=== PATIENT | male | born 1950 | race Caucasian/White ===

== ENCOUNTER → 2024-02-15 14:29 | Outpatient (REF) | payer OTHER, SELFPAY | LOC: HWRCS 14:29 | PROVIDERS: ATTENDING PHYSICIAN Internal Medicine Cardiovascular Disease; FAMILY PHYSICIAN Family Medicine | DX: I48.0 Paroxysmal atrial fibrillation (principal) | CPT/HCPCS: 93306 ==

== ENCOUNTER → 2024-02-16 07:43 | Outpatient (REF) | payer OTHER, SELFPAY | LOC: DHCBC/DCA 07:43 | PROVIDERS: ATTENDING PHYSICIAN Family Medicine | DX: I48.0 Paroxysmal atrial fibrillation (principal) | CPT/HCPCS: 78452; 93017; A9500 ==

== ENCOUNTER → 2024-02-16 12:00 | Outpatient (REF) | payer OTHER, SELFPAY | LOC: DHSLP 12:00 | PROVIDERS: ATTENDING PHYSICIAN Family Medicine | DX: G47.19 Other hypersomnia (principal); R06.83 Snoring | CPT/HCPCS: 95800 ==

== ENCOUNTER 2024-02-18 14:20 | Emergency (ER) | payer OTHER, SELFPAY ==
[2024-02-18 14:22] VITALS: BP 95/57
[2024-02-18 15:11] LABS: % Basophils 1.4 % (0-2); % Eosinophils 1.2 % (0-6); % Immature Granulocytes 0.3 % (0-0.5); % Lymphocytes 19.9 % (20.5-51.1); % Monocytes 10.2 % (1.7-9.3); Absolute Basophils 0.1 10^3/uL (0-0.2); Absolute Eosinophils 0.1 10^3/uL (0-0.7); Absolute Lymphocytes 1.5 10^3/uL (1.2-3.4); Absolute Monocytes 0.8 10^3/uL (0.1-0.6); Absolute Neutrophils 4.9 10^3/uL (1.4-6.5); Hematocrit 39.9 % (39.0-52.0); Mean Corp Hgb Conc. 35.1 g/dL (33.0-37.0); Mean Corpuscular Hgb 32.3 pg (27.0-31.0); Mean Corpuscular Volume 92.1 fL (80.0-94.0); Nucleated Red Blood Cells % 0 % (-); Platelet Count 192 10^3/uL (130-400); Red Blood Cell Count 4.33 10^6/uL (4.70-6.10); Red Cell Dist. Width 12.6 % (11.5-14.5); White Blood Cell Count 7.3 10^3/uL (4.8-10.8)
[2024-02-18 15:55] LABS: ALT (SGPT) 19 U/L (0-50); AST (SGOT) 31 U/L (17-59); Albumin 5.1 g/dl (3.5-5.0); Alkaline Phosphatase 43 U/L (38-126); Blood Urea Nitrogen 34 mg/dl (9-20); Carbon Dioxide 24 mmol/L (22-30); Chloride 100 mmol/L (98-107); Glucose 133 mg/dl (70-99); Sodium 138 mmol/L (135-145); Total Bilirubin 0.8 mg/dl (0.2-1.3); Total Protein 7.6 g/dl (6.3-8.2); eGFR > 60.00
[2024-02-18 16:02] VITALS: BP 127/78
--- NOTE | 2024-02-18 16:50 | ED.GENMED ---
History of Present Illness
General
Chief Complaint: Heart Rate Problem
Source: patient, records, spouse and physician
Exam Limitations: none
Time Seen by Provider: 02/18/24 15:57
Nursing documentation reviewed up to this point in time: agreed with
History of Present Illness
History of Present Illness:
Patient is a 73-year-old male who was sent in by cardiology after while he was doing a stress test for baseline measurement he went into atrial fibrillation spontaneously. Patient has a history of atrial fibrillation and is on propafenone. Patient
did not take his medicines yesterday or today. Patient was supposed to be n.p.o. for the stress test today. Patient now feels fine. Patient denies chest pain, shortness of breath or palpitations. Patient denies any GI or symptoms. Patient is
not anticoagulated because of his Parkinson's disease. Patient denies headache. Patient denies any fever or chills. While in the ER he spontaneously converted into atrial fibrillation. Patient was to receive IV fluids because of an elevated BUN
but wants to leave immediately.
Past History
Past History
ED Past Medical History: Arrthythmia (Atrial fibrillation), CAD, Cancer (Skin), GERD, HTN, Hypercholesterolemia and Other (Parkinson's)
ED Past Surgical History: Cardiac and Other
Social History
Tobacco: Former smoker
Alcohol: Daily
Personal:
Living: with family
Review of Systems
Review of Systems
All Other Systems: ROS reviewed and negative except as documented in HPI and ROS
Constitutional: Reports no symptoms
EENT: Reports no symptoms
Respiratory: Reports no symptoms
Cardiac: Reports no symptoms
ABD/GI: Reports no symptoms
: Reports no symptoms
Musculoskeletal: Reports no symptoms
Skin: Reports no symptoms
Neurological: Reports no symptoms
Hematologic/Lymphatic: Reports no symptoms
Phy Exam
Physical Exam
Physical Exam:
Physical Exam
General: No apparent distress, alert and appropriate, well nourished, well hydrated
HENT: Normocephalic, supple with no lymphadenopathy, no thyromegaly
Eyes: Clear sclera, conjuctiva without injection
Heart: Regular rhythm and rate. No S3, S4. No murmur. No NVD
Lungs: No respiratory distress, no stridor, lung sounds clear and equal bilaterally, chest wall symmetrical and nontender
Abdomen: Soft, nontender, no organomegaly, no CVA tenderness, BS good
Neuro: Alert and oriented x 3, CN II - XII intact, no motor focality
Skin: no rash
Psychiatric: well kept. interactive and cooperative
Extremities: No edema, cyanosis, tenderness, Good and equal peripheral pulses.
Scores
[id number] Score for Afib Stroke Risk
Age in Years (65=0, 65-74=1, >/=75=2): 65-74
Sex (Female=+1): Male
Congestive Heart Failure History (Yes=+1): No
Hypertension History (Yes=+1): Yes
Stroke/TIA/Thromboembolism History (Yes=+2): No
Vascular Disease History (Yes=+1): Yes
Diabetes Mellitus (Yes=+1): No
Score: 3
Anticoagulation Recommendations: Recommend anticoagulation (as validated in nonvalvular fib)
Course
Orders/Labs/Results
Orders:
Orders
02/18/24 14:26
Electrocardiogram (*1) Urgent
Reason for Study: Atrial Fibrillation
02/18/24 14:27
EKG- Treatment ONCE
02/18/24 14:48
Complete Blood Count/With Diff Urgent
Comprehensive Metabolic Panel Urgent
02/18/24 16:17
Electrocardiogram (*1) Urgent
Reason for Study: Atrial Fibrillation
EKG- Treatment ONCE
0.9% Sodium Chloride 500 ml [Nss] 500 ml IV BOLUS
Abnormal Lab Results
02/18/24
14:48
RBC 4.33 L 10^6/uL
(4.70-6.10)
MCH 32.3 H pg
(27.0-31.0)
MPV 11.0 H fL
(7.4-10.4)
Absolute Monos (auto) 0.8 H 10^3/uL
(0.1-0.6)
Lymphocytes % 19.9 L %
(20.5-51.1)
Monocytes % 10.2 H %
(1.7-9.3)
BUN 34 H mg/dl
(9-20)
Glucose 133 H mg/dl
(70-99)
Albumin 5.1 H g/dl
(3.5-5.0)
02/18/24 14:48
02/18/24 14:48
Vital Signs
Initial and Last Documented VS:
Initial Vital Signs
Temp Pulse Resp BP Pulse Ox
97.4 F 65 18 95/57 99
02/18/24 14:22 02/18/24 14:22 02/18/24 14:22 02/18/24 14:22 02/18/24 14:22
Last Documented Vital Signs
Temp Pulse Resp BP Pulse Ox
97.4 F 94 14 127/78 100
02/18/24 14:22 02/18/24 16:15 02/18/24 16:15 02/18/24 16:02 02/18/24 16:15
*Radiology
Radiology exam reviewed: other (Not applicable)
*Pulse Oximetry
Patient hypoxic: no
*EKG
Interpreted by ED Provider?: Yes
EKG Intrepretation Date: 02/18/24
EKG Intrepretation Time: 16:57
Interpretation: abnormal
Comparison EKG: changes noted
Heart Rate: 122
Rate: tachycardiac
Rhythm: a-fib
[place]: normal axis
Interval: normal QT interval
QRS Pattern: normal QRS
Ischemia: non-specific ST changes
*Kicking Machine Operator Interpretation
Rate: normal
Interpretation: normal
Heart Rate: 96
Rhythm: sinus
*Critical Care Note
Total Time (30-74mins, 75-104mins- exclusive of procedures): Not Applicable
Update Note
Update Note:
Obtain converted while waiting to see me. Repeat EKG normal sinus rhythm at a rate of 88 and the rest of the EKG is unremarkable. Spoke with cardiology and will follow-up in office.
ED Attending Note
-
Portions of this chart may have been created with voice recognition software.� Occasional wrong word or��sound alike� substitutions may have occurred due to the inherent limitations of voice recognition software.
Discharge Plan
Departure
Patient Disposition: Home (Routine Discharge)
Date of Disposition: 02/18/24
Time of Disposition: 16:58
Patient with high blood pressure during this ER visit?: No
Condition: Fair
Covid-19: Not Applicable
Discharge Problem:
Paroxysmal A-fib
Instructions: Atrial Fibrillation (DC)
Prescriptions:
No Action
aspirin 81 mg Tablet,Delayed Release (Dr/Ec)
81 mg PO DAILY
propafenone 150 mg Tablet
150 mg PO TID
pravastatin 80 mg Tablet
80 mg PO HS
carbidopa-levodopa 25-100 mg Tablet
1 tab PO TID
polyethylene glycol 3350 [Miralax] 17 gram/dose powder
17 g PO DAILYPRN PRN (Reason: constipation)
Referrals:
Bony Andrews MD [Family Provider] - Follow up in 2-3 days
Activity Restrictions/Additional Instructions:
Your hvac journeyman will contact you. In the meantime make sure to take your medications as prescribed.
Interventions
Interventions:
*Risk Screen - Suicide Last Done: 02/18/24 14:22
*General Assessment Last Done: 02/18/24 14:22
*Neglect/Abuse Screening Last Done: 02/18/24 16:07
*ED COVID-19 Vaccine History Last Done: 02/18/24 14:22
ED- Cardiac Assessment Last Done: 02/18/24 16:07
ED- Pulmonary Assessment Last Done: 02/18/24 16:07
Discharge Date and Time
Print Language: FINNISH
== END 2024-02-18 17:21 | disposition home or self-care (01) ==
LOC: EMR 14:20
PROVIDERS: EMERGENCY PHYSICIAN Emergency Medicine; FAMILY PHYSICIAN Family Medicine
DX: I48.0 Paroxysmal atrial fibrillation (principal); G20.A1 Parkinson's disease without dyskinesia, without mention of fluctuations; I25.10 Atherosclerotic heart disease of native coronary artery without angina pectoris; E78.00 Pure hypercholesterolemia, unspecified; I10 Essential (primary) hypertension; K21.9 Gastro-esophageal reflux disease without esophagitis; Z85.828 Personal history of other malignant neoplasm of skin; Z87.891 Personal history of nicotine dependence; Z79.899 Other long term (current) drug therapy
CPT/HCPCS: 99284; 80053; 85025; 93005

== ENCOUNTER → 2024-04-04 07:04 | Outpatient (REF) | payer OTHER, SELFPAY | LOC: HWRCS 07:04 | PROVIDERS: ATTENDING PHYSICIAN Internal Medicine Cardiovascular Disease; FAMILY PHYSICIAN Family Medicine | DX: I25.10 Atherosclerotic heart disease of native coronary artery without angina pectoris (principal) | CPT/HCPCS: 78452; 93017; A9500; J2785 ==

== ENCOUNTER → 2024-08-24 17:42 | Outpatient (REF) | payer OTHER, SELFPAY | LOC: RAD 17:42 | PROVIDERS: ATTENDING PHYSICIAN Family Medicine | DX: R63.4 Abnormal weight loss (principal) | CPT/HCPCS: 74177; Q9967 ==

== ENCOUNTER → 2024-09-01 15:23 | Outpatient (REF) | payer OTHER, SELFPAY | LOC: RAD 15:23 | PROVIDERS: ATTENDING PHYSICIAN Family Medicine | DX: R93.89 Abnormal findings on diagnostic imaging of other specified body structures (principal); R63.4 Abnormal weight loss | CPT/HCPCS: 71260; Q9967 ==

== ENCOUNTER 2024-09-09 09:33 | Emergency (ER) | payer OTHER, SELFPAY ==
[2024-09-09 09:34] VITALS: BMI 19.2
[2024-09-09 09:38] VITALS: BP 106/68
[2024-09-09 10:00] VITALS: BP 142/82
[2024-09-09 10:08] VITALS: BP 142/82
[2024-09-09 10:24] LABS: % Basophils 1.3 % (0-2); % Eosinophils 2.7 % (0-6); % Immature Granulocytes 0.2 % (0-0.5); % Lymphocytes 18.8 % (20.5-51.1); % Monocytes 13.7 % (1.7-9.3); % Neutrophils 63.3 % (42.2-75.2); Absolute Basophils 0.1 10^3/uL (0-0.2); Absolute Eosinophils 0.2 10^3/uL (0-0.7); Absolute Lymphocytes 1.1 10^3/uL (1.2-3.4); Absolute Monocytes 0.8 10^3/uL (0.1-0.6); Absolute Neutrophils 3.8 10^3/uL (1.4-6.5); Hemoglobin 12.7 g/dL (13.0-18.0); Mean Corp Hgb Conc. 34.3 g/dL (33.0-37.0); Mean Corpuscular Hgb 31.4 pg (27.0-31.0); Mean Corpuscular Volume 91.6 fL (80.0-94.0); Mean Platelet Volume 10.8 fL (7.4-10.4); Nucleated Red Blood Cells % 0 % (-); Platelet Count 173 10^3/uL (130-400); Red Blood Cell Count 4.04 10^6/uL (4.70-6.10); Red Cell Dist. Width 12.9 % (11.5-14.5)
--- NOTE | 2024-09-09 10:24 | ED.GENMED ---
History of Present Illness
General
Chief Complaint: Change in Mental Status
Time Seen by Provider: 09/09/24 10:14
History of Present Illness
History of Present Illness:
Patient is a 74-year-old male with past medical history of Parkinson's, atrial fibrillation, CAD, hyperlipidemia, and GERD, here today with for evaluation of near syncopal/syncopal episodes that have been occurring over the past couple of
weeks. Patient currently resides at home with his . There is no assistance in the home including caregivers or nurses. states over the past several weeks the patient has had approximately 3 episodes of the near syncopal/syncopal
episodes. They typically begin with a blank stare followed by the patient beginning to fall over. All 3 of the episodes were witnessed and the patient was caught without falling. No head trauma. No associated chest pain or difficulty breathing.
states the patient has never completely lost consciousness. Episodes typically last several seconds and then self resolve and patient comes to his normal baseline shortly after. He has also had a recently decreased appetite but no other acute
complaints. No fevers. No chest pain or difficulty breathing. No other acute complaints. No seizure-like activity noted. No tongue biting. He does have baseline urinary incontinence that occurs intermittently but no changes related to this.
Past History
Past History
ED Past Medical History: Arrthythmia (Atrial fibrillation), CAD, Cancer (Skin), GERD, HTN, Hypercholesterolemia and Other (Parkinson's)
ED Past Surgical History: Cardiac and Other
Social History
Tobacco: Former smoker
Alcohol: Daily
Personal:
Living: with family
Review of Systems
Review of Systems
All Other Systems: ROS reviewed and negative except as documented in HPI and ROS
Phy Exam
Physical Exam
Physical Exam:
GENERAL: Alert , in no apparent distress
EYE: pupils equal and reactive
NECK: Supple, no significant adenopathy.
ENT: o/p clr, mmm.
CARDIAC: Regular rate and rhythm .
LUNGS: Clear breath sounds bilaterally, no acute respiratory distress, no wheezes/rales/rhonchi
ABDOMEN: Soft, without focal tenderness, no r/g, no cvat
NEUROLOGICAL: Alert and oriented, no focal neuro deficits, cranial nerves II through XII intact, moving all extremities, normal sensation and motor, tremulous at baseline secondary to Parkinson's
SKIN: Warm and dry, skin intact.
MUSCULOSKELETAL: No edema, well perfused.
PSYCH: Normal and appropriate interaction.
Course
Orders/Labs/Results
Orders:
Orders
09/09/24 10:16
Basic Metabolic Panel Urgent
Complete Blood Count/With Diff Urgent
09/09/24 10:28
CT Head W/o Iv Contrast Urgent
Comment:
Reason For Exam: near syncope/syncope
09/09/24 10:29
Electrocardiogram (*1) Urgent
Reason for Study: Syncope
EKG- Treatment ONCE
Orthostatic VS- Treatment ONCE
Urinalysis Reflex To Culture Urgent
Date Specimen was Collected: 09/09/24
Time Specimen was Collected: 10:27
Urine Microscopic Reflex Cult Urgent
09/09/24 11:17
Troponin I Urgent
09/09/24 11:26
Basic Metabolic Panel Stat
09/09/24 13:52
Case Management Consult ONCE
Case Management Consult: Other
VN/Home Care
Abnormal Lab Results
09/09/24 09/09/24 09/09/24
10:16 10:29 11:26
RBC 4.04 L 10^6/uL
(4.70-6.10)
Hgb 12.7 L g/dL
(13.0-18.0)
Hct 37.0 L %
(39.0-52.0)
MCH 31.4 H pg
(27.0-31.0)
MPV 10.8 H fL
(7.4-10.4)
Absolute Lymphs (auto) 1.1 L 10^3/uL
(1.2-3.4)
Absolute Monos (auto) 0.8 H 10^3/uL
(0.1-0.6)
Lymphocytes % 18.8 L %
(20.5-51.1)
Monocytes % 13.7 H %
(1.7-9.3)
BUN 45 H mg/dl 41 H mg/dl
(9-20) (9-20)
Glucose 105 H mg/dl
(70-99)
Urine Ketones 1+ A
(Negative)
Ur Occult Blood Reflex 3+ A
(Negative)
Urine RBC 11-15 A /HPF
(0-2)
Urine Bacteria (Reflex) Few A
(Negative)
Urine Albumin (Reflex) 1+ A
(Neg - Trace)
09/09/24 10:16
09/09/24 11:26
Vital Signs
Initial and Last Documented VS:
Initial Vital Signs
Temp Pulse Resp BP Pulse Ox
97.6 F 86 18 106/68 100
09/09/24 09:38 09/09/24 09:38 09/09/24 09:38 09/09/24 09:38 09/09/24 09:38
Last Documented Vital Signs
Temp Pulse Resp BP Pulse Ox
97.6 F 69 16 171/91 99
09/09/24 09:38 09/09/24 11:31 09/09/24 12:00 09/09/24 11:31 09/09/24 12:00
MDM/Problems Addressed
Differential Diagnosis Includes:
Patient is a 74-year-old male with past medical history of Parkinson's, atrial fibrillation, CAD, hyperlipidemia, and GERD, here today with for evaluation of near syncopal/syncopal episodes that have been occurring over the past couple of
weeks. Overall, patient appears well. Vitals grossly within normal limits aside from a mildly decreased blood pressure. Physical examination described above. We will begin with a workup. Will place on monitor.
09/09/2024 15:34: Screening labs reveal mild anemia with a hemoglobin of 12.7. BUN 41/creatinine 0.9. Urine with microscopic hematuria. Head CT negative. EKG nonischemic. Orthostatic vital signs positive. I recommended admission to the
hospital with cardiology and neurology consultation but patient declined. Risks discussed. Patient appears to have full capacity to make his own decisions at this time. Decision was made with patient's . Patient recommended to closely
follow-up with his primary care provider. He was given very strict return precautions for worsening symptoms. He voices understanding. All questions answered.
*Pulse Oximetry
SaO2: 100
Oxygen Mode of Delivery: Room air
Patient hypoxic: no
*Critical Care Note
Total Time (30-74mins, 75-104mins- exclusive of procedures): Not Applicable
ED Attending Note
-
Portions of this chart may have been created with voice recognition software.� Occasional wrong word or��sound alike� substitutions may have occurred due to the inherent limitations of voice recognition software.
Discharge Plan
Departure
Patient Disposition: Home (Routine Discharge)
Date of Disposition: 09/09/24
Time of Disposition: 14:49
Patient with high blood pressure during this ER visit?: Yes
Condition: Serious
Discharge Problem:
Near syncope, Orthostatic hypotension, Anemia, Hematuria
Instructions: Fainting in adults - ED discharge instructions
Prescriptions:
No Action
aspirin 81 mg Tablet,Delayed Release (Dr/Ec)
81 mg PO DAILY
propafenone 150 mg Tablet
150 mg PO TID
pravastatin 80 mg Tablet
80 mg PO HS
carbidopa-levodopa 25-100 mg Tablet
1 tab PO TID
polyethylene glycol 3350 [Miralax] 17 gram/dose powder
17 g PO DAILYPRN PRN (Reason: constipation)
glycopyrrolate 1 mg Tablet
1 mg PO DAILYPRN PRN (Reason: drooling)
escitalopram oxalate 10 mg Tablet
10 mg PO HS
Visbiome 112.5 billion cell Capsule
2 cap PO HS
Vitamin B3
1 tab PO DAILY@1400
cholecalciferol (vitamin D3)
1 tab PO DAILY@1400
vitamin K2
1 tab PO DAILY@1400
Referrals:
Bony Andrews MD [Family Provider, Family Practice] - Follow up in 2-3 days
Activity Restrictions/Additional Instructions:
Follow-up with your family doctor within the next 2 to 3 days for close reevaluation.
We also discussed following up with both cardiology and neurology for further testing and evaluation.
Return for any new, worsening, or concerning symptoms.
Interventions
Interventions:
*Risk Screen - Suicide Last Done: 09/09/24 09:38
*General Assessment Last Done: 09/09/24 09:38
*Neglect/Abuse Screening Last Done: 09/09/24 09:38
*ED- Fall Risk Assessment Last Done: 09/09/24 10:11
*Nursing Disposition Last Done: 09/09/24 14:53
ED- Neurological Assessment Last Done: 09/09/24 10:11
ED Swallowing Screen Last Done: 09/09/24 10:11
Discharge Date and Time
Discharge Date/Time: 09/09/24 14:54
Print Language: ARMENIAN
[2024-09-09 10:29] VITALS: BP 110/71; BP 148/109; BP 162/92; PULSE 69; PULSE 70; PULSE 80
[2024-09-09 10:30] VITALS: BP 157/87
[2024-09-09 10:40] LABS: Urine Albumin 1+ (Neg - Trace); Urine Bilirubin Negative (Negative); Urine Character Slightly Cloudy (Clear); Urine Color Yellow; Urine Glucose Negative (Negative); Urine Ketone 1+ (Negative); Urine Leukocyte Negative (Negative); Urine Nitrite Negative (Negative); Urine Occult Blood 3+ (Negative); Urine Urobilinogen 1+ (Neg - 1+)
[2024-09-09 10:56] LABS: Urine Hyaline Cast 0-2 /LPF (0-2); Urine Mucus Few
[2024-09-09 10:57] LABS: Urine White Cell 0-2 /HPF (0-5)
[2024-09-09 10:58] LABS: Urine Bacteria Few (Negative)
[2024-09-09 11:31] VITALS: BP 171/91
[2024-09-09 11:47] LABS: Troponin I < 0.012 ng/ml
[2024-09-09 12:10] LABS: Blood Urea Nitrogen 41 mg/dl (9-20); Calcium 9.3 mg/dl (8.4-10.2); Carbon Dioxide 26 mmol/L (22-30); Chloride 107 mmol/L (98-107); Estimated Creatinine Clearance 59 ml/min; Glucose 83 mg/dl (70-99); Sodium 137 mmol/L (135-145); eGFR > 60.00
[2024-09-09 12:14] LABS: Blood Urea Nitrogen 45 mg/dl (9-20); Carbon Dioxide 29 mmol/L (22-30); Chloride 104 mmol/L (98-107); Estimated Creatinine Clearance 59 ml/min; Glucose 105 mg/dl (70-99); Sodium 139 mmol/L (135-145); eGFR > 60.00
--- NOTE | 2024-09-09 15:09 | CM ---
CM consult, I met with pt and his bedside in ED. Pt's states pt is incontinent overnight, using several Depends, states she feels overwhelmed and needs assistance at home. Discussed private pay caregivers, she does not think they can
afford them.
Discussed referral to homecare, informed her insurance would cover that. Pt and his agreeable to [facility] referral. I notified Kalani at [facility].
Per Kalani, she spoke to pt's , she is not ready for VN referral at this time, might be taking [place] [facility].
She will reach out if she decides to use [facility].
--- NOTE | 2024-09-09 15:10 | VNURNOTE ---
Chart reviewed. Spoke with patient's spouse Kristyn. Explained [facility] services: short-term, intermittent, skilled. Explained homebound criteria. [place] Patient is homebound and does not go out of
the house. At time of call, spouse [place]decided [place] or stay in home in [place]. Explained to spouse that [facility] would only be able to see pt if he's is in [place]. Provided liaison contact number as well as [facility] office #.
Explained to spouse [place] [facility] [place] order from PCP. Spouse will call back w/a decision. [facility] Intake aware and will note in report. Update given to ER Kin[facility].
Referral placed in [facility], however, acceptance pending until spouse calls back
== END 2024-09-09 14:54 | disposition home or self-care (01) ==
LOC: EMR 09:33
PROVIDERS: Physician Assistant; EMERGENCY PHYSICIAN Emergency Medicine; FAMILY PHYSICIAN Family Medicine
DX: I95.1 Orthostatic hypotension (principal); D64.9 Anemia, unspecified; R31.9 Hematuria, unspecified; G20.A1 Parkinson's disease without dyskinesia, without mention of fluctuations; E78.00 Pure hypercholesterolemia, unspecified; I10 Essential (primary) hypertension; I25.10 Atherosclerotic heart disease of native coronary artery without angina pectoris; I48.91 Unspecified atrial fibrillation; Z87.891 Personal history of nicotine dependence
CPT/HCPCS: 99284; 70450; 80048; 81003; 81015; 84484; 85025; 93005

== ENCOUNTER 2024-10-16 18:52 | Inpatient (IN) | payer OTHER, SELFPAY ==
[2024-10-16] VITALS (9 sets, daily range): BP systolic 109–159; BP diastolic 67–108; BMI 18.3; BMI 17.6
--- NOTE | 2024-10-16 13:26 | ED.GENMED ---
History of Present Illness
General
Chief Complaint: Change in Mental Status
Source: patient
Exam Limitations: none
Time Seen by Provider: 10/16/24 13:05
History of Present Illness
History of Present Illness:
74-year-old male with history of Parkinson's presents with increasing generalized weakness and confusion. He was found to have a urinary tract infection at [facility] last week and was started on antibiotics, Bactrim, 5 days ago. They
stopped the Bactrim last night as they felt that this was making him more confused. Last night he was reaching for objects that were not there and seeing people that were not there. His sons are now carrying them around as he cannot walk due to
his weakness. They also note that he has not had a bowel movement in about a week. He denies any new pain. Of note, one of his falls he sustained prior to being diagnosed with a urinary tract infection resulted in left 8th, 9th and 10th rib
fractures. They performed a CT of his head at that point after the fall which was negative for acute finding.
Past History
Past History
ED Past Medical History: Arrthythmia (Atrial fibrillation), CAD, Cancer (Skin), GERD, HTN, Hypercholesterolemia and Other (Parkinson's)
ED Past Surgical History: Cardiac and Other
Social History
Tobacco: Former smoker
Alcohol: Daily
Personal:
Living: with family
Phy Exam
Physical Exam
Physical Exam:
General: Well-appearing male no acute respiratory distress
HEENT normocephalic healing abrasions noted to the nose and upper
Heart: Regular rate and rhythm
Lungs: Clear no wheeze
Abdomen is soft mildly tender to the left side of the abdomen no guarding nondistended
Extremities: No cyanosis
Neurologic exam: Alert oriented to person and place. Tremor noted consistent with history of Parkinson's flat affect
Course
Orders/Labs/Results
Orders:
Orders
10/16/24 13:25
CT Abd/pelvis W Iv Cont Urgent
Comment:
Reason For Exam: constiapation, pain
CT Head W/o Iv Contrast Urgent
Comment:
Reason For Exam: confusion
CR Chest - 2 Views Urgent
Comment:
Reason For Exam: weakness
10/16/24 13:48
Basic Metabolic Panel Urgent
Complete Blood Count/With Diff Urgent
Urinalysis Reflex To Culture Urgent
Date Specimen was Collected: 10/16/24
Time Specimen was Collected: 13:42
Urine Microscopic Reflex Cult Urgent
10/16/24 17:43
0.9% Sodium Chloride 1000 ml [Nss] 1,000 ml IV BOLUS
Piperacillin/Tazo 3.375 Gram [Zosyn] 3.375 gram in 50 ml IV NOW
Abnormal Lab Results
10/16/24
13:48
RBC 3.85 L 10^6/uL
(4.70-6.10)
Hgb 11.9 L g/dL
(13.0-18.0)
Hct 33.7 L %
(39.0-52.0)
MPV 10.5 H fL
(7.4-10.4)
Absolute Lymphs (auto) 1.0 L 10^3/uL
(1.2-3.4)
Absolute Monos (auto) 1.0 H 10^3/uL
(0.1-0.6)
Lymphocytes % 13.8 L %
(20.5-51.1)
Monocytes % 13.2 H %
(1.7-9.3)
Sodium 131 L mmol/L
(135-145)
BUN 27 H mg/dl
(9-20)
Urine Ketones 2+ A
(Negative)
Ur Occult Blood Reflex 3+ A
(Negative)
Urine RBC 3-6 A /HPF
(0-2)
Urine Bacteria (Reflex) Few A
(Negative)
10/16/24 13:48
10/16/24 13:48
Vital Signs
Initial and Last Documented VS:
Initial Vital Signs
Temp Pulse Resp BP Pulse Ox
97.8 F 84 18 109/67 96
10/16/24 12:26 10/16/24 12:26 10/16/24 12:26 10/16/24 12:26 10/16/24 12:26
Last Documented Vital Signs
Temp Pulse Resp BP Pulse Ox
97.8 F 80 16 141/108 97
10/16/24 12:26 10/16/24 17:00 10/16/24 17:00 10/16/24 17:00 10/16/24 16:15
MDM/Problems Addressed
Differential Diagnosis Includes:
Patient with family who states the patient is confused, hallucinating and generally weak worse after starting Bactrim for a UTI last week. Differential could include adverse reaction to Bactrim versus electrolyte abnormality versus worsening
infection or worsening Parkinson's
Check labs urinalysis CT of abdomen and x-ray of chest as well as CT of the head
*Pulse Oximetry
SaO2: 96
Oxygen Mode of Delivery: Room air
Patient hypoxic: no
*Critical Care Note
Total Time (30-74mins, 75-104mins- exclusive of procedures): Not Applicable
Update Note
Update Note:
Patient reevaluated. Still somewhat off. Workup suggest negative CT of head but he has constipation causing sterile coral colitis of the rectum. Urinalysis without worrisome's findings of infection. Spoke with family again. Given change in
mental status, weakness, colitis will keep in hospital. Fluids and Zosyn ordered
ED Attending Note
-
Portions of this chart may have been created with voice recognition software.� Occasional wrong word or��sound alike� substitutions may have occurred due to the inherent limitations of voice recognition software.
Discharge Plan
Departure
Patient Disposition: Admit
Date of Disposition: 10/16/24
Time of Disposition: 17:51
Presentation/result/management discussed w/ accepting MD/DO: Hospitalist
Discharge Problem:
Encephalopathy acute, Stercoral colitis
Prescriptions:
No Action
aspirin 81 mg Tablet,Delayed Release (Dr/Ec)
81 mg PO DAILY
propafenone 150 mg Tablet
150 mg PO TID
pravastatin 80 mg Tablet
80 mg PO HS
carbidopa-levodopa 25-100 mg Tablet
1 tab PO TID
polyethylene glycol 3350 [Miralax] 17 gram/dose powder
17 g PO DAILYPRN PRN (Reason: constipation)
glycopyrrolate 1 mg Tablet
1 mg PO DAILYPRN PRN (Reason: drooling)
escitalopram oxalate 10 mg Tablet
10 mg PO HS
Visbiome 112.5 billion cell Capsule
2 cap PO HS
Vitamin B3
1 tab PO DAILY@1400
cholecalciferol (vitamin D3)
1 tab PO DAILY@1400
vitamin K2
1 tab PO DAILY@1400
Referrals:
Bony Andrews MD [Family Provider, Family Practice]
Interventions
Interventions:
*Risk Screen - Suicide Last Done: 10/16/24 12:28
*General Assessment Last Done: 10/16/24 12:28
*Neglect/Abuse Screening Last Done: 10/16/24 12:28
ED- Pulmonary Assessment Last Done: 10/16/24 14:04
ED- Neurological Assessment Last Done: 10/16/24 14:04
ED Swallowing Screen Last Done: 10/16/24 14:04
Discharge Date and Time
Print Language: INDONESIAN
[2024-10-16 14:04] LABS: Hematocrit 33.7 % (39.0-52.0); Hemoglobin 11.9 g/dL (13.0-18.0); Mean Corp Hgb Conc. 35.3 g/dL (33.0-37.0); Mean Corpuscular Volume 87.5 fL (80.0-94.0); Nucleated Red Blood Cells % 0 % (-); Platelet Count 233 10^3/uL (130-400); Red Cell Dist. Width 13.0 % (11.5-14.5)
[2024-10-16 14:21] LABS: Urine Character Clear (Clear)
[2024-10-16 14:25] LABS: Blood Urea Nitrogen 27 mg/dl (9-20); Calcium 9.2 mg/dl (8.4-10.2); Carbon Dioxide 26 mmol/L (22-30); Chloride 100 mmol/L (98-107); Estimated Creatinine Clearance 44 ml/min; Glucose 92 mg/dl (70-99); Sodium 131 mmol/L (135-145); eGFR > 60.00
[2024-10-16 14:28] LABS: Urine Squamous Cell 0-2 /LPF (Few); Urine White Cell 0-2 /HPF (0-5)
[2024-10-16] MEDS: NSS 1000 IV ×2 (17:46→21:35)
[2024-10-16] MEDS: ZOSYN 50 IV (18:13)
--- NOTE | 2024-10-16 18:52 | HPS.HSE ---
Family Physician
-
Family Physician: Bony Andrews
Chief Complaint
-
Encephalopathy
History of Present Illness
Mr. Tavares is a 74-year-old male with medical history of CAD (status post stents x 2 in 12/2012), A-fib, hypertension, inguinal hernia repair, and Parkinson's disease who presented with progressive confusion and hallucinations. He was brought in
by his and 2 sons who are at bedside and able to contribute to the HPI. [place] at his baseline a week ago. However he then began to become increasingly confused and suffered multiple falls. He
abraded his nose during the first fall at the top of the stairs after ascending the staircase. During his second fall a day or 2 later he fell backwards when attempting to begin ascending a staircase and hit the left side of his back on the hard
edge of the couch. He was seen at [facility] (formerly [facility]), diagnosed with multiple posterior left rib fractures and a urinary tract infection, and discharged on Bactrim. Since that time family reports he has clinically worsened which is why he now
seeks medical treatment in our emergency department.
In the ED today, he was normotensive, afebrile, and saturating appropriately on room air. His labs were remarkable for a mild hyponatremia with a sodium of 131, and a urinalysis showing occult blood and RBCs and few bacteria. CT imaging of his
brain showed no acute abnormalities. Chest imaging redemonstrated acute appearing left posterior rib fractures with no evidence of pneumothorax. CT imaging of his abdomen pelvis showed large stool burden with probable developing stercoral colitis.
He was started on antibiotics with Zosyn and admitted for further evaluation and management of metabolic encephalopathy likely secondary to urinary tract infection and possible stercoral colitis.
Medical History
Past Medical History
Past Medical History: Reports Other
Additional Past Medical History:
Parkinson's disease, A-fib, CAD, skin cancer
Past Surgical History: Reports Other
Additional Past Surgical History:
Right inguinal hernia repair, cardiac stents x2 12/2012
Social History
Unable to obtain full social history at this time due to: Acuity
Tobacco: Former Smoker
Alcohol: Daily
Personal:
Living: With Family
Family History
Family History: Not pertinent
Allergies / Home Medications
Allergies reflects when Allergies were last updated in [facility].
Home Medications with original date entered in [facility]
Allergy/Medication List:
Allergies
Allergy/AdvReac Type Severity Reaction Status Date / Time
Penicillins Allergy Unknown Verified 10/16/24 12:26
Home Medications
aspirin 81 mg tablet,delayed release 81 mg PO DAILY 03/17/23
carbidopa 25 mg-levodopa 100 mg tablet 1 tab PO TID 03/17/23
pravastatin 80 mg tablet 80 mg PO HS 03/17/23
propafenone 150 mg tablet 150 mg PO TID 03/17/23
polyethylene glycol 3350 17 gram/dose oral powder (Miralax) 17 g PO DAILYPRN PRN constipation 02/18/24
Lactobac no.2-Bifidobac no.1-S. thermo 112.5 billion cell capsule (Visbiome) 2 cap PO HS 09/09/24
Vitamin B3 1 tab PO DAILY@1400 09/09/24
cholecalciferol (vitamin D3) 1 tab PO DAILY@1400 09/09/24
escitalopram oxalate 10 mg tablet 10 mg PO HS 09/09/24
glycopyrrolate 1 mg tablet 1 mg PO DAILYPRN PRN drooling 09/09/24
vitamin K2 1 tab PO DAILY@1400 09/09/24
Review of Systems
-
Unable to obtain full review of systems at this time due to: Acuity
History Source: Patient
A 12 point ROS was completed and negative except as noted: Yes
Musculoskeletal: Reports Joint Pain (Left posterior rib pain)
Physical Exam
Vital Signs
Vital Signs
Temp Pulse Resp BP Pulse Ox
97.8 F 80 16 141/108 97
10/16/24 12:26 10/16/24 17:00 10/16/24 17:00 10/16/24 17:00 10/16/24 16:15
Physical Exam
General: No Apparent Distress
Laboratory Results
-
10/16/24 13:48
10/16/24 13:48
Laboratory Results
Total Bilirubin Cancelled 10/16/24 13:48
AST Cancelled 10/16/24 13:48
ALT Cancelled 10/16/24 13:48
Alkaline Phosphatase Cancelled 10/16/24 13:48
Impression/Plan
-
General: No Apparent Distress, Comfortable and Conversant
HEENT: NormoCephalic, Moist mucous membranes, mild abrasion on distal nose and philtrum
Respiratory: Clear and Non Labored Respirations
Cardiac: S1/S2 and Regular Rhythm; No Rub or Gallop
GI: Soft, Non Tender, Non Distended and Normal Bowel Sounds
Musculoskeletal: No Edema, no deformity, decreased muscle bulk throughout, minor abrasions left posterior ribs
Skin: Warm and dry
: NO Lai
Neuro: Awake, Alert, mild tremor
Psych: Calm and cooperative
Mr. Tavares is a 74-year-old male with medical history of CAD (status post stents x 2 in 12/2012), A-fib, hypertension, inguinal hernia repair, and Parkinson's disease who presented with progressive confusion and hallucinations. He was brought in
by his and 2 sons who are at bedside and able to contribute to the HPI. [place] the patient was at his baseline a week ago. However he then began to become increasingly confused and suffered multiple falls. He
abraded his nose during the first fall at the top of the stairs after ascending the staircase. During his second fall a day or 2 later he fell backwards when attempting to begin ascending a staircase and hit the left side of his back on the hard
edge of the couch. He was seen at [facility] (formerly [facility]), diagnosed with multiple posterior left rib fractures and a urinary tract infection, and discharged on Bactrim. Since that time family reports he has clinically worsened which is why he now
seeks medical treatment in our emergency department.
In the ED today, he was normotensive, afebrile, and saturating appropriately on room air. His labs were remarkable for a mild hyponatremia with a sodium of 131, and a urinalysis showing occult blood and RBCs and few bacteria. CT imaging of his
brain showed no acute abnormalities. Chest imaging redemonstrated acute appearing left posterior rib fractures with no evidence of pneumothorax. CT imaging of his abdomen pelvis showed large stool burden with probable developing stercoral colitis.
He was started on antibiotics with Zosyn and admitted for further evaluation and management of metabolic encephalopathy likely secondary to urinary tract infection and possible stercoral colitis.
Acute metabolic encephalopathy:
- Suspect multifactorial with urinary tract infection and probable stercoral colitis in addition to reported Parkinson's related decline per family
- CT brain with no acute abnormalities
- Check TSH
- Continue antibiotics with Zosyn for now, follow-up cultures
- IV fluids
- Milk and molasses enema for stool burden with probable stercoral colitis, continue scheduled bowel regimen
- PT/OT considering Parkinson's disease with multiple falls and reported recent decline
- Minced and moist diet for now, [employer] evaluation
Parkinson's disease:
- Family reports no recent change in the patient's Sinemet regimen, although reports she is currently looking for a second opinion from another neurologist, I suspect this patient would benefit from advancement of his Sinemet regimen
- According to the patient's he [place] the past 2 weeks prior to this acute decline
- Recommend ambulating only with assistance for now with PT/OT evaluation, family is amenable to SNF if recommended
- If no improvement in clinical status with above-mentioned treatment would consider involving neurology as inpatient
A-fib:
- Chronic, stable
- Continue home propafenone
- Does not appear to be on anticoagulation currently which is likely appropriate considering multiple falls
CAD:
- Chronic, stable, history of stents x 2
- Continue aspirin and statin
DVT prophylaxis: Lovenox
CODE STATUS: Full code
Total time spent on today's encounter was 60 minutes
[2024-10-16] MEDS: RYTHMOL 150 MG PO (21:38)
[2024-10-16] MEDS: SINEMET 25-100 1 TABLET PO (21:46)
[2024-10-16] MEDS: LEXAPRO 10 MG PO (21:46)
[2024-10-16] MEDS: SENOKOT-S 1 TABLET PO (21:46)
[2024-10-17] MEDS: PRAVACHOL 80 MG PO ×2 (00:07→21:21)
[2024-10-17] MEDS: MELATONIN 5 MG PO (00:07)
[2024-10-17] MEDS: ZOSYN 50 IV ×4 (01:48→23:39)
--- NOTE | 2024-10-17 04:46 | TRANSFER ---
Pt transferred to 3W from ED. Pulled from stretcher to bed. Pt AAOx1 disoriented to time and place. and 2 sons at bedside, states she is spending the night. Pt and oriented to room, call gallardo within reach, plan of care ongoing.
--- NOTE | 2024-10-17 04:48 | PTCARENOTE ---
Pt given 375ml of milk of magnesia enema while laying on left side. Pt able to retain, after 15 min Pt had a moderate BM and states he feels relief.
[2024-10-17 06:30] LABS: Hematocrit 33.8 % (39.0-52.0); Hemoglobin 11.9 g/dL (13.0-18.0); Mean Corp Hgb Conc. 35.2 g/dL (33.0-37.0); Mean Corpuscular Volume 87.6 fL (80.0-94.0); Nucleated Red Blood Cells % 0 % (-); Platelet Count 238 10^3/uL (130-400); Red Cell Dist. Width 12.9 % (11.5-14.5)
[2024-10-17 06:49] LABS: Blood Urea Nitrogen 21 mg/dl (9-20); Calcium 9.5 mg/dl (8.4-10.2); Carbon Dioxide 25 mmol/L (22-30); Chloride 103 mmol/L (98-107); Estimated Creatinine Clearance 39 ml/min; Glucose 105 mg/dl (70-99); Potassium 4.6 mmol/L (3.5-5.1); Sodium 134 mmol/L (135-145); eGFR 58.01
[2024-10-17 07:31] VITALS: BP 120/77
--- NOTE | 2024-10-17 07:33 | W.PN.HOSP.TC ---
Today's Communication/Plan
-
see a/p
Assessment / Plan
Assessment / Plan
Physical Exam
General: No Apparent Distress, Comfortable and Conversant
HEENT: NormoCephalic, Moist mucous membranes, mild abrasion on distal nose and philtrum
Respiratory: Clear and Non Labored Respirations
Cardiac: S1/S2 and Regular Rhythm; No Rub or Gallop
GI: Soft, Non Tender, Non Distended and Normal Bowel Sounds
Musculoskeletal: No Edema, no deformity, decreased muscle bulk throughout, minor abrasions left posterior ribs
Skin: Warm and dry
Neuro: AOx2 disoriented to time, mild resting tremor noted with cogwheel rigidity upper ext's
Psych: Calm and cooperative though confused with some visual hallucinations noted
74M CAD (status post stents x 2 in 12/2012), Afib, HTN, Inguinal Hernia Repair, Parkinson's disease p/w progressive confusion/hallucinations falls for the last week, brought in by family. He was seen at [facility], diagnosed with
multiple posterior left rib fractures and a urinary tract infection, and discharged on Bactrim. Confusion however worsen prompting visit here. On ED eval, he was normotensive, afebrile, and stable resp status room air. Urinalysis noted occult
blood, RBCs, and few bacteria. CT Head noted no acute abnormalities. Chest imaging re-demonstrated acute appearing left posterior rib fractures with no evidence of pneumothorax. CT imaging of his abdomen pelvis showed large stool burden with
probable developing stercoral colitis. He was started on antibiotics with Zosyn and admitted for further evaluation and management of metabolic encephalopathy, suspect secondary to urinary tract infection and possible stercoral colitis.
Acute metabolic encephalopathy
Visual Hallucinations
- Suspect multifactorial with urinary tract infection and probable stercoral colitis in addition to reported Parkinson's related decline per family
- CT brain with no acute abnormalities
- TSH mild elevated with free T4 wnl
- Continue antibiotics with Zosyn for now, follow-up cultures
- IV fluids
- received Milk and molasses enema for stool burden with probable stercoral colitis, continue scheduled bowel regimen
- PT/OT considering Parkinson's disease with multiple falls and reported recent decline
- Speech eval appreciated soft bite sized diet
-ID eval
-Psych eval
Parkinson's disease
- Family reports no recent change in the patient's Sinemet regimen
- follows with neurologist Dr Santana at [place]
- According to the patient's he was able to ambulate on his own within the past 2 weeks prior to this acute decline
- PT/OT eval
A-fib:
- Chronic, stable
- Continue home propafenone
- Does not appear to be on anticoagulation currently which is likely appropriate considering multiple falls
CAD:
- Chronic, stable, history of stents x 2
- Continue aspirin and statin
DVT prophylaxis: Lovenox
CODE STATUS: Full code
Discussed with patient, patient's Kristyn, and Daughter Marilyn
I spent a total of 50 minutes with the patient or on the floor. More than 50% of this time involved counseling and coordination of care.
Anticipated Discharge: 24 - 48 hours
Subjective/Interval History
-
Date of Service: October 17, 2024
AOx2 disoriented to time. Confused with some visual hallucinations noted, had trouble accurately reporting number of people in room. Kristyn and Daughter Olesya present during evaluation.
Objective Data
-
Labs:
Laboratory Results
10/17/24
05:51
WBC 10.8
Hgb 11.9 L
Hct 33.8 L
Plt Count 238
Sodium 134 L
Potassium 4.6
Chloride 103
Carbon Dioxide 25
BUN 21 H
Creatinine 1.3
Glucose 105 H
Calcium 9.5
Vital Signs:
Vital Signs
Temp Pulse Resp BP Pulse Ox
98.1 F 102 16 120/77 95
10/17/24 07:31 10/17/24 07:31 10/17/24 07:31 10/17/24 07:31 10/17/24 07:31
[2024-10-17] MEDS: RYTHMOL 150 MG PO ×3 (09:07→21:21)
[2024-10-17] MEDS: SENOKOT-S 1 TABLET PO (09:07)
[2024-10-17] MEDS: SINEMET 25-100 1 TABLET PO ×3 (09:07→21:21)
[2024-10-17] MEDS: LOW STRENGTH ASPIRIN 81 MG PO (09:17)
[2024-10-17 11:04] LABS: ALT (SGPT) < 10 U/L (0-50); AST (SGOT) 31 U/L (17-59); Albumin 3.9 g/dl (3.5-5.0); Alkaline Phosphatase 62 U/L (38-126); Total Protein 6.4 g/dl (6.3-8.2)
[2024-10-17 11:07] LABS: Ammonia < 9 umol/L (9-30)
[2024-10-17 12:18] VITALS: BP 110/72; BP 79/60; BP 90/56
[2024-10-17 12:19] VITALS: BP 110/72; BP 79/60; O2SAT 98
[2024-10-17] MEDS: NSS 1000 IV ×2 (12:24→21:30)
[2024-10-17 14:47] VITALS: BMI 17.6
--- NOTE | 2024-10-17 15:12 | CS.PSYCHR ---
Consult Summary - Psychiatry
-
Pt is a 74 yo male with hx of CAD S/P stents x 2 in 12/2012, A-fib, hypertension, and Parkinson's disease who presented with recent onset of confusion and visual hallucinations. Pt was brought in by his and 2 sons who reported pt was at his
baseline a week ago, usually oriented, socializing, doing activities. One week ago became confused and had 2 significant falls. He abraded his nose with the first fall; the second time pt fell backwards when trying to go upstairs, landed with the
left side of his back on the hard edge of the couch. He was seen at [facility] ([facility]), diagnosed with multiple posterior left rib fractures and a urinary tract infection, and discharged on Bactrim. Family reported pt seems more
confused/worse. CT head showed no acute abnormalities. CT abdomen showed large stool burden, likely stercoral colitis.
Pt seen with present, who states he is not at all at baseline, very confused, did not recognize her on admission. Pt making eye contact, alert, giving rambling responses about his past working at [employer]. Pt reaching out at times for things
not there. notes pt has been low-motivation, sleeping too much recently. Pt was in a Parkinson's fitness program, but cut back on the activities. PCP prescribed Lexapro, started at 5 mg HS, was increased to 10 mg HS about one month ago;
reports no clear benefit.
Psych Hx: denied
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
MSE: alert, mildly restless, trying to get out of chair, making eye contact. Rambling responses, not oriented. Able to identify his . Reaching for things on table that are not there at times. Insight limited/impaired
Imp: Delirium, most likely related to recent UTI. Parkinson's dz, reportedly cognitive intact at baseline per
Rec: Will try tapering Lexapro back to 5 mg daily- change to daytime. Will hold off additional psychotropic medications for now.
If agitation becomes an issue, would consider low dose of Seroquel. Will follow
[2024-10-17 15:51] VITALS: BP 112/70
--- NOTE | 2024-10-17 16:40 | PTOTSP ---
Speech Therapy Evaluation:
Pt presents with signs concerning for at least mild oropharyngeal dysphagia, likely acute on chronic related to hx of Parkinson's, compounded by acute metabolic encephalopathy in the setting of UTI/Colitis. Pt with difficulty pulling liquid from
straw. Retrieval improved with cup sips, however pt required ROSTER CLERK assistance due to tremors. No overt s/sx of aspiration across session, however pt presented with intermittent wet vocal quality with and without PO intake. Pt able to clear vocal
quality with cued throat clear. Given CXR without pneumonia, WBC WNL, and pt on room air, recommend to continue oral diet.
Recommend:
1. Cautiously continue oral diet of soft and bite sized solids and thin liquids via cup
2. Medications crushed in puree
3. Strict aspiration precautions: Intermittent throat clear if vocal quality wet
4. 1:1 assistance and supervision with all PO intake
5. Low threshold to d/c oral diet and for instrumental study if worsening in respiratory status/chest imaging.
6. ROSTER CLERK to follow
[2024-10-17] MEDS: LOVENOX 40 MG SC (17:27)
--- NOTE | 2024-10-17 17:54 | CON.ID ---
Consultation
-
Date/Time Consultation Requested: 10/17/24
Date/Time Consultation Performed: 10/17/24
Requesting Provider: Dr Khan
Performing Provider: Dr Supriya Parks
Reason for Consultation: Stercoral colitis
Chief Complaint / Past History
Chief Complaint
altered mental status with new frequent falls at home
History of Present Illness
The patient has a history of Parkinson's disease according to the for approximately 2+ years. The patient has been under careful evaluation and has been followed up with recent new findings of forgetfulness, falls, and more recently worrisome
altered mental status. The family has been unaware that the patient has not moved his bowels in several days and in fact per the it could have been more than a week. The patient usually tells her when he has to move his bowels, but has not
done so recently nor has she asked him. The patient had a recent fall with fractures of the 9th and 10th ribs posteriorly and more recent fall with wound to his nose as he fell forward. The states that she gives her Colace/and
Metamucil in order to keep his bowels regular. He has not been complaining of abdominal pain or discomfort nor of constipation.
The patient was taken to the emergency room for worsening mental status and frequent falls with concerns for possible UTI.There was no complaint of abdominal pain, discomfort, nausea or vomiting until the remembered about his likely
constipation and imaging of the abdomen was performed in ED
The CT was done with findings of tortuous and elongated colon with suggestion of constipation. The rectum is distended to 6.3 cm with wall thickened , slight stranding, of perirectal fat suggestion mild stercoral colitis.Sigmoid colon is distended
to midline of 5.8 cm. There is no evidence of perforation, obstruction or free air.
Past History
Past Medical History: Arrhythmias, CAD and Venous Hypertension (Parkinson's Disease)
Additional Past Medical History:
Additional Past Surgical History:
hernia repair
Allergy History:
Penicillins Allergy (Verified 10/16/24 12:26)
Unknown
Medications Reviewed: Yes
Social History
Tobacco: Former Smoker
Alcohol: Daily
Personal:
Living: With Family
Employment: Retired
Family History
Family History: Not Pertinent
Review of Systems
Review of Systems
General: Other (altered mental status , falls )
Gasteroenterology: Weight Loss
Endocrine: Weakness
Skin / Hair / Nails: Lesions (healing wound beneath nose after fall foreward)
Neurological: Other (falling, confusion, hallucinations, )
Vital Signs
Temp Pulse Resp BP Pulse Ox
98.1 F 86 16 112/70 98
10/17/24 15:51 10/17/24 15:51 10/17/24 15:51 10/17/24 15:51 10/17/24 15:51
Physical Exam
Physical Exam
Constitutional: Chronically Ill and Cachetic (frail elderly,apears older than calendar age)
Head: Normocephalic
Eyes: Pupils Equal, Pupils Round, No Conjunctival Hemorrhage and Sclera Anicteric
Pharynx: Benign
Oral: No Thrush and No Ulcers
Cardiovascular: Regular Rate
Pulmonary: Clear
Gastrointestinal: Soft, Non Tender and Non Distended
Genito-Urinary: Other (no flank tendernes)
Extremities: Other (muscle atrophy, pretibial abrasions)
Skin: Warm and Dry
Wound: Other (healing wounds shins, nose)
Neurological: Awake and Alert (confused, speaks, pleasant, )
Psychological: Confused ( present to sooth him )
Lab / Diagnostic Study Results
10/17/24 05:51
10/17/24 05:51
Abs Immat Gran (auto) 0.0 10^3/uL (0-0.05) 10/17/24 05:51
Absolute Neuts (auto) 9.7 10^3/uL (1.4-6.5) H 10/17/24 05:51
Absolute Lymphs (auto) 0.4 10^3/uL (1.2-3.4) L 10/17/24 05:51
Absolute Monos (auto) 0.5 10^3/uL (0.1-0.6) 10/17/24 05:51
Absolute Basos (auto) 0.1 10^3/uL (0-0.2) 10/17/24 05:51
Immature Gran % 0.4 % (0-0.5) 10/17/24 05:51
Neutrophils % 89.7 % (42.2-75.2) H 10/17/24 05:51
Lymphocytes % 3.8 % (20.5-51.1) L 10/17/24 05:51
Monocytes % 4.7 % (1.7-9.3) 10/17/24 05:51
Eosinophils % 0.6 % (0-6) 10/17/24 05:51
Basophils % 0.8 % (0-2) 10/17/24 05:51
Ur Squamous Epith Cells 0-2 /LPF (Few) 10/16/24 13:48
Microbiology Results
Micro:
MRSA screen negative
Assessment / Plan
1. CT abdomen with profound constipation with stercoral colitis without perforation
2. Afebrile without leukocytosis with left shift 89.7 % PMN
3. Patient currently on Zosyn for colitis in setting of very worrisome CT abdomen findings
4. Discussed with importance of managing bowel regimen in current setting with patient no longer to keep track of his elimination
5. Patient with enemas and would consider continued antibiotic for now with switch to Ceftriaxone 2 Gm IV Q 24 H with oral Metronidazole while awaiting resolution of current bowel issue
Thank you for calling ID consultation
The ID Team will continue to flow with you
Please rey us with any questions or concerns
Care Review
Total Time Spent with Patient (in minutes): 55
[2024-10-17] MEDS: SENOKOT-S PO (21:18)
[2024-10-17 23:00] VITALS: BP 122/77
[2024-10-17] MEDS: TYLENOL 650 MG PO (23:38)
[2024-10-18] VITALS (7 sets, daily range): BP systolic 117–163; BP diastolic 69–87
[2024-10-18] MEDS: ZOSYN 50 IV (05:56)
[2024-10-18 07:20] LABS: Hematocrit 31.2 % (39.0-52.0); Hemoglobin 10.8 g/dL (13.0-18.0); Mean Corp Hgb Conc. 34.6 g/dL (33.0-37.0); Mean Corpuscular Volume 89.1 fL (80.0-94.0); Nucleated Red Blood Cells % 0 % (-); Platelet Count 220 10^3/uL (130-400); Red Cell Dist. Width 13.2 % (11.5-14.5)
[2024-10-18 07:49] LABS: Blood Urea Nitrogen 24 mg/dl (9-20); Calcium 8.8 mg/dl (8.4-10.2); Carbon Dioxide 23 mmol/L (22-30); Chloride 106 mmol/L (98-107); Estimated Creatinine Clearance 39 ml/min; Glucose 88 mg/dl (70-99); Magnesium 2.0 mg/dl (1.6-2.3); Potassium 4.2 mmol/L (3.5-5.1); Sodium 135 mmol/L (135-145); eGFR 58.01
--- NOTE | 2024-10-18 07:59 | W.PN.HOSP.TC ---
Today's Communication/Plan
-
see a/p
Assessment / Plan
Assessment / Plan
Physical Exam
General: lethargic confused
HEENT: NormoCephalic, Moist mucous membranes, mild abrasion on distal nose and philtrum
Respiratory: Clear and Non Labored Respirations
Cardiac: S1/S2 and Regular Rhythm; No Rub or Gallop
GI: Soft, Non Tender, Non Distended and Normal Bowel Sounds
Musculoskeletal: No Edema, no deformity, decreased muscle bulk throughout, minor abrasions left posterior ribs
Skin: Warm and dry
Psych/Neuro: Very Lethargic at times able to speak, oriented only to self, becomes very difficult to arouse despite sternal rub snoring occasional twitching noted while sleeping
74M CAD (status post stents x 2 in 12/2012), Afib, HTN, Inguinal Hernia Repair, Parkinson's disease p/w progressive confusion/hallucinations falls for the last week, brought in by family. He was seen at [facility], diagnosed with
multiple posterior left rib fractures and a urinary tract infection, and discharged on Bactrim. Confusion however worsen prompting visit here. On ED eval, he was normotensive, afebrile, and stable resp status room air. Urinalysis noted occult
blood, RBCs, and few bacteria. CT Head noted no acute abnormalities. Chest imaging re-demonstrated acute appearing left posterior rib fractures with no evidence of pneumothorax. CT imaging of his abdomen pelvis showed large stool burden with
probable developing stercoral colitis. He was started on antibiotics with Zosyn and admitted for further evaluation and management of metabolic encephalopathy, suspect secondary to urinary tract infection and possible stercoral colitis.
Acute metabolic encephalopathy
Visual Hallucinations
Transferred to IMU 10/18 d/t progressive worsening mental status
- Suspect multifactorial with urinary tract infection and probable stercoral colitis in addition to reported Parkinson's related decline per family
- CT brain with no acute abnormalities, repeat on transfer to IMU also noted no acute changes
- ABG unremarkable
- TSH mild elevated with free T4 wnl
- Continue antibiotics with Zosyn for now, follow-up cultures
- IV fluids
- received Milk and molasses enema for stool burden with probable stercoral colitis, continue scheduled bowel regimen
- PT/OT considering Parkinson's disease with multiple falls and reported recent decline
- Speech eval appreciated soft bite sized diet
- ID eval zosyn switched to ceftriaxone and Flagyll
- Psych eval appreciated home Lexapro reduced to 5 mg daily
- Neuro eval appreciated suspected end stage Parkinson disease.
Parkinson's disease
- Family reports no recent change in the patient's Sinemet regimen
- follows with neurologist Dr Santana at [facility]
- According to the patient's he was able to ambulate on his own within the past 2 weeks prior to this acute decline
- PT/OT eval appreciated SNF rehab
A-fib:
- Chronic, stable
- Continue home propafenone
- Does not appear to be on anticoagulation currently which is likely appropriate considering multiple falls
CAD:
- Chronic, stable, history of stents x 2
- Continue aspirin and statin
DVT prophylaxis: Lovenox
CODE STATUS: Full code
Discussed with patient, patient's Kristyn, patient's sons Dale and Giovany (twins)
I spent a total of 60 minutes with the patient or on the floor. More than 50% of this time involved counseling and coordination of care.
Anticipated Discharge: > 48 hours
Subjective/Interval History
-
Date of Service: October 18, 2024
Altered mental status this morning, refused morning meds. At times very difficult to arouse despite sternal rub. Vital signs otherwise stable on room air. Transferred to IMU closer monitoring. Hillary Hunter and Giovany (twins present during
evaluation).
Objective Data
-
Labs:
Laboratory Results
10/18/24
06:45
WBC 6.1
Hgb 10.8 L
Hct 31.2 L
Plt Count 220
Sodium 135
Potassium 4.2
Chloride 106
Carbon Dioxide 23
BUN 24 H
Creatinine 1.3
Glucose 88
Calcium 8.8
Vital Signs:
Vital Signs
Temp Pulse Resp BP Pulse Ox
98 F 86 12 163/83 96
10/18/24 07:44 10/18/24 07:44 10/18/24 07:44 10/18/24 07:44 10/18/24 07:44
I&O
10/17/24 10/18/24 10/19/24
06:59 06:59 06:59
Intake Total 360 / 360
Output Total 275 / 275
Balance 360 / 360 -275 / -275
[2024-10-18] MEDS: LEXAPRO PO (09:46)
[2024-10-18] MEDS: SINEMET 25-100 PO ×3 (09:47→21:11)
[2024-10-18] MEDS: LOW STRENGTH ASPIRIN PO (09:47)
[2024-10-18] MEDS: RYTHMOL PO ×3 (09:47→21:11)
[2024-10-18] MEDS: SENOKOT-S PO ×2 (09:47→21:11)
--- NOTE | 2024-10-18 10:36 | PTCARENOTE ---
Pt refusing to open eyes and morning medication with son at bedside, MD made aware. MD came to see, ordered ABG, CAT Scan, and to be transferred to IMU for closer evaluation. Plan of care ongoing.
--- NOTE | 2024-10-18 10:36 | W.PN.UPDATE ---
Update Note
Progress Note Update
Extremely lethargic this morning, fluctuating Mental status, earlier had refused his morning meds despite presence of his sons (Dale and Giovany twins)
Alternating between lethargic and very difficult to arouse despite noxious stimuli, snoring with intermittent twitching
Vital signs otherwise stable room air.
-transferring to IMU for closer Monitoring
-checking ABG, repeat CT head, and EEG
-Neuro eval requested
-discussed patient's family at bedside (sons Dale and Giovany), patient's Kristyn over phone, RN, psych, Neuro
[2024-10-18 11:03] LABS: B.E. 0.5 mmol/L; HCO3 24.5 mmol/L (21-28); O2 Saturation % 99.9 % (94-98); PCO2 36 mmHg (35-48); PO2 102 mmHg (83-108)
--- NOTE | 2024-10-18 11:05 | W.PN.UPDATE ---
Update Note
Progress Note Update
Patient seen this AM at bedside with both sons present, chart reviewed, discussed with staff. Mr. Tavares is quite lethargic today, very difficult to arouse for RN. He took a few of his morning meds but would not open his eyes. Intermittent snoring
noted. Hospitalist aware and patient will be upgraded for closer monitoring. Neuro has also been consulted. No agitation reported.
Impression/Recommendations: Delirium, possibly related to recent UTI. History of Parkinson's disease. Patient has been experiencing confusion and visual hallucinations over the past week or so, previously reported to be cognitively intact.
Antibiotics for UTI initiated. Lexapro cut back to 5 mg daily as no reported benefit had been noted and could be contributing to confusion. Await Neuro evaluation. No need for additional psychotropic medications at this time. Will follow.
--- NOTE | 2024-10-18 11:33 | CON.NEURO ---
Addendum entered and electronically signed by Maycol White MD 10/18/24 14:27:
Studies reviewed.
I have personally examined the patient. I reviewed and agree with the SHELL TRIM OPERATOR's Note.
My addenda:
Awake, not always alert, interactive. No acute distress.
Speech reduced output. Unable to recognize family members
Follows 1-step requests w/ difficulty. No tremor.
Extra-ocular movements grossly intact.
Facial movements full and symmetric. Hearing intact to normal conversational volume.
Normal UE movements bilaterally.
Neck: full ROM.
Chest: no dyspnea
Heart: no JVD
Ext: (-) Clubbing, (-) Cyanosis, (-) Edema
IMPRESSIONS/RECOMMENDATIONS:
Abrupt onset of worsening of advanced Parkinson's disease first symptoms in 2019.
Most likely experiencing additional delirium due to underlying dementia with the patient's history including routine daytime somnolence
Continue current medication regimen
Would not at this time add medication for memory stabilization due to the possibility of side effect which would potentially slow the patient's discharge
Supportive care
Eventual reevaluation of the patient's swallowing by means of speech therapy
Evaluate for possible hospice
D/W family
Will continue to follow patient as needed. Patient should have follow-up with his usual outpatient neurologist.
Original Note:
Neuro Assessment/Plan
Assessment
Pt is a 74 yo male with history of CAD S/P stents x 2 in 12/2012, A-fib, hypertension, and Parkinson's disease who presented to [facility] on 10/16/2024 with recent onset of confusion and visual hallucinations.
Brain MRI 12/09/2022: Mild cerebral atrophy. Brain otherwise normal in appearance.
Head CT 09/09/2024: No acute intracranial abnormality.
Head CT 10/18/2024:
1. Mild diffuse cerebral and cerebellar volume loss.
2. Minimal periventricular white matter leukoaraiosis.
Head CT 10/16/2024: No evidence of acute intracranial abnormality.
Plan
Impression: confusion and hallucinations due to delirium most likely related to recent UTI with underlying Parkinson's disease
-delirium precautions
-avoid sedating medications
-continue carbidopa levodopa for his Parkinson's disease
-can follow with his outpatient neurologist
-case management
All questions encouraged and answered, plan of care discussed with Dr. White and family
Consultation
Order
Date of Consultation: 10/18/24
Requesting Provider: hospitalist
Reason for Consult: change mental status
Subjective/Objective
Subjective Data
Date of Service: October 18, 2024
History obtained from family and chart as patient is a poor historian and unable to provide any meaningful history.
Pt is a 74 yo male with history of CAD S/P stents x 2 in 12/2012, A-fib, hypertension, and Parkinson's disease who presented to [facility] on 10/16/2024 with recent onset of confusion and visual hallucinations. Pt was brought in by his and 2 sons
who reported pt was at his baseline a week ago, usually oriented, socializing, doing activities. One week ago became confused and had 2 significant falls. He abraded his nose with the first fall; the second time pt fell backwards when trying to go
upstairs, landed with the left side of his back on the hard edge of the couch. He was seen at [facility], diagnosed with multiple posterior left rib fractures and a urinary tract infection, and discharged on Bactrim. Family reported pt
seems more confused/worse. CT head showed no acute abnormalities. CT abdomen showed large stool burden, likely stercoral colitis. Patient does not recognize family at times, reaching out at times for things not there. Sons at bedside and note he
sleeps the majority of the day. PCP prescribed Lexapro, started at 5 mg HS, was increased to 10 mg HS about one month ago with no clear benefit. Sons note that he stopped driving 6 months ago. Currently patient is oriented to self, he thinks he is
in [place]. He is not able to tell us correct month or year. He is able to tell us he has Parkinson's disease and is not in any pain. He is moving all extremities. He is able to follow commands but very lethargic.
Adapted from [facility] neurosurgery note by Connie FREEMAN on 11/18/2023:
'Griffin is a 73 year old right handed male with PD. He is presenting for a new patient visit with Dr Jeffery Blanc. First symptom of PD was decreased arm swing in 2019. He was diagnosed in 2022. Most bothersome symptoms currently tremor. Referred by
family, sees Dr Wilson Current medication regimen: sinemet 25/100 1 tablet 3 times daily, 8 am, 12pm, 5pm Fluctuations: yes Tremor: bilateral UE Dyskinesia: denies Dystonia: denies Bradykinesia: yes Freezing: gets stuck with turning Rigidity:
denies Voice change: softer Handiness: right Dysphagia: solid foods Drooling: yes Orthostasis: denies Constipation:yes, takes miralax Urinary problems: mild urgency, some frequency Mood problems: denies Sleep problems: vivid dreams initially but
better since on sinemet Fatigue: sleeps on and off all day Cognitive problems: slow in verbal responses Visual hallucinations: denies Gait/Balance: good, fell in the garden 3 days ago Exercise or PT/OT: BIG program completed, was recommended to do
exercises twice daily and he does it 2-3 times per week On/off testing: denies Neuro-psychological testing: denies Implanted metal/devices: denies'
Objective Data
Vital Signs
Temp Pulse Resp BP Pulse Ox
97.8 F 82 16 142/83 97
10/18/24 10:24 10/18/24 10:24 10/18/24 10:24 10/18/24 10:24 10/18/24 10:24
Lab Results
10/18/24 06:45
10/18/24 06:45
Sodium 135 mmol/L (135-145) 10/18/24 06:45
Potassium 4.2 mmol/L (3.5-5.1) 08/05/25 06:45
BUN 24 mg/dl (9-20) H 10/18/24 06:45
Glucose 88 mg/dl (70-99) 10/18/24 06:45
Calcium 8.8 mg/dl (8.4-10.2) 10/18/24 06:45
Phosphorus 3.0 mg/dl (2.5-4.5) 10/18/24 06:45
Patient Allergies
Penicillins Allergy (Verified 10/16/24 12:26)
Unknown
Review of Systems
-
Unable to obtain full review of systems at this time due to: Acuity
Physical Exam
-
Physical exam limited, patient extremity lethargic and confused
General: Appears in Distress, Appears Chronically Ill and Cachectic
HEENT: Normocephalic, Atraumatic and Anicteric
Neck: Full Range of Motion
Respiratory: No Dyspnea
Cardiac: No JVD
GI: Non-distended
Extremities: No Clubbing, No Cyanosis and No Edema
Psych: Confused
Extended Neurological Exam
Attention Span & Concentration: Lethargic and Unable to Perform 2 Step Request
Memory: Reduced, Vague and Incomplete Historian
Speech: Other (hypophonia)
Cranial Nerve VII: Facial Symmetry: Normal Facial Symmetry
Cranial Nerve VIII: Hearing: Unremarkable Hearing to Normal Conversational Volume
Muscle Strength, Overall: Spontaneously Moves
Data Reviewed
-
CT Head: Report Reviewed and Image Reviewed
Labs: Report Reviewed
Reviewed with: Physician and Family
Old Records: Summarized
Medications
-
Active Medications
Generic Name Dose Route Start Last Admin
Trade Name Freq PRN Reason Stop Dose Admin
Acetaminophen 650 mg 10/16/24 20:41 10/17/24 23:38
Acetaminophen 325 Mg Tablet PO 11/13/24 20:40 650 mg
Q4HPRN PRN Administration
mild pain/CHANDLER/temp> 100.4F
Aspirin 81 mg 10/17/24 09:30 10/18/24 09:47
Aspirin 81 Mg Chewable Tablet PO 11/14/24 09:29 Not Given
DAILY GLENYS
Bisacodyl 10 mg 10/16/24 20:41
Bisacodyl 10 Mg Rectal Suppository RECTAL 11/13/24 20:40
[id number] PRN
constipation
Carbidopa/Levodopa 1 tablet 10/16/24 22:00 10/18/24 09:47
Carbidopa (25 Mg)/Levodopa (100 Mg) Regular Release Tablet PO 11/13/24 21:59 Not Given
TID GLENYS
Ceftriaxone Sodium 2,000 mg 10/18/24 12:00
Ceftriaxone 2,000 Mg/20 Ml Vial IV
Q24H GLENYS
Enoxaparin Sodium 40 mg 10/17/24 18:00 10/17/24 17:27
Enoxaparin Sodium 40 Mg/0.4 Ml Syringe SC 11/14/24 17:59 40 mg
QPM GLENYS Administration
Escitalopram Oxalate 5 mg 10/18/24 08:00 10/18/24 09:46
Escitalopram 5 Mg Tablet PO 11/15/24 07:59 Not Given
DAILY GLENYS
Sodium Chloride 1,000 mls @ 80 mls/hr 10/16/24 20:41 10/17/24 21:30
Nss IV 1,000 mls
.[id number] GLENYS Administration
Metronidazole 100 mls @ 100 mls/hr 10/18/24 10:00
Flagyl 500 Mg IV
Q8H GLENYS
Polyethylene Glycol 17 grams 10/16/24 20:41
Polyethylene Glycol Powder 17 Grams Packet PO 11/13/24 20:40
DAILYPRN PRN
constipation
Pravastatin Sodium 80 mg 10/17/24 21:00 10/17/24 21:21
Pravastatin 40 Mg Tablet PO 11/14/24 20:59 80 mg
QPM GLENYS Administration
Propafenone HCl 150 mg 10/16/24 22:00 10/18/24 09:47
Propafenone 150 Mg Tablet PO 11/13/24 21:59 Not Given
TID GLENYS
Senna/Docusate Sodium 1 tablet 10/16/24 20:00 10/18/24 09:47
Docusate W/Senna (Sri-Colace) Tablet PO 11/13/24 19:59 Not Given
BID GLENYS
Senna/Docusate Sodium 1 tablet 10/16/24 20:41
Docusate W/Senna (Sri-Colace) Tablet PO 11/13/24 20:40
BIDPRN PRN
constipation
Sodium Chloride 0 flush 10/16/24 19:00
Sodium Chloride 0.9% (Flush) Syringe IV 11/13/24 18:59
PER PROTOCOL GLENYS
Sterile Water 20 ml 10/18/24 12:00
Sterile Water For Injection 20 Ml Vial IV 11/15/24 11:59
Q24H GLENYS
Home Medications
�Medication �Instructions �Recorded
aspirin 81 mg tablet,delayed 81 mg PO DAILY 03/17/23
release
carbidopa 25 mg-levodopa 100 mg 1 tab PO TID 03/17/23
tablet
pravastatin 80 mg tablet 80 mg PO HS 03/17/23
propafenone 150 mg tablet 150 mg PO TID 03/17/23
polyethylene glycol 3350 17 17 g PO DAILYPRN PRN constipation 02/18/24
gram/dose oral powder (Miralax)
Lactobac no.2-Bifidobac no.1-S. 2 cap PO HS 09/09/24
thermo 112.5 billion cell capsule
(Visbiome)
Vitamin B3 1 tab PO DAILY@1400 09/09/24
cholecalciferol (vitamin D3) 1 tab PO DAILY@1400 09/09/24
escitalopram oxalate 10 mg tablet 10 mg PO HS 09/09/24
glycopyrrolate 1 mg tablet 1 mg PO DAILYPRN PRN drooling 09/09/24
vitamin K2 1 tab PO DAILY@1400 09/09/24
Past History
Past History
ED Past Medical History: Arrthythmia (Atrial fibrillation), CAD, Cancer (Skin), GERD, HTN, Hypercholesterolemia and Other (Parkinson's)
ED Past Surgical History: Cardiac and Other
Family/Social History
Tobacco: Former smoker
Alcohol: Daily
Personal:
Living: with family
[2024-10-18] MEDS: ROCEPHIN 2000 MG IV (11:37)
[2024-10-18] MEDS: STERILE WATER FOR INJECTION 20 ML IV (11:37)
[2024-10-18] MEDS: FLAGYL 500 MG 100 IV ×2 (11:49→18:03)
--- NOTE | 2024-10-18 13:16 | PTCARENOTE ---
transferred pt to IMU at 1300, report given to RN, plan of care ongoing.
--- NOTE | 2024-10-18 13:30 | PTCARENOTE ---
Received patient fro 3-west in bed. Patient lethargic, nonverbal at this time. Transferred to IMU for closer monitoring. VS stable,afebrile. 97% RA. IV fluids and antibiotics infusing as ordered. Family in room at bedside.
[2024-10-18] MEDS: DULCOLAX 10 MG RECTAL (14:54)
[2024-10-18] MEDS: NSS 1000 IV (16:42)
--- NOTE | 2024-10-18 17:08 | PTCARENOTE ---
Unable to give patient oral medications due to lethargy.
[2024-10-18] MEDS: LOVENOX 40 MG SC (18:04)
[2024-10-18] MEDS: PRAVACHOL PO (18:05)
--- NOTE | 2024-10-18 19:32 | W.PN.ID1 ---
Date of Service
Date of Service: October 18, 2024
Today's Communication
discussed patient status and bowel concerns with ICU critical care nurse
Assessment / Plan
1. CT abdomen with profound constipation with stercoral colitis without perforation
2. Afebrile without leukocytosis
3. Patient currently on Zosyn for colitis in setting of very worrisome CT abdomen findings
4. Patient currently in ICU for worsening mental status with neurologic evaluation completed
5. Patient afebrile with improved leukocytosis would switch Ceftriaxone 1 Gm IV Q 24 H while awaiting resolution of current bowel issue
Thank you for calling ID consultation
The ID Team will continue to flow with you
Please rey us with any questions or concerns
Chief Complaint
-: Other (fecal loading with distended rectum large bowel with mild stercoral colitis)
Subjective / Review of Systems
Review of Systems: No Fever, No Chills, No Headache, No Pharyngitis, No Stiff Neck, No Cough, No Sputum Production, No Chest Pain, No Abdominal Pain, No Nausea, No Vomiting, No Diarrhea, No Dysuria and No Skin Rash
Vital Signs / Physical Exam
Vital Signs
Vital Signs
Temp Pulse Resp BP Pulse Ox
97.9 F 78 16 140/86 97
10/18/24 15:15 10/18/24 18:00 10/18/24 18:00 10/18/24 18:00 10/18/24 18:00
Physical Exam
Constitutional: No Acute Distress, Well Developed, Chronically Ill, Non-toxic and Cachetic
Head: Normocephalic
Eyes: No Conjunctival Hemorrhage and Sclera Anicteric
Oropharyngeal: Benign
Cardiovascular: Regular Rate
Pulmonary: Clear
Gastrointestinal: Non Tender, Normal Bowel Sounds, No Rebound and No Guarding
Skin: Warm and Dry
Wound: None
Psychological: Confused
Objective Data
Lab Data
Lab Results
10/18/24 06:45
10/18/24 06:45
Estimated Creat Clear 39 ml/min 10/18/24 06:45
Total Bilirubin 0.6 mg/dl (0.2-1.3) 10/17/24 05:51
AST 31 U/L (17-59) 10/17/24 05:51
ALT < 10 U/L (0-50) 10/17/24 05:51
Alkaline Phosphatase 62 U/L (38-126) 10/17/24 05:51
Most recent labs reviewed.
Microbiology: Report Reviewed
Chest X-Ray: Image Reviewed and Report Reviewed
CT Scan: Report Reviewed
Care Review
Plan reviewed with: Nurse (discussed bowel concerns with critical care nurse/ discussed patient at length with family)
Total Time Spent with Patient (in minutes): 50
--- NOTE | 2024-10-18 22:21 | PTCARENOTE ---
Assumed care for patient overnight, received report from dayshift RN. Pt communicating. Pt awake and arousable to verbal, but very lethargic. Pt AAOx2, disoriented to place. Pt states [place] is [place] Spoke to family about baseline
mentation, family states he is forgetful at baseline but fully oriented. Pt sat up and fed ice cream. Pt tolerated but then was coughing. Due to coughing and lethargy, unable to administer oral medications. NSR on the monitor. Remains on RA SpO2
96%. Pt had a smear BM. IVF cont. IV abx cont. Linens changed and partial bath given. Oral care done with suction oral care kit. is staying the night. Pt tolerating frequent turning and repositioning. Call gallardo within reach.
[2024-10-19] VITALS (15 sets, daily range): BP systolic 83–160; BP diastolic 53–90; PULSE 75; O2SAT 99
[2024-10-19] MEDS: FLAGYL 500 MG 100 IV (01:21)
[2024-10-19 04:30] LABS: Hematocrit 35.1 % (39.0-52.0); Hemoglobin 12.1 g/dL (13.0-18.0); Mean Corp Hgb Conc. 34.5 g/dL (33.0-37.0); Mean Corpuscular Volume 88.6 fL (80.0-94.0); Nucleated Red Blood Cells % 0 % (-); Platelet Count 249 10^3/uL (130-400); Red Cell Dist. Width 12.7 % (11.5-14.5)
[2024-10-19 04:44] LABS: Blood Urea Nitrogen 16 mg/dl (9-20); Calcium 9.2 mg/dl (8.4-10.2); Carbon Dioxide 24 mmol/L (22-30); Chloride 104 mmol/L (98-107); Estimated Creatinine Clearance 63 ml/min; Glucose 71 mg/dl (70-99); Magnesium 2.3 mg/dl (1.6-2.3); Potassium 4.2 mmol/L (3.5-5.1); Sodium 134 mmol/L (135-145); eGFR > 60.00
[2024-10-19] MEDS: NSS 1000 IV ×2 (05:22→18:16)
--- NOTE | 2024-10-19 07:35 | W.PN.HOSP.TC ---
Today's Communication/Plan
-
cont abx for now
IVF support
ST/PT/OT/PMR
diet updated to Regular
Assessment / Plan
Assessment / Plan
Physical Exam
General: appears comfortable at this time, no acute distress
HEENT: NormoCephalic, Moist mucous membranes, mild abrasion on distal nose and philtrum
Respiratory: Clear and Non Labored Respirations
Cardiac: S1/S2 and Regular Rhythm; No Rub or Gallop
GI: Soft, Non Tender, Non Distended and Normal Bowel Sounds
Musculoskeletal: No Edema, no deformity, decreased muscle bulk throughout, minor abrasions left posterior ribs
Skin: Warm and dry
Neuro: Lethargic but arousable
Psych: Calm
74M CAD (status post stents x 2 in 12/2012), Afib, HTN, Inguinal Hernia Repair, Parkinson's disease p/w progressive confusion/hallucinations falls for the last week, brought in by family. He was seen at [facility], diagnosed with
multiple posterior left rib fractures and a urinary tract infection, and discharged on Bactrim. Confusion however worsen prompting visit here. On ED eval, he was normotensive, afebrile, and stable resp status room air. Urinalysis noted occult
blood, RBCs, and few bacteria. CT Head noted no acute abnormalities. Chest imaging re-demonstrated acute appearing left posterior rib fractures with no evidence of pneumothorax. CT imaging of his abdomen pelvis showed large stool burden with
probable developing stercoral colitis. He was started on antibiotics with Zosyn and admitted for further evaluation and management of metabolic encephalopathy, suspect secondary to urinary tract infection and possible stercoral colitis.
Acute metabolic encephalopathy
Visual Hallucinations
Polypharmacy
Transferred to IMU 10/18 d/t progressive worsening mental status, since improving
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
-Per family, Trospium started within the last month for overactive bladder. Anticholinergic effects can worsen constipation, urinary retention (increasing risk UTI), and cause hallucinations
- CT brain with no acute abnormalities, repeated on transfer to IMU also noted no acute changes
- ABG unremarkable
- TSH mild elevated with free T4 wnl
- Stercoral Colitis, UTI, treated empirically with Zosyn, de-escalated to 2g ceftriaxone IV daily Flagyl 500 mg q8, then ceftriaxone 1 g IV daily as per ID
- IV fluid support, eventual dc when oral intake improves
- received Milk and molasses enema for stool burden with probable stercoral colitis, good response noted, continue scheduled bowel regimen
- PT/OT eval appreciated Acute Rehab
-PMR eval
- Speech eval appreciated soft bite sized diet further updated to Regular diet with clinical improvement
- Psych eval appreciated home Lexapro reduced to 5 mg daily, consider eventual dc
- Neuro eval appreciated
Parkinson's disease
- Family reports no recent change in the patient's Sinemet regimen
- follows with neurologist Dr Max Wilson at [facility]
- According to the patient's he was able to ambulate on his own within the past 2 weeks prior to this acute decline
- PT/OT eval appreciated Acute Rehab
paroxysmal A-fib
- Continue home propafenone
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
Mild Vit D deficiency
supplementation
CAD:
- Chronic, stable, history of stents x 2
- Continue aspirin and statin
Fall Aspiration Precautions
DVT prophylaxis: Lovenox
CODE STATUS: Full code
Discussed with patient's Kristyn and patient's son Dale
I spent a total of 45 minutes with the patient or on the floor. More than 50% of this time involved counseling and coordination of care.
Anticipated Discharge: 24 - 48 hours
Subjective/Interval History
-
Date of Service: October 19, 2024
mental status improving, lethargic but arousable. Able to take oral meds this morning without issues. Pt's Kristyn and son Dale present during evaluation.
Objective Data
-
Labs:
Laboratory Results
10/19/24
04:07
WBC 6.5
Hgb 12.1 L
Hct 35.1 L
Plt Count 249
Sodium 134 L
Potassium 4.2
Chloride 104
Carbon Dioxide 24
BUN 16
Creatinine 0.8
Glucose 71
Calcium 9.2
Vital Signs:
Vital Signs
Temp Pulse Resp BP Pulse Ox
98.0 F 79 13 129/79 98
10/19/24 07:24 10/19/24 06:23 10/19/24 06:23 10/19/24 06:23 10/19/24 06:23
I&O
10/18/24 10/19/24 10/20/24
06:59 06:59 06:59
Intake Total 360 / 360 1060 / 1060
Output Total 1375 / 1375
Balance 360 / 360 -315 / -315
[2024-10-19] MEDS: LEXAPRO 5 MG PO (08:01)
[2024-10-19] MEDS: SENOKOT-S 1 TABLET PO ×2 (08:02→20:04)
[2024-10-19] MEDS: LOW STRENGTH ASPIRIN 81 MG PO (08:02)
[2024-10-19] MEDS: SINEMET 25-100 1 TABLET PO ×3 (08:02→20:04)
[2024-10-19] MEDS: RYTHMOL 150 MG PO ×3 (08:02→20:04)
--- NOTE | 2024-10-19 09:32 | PTCARENOTE ---
Patient awake and alert this AM. Patient talking and answering questions appropriately. He did well with breakfast and was able to take all of his oral medications this morning. Patient does not remember anything about the last couple of days.
PT/OT ordered to see patient today. VS stable,afebrile. SR in the 70-80's. Will continue to monitor.
[2024-10-19 09:33] LABS: Iron 76 ug/dl (49-181)
[2024-10-19 09:43] LABS: Total Iron Binding Capacity 213 ug/dl (261-462)
[2024-10-19 09:51] LABS: Vitamin D, 25-OH*** 24.8 ng/mL (30-80)
[2024-10-19 10:23] LABS: Ferritin 374.0 ng/ml (17.9-464.0)
[2024-10-19] MEDS: STERILE WATER FOR INJECTION 10 ML IV (10:25)
[2024-10-19] MEDS: ROCEPHIN 1000 MG IV (10:25)
[2024-10-19] MEDS: FLUSH (NSS) 1 FLUSH IV (10:27)
[2024-10-19 10:40] LABS: Folate 12.4 ng/ml (2.76-20); Vitamin B12 891 pg/ml (239-931)
--- NOTE | 2024-10-19 14:48 | CM ---
CM met with pt, spouse, and twin sons Gerald & Dale)
Pt slept throughout assessment
Pt and spouse have 7 children, all involved
Pt and spouse reside in a [address] with 7STE, full flight to 2nd floor
Pt's son/Gerald and dtr/Nelida reside there as well along with two grand children ( 13 & 17 y/o)
Pt is typically AxO and indep with all his ADLs with no AD, drives+
Of late, pt has been utilizing a WW and sleeping on the 1st floor due to weakness
No hx with VN/SNF
PCP- Bony Andrews
Rx- CARMELA Major
SNF recs by therapy- PAC provided
Spouse requesting acute rehab, particularly 1). [facility] and 2). [facility]
She was educated on role of PMR and prior auth for approval
In agreement with backup SNF referrals to [facility], [facility], [facility]
PASRR completed and referrals sent via [facility] and all pending
CM requested PMR eval
Call from tanvir /Renae who works at [facility] and noted ellie Noguera can be contacted for admissions if needed [phone]
Discharge Disposition- acute vs SNF pending PMR/auth
[2024-10-19] MEDS: MIRALAX 17 GRAMS PO (15:27)
--- NOTE | 2024-10-19 15:48 | W.PN.UPDATE ---
Update Note
Progress Note Update
patient seen chart reviewed. spoke with nursing . daughters at bedside. all seem to agree that the patient is much improved compared to yesterday. i do not feel this is due to the reduction in lexapro dose but more likely due to rx of uti and
constipation and dc of trospium and glycopyrrolate which are both anticholinergic. daughters said that lexapro started when he began w memory issues in the hope that it was depression not dementia but it has not really helped him. would continue
for a short time and consider whether to dc rather than continuing it forever if it is not doing much for the patient. psych will sign off.
--- NOTE | 2024-10-19 18:00 | PTCARENOTE ---
Patient is at his baseline mentation according to the family. Patient alert and orient, a little forgetful. Tolerated regular diet, appetite good. Patient able to take smaller pills whole with water. Aspiration precautions. Patient worked with
PT, OOB to chair and ambulated in room with therapist. Assistance x2 and rolling walker. Fall risk for recent falls at home. Patient seems aware of his limitations. VS stable.
[2024-10-19] MEDS: LOVENOX 40 MG SC (18:01)
[2024-10-19] MEDS: PRAVACHOL 80 MG PO (18:07)
--- NOTE | 2024-10-19 18:16 | W.PN.ID1 ---
Date of Service
Date of Service: October 19, 2024
Today's Communication
discussed with critical care nurse
Assessment / Plan
1. CT abdomen with profound constipation with stercoral colitis without perforation with no BM again for more than 2 days even with suppository yesterday
2. Afebrile without leukocytosis
3. Patient currently on Zosyn for colitis in setting of very worrisome CT abdomen findings
4. Patient currently in ICU for worsening mental status with neurologic evaluation completed and repeat CT head without acute finding
5. Patient afebrile with improved leukocytosis would switch Ceftriaxone 1 Gm IV Q 24 H while awaiting resolution of current bowel issue
Thank you for calling ID consultation
The ID Team will continue to flow with you
Please rey us with any questions or concerns
Chief Complaint
-: Other (fecal loading with distended rectum large bowel with mild stercoral colitis)
Subjective / Review of Systems
Review of Systems: No Fever, No Chills, No Headache, No Pharyngitis, No Stiff Neck, No Swollen Lymph Nodes, No Cough, No Sputum Production, No Chest Pain, No Palpitations, No Abdominal Pain, No Nausea, No Vomiting, No Diarrhea, No Dysuria (No Bowl
movement), No Joint Pain and No Skin Rash (no bowel movement)
Vital Signs / Physical Exam
Vital Signs
Vital Signs
Temp Pulse Resp BP Pulse Ox
98.2 F 84 14 120/59 99
10/19/24 15:58 10/19/24 16:00 10/19/24 16:00 10/19/24 16:00 10/19/24 16:00
Physical Exam
Constitutional: No Acute Distress, Well Developed, Comfortable, Chronically Ill, Non-toxic and Cachetic (more awake today with intermittent ability to speak and make eye contact)
Head: Normocephalic
Eyes: Pupils Equal, Pupils Round, No Conjunctival Hemorrhage and Sclera Anicteric
Oropharyngeal: Benign
Cardiovascular: Regular Rate
Pulmonary: Clear and Non Labored
Gastrointestinal: Soft, Non Tender, Non Distended and Decreased Bowel Sounds (no bowel movement even afteer suppository)
Skin: Warm and Dry
Wound: None
Neurological: Awake (with return to sleep quickly but per had stayed alert for some time today)
Psychological: Calm and Confused
Objective Data
Lab Data
Lab Results
10/19/24 04:07
10/19/24 04:07
Estimated Creat Clear 63 ml/min 10/19/24 04:07
Total Bilirubin 0.6 mg/dl (0.2-1.3) 10/17/24 05:51
AST 31 U/L (17-59) 10/17/24 05:51
ALT < 10 U/L (0-50) 10/17/24 05:51
Alkaline Phosphatase 62 U/L (38-126) 10/17/24 05:51
Most recent labs reviewed.
Microbiology: Report Reviewed
CT Scan: Report Reviewed (CT head unchanged with no acute findings)
Care Review
Plan reviewed with: Nurse (wesley mental status changes)
Total Time Spent with Patient (in minutes): 35
[2024-10-20] VITALS (15 sets, daily range): BP systolic 84–171; BP diastolic 58–152
--- NOTE | 2024-10-20 06:26 | PTCARENOTE ---
Caring for pt overnight. at bedside. VSS, BP trending up this morning. NSR. remains RA. Awake and talking, family reports he is almost back to baseline. aaox3, but still forgetful. OOB to chair. denies pain. IVF running. Will ottoniel.
[2024-10-20] MEDS: NSS 1000 IV (06:32)
--- NOTE | 2024-10-20 07:30 | W.PN.HOSP.TC ---
Today's Communication/Plan
-
abx as per ID
discharge planning Acute Rehab
stable for downgrade med/surg
Assessment / Plan
Assessment / Plan
Physical Exam
General: appears comfortable at this time, no acute distress
HEENT: NormoCephalic, Moist mucous membranes, mild abrasion on distal nose and philtrum
Respiratory: Clear and Non Labored Respirations
Cardiac: S1/S2 and Regular Rhythm; No Rub or Gallop
GI: Soft, Non Tender, Non Distended and Normal Bowel Sounds
Musculoskeletal: No Edema, no deformity, decreased muscle bulk throughout, minor abrasions left posterior ribs
Skin: Warm and dry
Neuro: AOx2 disoriented to time conversant coherent
Psych: Calm
74M CAD (status post stents x 2 in 12/2012), Afib, HTN, Inguinal Hernia Repair, Parkinson's disease p/w progressive confusion/hallucinations falls for the last week, brought in by family. He was seen at [facility], diagnosed with
multiple posterior left rib fractures and a urinary tract infection, and discharged on Bactrim. Confusion however worsen prompting visit here. On ED eval, he was normotensive, afebrile, and stable resp status room air. Urinalysis noted occult
blood, RBCs, and few bacteria. CT Head noted no acute abnormalities. Chest imaging re-demonstrated acute appearing left posterior rib fractures with no evidence of pneumothorax. CT imaging of his abdomen pelvis showed large stool burden with
probable developing stercoral colitis. He was started on antibiotics with Zosyn and admitted for further evaluation and management of metabolic encephalopathy, suspect secondary to urinary tract infection and possible stercoral colitis.
Acute metabolic encephalopathy
Visual Hallucinations
Polypharmacy
Transferred to IMU 10/18 d/t progressive worsening mental status, since improving
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
-Per family, Trospium started within the last month for overactive bladder. Anticholinergic effects can worsen constipation, urinary retention (increasing risk UTI), and cause hallucinations
- CT brain with no acute abnormalities, repeated on transfer to IMU also noted no acute changes
- ABG unremarkable
- TSH mild elevated with free T4 wnl
- Stercoral Colitis, UTI, treated empirically with Zosyn, de-escalated to 2g ceftriaxone IV daily Flagyl 500 mg q8, then ceftriaxone 1 g IV daily as per ID
- IV fluid support, eventual dc when oral intake improves
- received Milk and molasses enema for stool burden with probable stercoral colitis, good response noted, continue scheduled bowel regimen
- PT/OT eval appreciated Acute Rehab
-PMR eval
- Speech eval appreciated soft bite sized diet further updated to Regular diet with clinical improvement
- Psych eval appreciated home Lexapro reduced to 5 mg daily, consider eventual dc
- Neuro eval appreciated
Parkinson's disease
- Family reports no recent change in the patient's Sinemet regimen
- follows with neurologist Dr Max Wilson at [facility]
- According to the patient's he was able to ambulate on his own within the past 2 weeks prior to this acute decline
- PT/OT/PMR eval appreciated Acute Rehab
paroxysmal A-fib
- Continue home propafenone
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
Mild Vit D deficiency
supplementation
CAD:
- Chronic, stable, history of stents x 2
- Continue aspirin and statin
Fall Aspiration Precautions
DVT prophylaxis: Lovenox
CODE STATUS: Full code
Discussed with patient and patient's Kristyn
I spent a total of 45 minutes with the patient or on the floor. More than 50% of this time involved counseling and coordination of care.
Anticipated Discharge: Within 24 hours
Subjective/Interval History
-
Date of Service: October 20, 2024
Objective Data
-
Vital Signs:
Vital Signs
Temp Pulse Resp BP Pulse Ox
97.7 F 64 13 165/89 99
10/20/24 02:38 10/20/24 06:01 10/20/24 06:01 10/20/24 06:01 10/19/24 23:05
I&O
10/19/24 10/20/24 10/21/24
06:59 06:59 06:59
Intake Total 1060 / 1060 2325 / 2325
Output Total 1375 / 1375 1090 / 1090
Balance -315 / -315 1235 / 1235
[2024-10-20] MEDS: SENOKOT-S 1 TABLET PO ×2 (08:03→19:44)
[2024-10-20] MEDS: LOW STRENGTH ASPIRIN 81 MG PO (08:03)
[2024-10-20] MEDS: VITAMIN D3 (cholecalciferol) 25 MCG PO (08:03)
[2024-10-20] MEDS: LEXAPRO 5 MG PO (08:03)
[2024-10-20] MEDS: RYTHMOL 150 MG PO ×3 (08:04→21:23)
[2024-10-20] MEDS: SINEMET 25-100 1 TABLET PO ×3 (08:04→21:24)
[2024-10-20] MEDS: ROCEPHIN 1000 MG IV (08:04)
[2024-10-20] MEDS: STERILE WATER FOR INJECTION 10 ML IV (08:04)
--- NOTE | 2024-10-20 09:36 | CON.MD ---
Documented by User: Iqra Larios MD, Resident 10/20/24 11:28
Consultation - Medical
-
Referring Provider: Kevin Trejo
Chief Complaint: Delirium/Encephalopathy
History of Present Illness: 74M with PMH notable for CAD (status post stents x 2 in 12/2012), Afib, HTN, Inguinal Hernia Repair, Parkinson's disease p/w progressive confusion/hallucinations falls for the last week, who was brought in by family for
increasing confusion.
He was seen at [facility], diagnosed with multiple posterior left rib fractures and a urinary tract infection, and discharged on Bactrim. Confusion however worsened prompting visit here. On ED eval, he was normotensive, afebrile, and
stable resp status room air. Urinalysis noted occult blood, RBCs, and few bacteria. CT Head noted no acute abnormalities. Chest imaging re-demonstrated acute appearing left posterior rib fractures with no evidence of pneumothorax. CT imaging of
his abdomen pelvis showed large stool burden with probable developing stercoral colitis. He was started on antibiotics with Zosyn and admitted for further evaluation and management of metabolic encephalopathy, suspect secondary to urinary tract
infection and possible stercoral colitis.
Past Medical History: Parkinson's disease, A-fib, CAD, skin cancer
Procedure History: Right inguinal hernia repair, cardiac stents x2 12/2012
Family History: Not pertinent
Social History:
Functional Level Premorbidly: Independent with all activities
Functional Level Currently:
OT: mod A bed mobility and LB dressing; mod A x 2 sit to stand and initial transfer. As stand tolerance progressed, patient became more steady on feet, requiring midAx2 for transfer and short distance mobility in room
- Recommend acute rehab
PT: Mobility highly limited by cognitive deficits. Assistance x 2 to transfer to bedside chair, very unsteady with posterior lean and not utilizing RW. Likely better mobility without a device due to cognitive impairment.
- Recommend acute rehab
Tobacco: Quit
Alcohol: Occasional / social
Drug use: Denies
Lives with: family
24-hour assistance available: yes
Number of floors: multi-level
# steps to enter: 6
# steps to 2nd floor: 13
Potential First floor set up: yes
Driving: yes, decreasing. Last drove 2 weeks ago
Occupation: retired
Allergies:
Allergy/AdvReac Type Severity Reaction Status Date / Time
Penicillins Allergy Unknown Verified 10/16/24 12:26
Review of Systems:
Constitutional: (x) Normal _
Eye: (x) Normal _
Ear/Nose/Throat: (x) Normal _
Respiratory: (x) Normal _
Cardiovascular: (x) Normal _
Gastrointestinal: Constipation
Genitourinary: (x) Normal _
Musculoskeletal: Left lower lateral rib pain
Integumentary: (x) Normal _
Neurologic: (x) Normal _
Psychiatric: Returned to baseline (no hallucinations/delirium) yesterday morning 10/19/24, per
Endocrine: (x) Normal _
Hematologic/Lymphatic: (x) Normal _
Allergic/Immunologic: (x) Normal _
Medications:
Generic Name Dose Route Start Last Admin
Trade Name Freq PRN Reason Stop Dose Admin
Acetaminophen 650 mg 10/16/24 20:41 10/17/24 23:38
Acetaminophen 325 Mg Tablet PO 11/13/24 20:40 650 mg
Q4HPRN PRN Administration
mild pain/CHANDLER/temp> 100.4F
Aspirin 81 mg 10/17/24 09:30 10/20/24 08:03
Aspirin 81 Mg Chewable Tablet PO 11/14/24 09:29 81 mg
DAILY GLENYS Administration
Bisacodyl 10 mg 10/16/24 20:41 10/18/24 14:54
Bisacodyl 10 Mg Rectal Suppository RECTAL 11/13/24 20:40 10 mg
[id number] PRN Administration
constipation
Carbidopa/Levodopa 1 tablet 10/16/24 22:00 10/20/24 08:04
Carbidopa (25 Mg)/Levodopa (100 Mg) Regular Release Tablet PO 11/13/24 21:59 1 tablet
TID GLENYS Administration
Ceftriaxone Sodium 1,000 mg 10/19/24 08:10 10/20/24 08:04
Ceftriaxone 1000 Mg / 10 Ml Vial IV 1,000 mg
DAILY GLENYS Administration
Cholecalciferol 25 mcg 10/20/24 08:00 10/20/24 08:03
Cholecalciferol (Vitamin D3) 25 Mcg Tablet (1,000 Units) PO 11/17/24 07:59 25 mcg
DAILY GLENYS Administration
Enoxaparin Sodium 40 mg 10/17/24 18:00 10/19/24 18:01
Enoxaparin Sodium 40 Mg/0.4 Ml Syringe SC 11/14/24 17:59 40 mg
QPM GLENYS Administration
Escitalopram Oxalate 5 mg 10/18/24 08:00 10/20/24 08:03
Escitalopram 5 Mg Tablet PO 11/15/24 07:59 5 mg
DAILY GLENYS Administration
Polyethylene Glycol 17 grams 10/21/24 08:00
Polyethylene Glycol Powder 17 Grams Packet PO 11/18/24 07:59
DAILY GLENYS
Pravastatin Sodium 80 mg 10/17/24 21:00 10/19/24 18:07
Pravastatin 40 Mg Tablet PO 11/14/24 20:59 80 mg
QPM GLENYS Administration
Propafenone HCl 150 mg 10/16/24 22:00 10/20/24 08:04
Propafenone 150 Mg Tablet PO 11/13/24 21:59 150 mg
TID GLENYS Administration
Senna/Docusate Sodium 1 tablet 10/16/24 20:00 10/20/24 08:03
Docusate W/Senna (Sri-Colace) Tablet PO 11/13/24 19:59 1 tablet
BID GLENYS Administration
Sodium Chloride 0 flush 10/16/24 19:00 10/19/24 10:27
Sodium Chloride 0.9% (Flush) Syringe IV 11/13/24 18:59 1 flush
PER PROTOCOL GLENYS Administration
Sterile Water 10 ml 10/19/24 08:10 10/20/24 08:04
Sterile Water For Injection 10 Ml Vial IV 11/16/24 08:09 10 ml
DAILY GLENYS Administration
Vitals:
Temp Pulse Resp BP Pulse Ox
97.7 F 64 13 165/89 99
10/20/24 07:20 10/20/24 06:01 10/20/24 06:01 10/20/24 06:01 10/19/24 23:05
Height 5 ft 9 in
Actual Weight 54.091 kg
Body Mass Index (BMI) 17.6
Physical Exam:
General Appearance/Observation: Well-developed, well-nourished individual in no apparent distress.
Pain/Comfort Assessment: L rib pain, currently 0/10
Mood/Affect: Appropriate
Integumentary/Operative Site:
�� Pressure Ulcer Evaluation: absent over heels.
�� Other Type of Wound: right hand scabs from falls
Eyes: Conjunctiva/Lids: normal ��� Pupils: pupils equal round and reactive to light and Accommodation
Ears/Nose/Throat: oral mucosa moist,� throat clear.������������ Lips/Teeth/Gums: normal
Neck: No muscle spasm or tenderness
Cardiovascular: Heart: regular, no murmur
Pulses: radial 2+ bilaterally
Respiratory: Respiratory Effort/Chest Expansion: normal ������ Auscultation: Clear to auscultation bilaterally
Gastrointestinal: abdomen not tender, no distension, normal abdominal bowel sounds
Genitourinary: Lai
Rectal Exam: Deferred
Extremities: Edema: None Cyanosis: None Trophic changes: None
Neurology Exam:
Orientation: Alert, Oriented to self, Time, Place
Memory: Intact immediately
Higher cortical function
Repetition: Intact
Comprehension: Intact
Two step command: Intact
Naming: Intact
Cranial Nerves:
�� CNII: Pupillary light reflex: Intact��� Visual Field: Intact
�� CN III, IV, : Extraocular muscles: Intact
�� CN V: Facial Sensation at Forehead: Intact, Maxilla: Intact, Mandible: Intact
�� CN VII: Facial movement: Symmetric
�� CN VIII: Hearing: Normal
�� CN IX/X: Speech & swallow: Normal, Position of Uvula: Midline
�� CN XI: Shoulder shrug: Symmetric
�� CN XII: Tongue protrusion: Midline
Sensory:
�� Light touch: Intact in bilateral upper and lower extremities
Reflexes:
�� Biceps: 2+ bilaterally
�� Brachioradialis: 2+ bilaterally
�� Triceps: 2+ bilaterally
�� Patellar: 2+ bilaterally
�� Achilles: 2+ bilaterally
�� Babinski: Down going bilaterally
�� Clonus: None
�� David: Negative bilaterally
Cerebellar: Dysmetria/Ataxia: None
Musculoskeletal:
Motor: (Manual muscle scale 0-5)
Muscle SA EF WE EE FF FA HF KE DF EHL PF
Right� 5 5 5 5 5 5 5 5 5 5 5
Left 5 5 5 5 5 5 5 5 5 5 5
Tone: Cogwheel rigidity. Upper and lower extremity more rigid; especially elbow flexion, hip flexion, knee flesion
Range of Motion: Passively within normal limits in all extremities
Lab Results
10/19/24 04:07
10/19/24 04:07
WBC 6.5 10^3/uL (4.8-10.8) 10/19/24 04:07
Hgb 12.1 g/dL (13.0-18.0) L 10/19/24 04:07
Hct 35.1 % (39.0-52.0) L 10/19/24 04:07
MCV 88.6 fL (80.0-94.0) 10/19/24 04:07
Plt Count 249 10^3/uL (130-400) 10/19/24 04:07
Sodium 134 mmol/L (135-145) L 10/19/24 04:07
Potassium 4.2 mmol/L (3.5-5.1) 10/19/24 04:07
Chloride 104 mmol/L (98-107) 10/19/24 04:07
Carbon Dioxide 24 mmol/L (22-30) 10/19/24 04:07
BUN 16 mg/dl (9-20) 10/19/24 04:07
Creatinine 0.8 mg/dL (0.7-1.3) 10/19/24 04:07
eGFR > 60.00 10/19/24 04:07
Glucose 71 mg/dl (70-99) 10/19/24 04:07
Calcium 9.2 mg/dl (8.4-10.2) 10/19/24 04:07
Phosphorus 3.1 mg/dl (2.5-4.5) 10/19/24 04:07
Magnesium 2.3 mg/dl (1.6-2.3) 10/19/24 04:07
Total Bilirubin 0.6 mg/dl (0.2-1.3) 10/17/24 05:51
Direct Bilirubin 0.3 mg/dl (0.0-0.4) 10/17/24 05:51
AST 31 U/L (17-59) 10/17/24 05:51
ALT < 10 U/L (0-50) 10/17/24 05:51
Alkaline Phosphatase 62 U/L (38-126) 10/17/24 05:51
Total Protein 6.4 g/dl (6.3-8.2) 10/17/24 05:51
Albumin 3.9 g/dl (3.5-5.0) 10/17/24 05:51
Diagnostic Results: as per HPI
Head CT 10/18/24
1. Mild diffuse cerebral and cerebellar volume loss.
2. Minimal periventricular white matter leukoaraiosis.
Head CT 10/16/24
No evidence of acute intracranial abnormality.
CXR 10/16/24
Slightly displaced fracture of the left posterolateral eighth rib, which appears acute.
The lungs appear clear with no evidence for pneumothorax or hemothorax.
Abd x-ray 10/16/24
Moderate to large amount of stool throughout the colon, suggesting constipation. The rectum is moderately distended with stool with transverse dimension of 6.3 cm. Findings of mild stercoral colitis involving the rectum. No evidence for perforation.
Trace amount of left pleural fluid. Fractures of the left posterolateral ninth and 10th ribs. No evidence for pneumothorax.
Bony degenerative changes as described.
Assessment
74yoM with PMH notable for Parkinson's disease (dx 2020), CAD, who is presenting with delirium/confusion, likely due to UTI. Receiving ceftriaxone for UTI. Neuro did not recommend changing Parkinson medication regimen or additional medication for
delirium, pending symptom evolution with UTI treatment.
Plan
PM&R PT/OT to increase independence with ADLs, improve balance, coordination, endurance, strength, mobility, community reintegration, decreased burden of care on others and family education.
Anticholinergic side effects (delirium / constipation):
- Patient took trospium 20 mg PO qHS for overactive bladder. Anticholinergics like these can have side effects of constipation and delirium. To prevent constipation, recommend mirabegron
- Delirium: pending symptom evolution with UTI treatment, maintain Parkinson's treatment regimen
Psych: escitalopram 5 mg po qHS. Delirium - likely due to UTI and/or anticholinergics
Bowel: Colace and Senna, PRN bisacodyl.
Bladder: Time void, PVRs, PRN straight cath.
Falls: Likely multifactorial
- Parkinson's disease: maintaining current regimen
- Vitamin D deficiency: weekly replacement Vitamin D2.
- Check orthostatics.
- Delirium
HTN: hold off on antihypertensives while patient has orthostatic hypotension
Coronary artery disease: Aspirin 81 mg po daily, pravastatin 80 mg po qHS, beta-ellen
Atrial fibrillation:� Continue propafenone 150 mg po tid & enoxaparin 40 mg SC qpm �����������������������������������������
Pain: acetaminophen or oxycodone as needed.
GI Prophylaxis: Pantoprazole
DVT Prophylaxis: enoxaparin 40 mg SC qPM
Pulmonary: Incentive spirometry
Safety: Continue to reinforce assistance with all transfers.
Code Status:� Full code
Dispo (date/plan/equipment needs): Acute rehab.� Social history reviewed.
Functional and Medical Goals: Modified Independent with ADL�s, ambulation, transfers
SUMMARY
Summary of recommendations:
- Discharge Destination: Acute rehab
- Constipation & delirium in setting over urinary urgency: Switch from trospium to mirabegron
- Blood pressure must be less than 180 systolic and 100 diastolic for 24 hours before being stable for transfer to SNF/acute rehab.
- Evalaute for orthostatic hypotension. Please give blood pressure parameters.
- Please comment on dvt chemoprophylaxis restrictions.
- Please comment on ROM, bracing and weight bearing precautions
Will continue to follow patient.
Thank you for allowing me to care for your patient. Please contact me with any questions or concerns.
This note was dictated using a voice recognition system. Please excuse any typographical errors from sewage screen operator. If you believe there are any discrepancies, please notify our office.
Consultation
-
Date/Time Consultation Requested: 10/19/24
Date/Time Consultation Performed: 10/20/24
Requesting Provider: Kevin Trejo
Performing Provider: Maycol Minor
Reason for Consultation: Debility & Delirium

Documented by User: Maycol Fulton MD 10/20/24 19:21
Consultation - Medical
-
Referring Provider: Kevin Trejo
Chief Complaint: Delirium/Encephalopathy
History of Present Illness: 74M with PMH notable for CAD (status post stents x 2 in 12/2012), Afib, HTN, Inguinal Hernia Repair, Parkinson's disease p/w progressive confusion/hallucinations falls for the last week, who was brought in by family for
increasing confusion.
He was seen at [facility], diagnosed with multiple posterior left rib fractures and a urinary tract infection, and discharged on Bactrim. Confusion however worsened prompting visit here. On ED eval, he was normotensive, afebrile, and
stable resp status room air. Urinalysis noted occult blood, RBCs, and few bacteria. CT Head noted no acute abnormalities. Chest imaging re-demonstrated acute appearing left posterior rib fractures with no evidence of pneumothorax. CT imaging of
his abdomen pelvis showed large stool burden with probable developing stercoral colitis. He was started on antibiotics with Zosyn and admitted for further evaluation and management of metabolic encephalopathy, suspect secondary to urinary tract
infection and possible stercoral colitis.
Past Medical History: Parkinson's disease, A-fib, CAD, skin cancer
Procedure History: Right inguinal hernia repair, cardiac stents x2 12/2012
Family History: Not pertinent
Social History:
Functional Level Premorbidly: Independent with all activities
Functional Level Currently:
OT: mod A bed mobility and LB dressing; mod A x 2 sit to stand and initial transfer. As stand tolerance progressed, patient became more steady on feet, requiring midAx2 for transfer and short distance mobility in room
- Recommend acute rehab
PT: Mobility highly limited by cognitive deficits. Assistance x 2 to transfer to bedside chair, very unsteady with posterior lean and not utilizing RW. Likely better mobility without a device due to cognitive impairment.
- Recommend acute rehab
Tobacco: Quit
Alcohol: Occasional / social
Drug use: Denies
Lives with: family
24-hour assistance available: yes
Number of floors: multi-level
# steps to enter: 6
# steps to 2nd floor: 13
Potential First floor set up: yes
Driving: yes, decreasing. Last drove 2 weeks ago
Occupation: retired
Allergies:
Allergy/AdvReac Type Severity Reaction Status Date / Time
Penicillins Allergy Unknown Verified 10/16/24 12:26
Review of Systems:
Constitutional: (x) Normal _
Eye: (x) Normal _
Ear/Nose/Throat: (x) Normal _
Respiratory: (x) Normal _
Cardiovascular: (x) Normal _
Gastrointestinal: Constipation
Genitourinary: (x) Normal _
Musculoskeletal: Left lower lateral rib pain
Integumentary: (x) Normal _
Neurologic: (x) Normal _
Psychiatric: Returned to baseline (no hallucinations/delirium) yesterday morning 10/19/24, per
Endocrine: (x) Normal _
Hematologic/Lymphatic: (x) Normal _
Allergic/Immunologic: (x) Normal _
Medications:
Generic Name Dose Route Start Last Admin
Trade Name Freq PRN Reason Stop Dose Admin
Acetaminophen 650 mg 10/16/24 20:41 10/17/24 23:38
Acetaminophen 325 Mg Tablet PO 11/13/24 20:40 650 mg
Q4HPRN PRN Administration
mild pain/CHANDLER/temp> 100.4F
Aspirin 81 mg 10/17/24 09:30 10/20/24 08:03
Aspirin 81 Mg Chewable Tablet PO 11/14/24 09:29 81 mg
DAILY GLENYS Administration
Bisacodyl 10 mg 10/16/24 20:41 10/18/24 14:54
Bisacodyl 10 Mg Rectal Suppository RECTAL 11/13/24 20:40 10 mg
[id number] PRN Administration
constipation
Carbidopa/Levodopa 1 tablet 10/16/24 22:00 10/20/24 08:04
Carbidopa (25 Mg)/Levodopa (100 Mg) Regular Release Tablet PO 11/13/24 21:59 1 tablet
TID GLENYS Administration
Ceftriaxone Sodium 1,000 mg 10/19/24 08:10 10/20/24 08:04
Ceftriaxone 1000 Mg / 10 Ml Vial IV 1,000 mg
DAILY GLENYS Administration
Cholecalciferol 25 mcg 10/20/24 08:00 10/20/24 08:03
Cholecalciferol (Vitamin D3) 25 Mcg Tablet (1,000 Units) PO 11/17/24 07:59 25 mcg
DAILY GLENYS Administration
Enoxaparin Sodium 40 mg 10/17/24 18:00 10/19/24 18:01
Enoxaparin Sodium 40 Mg/0.4 Ml Syringe SC 11/14/24 17:59 40 mg
QPM GLENYS Administration
Escitalopram Oxalate 5 mg 10/18/24 08:00 10/20/24 08:03
Escitalopram 5 Mg Tablet PO 11/15/24 07:59 5 mg
DAILY GLENYS Administration
Polyethylene Glycol 17 grams 10/21/24 08:00
Polyethylene Glycol Powder 17 Grams Packet PO 11/18/24 07:59
DAILY GLENYS
Pravastatin Sodium 80 mg 10/17/24 21:00 10/19/24 18:07
Pravastatin 40 Mg Tablet PO 11/14/24 20:59 80 mg
QPM GLENYS Administration
Propafenone HCl 150 mg 10/16/24 22:00 10/20/24 08:04
Propafenone 150 Mg Tablet PO 11/13/24 21:59 150 mg
TID GLENYS Administration
Senna/Docusate Sodium 1 tablet 10/16/24 20:00 10/20/24 08:03
Docusate W/Senna (Sri-Colace) Tablet PO 11/13/24 19:59 1 tablet
BID GLENYS Administration
Sodium Chloride 0 flush 10/16/24 19:00 10/19/24 10:27
Sodium Chloride 0.9% (Flush) Syringe IV 11/13/24 18:59 1 flush
PER PROTOCOL GLENYS Administration
Sterile Water 10 ml 10/19/24 08:10 10/20/24 08:04
Sterile Water For Injection 10 Ml Vial IV 11/16/24 08:09 10 ml
DAILY GLENYS Administration
Vitals:
Temp Pulse Resp BP Pulse Ox
97.7 F 64 13 165/89 99
10/20/24 07:20 10/20/24 06:01 10/20/24 06:01 10/20/24 06:01 10/19/24 23:05
Height 5 ft 9 in
Actual Weight 54.091 kg
Body Mass Index (BMI) 17.6
Physical Exam:
General Appearance/Observation: Well-developed, well-nourished individual in no apparent distress.
Pain/Comfort Assessment: L rib pain, currently 0/10
Mood/Affect: Appropriate
Integumentary/Operative Site:
�� Pressure Ulcer Evaluation: absent over heels.
�� Other Type of Wound: right hand scabs from falls
Eyes: Conjunctiva/Lids: normal ��� Pupils: pupils equal round and reactive to light and Accommodation
Ears/Nose/Throat: oral mucosa moist,� throat clear.������������ Lips/Teeth/Gums: normal
Neck: No muscle spasm or tenderness
Cardiovascular: Heart: regular, no murmur
Pulses: radial 2+ bilaterally
Respiratory: Respiratory Effort/Chest Expansion: normal ������ Auscultation: Clear to auscultation bilaterally
Gastrointestinal: abdomen not tender, no distension, normal abdominal bowel sounds
Genitourinary: Lai
Rectal Exam: Deferred
Extremities: Edema: None Cyanosis: None Trophic changes: None
Neurology Exam:
Orientation: Alert, Oriented to self, Time, Place
Memory: Intact immediately
Higher cortical function
Repetition: Intact
Comprehension: Intact
Two step command: Intact
Naming: Intact
Cranial Nerves:
�� CNII: Pupillary light reflex: Intact��� Visual Field: Intact
�� CN III, IV, : Extraocular muscles: Intact
�� CN V: Facial Sensation at Forehead: Intact, Maxilla: Intact, Mandible: Intact
�� CN VII: Facial movement: Symmetric
�� CN VIII: Hearing: Normal
�� CN IX/X: Speech & swallow: Normal, Position of Uvula: Midline
�� CN XI: Shoulder shrug: Symmetric
�� CN XII: Tongue protrusion: Midline
Sensory:
�� Light touch: Intact in bilateral upper and lower extremities
Reflexes:
�� Biceps: 2+ bilaterally
�� Brachioradialis: 2+ bilaterally
�� Triceps: 2+ bilaterally
�� Patellar: 2+ bilaterally
�� Achilles: 2+ bilaterally
�� Babinski: Down going bilaterally
�� Clonus: None
�� David: Negative bilaterally
Cerebellar: Dysmetria/Ataxia: None
Musculoskeletal:
Motor: (Manual muscle scale 0-5)
Muscle SA EF WE EE FF FA HF KE DF EHL PF
Right� 5 5 5 5 5 5 5 5 5 5 5
Left 5 5 5 5 5 5 5 5 5 5 5
Tone: Cogwheel rigidity. Upper and lower extremity more rigid; especially elbow flexion, hip flexion, knee flesion
Range of Motion: Passively within normal limits in all extremities
Lab Results
10/19/24 04:07
10/19/24 04:07
WBC 6.5 10^3/uL (4.8-10.8) 10/19/24 04:07
Hgb 12.1 g/dL (13.0-18.0) L 10/19/24 04:07
Hct 35.1 % (39.0-52.0) L 10/19/24 04:07
MCV 88.6 fL (80.0-94.0) 10/19/24 04:07
Plt Count 249 10^3/uL (130-400) 10/19/24 04:07
Sodium 134 mmol/L (135-145) L 10/19/24 04:07
Potassium 4.2 mmol/L (3.5-5.1) 10/19/24 04:07
Chloride 104 mmol/L (98-107) 10/19/24 04:07
Carbon Dioxide 24 mmol/L (22-30) 10/19/24 04:07
BUN 16 mg/dl (9-20) 10/19/24 04:07
Creatinine 0.8 mg/dL (0.7-1.3) 10/19/24 04:07
eGFR > 60.00 10/19/24 04:07
Glucose 71 mg/dl (70-99) 10/19/24 04:07
Calcium 9.2 mg/dl (8.4-10.2) 10/19/24 04:07
Phosphorus 3.1 mg/dl (2.5-4.5) 10/19/24 04:07
Magnesium 2.3 mg/dl (1.6-2.3) 10/19/24 04:07
Total Bilirubin 0.6 mg/dl (0.2-1.3) 10/17/24 05:51
Direct Bilirubin 0.3 mg/dl (0.0-0.4) 10/17/24 05:51
AST 31 U/L (17-59) 10/17/24 05:51
ALT < 10 U/L (0-50) 10/17/24 05:51
Alkaline Phosphatase 62 U/L (38-126) 10/17/24 05:51
Total Protein 6.4 g/dl (6.3-8.2) 10/17/24 05:51
Albumin 3.9 g/dl (3.5-5.0) 10/17/24 05:51
Diagnostic Results: as per HPI
Head CT 10/18/24
1. Mild diffuse cerebral and cerebellar volume loss.
2. Minimal periventricular white matter leukoaraiosis.
Head CT 10/16/24
No evidence of acute intracranial abnormality.
CXR 10/16/24
Slightly displaced fracture of the left posterolateral eighth rib, which appears acute.
The lungs appear clear with no evidence for pneumothorax or hemothorax.
Abd x-ray 10/16/24
Moderate to large amount of stool throughout the colon, suggesting constipation. The rectum is moderately distended with stool with transverse dimension of 6.3 cm. Findings of mild stercoral colitis involving the rectum. No evidence for perforation.
Trace amount of left pleural fluid. Fractures of the left posterolateral ninth and 10th ribs. No evidence for pneumothorax.
Bony degenerative changes as described.
Assessment
74yoM with PMH notable for Parkinson's disease (dx 2020), CAD, who is presenting with delirium/confusion, likely due to UTI. Receiving ceftriaxone for UTI. Neuro did not recommend changing Parkinson medication regimen or additional medication for
delirium, pending symptom evolution with UTI treatment.
Plan
PM&R PT/OT to increase independence with ADLs, improve balance, coordination, endurance, strength, mobility, community reintegration, decreased burden of care on others and family education.
Anticholinergic side effects (delirium / constipation):
- Patient took trospium 20 mg PO qHS for overactive bladder. Anticholinergics like these can have side effects of constipation and delirium. To prevent constipation, recommend mirabegron
- Delirium: pending symptom evolution with UTI treatment, maintain Parkinson's treatment regimen
Psych: escitalopram 5 mg po qHS. Delirium - likely due to UTI and/or anticholinergics
Bowel: Colace and Senna, PRN bisacodyl.
Bladder: Time void, PVRs, PRN straight cath.
Falls: Likely multifactorial
- Parkinson's disease: maintaining current regimen
- Vitamin D deficiency: weekly replacement Vitamin D2.
- Check orthostatics.
- Delirium
HTN: hold off on antihypertensives while patient has orthostatic hypotension
Coronary artery disease: Aspirin 81 mg po daily, pravastatin 80 mg po qHS, beta-ellen
Atrial fibrillation:� Continue propafenone 150 mg po tid & enoxaparin 40 mg SC qpm �����������������������������������������
Pain: acetaminophen or oxycodone as needed.
GI Prophylaxis: Pantoprazole
DVT Prophylaxis: enoxaparin 40 mg SC qPM
Pulmonary: Incentive spirometry
Safety: Continue to reinforce assistance with all transfers.
Code Status:� Full code
Dispo (date/plan/equipment needs): Acute rehab.� Social history reviewed.
Functional and Medical Goals: Modified Independent with ADL�s, ambulation, transfers
SUMMARY
Summary of recommendations:
- Discharge Destination: Acute rehab when medically stable for discharge
- Constipation & delirium in setting over urinary urgency: Switch from trospium to mirabegron
- Blood pressure must be less than 180 systolic and 100 diastolic for 24 hours before being stable for transfer to SNF/acute rehab.
- Evaluate for orthostatic hypotension. Please give blood pressure parameters.
- Please comment on dvt chemoprophylaxis restrictions.
- Please comment on ROM, bracing and weight bearing precautions
Will continue to follow patient.
Thank you for allowing me to care for your patient. Please contact me with any questions or concerns.
Attending Note:
Patient seen and examined by me today, and reviewed with resident physician Dr. Larios. I agree with above history, examination and plan as outlined above. Would be a good candidate for acute rehabilitation to improve mobility, balance, strength,
endurance, gait to be able to return to previous level of mobility and function. Multispecialty therapy services would be required to get him back to previous functional independence including physical therapy, occupational therapy and patient can
tolerate 3 hours of therapy daily to qualify for acute level rehabilitation
Avoid anticholinergic medications as much as possible. Monitor BP with position changes for orthostasis.
--- NOTE | 2024-10-20 16:30 | CM ---
referrals sent to [facility] at [facility] and [facility]'s updated clinicals faxed today waiting on a determination.
Plan; To follow up for acute rehab for patient.
[2024-10-20] MEDS: LIDOCAINE 4% PATCH TOPICAL ×2 (16:58→17:02)
[2024-10-20] MEDS: LOVENOX 40 MG SC (16:59)
[2024-10-20] MEDS: PRAVACHOL 80 MG PO (16:59)
[2024-10-20] MEDS: REMOVE LIDOCAINE PATCH 1 PATCH REMOVE (19:43)
--- NOTE | 2024-10-20 20:51 | W.PN.ID1 ---
Date of Service
Date of Service: October 20, 2024
Today's Communication
discussed patient with critical care nurse
Assessment / Plan
1. CT abdomen with profound constipation with stercoral colitis without perforation with no BM again for more than 2 days even with suppository yesterday/enema today with return per discussion with nurse
2. Afebrile without leukocytosis
3. Patient currently on Ceftriaxone for colitis in setting of very worrisome recent CT abdomen findings
4. Patient currently in ICU for worsening mental status with neurologic evaluation completed and repeat CT head without acute finding with patient mental status improved today
5. Patient afebrile with improved leukocytosis would D/C Ceftriaxone 1 Gm IV Q 24 H as long as patient afebrile without leukocytosis
Thank you for calling ID consultation
Please call us with any questions or concerns
Chief Complaint
-: Other (fecal loading with distended rectum large bowel with mild stercoral colitis)
Subjective / Review of Systems
Review of Systems: No Fever, No Chills, No Headache, No Pharyngitis, No Stiff Neck, No Swollen Lymph Nodes, No Cough, No Sputum Production, No Chest Pain, No Palpitations, No Abdominal Pain, No Nausea, No Vomiting, No Diarrhea, No Dysuria, No Joint
Pain and No Skin Rash
Vital Signs / Physical Exam
Vital Signs
Vital Signs
Temp Pulse Resp BP Pulse Ox
97.9 F 65 11 156/78 99
10/20/24 19:04 10/20/24 16:00 10/20/24 16:00 10/20/24 16:00 10/20/24 10:58
Physical Exam
Constitutional: No Acute Distress, Well Developed, Comfortable, Chronically Ill, Non-toxic and Cachetic
Head: Normocephalic
Eyes: Pupils Equal, Pupils Round, No Conjunctival Hemorrhage and Sclera Anicteric
Oropharyngeal: Benign
Cardiovascular: Regular Rate
Pulmonary: Clear and Non Labored
Gastrointestinal: Soft, Non Tender, Non Distended and Decreased Bowel Sounds
Skin: Warm and Dry
Wound: None
Neurological: Awake and Alert (confused, gait not observed)
Psychological: Calm
Objective Data
Lab Data
Lab Results
10/19/24 04:07
10/19/24 04:07
Estimated Creat Clear 63 ml/min 10/19/24 04:07
Total Bilirubin 0.6 mg/dl (0.2-1.3) 10/17/24 05:51
AST 31 U/L (17-59) 10/17/24 05:51
ALT < 10 U/L (0-50) 10/17/24 05:51
Alkaline Phosphatase 62 U/L (38-126) 10/17/24 05:51
Most recent labs reviewed.
CT Scan: Report Reviewed
Care Review
Plan reviewed with: Nurse (bowel status and enema results)
Total Time Spent with Patient (in minutes): 35
[2024-10-21] VITALS (14 sets, daily range): BP systolic 64–160; BP diastolic 50–98; PULSE 77–95; BMI 17.6
--- NOTE | 2024-10-21 07:15 | W.PN.HOSP.TC ---
Today's Communication/Plan
-
Stable for downgrade to Tele
IVF bolus abd binder TENISHA stocking severe orthostatic hypotension
Discharge Planning Acute Rehab when stable for discharge.
Assessment / Plan
Assessment / Plan
Physical Exam
General: appears comfortable at this time, no acute distress
HEENT: NormoCephalic, Moist mucous membranes, mild abrasion on distal nose and philtrum
Respiratory: Clear and Non Labored Respirations
Cardiac: S1/S2 and Regular Rhythm; No Rub or Gallop
GI: Soft, Non Tender, Non Distended and Normal Bowel Sounds
Musculoskeletal: No Edema, no deformity, decreased muscle bulk throughout, minor abrasions left posterior ribs
Skin: Warm and dry
Neuro: AOx2 disoriented to time conversant coherent
Psych: Calm
74M CAD (status post stents x 2 in 12/2012), Afib, HTN, Inguinal Hernia Repair, Parkinson's disease p/w progressive confusion/hallucinations falls for the last week, brought in by family. He was seen at [facility], diagnosed with
multiple posterior left rib fractures and a urinary tract infection, and discharged on Bactrim. Confusion however worsen prompting visit here. On ED eval, he was normotensive, afebrile, and stable resp status room air. Urinalysis noted occult
blood, RBCs, and few bacteria. CT Head noted no acute abnormalities. Chest imaging re-demonstrated acute appearing left posterior rib fractures with no evidence of pneumothorax. CT imaging of his abdomen pelvis showed large stool burden with
probable developing stercoral colitis. He was started on antibiotics with Zosyn and admitted for further evaluation and management of metabolic encephalopathy, suspect secondary to urinary tract infection and possible stercoral colitis.
Acute metabolic encephalopathy
Visual Hallucinations
Polypharmacy
Transferred to IMU 10/18 d/t progressive worsening mental status, since improved stable for downgrade to Tele
- Suspect multifactorial with urinary tract infection (diagnosed [facility] COOK at [facility]) and probable stercoral colitis, likely preceded by start of anticholinergic agents such as home medications glycopyrrolate and trospium
-Per family, Trospium started within the last month for overactive bladder. Anticholinergic effects can worsen constipation, urinary retention (increasing risk UTI), and cause hallucinations
- CT brain with no acute abnormalities, repeated on transfer to IMU also noted no acute changes
- TSH mild elevated with free T4 wnl
- Stercoral Colitis, UTI, treated empirically with Zosyn, de-escalated to 2g ceftriaxone IV daily Flagyl 500 mg q8, then ceftriaxone 1 g IV daily, abx completed as per ID
- IVF support completed, tolerating regular diet
- received Milk and molasses enema x2 for stool burden with probable stercoral colitis, good response noted each time, continue scheduled bowel regimen
- Speech eval appreciated soft bite sized diet further updated to Regular diet with clinical improvement
- Psych eval appreciated home Lexapro reduced to 5 mg daily, consider eventual dc
- Neuro eval appreciated
Parkinson's disease
- Family reports no recent change in the patient's Sinemet regimen
- follows with neurologist Dr Max Wilson at [place]
- According to the patient's he was able to ambulate on his own within the past 2 weeks prior to this acute decline
- PT/OT/PMR eval appreciated Acute Rehab
Severe Orthostatic Hypotension 10/21/24
-Systolic dropped from 123 to 64 on standing, patient symptomatic
-IVF bolus 500 cc once
-abd binder and TENISHA stockings
-monitor orthostatic vitals
Slightly displaced fracture of the left posterolateral eighth rib, which appears acute, as noted on CXR
-cont pain control
-lidocaine patch
paroxysmal A-fib
- Continue home propafenone
- not on anticoagulation LEAD COOK, appropriate at this time considering multiple falls
Mild Vit D deficiency
supplementation
CAD:
- Chronic, stable, history of stents x 2
- Continue aspirin and statin
Fall Aspiration Precautions
DVT prophylaxis: Lovenox
CODE STATUS: Full code
Discussed with patient and patient's Kristyn
I spent a total of 45 minutes with the patient or on the floor. More than 50% of this time involved counseling and coordination of care.
Anticipated Discharge: 24 - 48 hours
Subjective/Interval History
-
Date of Service: October 21, 2024
no acute distress sitting up comfortably in chair. Overall reports feeling well. Constipation resolved. present during evaluation.
Objective Data
-
Vital Signs:
Vital Signs
Temp Pulse Resp BP Pulse Ox
97.6 F 68 9 131/76 98
10/21/24 03:22 10/21/24 00:00 10/21/24 00:00 10/21/24 00:00 10/21/24 00:47
I&O
10/20/24 10/21/24 10/22/24
06:59 06:59 06:59
Intake Total 2325 / 2325
Output Total 1090 / 1090 1924
Balance 1235 / 1235 -1924 / -1924
[2024-10-21] MEDS: SENOKOT-S PO ×3 (08:36→20:36)
[2024-10-21] MEDS: VITAMIN D3 (cholecalciferol) 25 MCG PO (08:36)
[2024-10-21] MEDS: LEXAPRO 5 MG PO (08:36)
[2024-10-21] MEDS: SINEMET 25-100 1 TABLET PO ×3 (08:36→22:55)
[2024-10-21] MEDS: MIRALAX PO ×2 (08:36→08:43)
[2024-10-21] MEDS: RYTHMOL 150 MG PO ×3 (08:36→22:55)
[2024-10-21] MEDS: LOW STRENGTH ASPIRIN 81 MG PO (08:36)
[2024-10-21] MEDS: LIDOCAINE 4% PATCH 1 PATCH TOPICAL (08:37)
--- NOTE | 2024-10-21 11:24 | CM ---
Patient seen at bedside with also present in IMU. Patient seen by therapy and CM called to [facility], pending medical treatment plan, [facility] continues to follow patient pending bed availability. CM will continue to follow for discharge planning needs
Plan; [facility] pending bed availability or [place] [facility] for medical treatment plan
[2024-10-21] MEDS: NSS 500 IV (12:05)
--- NOTE | 2024-10-21 17:42 | W.PN.ID1 ---
Date of Service
Date of Service: October 21, 2024
Today's Communication
patient discussed with nurse with patient likely to transfer out of ICU
Assessment / Plan
1. CT abdomen with profound constipation with stercoral colitis without perforation with no BM again for more than 2 days even with suppository/enema yesterday no BM today
2. Afebrile without leukocytosis
3. Patient currently off antibiotic after colitis treatment
4. Patient currently in ICU for worsening mental status with patient mental status improved
5. Patient afebrile with improved leukocytosis would D/C Ceftriaxone and ID will sign off at this time
Thank you for calling ID consultation
Please call us with any questions or concerns
Chief Complaint
-: Other (fecal loading with distended rectum large bowel with mild stercoral colitis)
Subjective / Review of Systems
Review of Systems: No Fever, No Chills, No Headache, No Pharyngitis, No Stiff Neck, No Swollen Lymph Nodes, No Cough, No Sputum Production, No Chest Pain, No Palpitations, No Abdominal Pain, No Nausea, No Vomiting (continued constipation with enema
yesterday with results but patient improved and is now in chair out of bed afebrile without leukocytosis), No Joint Pain and No Skin Rash
Vital Signs / Physical Exam
Vital Signs
Vital Signs
Temp Pulse Resp BP Pulse Ox
97.2 F 63 8 160/91 98
10/21/24 07:55 10/21/24 06:00 10/21/24 06:00 10/21/24 04:00 10/21/24 00:47
Physical Exam
Constitutional: No Acute Distress, Well Developed, Comfortable, Chronically Ill, Non-toxic and Cachetic
Head: Normocephalic
Eyes: Pupils Equal, Pupils Round, No Conjunctival Hemorrhage and Sclera Anicteric
Oropharyngeal: Benign
Cardiovascular: Regular Rate
Pulmonary: Clear and Non Labored
Gastrointestinal: Soft, Non Tender and Non Distended
Extremities: Other (no edema, good ROm, able to walk a few steps with assistance)
Skin: Warm and Dry
Wound: None
Neurological: Awake and Alert; Negative Oriented
Psychological: Confused
Objective Data
Lab Data
Lab Results
10/19/24 04:07
10/19/24 04:07
Estimated Creat Clear 63 ml/min 10/19/24 04:07
Total Bilirubin 0.6 mg/dl (0.2-1.3) 10/17/24 05:51
AST 31 U/L (17-59) 10/17/24 05:51
ALT < 10 U/L (0-50) 10/17/24 05:51
Alkaline Phosphatase 62 U/L (38-126) 10/17/24 05:51
Most recent labs reviewed.
Care Review
Plan reviewed with: Nurse
Total Time Spent with Patient (in minutes): 35
[2024-10-21] MEDS: PRAVACHOL 80 MG PO (18:30)
[2024-10-21] MEDS: LOVENOX 40 MG SC (18:30)
--- NOTE | 2024-10-21 19:54 | PTCARENOTE ---
day shift note. see nursing assessmnent. pt hypotensive when oob working with PT today. Dr Trejo notified. 500 ml iv bolus given as ordered. teds and abd binder ordered. bp improved to 120s systolic.
[2024-10-21] MEDS: REMOVE LIDOCAINE PATCH 1 PATCH REMOVE (21:09)
--- NOTE | 2024-10-21 23:06 | PTCARENOTE ---
assumed care of pt from daysthao RN. Pt aaox3, CRAIG, slow speech, and forgetful at times. Pt has generalized weakness and hx of Parkinsons. Pt 96% on RA. NSR on monitor. Pt inc of bowel and bladder. cc #21 replaced and draining yellow urine. Hygiene
completed including CHG wipes, oral care, and complete bed change.
Verbal report provided to ISRA [place]. Pt transferred to via bed with all belongings
[2024-10-22 03:15] VITALS: BP 133/74
--- NOTE | 2024-10-22 07:23 | W.PN.HOSP.TC ---
Today's Communication/Plan
-
monitor orthostatic vitals
abd binder TEDs when out of bed/activity anticipated/standing/walking
Discharge planning Acute Rehab
Assessment / Plan
Assessment / Plan
Physical Exam
General: appears comfortable at this time, no acute distress
HEENT: NormoCephalic, Moist mucous membranes, mild abrasion on distal nose and philtrum
Respiratory: Clear and Non Labored Respirations
Cardiac: S1/S2 and Regular Rhythm; No Rub or Gallop
GI: Soft, Non Tender, Non Distended and Normal Bowel Sounds
Musculoskeletal: No Edema, no deformity, decreased muscle bulk throughout, minor abrasions left posterior ribs
Skin: Warm and dry
Neuro: AOx2 disoriented to time conversant coherent
Psych: Calm
74M CAD (status post stents x 2 in 12/2012), Afib, HTN, Inguinal Hernia Repair, Parkinson's disease p/w progressive confusion/hallucinations falls for the last week, brought in by family. He was seen at [facility], diagnosed with
multiple posterior left rib fractures and a urinary tract infection, and discharged on Bactrim. Confusion however worsen prompting visit here. On ED eval, he was normotensive, afebrile, and stable resp status room air. Urinalysis noted occult
blood, RBCs, and few bacteria. CT Head noted no acute abnormalities. Chest imaging re-demonstrated acute appearing left posterior rib fractures with no evidence of pneumothorax. CT imaging of his abdomen pelvis showed large stool burden with
probable developing stercoral colitis. He was started on antibiotics with Zosyn and admitted for further evaluation and management of metabolic encephalopathy, suspect secondary to urinary tract infection and possible stercoral colitis.
Acute metabolic encephalopathy
Visual Hallucinations
Polypharmacy
Transferred to IMU 10/18 d/t progressive worsening mental status, since improved stable for downgrade to [facility]
- Suspect multifactorial with urinary tract infection (diagnosed [employer] at [facility]) and probable stercoral colitis, likely preceded by start of anticholinergic agents such as home medications glycopyrrolate and trospium
-Per family, Trospium started within the last month for overactive bladder. Anticholinergic effects can worsen constipation, urinary retention (increasing risk UTI), and cause hallucinations
- CT brain with no acute abnormalities, repeated on transfer to IMU also noted no acute changes
- TSH mild elevated with free T4 wnl
- Stercoral Colitis, UTI, treated empirically with Zosyn, de-escalated to 2g ceftriaxone IV daily Flagyl 500 mg q8, then ceftriaxone 1 g IV daily, abx completed as per ID
- IVF support completed, tolerating regular diet
- received Milk and molasses enema x2 for stool burden with probable stercoral colitis, good response noted each time, continue scheduled bowel regimen
- Speech eval appreciated soft bite sized diet further updated to Regular diet with clinical improvement
- Psych eval appreciated home Lexapro reduced to 5 mg daily, consider eventual dc
- Neuro eval appreciated
Parkinson's disease
- Family reports no recent change in the patient's Sinemet regimen
- follows with neurologist Dr Max Wilson at [place]
- According to the patient's he was able to ambulate on his own within the past 2 weeks prior to this acute decline
- PT/OT/PMR eval appreciated Acute Rehab
Severe Orthostatic Hypotension 10/21/24
-Systolic dropped from 123 to 64 on standing, patient symptomatic
-IVF bolus 500 cc once
-abd binder and TENISHA stockings
-monitor orthostatic vitals, orthostatic hypotension since significantly improved
Slightly displaced fracture of the left posterolateral eighth rib, which appears acute, as noted on CXR
-cont pain control
-lidocaine patch
paroxysmal A-fib
- Continue home propafenone
- not on anticoagulation [employer], appropriate at this time considering multiple falls
Mild Vit D deficiency
supplementation
CAD:
- Chronic, stable, history of stents x 2
- Continue aspirin and statin
Fall Aspiration Precautions
DVT prophylaxis: Lovenox
CODE STATUS: Full code
Discussed with patient and patient's Kristyn
I spent a total of 45 minutes with the patient or on the floor. More than 50% of this time involved counseling and coordination of care.
Anticipated Discharge: 24 - 48 hours
Subjective/Interval History
-
Date of Service: October 22, 2024
No acute distress. Sitting up comfortably in chair. Overall reports feeling well. Denies new acute issues. Orthostatic hypotension notably improved. Kristyn present during evaluation.
Objective Data
-
Vital Signs:
Vital Signs
Temp Pulse Resp BP Pulse Ox
96.7 F L 65 17 133/74 98
10/22/24 03:15 10/22/24 03:15 10/22/24 03:15 10/22/24 03:15 10/22/24 03:15
I&O
10/21/24 10/22/24 10/23/24
06:59 06:59 06:59
Intake Total 480 / 480
Output Total 1925 / 1925 725 / 725
Balance -1925 / -1925 -245 / -245
[2024-10-22 07:30] VITALS: BP 136/80
[2024-10-22] MEDS: RYTHMOL 150 MG PO ×3 (10:07→21:51)
[2024-10-22] MEDS: LIDOCAINE 4% PATCH 1 PATCH TOPICAL (10:07)
[2024-10-22] MEDS: LEXAPRO 5 MG PO (10:07)
[2024-10-22] MEDS: SINEMET 25-100 1 TABLET PO ×3 (10:08→21:51)
[2024-10-22] MEDS: VITAMIN D3 (cholecalciferol) 25 MCG PO (10:08)
[2024-10-22] MEDS: LOW STRENGTH ASPIRIN 81 MG PO (10:08)
[2024-10-22] MEDS: MIRALAX 17 GRAMS PO (10:08)
[2024-10-22] MEDS: SENOKOT-S 1 TABLET PO (10:08)
[2024-10-22 11:00] VITALS: BP 127/79
[2024-10-22 15:25] VITALS: BP 113/68; BP 125/69; BP 95/61; PULSE 115; PULSE 76; PULSE 88
[2024-10-22] MEDS: PRAVACHOL 80 MG PO (17:13)
[2024-10-22] MEDS: LOVENOX 40 MG SC (17:14)
[2024-10-22] MEDS: SENOKOT-S PO (20:13)
[2024-10-22] MEDS: REMOVE LIDOCAINE PATCH 1 PATCH REMOVE (20:14)
[2024-10-22 20:36] VITALS: BP 96/64
[2024-10-22 23:41] VITALS: BP 130/73
[2024-10-23] VITALS (8 sets, daily range): BP systolic 63–168; BP diastolic 37–94; PULSE 71–92
[2024-10-23 01:31] LABS: Hematocrit 31.3 % (39.0-52.0); Hemoglobin 10.8 g/dL (13.0-18.0); Mean Corp Hgb Conc. 34.5 g/dL (33.0-37.0); Mean Corpuscular Volume 88.9 fL (80.0-94.0); Platelet Count 255 10^3/uL (130-400); Red Cell Dist. Width 13.2 % (11.5-14.5)
[2024-10-23] MEDS: LIDOCAINE 4% PATCH 1 PATCH TOPICAL (08:36)
[2024-10-23] MEDS: LOW STRENGTH ASPIRIN 81 MG PO (08:36)
[2024-10-23] MEDS: RYTHMOL 150 MG PO ×3 (08:36→21:40)
[2024-10-23] MEDS: LEXAPRO 5 MG PO (08:36)
[2024-10-23] MEDS: SINEMET 25-100 1 TABLET PO ×2 (08:36→21:28)
[2024-10-23] MEDS: VITAMIN D3 (cholecalciferol) 25 MCG PO (08:36)
[2024-10-23] MEDS: SENOKOT-S PO ×2 (08:37→21:24)
[2024-10-23] MEDS: MIRALAX PO (08:37)
[2024-10-23 09:07] LABS: Hematocrit 35.6 % (39.0-52.0); Hemoglobin 12.0 g/dL (13.0-18.0)
--- NOTE | 2024-10-23 09:51 | W.PN.HOSP.TC ---
Today's Communication/Plan
-
Discharge planning Acute Rehab
IVF boluses
Monitor Orthostatic Vitals
Cardio eval, severe orthostatic hypotension though asymptomatic, question if Propafenone contributing.
Assessment / Plan
Assessment / Plan
Physical Exam
General: appears comfortable at this time, no acute distress
HEENT: NormoCephalic, Moist mucous membranes, mild abrasion on distal nose and philtrum
Respiratory: Clear and Non Labored Respirations
Cardiac: S1/S2 and Regular Rhythm; No Rub or Gallop
GI: Soft, Non Tender, Non Distended and Normal Bowel Sounds
Musculoskeletal: No Edema, no deformity, decreased muscle bulk throughout, minor abrasions left posterior ribs
Skin: Warm and dry
Neuro: AOx2 disoriented to time conversant coherent
Psych: Calm
74M CAD (status post stents x 2 in 12/2012), Afib, HTN, Inguinal Hernia Repair, Parkinson's disease p/w progressive confusion/hallucinations falls for the last week, brought in by family. He was seen at [facility], diagnosed with
multiple posterior left rib fractures and a urinary tract infection, and discharged on Bactrim. Confusion however worsen prompting visit here. On ED eval, he was normotensive, afebrile, and stable resp status room air. Urinalysis noted occult
blood, RBCs, and few bacteria. CT Head noted no acute abnormalities. Chest imaging re-demonstrated acute appearing left posterior rib fractures with no evidence of pneumothorax. CT imaging of his abdomen pelvis showed large stool burden with
probable developing stercoral colitis. He was started on antibiotics with Zosyn and admitted for further evaluation and management of metabolic encephalopathy, suspect secondary to urinary tract infection and possible stercoral colitis.
Acute metabolic encephalopathy
Visual Hallucinations
Polypharmacy
Transferred to IMU 10/18 d/t progressive worsening mental status, since improved stable for downgrade to [facility]
- Suspect multifactorial with urinary tract infection (diagnosed [employer] at [facility]) and probable stercoral colitis, likely preceded by start of anticholinergic agents such as home medications glycopyrrolate and trospium
-Per family, Trospium started within the last month for overactive bladder. Anticholinergic effects can worsen constipation, urinary retention (increasing risk UTI), and cause hallucinations
- CT brain with no acute abnormalities, repeated on transfer to IMU also noted no acute changes
- TSH mild elevated with free T4 wnl
- Stercoral Colitis, UTI, treated empirically with Zosyn, de-escalated to 2g ceftriaxone IV daily Flagyl 500 mg q8, then ceftriaxone 1 g IV daily, abx completed as per ID
- IVF support completed, tolerating regular diet
- received Milk and molasses enema x2 for stool burden with probable stercoral colitis, good response noted each time, continue scheduled bowel regimen
- Speech eval appreciated soft bite sized diet further updated to Regular diet with clinical improvement
- Psych eval appreciated home Lexapro reduced to 5 mg daily, consider eventual dc
- Neuro eval appreciated
Parkinson's disease
- Family reports no recent change in the patient's Sinemet regimen
- follows with neurologist Dr Max Wilson at [place]
- According to the patient's he was able to ambulate on his own within the past 2 weeks prior to this acute decline
- PT/OT/PMR eval appreciated Acute Rehab
Severe Orthostatic Hypotension 10/21/24
Systolic dropped from 123 to 64 on standing, patient symptomatic
IVF bolus 500 cc once
abd binder and TENISHA stockings
monitor orthostatic vitals
orthostatic hypotension briefly improved (dropping to systolic 90s instead of 60s, asymptomatic)
10/23 noted recurrence severe orthostatic hypotension dropping to 60s but asymptomatic this time compared to first occurrence
-repeat IVF bolus ordered, random cortisol albumin noted unremarkable, Cardio eval requested question if home med propafenone significantly contributing
Slightly displaced fracture of the left posterolateral eighth rib, which appears acute, as noted on CXR
-cont pain control
-lidocaine patch
paroxysmal A-fib
- Continue home propafenone, cardio eval as above
- not on anticoagulation [employer], appropriate at this time considering multiple falls
Mild Vit D deficiency
supplementation
CAD:
- Chronic, stable, history of stents x 2
- Continue aspirin and statin
Fall Aspiration Precautions
DVT prophylaxis: Lovenox
CODE STATUS: Full code
Discussed with patient and patient's Kristyn
I spent a total of 45 minutes with the patient or on the floor. More than 50% of this time involved counseling and coordination of care.
Anticipated Discharge: Within 24 hours
Subjective/Interval History
-
Date of Service: October 23, 2024
no acute distress, sitting up comfortably in chair. Overall reports feeling well. Significant orthostatic hypotension noted today, again dropping to systolic 60s but noted asymptomatic. Kristyn present during evaluation
Objective Data
-
Labs:
Laboratory Results
10/23/24 10/23/24 10/23/24
00:01 01:15 09:01
WBC Cancelled 6.2
Hgb Cancelled 10.8 L 12.0 L
Hct Cancelled 31.3 L 35.6 L
Plt Count Cancelled 255
Vital Signs:
Vital Signs
Temp Pulse Resp BP Pulse Ox
97.6 F 70 18 168/94 99
10/23/24 07:30 10/23/24 07:30 10/23/24 07:30 10/23/24 07:30 10/23/24 07:30
I&O
10/22/24 10/23/24 10/24/24
06:59 06:59 06:59
Intake Total 480 / 480 1140 / 1140
Output Total 725 / 725 675 / 675
Balance -245 / -245 465 / 465
[2024-10-23] MEDS: NSS 500 IV ×2 (10:41→12:05)
[2024-10-23 10:56] LABS: ALT (SGPT) 23 U/L (0-50); AST (SGOT) 56 U/L (17-59); Albumin 3.9 g/dl (3.5-5.0); Alkaline Phosphatase 58 U/L (38-126); Blood Urea Nitrogen 18 mg/dl (9-20); Calcium 8.9 mg/dl (8.4-10.2); Carbon Dioxide 27 mmol/L (22-30); Chloride 103 mmol/L (98-107); Estimated Creatinine Clearance 63 ml/min; Glucose 126 mg/dl (70-99); Magnesium 2.1 mg/dl (1.6-2.3); Potassium 4.0 mmol/L (3.5-5.1); Sodium 135 mmol/L (135-145); Total Protein 6.5 g/dl (6.3-8.2); eGFR > 60.00
[2024-10-23 11:17] LABS: Cortisol, Random 14.4 ug/dl
[2024-10-23] MEDS: FLUSH (NSS) 1 FLUSH IV ×2 (12:05→21:41)
[2024-10-23] MEDS: LOVENOX 40 MG SC (17:30)
[2024-10-23] MEDS: PRAVACHOL 80 MG PO (17:30)
[2024-10-23] MEDS: SINEMET 25-100 PO (17:36)
[2024-10-23] MEDS: REMOVE LIDOCAINE PATCH 1 PATCH REMOVE (21:23)
[2024-10-24] VITALS (9 sets, daily range): BP systolic 88–158; BP diastolic 61–87; PULSE 78–91; O2SAT 100
--- NOTE | 2024-10-24 07:03 | W.PN.HOSP.TC ---
Today's Communication/Plan
-
Empiric Keflex started for possible UTI
check urine cx
Stable for discharge Acute Rehab pending insurance/bed availability
cont midodrine with holding parameters, ABd binder, TEDs
Assessment / Plan
Assessment / Plan
Physical Exam
General: appears comfortable at this time, no acute distress
HEENT: NormoCephalic, Moist mucous membranes, mild abrasion on distal nose and philtrum
Respiratory: Clear and Non Labored Respirations
Cardiac: S1/S2 and Regular Rhythm; No Rub or Gallop
GI: Soft, Non Tender, Non Distended and Normal Bowel Sounds
Musculoskeletal: No Edema, no deformity, decreased muscle bulk throughout, minor abrasions left posterior ribs
Skin: Warm and dry
Neuro: AOx2 disoriented to time conversant coherent
Psych: Calm
74M CAD (status post stents x 2 in 12/2012), Afib, HTN, Inguinal Hernia Repair, Parkinson's disease p/w progressive confusion/hallucinations falls for the last week, brought in by family. He was seen at [facility], diagnosed with
multiple posterior left rib fractures and a urinary tract infection, and discharged on Bactrim. Confusion however worsen prompting visit here. On ED eval, he was normotensive, afebrile, and stable resp status room air. Urinalysis noted occult
blood, RBCs, and few bacteria. CT Head noted no acute abnormalities. Chest imaging re-demonstrated acute appearing left posterior rib fractures with no evidence of pneumothorax. CT imaging of his abdomen pelvis showed large stool burden with
probable developing stercoral colitis. He was started on antibiotics with Zosyn and admitted for further evaluation and management of metabolic encephalopathy, suspect secondary to urinary tract infection and possible stercoral colitis.
Acute metabolic encephalopathy
Visual Hallucinations
Polypharmacy
Transferred to IMU 10/18 d/t progressive worsening mental status, since improved stable for downgrade to Tele
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
-Per family, Trospium started within the last month for overactive bladder. Anticholinergic effects can worsen constipation, urinary retention (increasing risk UTI), and cause hallucinations
- CT brain with no acute abnormalities, repeated on transfer to IMU also noted no acute changes
- TSH mild elevated with free T4 wnl
- Stercoral Colitis, UTI, treated empirically with Zosyn, de-escalated to 2g ceftriaxone IV daily Flagyl 500 mg q8, then ceftriaxone 1 g IV daily, abx completed as per ID
- IVF support completed, tolerating regular diet
- received Milk and molasses enema x2 for stool burden with probable stercoral colitis, good response noted each time, continue scheduled bowel regimen
- Speech eval appreciated soft bite sized diet further updated to Regular diet with clinical improvement
- Psych eval appreciated home Lexapro reduced to 5 mg daily, consider eventual dc
- Neuro eval appreciated
Parkinson's disease
- Family reports no recent change in the patient's Sinemet regimen
- follows with neurologist Dr Max Wilson at [place]
- According to the patient's he was able to ambulate on his own within the past 2 weeks prior to this acute decline
- PT/OT/PMR eval appreciated Acute Rehab
Severe Orthostatic Hypotension 10/21/24
Systolic dropped from 123 to 64 on standing, patient symptomatic
IVF bolus 500 cc x2
abd binder and TENISHA stockings
orthostatic hypotension briefly improved (dropping to systolic 90s instead of 60s, asymptomatic)
10/23 noted recurrence severe orthostatic hypotension dropping to 60s but asymptomatic this time compared to first occurrence
-, random cortisol albumin noted unremarkable, discussed with Cardio home med propafenone unlikely contributing
-low dose midodrine with holding parameters started
Orthostatic Hypotension since improved
10/24 Reports of urinary urgency dysuria
-urinalysis not suggestive of UTI, urine cx ordered results pending
-empiric Keflex started planned for 5 days
Slightly displaced fracture of the left posterolateral eighth rib, which appears acute, as noted on CXR
-cont pain control
-lidocaine patch
paroxysmal A-fib
- Continue home propafenone, cardio eval as above
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
Mild Vit D deficiency
supplementation
CAD:
- Chronic, stable, history of stents x 2
- Continue aspirin and statin
Fall Aspiration Precautions
DVT prophylaxis: Lovenox
CODE STATUS: Full code
Stable for discharge Acute Rehab pending insurance/bed availability
Discussed with patient and patient's Kristyn
I spent a total of 45 minutes with the patient or on the floor. More than 50% of this time involved counseling and coordination of care.
Anticipated Discharge: Within 24 hours
Subjective/Interval History
-
Date of Service: October 24, 2024
No acute distress, sitting up comfortably in chair. Kristyn present during evaluation. Overall reported feeling well. Later reported burning with urination and frequency as per nurse.
Objective Data
-
Vital Signs:
Vital Signs
Temp Pulse Resp BP Pulse Ox
97.7 F 74 18 149/78 98
10/24/24 03:00 10/24/24 03:00 10/24/24 03:00 10/24/24 03:00 10/24/24 03:00
I&O
10/23/24 10/24/24 10/25/24
06:59 06:59 06:59
Intake Total 1140 / 1140 2310 / 2310
Output Total 675 / 675 500 / 500
Balance 465 / 465 1810 / 1810
[2024-10-24] MEDS: SINEMET 25-100 1 TABLET PO ×3 (10:11→21:56)
[2024-10-24] MEDS: RYTHMOL 150 MG PO ×3 (10:11→21:56)
[2024-10-24] MEDS: SENOKOT-S PO (10:12)
[2024-10-24] MEDS: LEXAPRO 5 MG PO (10:12)
[2024-10-24] MEDS: VITAMIN D3 (cholecalciferol) 25 MCG PO (10:12)
[2024-10-24] MEDS: LOW STRENGTH ASPIRIN 81 MG PO (10:12)
[2024-10-24] MEDS: LIDOCAINE 4% PATCH 1 PATCH TOPICAL (10:14)
[2024-10-24] MEDS: MIRALAX PO (10:14)
--- NOTE | 2024-10-24 12:37 | CM ---
Addendum entered by Rosa Lainez RN 10/24/24 12:55:
DINO spoke with Valerie from [facility]. [facility] anticipates a bed tomorrow at .
Original Note:
Reviewed the chart notes and spoke with Valerie admissions liaison with [facility]. [facility] will review progress notes and make decision on whether able to accept or not. [facility] has accepted patient in [facility]. Auth is required. DINO
continues to be available to patient/family and is monitoring medical plan for needs at discharge.
Plan: Discharge to acute rehab once medically stable, bed secured and auth obtained.
--- NOTE | 2024-10-24 13:38 | CM ---
Acute Rehab auth for [facility] initiated with Alexia from [facility]
Case sent for MDR review
Pended Reference # [id number].
[2024-10-24] MEDS: KEFLEX 500 MG PO ×3 (14:14→21:56)
[2024-10-24 15:10] LABS: Urine Character Clear (Clear)
[2024-10-24 15:40] LABS: Urine Squamous Cell 0-2 /LPF (Few)
[2024-10-24 15:41] LABS: Urine Red Blood Cell 21-25 /HPF (0-2); Urine White Cell 0-2 /HPF (0-5)
[2024-10-24] MEDS: PRAVACHOL 80 MG PO (17:08)
[2024-10-24] MEDS: LOVENOX 40 MG SC (17:09)
[2024-10-24] MEDS: TYLENOL 650 MG PO (19:41)
[2024-10-24] MEDS: SENOKOT-S 1 TABLET PO (19:41)
[2024-10-24] MEDS: REMOVE LIDOCAINE PATCH 1 PATCH REMOVE (19:43)
[2024-10-25 03:32] VITALS: BP 156/95
--- NOTE | 2024-10-25 06:58 | W.PN.HOSP.TC ---
Today's Communication/Plan
-
discharge
Assessment / Plan
Assessment / Plan
Physical Exam
General: appears comfortable at this time, no acute distress
HEENT: NormoCephalic, Moist mucous membranes, mild abrasion on distal nose and philtrum
Respiratory: Clear and Non Labored Respirations
Cardiac: S1/S2 and Regular Rhythm; No Rub or Gallop
GI: Soft, Non Tender, Non Distended and Normal Bowel Sounds
Musculoskeletal: No Edema, no deformity, decreased muscle bulk throughout, minor abrasions left posterior ribs
: Condom cath in place
Skin: Warm and dry
Neuro: AOx2 disoriented to time conversant coherent
Psych: Calm
74M CAD (status post stents x 2 in 12/2012), Afib, HTN, Inguinal Hernia Repair, Parkinson's disease p/w progressive confusion/hallucinations falls for the last week, brought in by family. He was seen at [facility], diagnosed with
multiple posterior left rib fractures and a urinary tract infection, and discharged on Bactrim. Confusion however worsen prompting visit here. On ED eval, he was normotensive, afebrile, and stable resp status room air. Urinalysis noted occult
blood, RBCs, and few bacteria. CT Head noted no acute abnormalities. Chest imaging re-demonstrated acute appearing left posterior rib fractures with no evidence of pneumothorax. CT imaging of his abdomen pelvis showed large stool burden with
probable developing stercoral colitis. He was started on antibiotics with Zosyn and admitted for further evaluation and management of metabolic encephalopathy, suspect secondary to urinary tract infection and possible stercoral colitis.
Acute metabolic encephalopathy
Visual Hallucinations
Polypharmacy
Transferred to IMU 10/18 d/t progressive worsening mental status, since improved stable for downgrade to Tele
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
-Per family, Trospium started within the last month for overactive bladder. Anticholinergic effects can worsen constipation, urinary retention (increasing risk UTI), and cause hallucinations
- CT brain with no acute abnormalities, repeated on transfer to IMU also noted no acute changes
- TSH mild elevated with free T4 wnl
- Stercoral Colitis, UTI, treated empirically with Zosyn, de-escalated to 2g ceftriaxone IV daily Flagyl 500 mg q8, then ceftriaxone 1 g IV daily, abx completed as per ID
- IVF support completed, tolerating regular diet
- received Milk and molasses enema x2 for stool burden with probable stercoral colitis, good response noted each time, continue scheduled bowel regimen
- Speech eval appreciated soft bite sized diet further updated to Regular diet with clinical improvement
- Psych eval appreciated home Lexapro reduced to 5 mg daily, consider eventual dc
- Neuro eval appreciated
Parkinson's disease
- Family reports no recent change in the patient's Sinemet regimen
- follows with neurologist Dr Max Wilson at [place]
- According to the patient's he was able to ambulate on his own within the past 2 weeks prior to this acute decline
- PT/OT/PMR eval appreciated Acute Rehab
Severe Orthostatic Hypotension 10/21/24
Systolic dropped from 123 to 64 on standing, patient symptomatic
IVF bolus 500 cc x2
abd binder and TENISHA stockings
orthostatic hypotension briefly improved (dropping to systolic 90s instead of 60s, asymptomatic)
10/23 noted recurrence severe orthostatic hypotension dropping to 60s but asymptomatic this time compared to first occurrence
-, random cortisol albumin noted unremarkable, discussed with Cardio home med propafenone unlikely contributing
-low dose midodrine with holding parameters started
Orthostatic Hypotension since improved
10/24 Reports of urinary urgency dysuria
-urinalysis not suggestive of UTI, urine cx results pending
-empiric Keflex started planned for total 5 days
Slightly displaced fracture of the left posterolateral eighth rib, which appears acute, as noted on CXR
-cont pain control
-lidocaine patch
paroxysmal A-fib
- Continue home propafenone
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
Mild Vit D deficiency
supplementation
CAD:
- Chronic, stable, history of stents x 2
- Continue aspirin and statin
Fall Aspiration Precautions
DVT prophylaxis: Lovenox
CODE STATUS: Full code
medically stable for discharge Acute Rehab with outpatient follow up recommendations.
Discussed with patient and patient's Kristyn
I spent a total of 45 minutes with the patient or on the floor. More than 50% of this time involved counseling and coordination of care.
Anticipated Discharge: Today
Subjective/Interval History
-
Date of Service: October 25, 2024
Seen and examined at bedside in no acute distress resting comfortably in bed. Overall reports feeling well. Dysuria resolved. Looking forward to acute rehab. Kristyn present during evaluation.
Objective Data
-
Vital Signs:
Vital Signs
Temp Pulse Resp BP Pulse Ox
98.1 F 72 18 156/95 98
10/25/24 03:32 10/25/24 03:32 10/25/24 03:32 10/25/24 03:32 10/25/24 03:32
I&O
10/23/24 10/24/24 10/25/24
06:59 06:59 06:59
Intake Total 1140 / 1140 2310 / 2310 1180 / 1180
Output Total 675 / 675 500 / 500 575 / 575
Balance 465 / 465 1810 / 1810 605 / 605
[2024-10-25 07:45] VITALS: BP 155/89
[2024-10-25] MEDS: SINEMET 25-100 1 TABLET PO ×3 (08:17→22:08)
[2024-10-25] MEDS: RYTHMOL 150 MG PO ×3 (08:17→22:08)
[2024-10-25] MEDS: LOW STRENGTH ASPIRIN 81 MG PO (08:17)
[2024-10-25] MEDS: KEFLEX 500 MG PO ×4 (08:17→22:08)
[2024-10-25] MEDS: LEXAPRO 5 MG PO (08:18)
[2024-10-25] MEDS: SENOKOT-S PO (08:18)
[2024-10-25] MEDS: MIRALAX PO (08:18)
[2024-10-25] MEDS: LIDOCAINE 4% PATCH 1 PATCH TOPICAL (08:19)
[2024-10-25] MEDS: VITAMIN D3 (cholecalciferol) 25 MCG PO (08:19)
--- NOTE | 2024-10-25 08:59 | CM ---
Addendum entered by Rosa Lainez RN 10/25/24 15:27:
Patient's spouse contacted insurance and brought phone out for CM to speak to representative Chang. Per Charlene, there should be a keao-pe-nryy review with medical directors of hospital to insurance. DINO explained this was attempted earlier by
emergency medicine medical director and she was informed that the insurance does not do medical reviews for Medicare patients and that CM would need to do an expedited appeal, which this CM did earlier this afternoon. Charlene is going to reach out to her cashier supervisor for
clarification on the above. DINO provided Charlene with the name of billing customer service representative (Blue) who initiated the expedited appeal.
Addendum entered by Rosa Lainez RN 10/25/24 12:43:
[employer] called back and informed CM that she needed to recall [phone] and connect with provider appeals. CM spoke with billing customer service representative Blue. Information provided for an expedited appeal. Per Blue, expedited appeals are dealt with
within 48 hrs. Attending, RN, and patient's spouse informed.
Addendum entered by Rosa Lainez RN 10/25/24 12:25:
Call placed to insurance to start and expedited appeal. [employer] will need to call CM back once she speaks with her cashier supervisor. [employer] was not sure who CM should reach out to. Wait for call back to initiate expedited appeal.
Original Note:
Reviewed the chart notes. IMM reviewed. Await decision from medical review regarding [facility] placement. Pended Reference # [id number]. CM continues to be available to patient/family and is monitoring medical plan for needs at discharge.
Plan: Discharge to rehab once auth obtained.
--- NOTE | 2024-10-25 09:31 | CM ---
TC from [facility]- re Acute rehab request.
Pending Auth # [id number]
Per [facility] denied acute rehab,stating needs can be met at a skilled level of care.
Peer to Peer [id number]
appeals# [phone]
(No other info left on VM)
[2024-10-25 11:05] VITALS: BP 113/70
--- NOTE | 2024-10-25 11:27 | W.DCSUMMARY ---
Discharge Summary
Discharge Data
Date of Admission: 10/16/24
Date of Discharge: 10/25/24
-
Pending Results: Yes
Additional Pending Results:
urine culture
Discharge Plan
-
Patient Disposition: Acute Rehab Facility
Discharge Diagnosis/Procedures: Acute metabolic encephalopathy
Visual Hallucinations resolved suspected secondary to anticholinergic effects home medication trospium
Parkinson's disease
Orthostatic Hypotension
Urinary Jordyn Infection
left posterolateral eighth ninth and tenth rib fractures
paroxysmal atrial fibrillation
Mild Vitamin D Deficiency
Coronary Artery Disease
Condition: Fair
Diet: Regular
Activity: With assistance, As tolerated and With Walker
Driving Restrictions: Not until seen by your Dr
Bathing Restrictions: None
Blood Work: Repeat Thyroid Function test with primary care provider in 1 month of discharge.
Other Services: PT and OT
Activity Restrictions/Additional Instructions:
Follow up with primary care provider in 1 week of discharge and neurologist in 2 weeks of discharge.
Keflex prescribed for 4 more days to treat urinary tract infection
Vitamin D supplementation prescribed for deficiency.
Lexapro reduced to 5 mg daily. Follow up with primary care provider and/or other healthcare provider involved in your care to determine when safe to discontinue or if necessary to continue.
Lidocaine patch prescribed for left sided ribs pain.
Midodrine prescribed for orthostatic hypotension, twice a day at 1PM and 6PM, to be held if SBP>140.
TEDs and Abdomen binder also prescribed for orthostatic hypotension.
Home trospium and glycopyrrolate have been discontinued due to concern anticholinergic effects contributing to confusion, constipation, urinary retention, and hallucinations.
Please take medications as prescribed/recommended and follow up with primary care provider and/or other healthcare provider involved in your care for refills and/or further adjustment to your medication regimen as necessary.
Referrals:
Bony Andrews MD [Family Provider, Family Practice] - in one week
Prescriptions:
New
lidocaine 4 % Adhesive Patch,Medicated
1 patch topical DAILY Qty: 10 0RF
cephalexin 500 mg Capsule
500 mg PO QID 4 Days Qty: 16 0RF
escitalopram oxalate 5 mg Tablet
5 mg PO DAILY Qty: 30 0RF
sennosides-docusate sodium 8.6-50 mg Tablet
1 tab PO BIDPRN PRN (Reason: constipation) Qty: 60 0RF
cholecalciferol (vitamin D3) 25 mcg (1,000 unit) Tablet
25 mcg PO DAILY Qty: 30 0RF
midodrine 2.5 mg Tablet
2.5 mg PO BID@1300,1800 Qty: 60 0RF
Rx Instructions:
hold if SBP>140
Continued
aspirin 81 mg Tablet,Delayed Release (Dr/Ec)
81 mg PO DAILY
propafenone 150 mg Tablet
150 mg PO TID
pravastatin 80 mg Tablet
80 mg PO HS
carbidopa-levodopa 25-100 mg Tablet
1 tab PO TID
polyethylene glycol 3350 [Miralax] 17 gram/dose powder
17 g PO DAILYPRN PRN (Reason: constipation)
Discontinued
glycopyrrolate 1 mg Tablet
1 mg PO DAILYPRN PRN (Reason: drooling)
escitalopram oxalate 10 mg Tablet
10 mg PO HS
trospium 20 mg tablet
20 mg PO HS
Discharge Orders:
Discharge Patient (As Directed); Ordered 10/25/24
Ordered By: Kevin Trejo
Discharge Date and Time
Print Language: ICELANDIC
[2024-10-25 15:29] VITALS: BP 102/61
[2024-10-25] MEDS: PRAVACHOL 80 MG PO (18:21)
[2024-10-25] MEDS: LOVENOX 40 MG SC (18:22)
[2024-10-25 19:05] VITALS: BP 88/49
[2024-10-25] MEDS: REMOVE LIDOCAINE PATCH REMOVE (22:13)
[2024-10-25 23:11] VITALS: BP 120/60
[2024-10-26 03:03] VITALS: BP 137/83
[2024-10-26 07:00] VITALS: BP 155/87
--- NOTE | 2024-10-26 07:14 | W.PN.HOSP.TC ---
Today's Communication/Plan
-
switched to low residue diet frequent loose stools
cont Keflex for now given symptomatic improvement dysuria urgency, planned for total 5 days
remains stable for discharge to Acute rehab pending insurance appeal
Assessment / Plan
Assessment / Plan
Physical Exam
General: appears comfortable at this time, no acute distress
HEENT: NormoCephalic, Moist mucous membranes, mild abrasion on distal nose and philtrum
Respiratory: Clear and Non Labored Respirations
Cardiac: S1/S2 and Regular Rhythm; No Rub or Gallop
GI: Soft, Non Tender, Non Distended and Normal Bowel Sounds
Musculoskeletal: No Edema, no deformity, decreased muscle bulk throughout, minor abrasions left posterior ribs
: Condom cath in place
Skin: Warm and dry
Neuro: AOx2 disoriented to time conversant coherent
Psych: Calm
74M CAD (status post stents x 2 in 12/2012), Afib, HTN, Inguinal Hernia Repair, Parkinson's disease p/w progressive confusion/hallucinations falls for the last week, brought in by family. He was seen at [facility], diagnosed with
multiple posterior left rib fractures and a urinary tract infection, and discharged on Bactrim. Confusion however worsen prompting visit here. On ED eval, he was normotensive, afebrile, and stable resp status room air. Urinalysis noted occult
blood, RBCs, and few bacteria. CT Head noted no acute abnormalities. Chest imaging re-demonstrated acute appearing left posterior rib fractures with no evidence of pneumothorax. CT imaging of his abdomen pelvis showed large stool burden with
probable developing stercoral colitis. He was started on antibiotics with Zosyn and admitted for further evaluation and management of metabolic encephalopathy, suspect secondary to urinary tract infection and possible stercoral colitis.
Acute metabolic encephalopathy
Visual Hallucinations
Polypharmacy
Transferred to IMU 10/18 d/t progressive worsening mental status, since improved stable for downgrade to Tele
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
-Per family, Trospium started within the last month for overactive bladder. Anticholinergic effects can worsen constipation, urinary retention (increasing risk UTI), and cause hallucinations
- CT brain with no acute abnormalities, repeated on transfer to IMU also noted no acute changes
- TSH mild elevated with free T4 wnl
- Stercoral Colitis, UTI, treated empirically with Zosyn, de-escalated to 2g ceftriaxone IV daily Flagyl 500 mg q8, then ceftriaxone 1 g IV daily, abx completed as per ID
- IVF support completed, tolerating regular diet
- received Milk and molasses enema x2 for stool burden with probable stercoral colitis, good response noted each time, continue scheduled bowel regimen
- Speech eval appreciated soft bite sized diet further updated to Regular diet with clinical improvement
- Psych eval appreciated home Lexapro reduced to 5 mg daily, consider eventual dc
- Neuro eval appreciated
Parkinson's disease
- Family reports no recent change in the patient's Sinemet regimen
- follows with neurologist Dr Max Wilson at [place]
- According to the patient's he was able to ambulate on his own within the past 2 weeks prior to this acute decline
- PT/OT/PMR eval appreciated Acute Rehab
Severe Orthostatic Hypotension 10/21/24
Systolic dropped from 123 to 64 on standing, patient symptomatic
IVF bolus 500 cc x2
abd binder and TENISHA stockings
orthostatic hypotension briefly improved (dropping to systolic 90s instead of 60s, asymptomatic)
10/23 noted recurrence severe orthostatic hypotension dropping to 60s but asymptomatic this time compared to first occurrence
-, random cortisol albumin noted unremarkable, discussed with Cardio home med propafenone unlikely contributing
-low dose midodrine with holding parameters started
Orthostatic Hypotension since improved
10/24 Reports of urinary urgency dysuria
-urinalysis not suggestive of UTI, urine cx results neg
-pt otherwise reports symptomatic improvement since start of abx
-cont Keflex planned for total 5 days
Slightly displaced fracture of the left posterolateral eighth rib, which appears acute, as noted on CXR
Lt posterolateral 9th and 10th ribs fractures as noted on CT abd/pelvis
-cont pain control
-lidocaine patch
paroxysmal A-fib
- Continue home propafenone
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
Mild Vit D deficiency
supplementation
CAD:
- Chronic, stable, history of stents x 2
- Continue aspirin and statin
Frequent Loose stools
-Low residue diet
Fall Aspiration Precautions
DVT prophylaxis: Lovenox
CODE STATUS: Full code
medically stable for discharge Acute Rehab with outpatient follow up recommendations. pending insurance appeal
Discussed with patient and patient's Kristyn
I spent a total of 38 minutes with the patient or on the floor. More than 50% of this time involved counseling and coordination of care.
Anticipated Discharge: 24 - 48 hours
Subjective/Interval History
-
Date of Service: October 26, 2024
No acute distress, sitting up comfortably in chair. Reports resolution dysuria urinary urgency since start of antibiotics. Frequent loose stools.
Objective Data
-
Vital Signs:
Vital Signs
Temp Pulse Resp BP Pulse Ox
97.4 F 86 16 137/83 95
10/26/24 03:03 10/26/24 03:03 10/26/24 03:03 10/26/24 03:03 10/26/24 03:03
I&O
10/25/24 10/26/24 10/27/24
06:59 06:59 06:59
Intake Total 1180 / 1180 1320 / 1320
Output Total 575 / 575 375 / 375
Balance 605 / 605 945 / 945
--- NOTE | 2024-10-26 08:57 | CM ---
TC from Miss Burno at [facility] at 6 pm last night p# [phone], expedited appeal request received. Miss Bruno is requesting clinicals be faxed to [phone]. CM updated.
[2024-10-26] MEDS: LIDOCAINE 4% PATCH TOPICAL ×2 (09:18→09:30)
[2024-10-26] MEDS: RYTHMOL 150 MG PO ×3 (09:19→22:08)
[2024-10-26] MEDS: SINEMET 25-100 1 TABLET PO ×3 (09:19→22:08)
[2024-10-26] MEDS: LEXAPRO 5 MG PO (09:20)
[2024-10-26] MEDS: KEFLEX 500 MG PO ×4 (09:20→22:08)
[2024-10-26] MEDS: LOW STRENGTH ASPIRIN 81 MG PO (09:20)
[2024-10-26] MEDS: VITAMIN D3 (cholecalciferol) 25 MCG PO (09:20)
--- NOTE | 2024-10-26 09:24 | CM ---
Addendum entered by Rosa Lainez RN 10/26/24 15:40:
CM called insurance and spoke with Valerie. Per Valerie, insurance very busy and faxed material is backed up.
Addendum entered by Rosa Lainez RN 10/26/24 10:53:
Updated clinicals faxed to [employer] .
Original Note:
Received message from Miss Bruno from insurance ([phone]) to call back regarding needing further information for the expedited appeal. Left voice message for call back to ascertain what information she is requesting.
[2024-10-26 11:00] VITALS: BP 129/74; BP 134/76; BP 77/49; PULSE 76; PULSE 77; PULSE 85
[2024-10-26 15:04] VITALS: BP 125/73
[2024-10-26] MEDS: PRAVACHOL 80 MG PO (17:13)
[2024-10-26] MEDS: LOVENOX 40 MG SC (17:13)
[2024-10-26] MEDS: REMOVE LIDOCAINE PATCH REMOVE (19:55)
[2024-10-26 19:58] VITALS: BP 106/57; BP 118/66; BP 90/48; PULSE 80; PULSE 90; PULSE 91
[2024-10-26 23:47] VITALS: BP 133/70
[2024-10-27 03:15] VITALS: BP 151/87
[2024-10-27 07:00] VITALS: BP 121/71
--- NOTE | 2024-10-27 07:07 | W.PN.HOSP.TC ---
Today's Communication/Plan
-
discharge
Assessment / Plan
Assessment / Plan
Physical Exam
General: appears comfortable at this time, no acute distress
HEENT: NormoCephalic, Moist mucous membranes, mild abrasion on distal nose and philtrum
Respiratory: Clear and Non Labored Respirations
Cardiac: S1/S2 and Regular Rhythm; No Rub or Gallop
GI: Soft, Non Tender, Non Distended and Normal Bowel Sounds
Musculoskeletal: No Edema, no deformity, decreased muscle bulk throughout, minor abrasions left posterior ribs
: Condom cath in place
Skin: Warm and dry
Neuro: AOx2 disoriented to time conversant coherent
Psych: Calm
74M CAD (status post stents x 2 in 12/2012), Afib, HTN, Inguinal Hernia Repair, Parkinson's disease p/w progressive confusion/hallucinations falls for the last week, brought in by family. He was seen at [facility], diagnosed with
multiple posterior left rib fractures and a urinary tract infection, and discharged on Bactrim. Confusion however worsen prompting visit here. On ED eval, he was normotensive, afebrile, and stable resp status room air. Urinalysis noted occult
blood, RBCs, and few bacteria. CT Head noted no acute abnormalities. Chest imaging re-demonstrated acute appearing left posterior rib fractures with no evidence of pneumothorax. CT imaging of his abdomen pelvis showed large stool burden with
probable developing stercoral colitis. He was started on antibiotics with Zosyn and admitted for further evaluation and management of metabolic encephalopathy, suspect secondary to urinary tract infection and possible stercoral colitis.
Acute metabolic encephalopathy
Visual Hallucinations
Polypharmacy
Transferred to IMU 10/18 d/t progressive worsening mental status, since improved stable for downgrade to Tele
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
-Per family, Trospium started within the last month for overactive bladder. Anticholinergic effects can worsen constipation, urinary retention (increasing risk UTI), and cause hallucinations
- CT brain with no acute abnormalities, repeated on transfer to IMU also noted no acute changes
- TSH mild elevated with free T4 wnl
- Stercoral Colitis, UTI, treated empirically with Zosyn, de-escalated to 2g ceftriaxone IV daily Flagyl 500 mg q8, then ceftriaxone 1 g IV daily, abx completed as per ID
- IVF support completed, tolerating regular diet
- received Milk and molasses enema x2 for stool burden with probable stercoral colitis, good response noted each time, continue scheduled bowel regimen
- Speech eval appreciated soft bite sized diet further updated to Regular diet with clinical improvement
- Psych eval appreciated home Lexapro reduced to 5 mg daily, consider eventual dc
- Neuro eval appreciated
Frequent Loose Stools
-possible side effect abx
-low residue diet
-imodium 2mg BIDPRN
Parkinson's disease
- Family reports no recent change in the patient's Sinemet regimen
- follows with neurologist Dr Max Wilson at [facility]
- According to the patient's he was able to ambulate on his own within the past 2 weeks prior to this acute decline
- PT/OT/PMR eval appreciated Acute Rehab
Severe Orthostatic Hypotension 10/21/24
Systolic dropped from 123 to 64 on standing, patient symptomatic
IVF bolus 500 cc x2
abd binder and TENISHA stockings
orthostatic hypotension briefly improved (dropping to systolic 90s instead of 60s, asymptomatic)
10/23 noted recurrence severe orthostatic hypotension dropping to 60s but asymptomatic this time compared to first occurrence
-, random cortisol albumin noted unremarkable, discussed with Cardio home med propafenone unlikely contributing
-low dose midodrine with holding parameters started
Orthostatic Hypotension since improved
10/24 Reports of urinary urgency dysuria
-urinalysis not suggestive of UTI, urine cx results neg
-pt otherwise reports symptomatic improvement since start of abx
-cont Keflex planned for total 5 days 10/28/24 last day
Slightly displaced fracture of the left posterolateral eighth rib, which appears acute, as noted on CXR
Lt posterolateral 9th and 10th ribs fractures as noted on CT abd/pelvis
-cont pain control
-lidocaine patch
paroxysmal A-fib
- Continue home propafenone
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
Mild Vit D deficiency
supplementation
CAD:
- Chronic, stable, history of stents x 2
- Continue aspirin and statin
Fall Aspiration Precautions
DVT prophylaxis: Lovenox
CODE STATUS: Full code
Unfortunately insurance declined Acute Rehab.
medically stable for discharge SNF rehab with outpatient follow up recommendations
Discussed with patient and patient's Kristyn
Total Time Preparing Discharge __40 minutes including examination of the patient, summary of the hospital stay, instructions for continuing care to all relevant caregivers; and preparation of discharge records, prescriptions, and referral
forms if necessary.
Anticipated Discharge: Today
Subjective/Interval History
-
Date of Service: October 27, 2024
Reports frequent loose stools non-diarrhea (nurse report confirms). Patient otherwise reports feeling well. No acute distress, sitting up Comfortably in chair. Looking forward to rehab
Objective Data
-
Vital Signs:
Vital Signs
Temp Pulse Resp BP Pulse Ox
98.1 F 76 20 151/87 97
10/27/24 03:15 10/27/24 03:15 10/27/24 03:15 10/27/24 03:15 10/27/24 03:15
I&O
10/26/24 10/27/24 10/28/24
06:59 06:59 06:59
Intake Total 1320 / 1320 780 / 780
Output Total 375 / 375 415 / 415
Balance 945 / 945 365 / 365
[2024-10-27] MEDS: RYTHMOL 150 MG PO ×2 (08:21→15:42)
[2024-10-27] MEDS: LEXAPRO 5 MG PO (08:21)
[2024-10-27] MEDS: SINEMET 25-100 1 TABLET PO ×2 (08:21→15:42)
[2024-10-27] MEDS: KEFLEX 500 MG PO ×3 (08:21→17:04)
[2024-10-27] MEDS: VITAMIN D3 (cholecalciferol) 25 MCG PO (08:21)
[2024-10-27] MEDS: LOW STRENGTH ASPIRIN 81 MG PO (08:21)
[2024-10-27] MEDS: LIDOCAINE 4% PATCH TOPICAL (08:22)
--- NOTE | 2024-10-27 09:20 | CM ---
Addendum entered by Rosa Lainez RN 10/27/24 15:53:
Patient has been approved to go to [facility] today. Spouse and patient updated.
Call report to: [phone]
Fax report to: [phone]
Addendum entered by Rosa Laienz RN 10/27/24 13:30:
Plan: Discharge to [facility]. Daughter informed via telephone.
Call report to: [phone]
Fax report to: [phone]
Addendum entered by Rosa Lainez RN 10/27/24 13:23:
[facility] accepting patient. Patient informed. IMM signed.
Auth # [id number]; 5 days; 10/27-10/31; NRD 10/31 to [phone]
Addendum entered by Rosa Lainez RN 10/27/24 09:42:
spoke with the patient's daughter Marilyn via telephone. Updated on progress with expedited appeal. Marilyn requested referral be sent to [facility] and [facility]. Explained referral was resent yesterday to [facility]. Referral resent with updates to [facility].
[facility] had accepted based on bed availability. Marilyn will discuss with patient's spouse regarding the above.
Original Note:
Reviewed the chart notes and spoke with premium representative Valerie with insurance. Fax not attached yet, appeal not completed. Offered to resend, declined due to back log of faxes at the insurance. Will need to recheck this afternoon ([phone]).
[2024-10-27 11:12] VITALS: BP 111/66; BP 113/64; BP 125/71; BP 97/58; PULSE 79; PULSE 90; O2SAT 99
--- NOTE | 2024-10-27 14:59 | W.DCSUMMARY ---
Discharge Summary
Discharge Data
Date of Admission: 10/16/24
Date of Discharge: 10/27/24
-
Pending Results: No
Discharge Plan
-
Patient Disposition: Acute Rehab Facility
Discharge Diagnosis/Procedures: Acute metabolic encephalopathy
Visual Hallucinations resolved suspected secondary to anticholinergic effects home medication trospium
Parkinson's disease
Orthostatic Hypotension
Urinary Jordyn Infection
left posterolateral eighth ninth and tenth rib fractures
paroxysmal atrial fibrillation
Mild Vitamin D Deficiency
Coronary Artery Disease
Condition: Fair
Diet: Low Residue
Additional Diets: Low Residue diet for frequent loose stools. Ok to advance to regular diet when symptoms improve.
Activity: With assistance, As tolerated and With Walker
Driving Restrictions: Not until seen by your Dr
Bathing Restrictions: None
Blood Work: Repeat Thyroid Function test with primary care provider in 1 month of discharge.
Other Services: PT and OT
Activity Restrictions/Additional Instructions:
Follow up with primary care provider in 1 week of discharge and neurologist in 2 weeks of discharge.
Keflex prescribed to treat urinary tract infection. 10/28/24 last day for antibiotics.
Vitamin D supplementation prescribed for deficiency.
Lexapro reduced to 5 mg daily. Follow up with primary care provider and/or other healthcare provider involved in your care to determine when safe to discontinue or if necessary to continue.
Lidocaine patch prescribed for left sided ribs pain.
Midodrine prescribed for orthostatic hypotension, twice a day at 1PM and 6PM, to be held if SBP>140.
TEDs and Abdomen binder also prescribed for orthostatic hypotension.
Home trospium and glycopyrrolate have been discontinued due to concern anticholinergic effects contributing to confusion, constipation, urinary retention, and hallucinations.
Imodium prescribed as needed for frequent loose stools.
Please take medications as prescribed/recommended and follow up with primary care provider and/or other healthcare provider involved in your care for refills and/or further adjustment to your medication regimen as necessary.
Referrals:
Bony Andrews MD [Family Provider, [facility]] - in one week
Prescriptions:
New
lidocaine 4 % Adhesive Patch,Medicated
1 patch topical DAILY Qty: 10 0RF
escitalopram oxalate 5 mg Tablet
5 mg PO DAILY Qty: 30 0RF
sennosides-docusate sodium 8.6-50 mg Tablet
1 tab PO BIDPRN PRN (Reason: constipation) Qty: 60 0RF
cholecalciferol (vitamin D3) 25 mcg (1,000 unit) Tablet
25 mcg PO DAILY Qty: 30 0RF
midodrine 2.5 mg Tablet
2.5 mg PO BID@1300,1800 Qty: 60 0RF
Rx Instructions:
hold if SBP>140
loperamide 2 mg Capsule
2 mg PO BIDPRN PRN (Reason: diarrhea/frequent loose stools) Qty: 14 0RF
cephalexin 500 mg Capsule
500 mg PO QID Qty: 6 0RF
Rx Instructions:
10/28/24 last day for antibiotics treatment UTI
Continued
aspirin 81 mg Tablet,Delayed Release (Dr/Ec)
81 mg PO DAILY
propafenone 150 mg Tablet
150 mg PO TID
pravastatin 80 mg Tablet
80 mg PO HS
carbidopa-levodopa 25-100 mg Tablet
1 tab PO TID
polyethylene glycol 3350 [Miralax] 17 gram/dose powder
17 g PO DAILYPRN PRN (Reason: constipation)
Discontinued
glycopyrrolate 1 mg Tablet
1 mg PO DAILYPRN PRN (Reason: drooling)
escitalopram oxalate 10 mg Tablet
10 mg PO HS
trospium 20 mg tablet
20 mg PO HS
Discharge Orders:
Discharge Patient (As Directed); Ordered 10/27/24
Ordered By: Kevin Trejo
Discharge Date and Time
Print Language: VATICAN CITIZEN
[2024-10-27 15:00] VITALS: BP 105/58
--- NOTE | 2024-10-27 15:51 | CM ---
JAHAIRA from Valerie and severiano [facility] at [facility]
Expedited appeal completed.
Acute rehab denial overturned and approved.
Approved Acute Rehab at [facility]
Start date 10/27/24, NRD 11/01/24
Auth# [id number]
updates to [phone].
[2024-10-27] MEDS: LOVENOX SC (17:03)
[2024-10-27] MEDS: PRAVACHOL 80 MG PO (17:06)
== END 2024-10-27 17:43 | DRG 391 ==
LOC: 2 NORTH 18:52
PROVIDERS: Physician Assistant; ADMITTING PHYSICIAN Internal Medicine; ATTENDING PHYSICIAN Internal Medicine; CONSULT PHYSICIAN Psychiatry & Neurology Neurology; EMERGENCY PHYSICIAN Emergency Medicine; FAMILY PHYSICIAN Family Medicine; OTHER PHYSICIAN Hospitalist; OTHER PHYSICIAN Physical Medicine & Rehabilitation; OTHER PHYSICIAN Psychiatry & Neurology Psychiatry
DX: K52.89 Other specified noninfective gastroenteritis and colitis (principal); G93.41 Metabolic encephalopathy; N39.0 Urinary tract infection, site not specified; E87.1 Hypo-osmolality and hyponatremia; S22.42XA Multiple fractures of ribs, left side, initial encounter for closed fracture; F02.82 Dementia in other diseases classified elsewhere, unspecified severity, with psychotic disturbance; F05 Delirium due to known physiological condition; R64 Cachexia; Z68.1 Body mass index [BMI] 19.9 or less, adult; G20.A1 Parkinson's disease without dyskinesia, without mention of fluctuations; K59.00 Constipation, unspecified; E78.00 Pure hypercholesterolemia, unspecified; I10 Essential (primary) hypertension; I25.10 Atherosclerotic heart disease of native coronary artery without angina pectoris; K21.9 Gastro-esophageal reflux disease without esophagitis; I48.0 Paroxysmal atrial fibrillation; I95.1 Orthostatic hypotension; R44.1 Visual hallucinations; T44.3X5A Adverse effect of other parasympatholytics [anticholinergics and antimuscarinics] and spasmolytics, initial encounter; Y92.009 Unspecified place in unspecified non-institutional (private) residence as the place of occurrence of the external cause; N32.81 Overactive bladder; E55.9 Vitamin D deficiency, unspecified; R29.6 Repeated falls; W19.XXXA Unspecified fall, initial encounter; Y93.9 Activity, unspecified; Z87.891 Personal history of nicotine dependence; Z85.828 Personal history of other malignant neoplasm of skin; Z87.440 Personal history of urinary (tract) infections; Z79.82 Long term (current) use of aspirin; Z95.5 Presence of coronary angioplasty implant and graft; Z88.0 Allergy status to penicillin
CPT/HCPCS: 36600; 70450; 71046; 74177; 80048; 80053; 81003; 81015; 82140; 82248; 82306; 82533; 82607; 82728; 82746; 82805; 83540; 83550; 83735; 84100; 84439; 84443; 85014; 85018; 85025; 85027; 87086; 92526; 92610; 93005; 96365; 97116; 97163; 97167; 97530; 97535; 99285; Q9967

== ENCOUNTER 2024-11-04 06:39 | Inpatient (IN) | payer OTHER, SELFPAY ==
[2024-11-04] VITALS (14 sets, daily range): BP systolic 90–132; BP diastolic 54–69; PULSE 93; O2SAT 97; BMI 20.4; BMI 19.8
[2024-11-04] MEDS: NSS 1000 IV ×4 (03:04→14:17)
[2024-11-04] MEDS: OFIRMEV 1000 MG IV (03:05)
[2024-11-04 03:08] LABS: Hematocrit 32.3 % (39.0-52.0); Hemoglobin 11.2 g/dL (13.0-18.0); Mean Corp Hgb Conc. 34.7 g/dL (33.0-37.0); Mean Corpuscular Volume 89.0 fL (80.0-94.0); Nucleated Red Blood Cells % 0 % (-); Platelet Count 201 10^3/uL (130-400); Red Cell Dist. Width 14.3 % (11.5-14.5)
[2024-11-04 03:10] LABS: Urine Character Clear (Clear)
[2024-11-04 03:21] LABS: ALT (SGPT) 12 U/L (0-50); AST (SGOT) 25 U/L (17-59); Albumin 3.7 g/dl (3.5-5.0); Alkaline Phosphatase 67 U/L (38-126); Blood Urea Nitrogen 31 mg/dl (9-20); Calcium 9.5 mg/dl (8.4-10.2); Carbon Dioxide 25 mmol/L (22-30); Chloride 102 mmol/L (98-107); Estimated Creatinine Clearance 55 ml/min; Glucose 109 mg/dl (70-99); Potassium 4.2 mmol/L (3.5-5.1); Sodium 133 mmol/L (135-145); Total Protein 6.0 g/dl (6.3-8.2); eGFR > 60.00
--- NOTE | 2024-11-04 03:25 | ED.GENMED ---
History of Present Illness
General
Chief Complaint: Fever
Source: patient, records and spouse
Exam Limitations: clinical condition
Time Seen by Provider: 11/04/24 03:01
Nursing documentation reviewed up to this point in time: agreed with
History of Present Illness
History of Present Illness:
74-year-old male with past medical history of hyperlipidemia, CAD, atrial fibrillation, Parkinson's disease who presents to the emergency room from [facility] for evaluation of mental status change, cough and fever. Patient was recently admitted to
the hospital for change in mental status felt to be multifactorial secondary to polypharmacy, UTI, stercoral colitis. He was discharged to [facility]. Per he had been doing quite well at rehab but last night started to have some mild
confusion. Overnight started having increasing cough, noted to be hypoxic by staff at [facility] and sent to the ER for assessment.
Past History
Past History
ED Past Medical History: Arrthythmia (Atrial fibrillation), CAD, Cancer (Skin), GERD, HTN, Hypercholesterolemia and Other (Parkinson's)
ED Past Surgical History: Cardiac and Other
Social History
Tobacco: Former smoker
Alcohol: Daily
Personal:
Living: with family
Review of Systems
Review of Systems
Unable to obtain full review of systems at this time due to: other (Confused)
All Other Systems: Not applicable
Phy Exam
Physical Exam
Physical Exam:
General: Laying in bed lethargic but arousable, confused
Head: Normocephalic, atraumatic
Eyes: Conjunctiva normal
Throat: Airway intact, handling secretions
Neck: Trachea midline, supple without meningismus
Lungs: Breath sounds diminished at the right lung base; mild tachypnea, hypoxia requiring 2 L nasal cannula
Heart: Tachycardia with regular rhythm, no murmurs, gallops, or rubs
Abd: Soft, non distended, no apparent tenderness
Extremities: No edema in extremities, equal pulses in all extremities
Scores
Heart Failure Risk
Heart Failure Risk Score: Not Applicable
Heart Score for Chest Pain Patients
STEMI patient?: Not applicable
Withdrawal Assessment of Alcohol
Withdrawal Assessment Completed?: Not applicable
Sepsis
Sepsis Screening
Sepsis Assessment: Sepsis
Sepsis Screen
Sepsis Screen: Sepsis
Date: 11/04/24
Time: 03:14
Course
Orders/Labs/Results
Orders:
Orders
11/04/24 02:24
Electrocardiogram (*1) Urgent
Reason for Study: Other
Other Reason for Exam: Possible Sepsis
Straight cath- Treatment ONCE
CR Chest Portable - 1 View Urgent
Comment:
Reason For Exam: fever
Reason Study Needs to be Portable: Unable to Transport
11/04/24 02:25
EKG- Treatment ONCE
11/04/24 02:49
Complete Blood Count/With Diff Urgent
Comprehensive Metabolic Panel Urgent
Lactic Acid Q4H
Comment: ON ICE, CANCEL 2ND ORDER IF FIRST LACTIC ACID LEVEL <2
Urinalysis Reflex To Culture Urgent
Date Specimen was Collected: 11/04/24
Time Specimen was Collected: 02:25
Urine Microscopic Reflex Cult Urgent
11/04/24 02:50
Blood Culture Q20M
LOUISE Source: Blood/Venous
Specimen Description:
Comment: Urgent from separate sites. If patient screens positive for possible sepsis
Blood Culture Q20M
LOUISE Source: Blood/Venous
Specimen Description:
Comment: Urgent from separate sites. If patient screens positive for possible sepsis
11/04/24 02:55
Acetaminophen 1000MG/100Ml [Ofirmev] 1,000 mg in 100 ml .ROUTE .STK-MED
11/04/24 03:04
0.9% Sodium Chloride 1000 ml [Nss] 1,000 ml IV BOLUS
11/04/24 03:05
Acetaminophen 1000MG/100Ml [Ofirmev] 1,000 mg IV NOW STA
11/04/24 03:14
Cefepime HCl [Maxipime] 1,000 mg IV NOW STA
Vancomycin [Vancocin] 1,500 mg 0.9% Sodium Chloride 500 ml [Nss] 500 ml IV NOW
11/04/24 06:30
Lactic Acid Q4H
Comment: ON ICE, CANCEL 2ND ORDER IF FIRST LACTIC ACID LEVEL <2
Abnormal Lab Results
11/04/24
02:49
WBC 3.6 L 10^3/uL
(4.8-10.8)
RBC 3.63 L 10^6/uL
(4.70-6.10)
Hgb 11.2 L g/dL
(13.0-18.0)
Hct 32.3 L %
(39.0-52.0)
MPV 10.6 H fL
(7.4-10.4)
Absolute Lymphs (auto) 0.2 L 10^3/uL
(1.2-3.4)
Neutrophils % 87.5 H %
(42.2-75.2)
Lymphocytes % 6.1 L %
(20.5-51.1)
Sodium 133 L mmol/L
(135-145)
BUN 31 H mg/dl
(9-20)
Glucose 109 H mg/dl
(70-99)
Total Protein 6.0 L g/dl
(6.3-8.2)
Ur Occult Blood Reflex 2+ A
(Negative)
Urine Albumin (Reflex) 2+ A
(Neg - Trace)
11/04/24 02:49
11/04/24 02:49
Vital Signs
Initial and Last Documented VS:
Initial Vital Signs
BP
132/64
11/04/24 02:13
Last Documented Vital Signs
Temp Pulse Resp BP Pulse Ox
40.2 C H 100 18 114/63 95
11/04/24 02:19 11/04/24 03:03 11/04/24 03:00 11/04/24 03:00 11/04/24 03:00
MDM/Problems Addressed
Differential Diagnosis Includes:
Pneumonia, CHF, PE
MDM/Problems Addressed:
74-year-old male presents for evaluation of confusion, cough, hypoxia; recently admitted for altered mental status secondary polypharmacy and UTI, stercoral colitis. Over the past 24 hours increasingly confused and coughing, hypoxic this evening.
He arrives to us normotensive but tachycardic, tachypneic, febrile and hypoxic requiring 2 L nasal cannula. Physical exam as above. Labs were sent off including a CBC which showed leukopenia, CMP which showed no clinically significant
abnormalities. Lactate and blood culture sent off. Urinalysis and culture pending. Chest x-ray shows right lower lobe pneumonia. Will plan to cover for healthcare associated pneumonia. Continue IV fluids. Admit for continued management of
sepsis secondary to pneumonia. Discussed with hospitalist for admission.
Chronic conditions affecting care:
Parkinson's
*Radiology
Radiology exam reviewed: preliminary read by ED provider
*Pulse Oximetry
SaO2: 95
Oxygen Mode of Delivery: Room air
Patient hypoxic: yes (88%)
*Critical Care Note
Total Time (30-74mins, 75-104mins- exclusive of procedures): Not Applicable
Data Reviewed
Source: patient, records and spouse
Patient Management
Discussion with other providers: Hospitalist (Discussed with hospitalist)
Escalation/DeEscalation of care consider admission/obs:
Admission indicated
ED Attending Note
-
Portions of this chart may have been created with voice recognition software.� Occasional wrong word or��sound alike� substitutions may have occurred due to the inherent limitations of voice recognition software.
Discharge Plan
Departure
Prescriptions:
No Action
aspirin 81 mg Tablet,Delayed Release (Dr/Ec)
81 mg PO DAILY
propafenone 150 mg Tablet
150 mg PO TID
pravastatin 80 mg Tablet
80 mg PO HS
carbidopa-levodopa 25-100 mg Tablet
1 tab PO TID
polyethylene glycol 3350 [Miralax] 17 gram/dose powder
17 g PO DAILYPRN PRN (Reason: constipation)
lidocaine 4 % Adhesive Patch,Medicated
1 patch topical DAILY Qty: 10 0RF
escitalopram oxalate 5 mg Tablet
5 mg PO DAILY Qty: 30 0RF
sennosides-docusate sodium 8.6-50 mg Tablet
1 tab PO BIDPRN PRN (Reason: constipation) Qty: 60 0RF
cholecalciferol (vitamin D3) 25 mcg (1,000 unit) Tablet
25 mcg PO DAILY Qty: 30 0RF
midodrine 2.5 mg Tablet
2.5 mg PO BID@1300,1800 Qty: 60 0RF
Rx Instructions:
hold if SBP>140
loperamide 2 mg Capsule
2 mg PO BIDPRN PRN (Reason: diarrhea/frequent loose stools) Qty: 14 0RF
cephalexin 500 mg Capsule
500 mg PO QID Qty: 6 0RF
Rx Instructions:
10/28/24 last day for antibiotics treatment UTI
Referrals:
Bony Andrews MD [Family Provider, [facility]]
Interventions
Interventions:
*Risk Screen - Suicide Last Done: 11/04/24 02:19
*General Assessment Last Done: 11/04/24 02:19
*Neglect/Abuse Screening Last Done: 11/04/24 02:19
*ED- Fall Risk Assessment Last Done: 11/04/24 02:19
*ED COVID-19 Vaccine History Last Done: 11/04/24 02:19
ED-Skin Assessment Last Done: 11/04/24 03:01
ED- Pulmonary Assessment Last Done: 11/04/24 03:01
ED- Neurological Assessment Last Done: 11/04/24 03:01
Discharge Date and Time
Print Language: IRISH
[2024-11-04 03:27] LABS: Urine White Cell None Seen /HPF (0-5)
[2024-11-04] MEDS: MAXIPIME 1000 MG IV (03:56)
[2024-11-04] MEDS: VANCOCIN 530 MG IV (04:54)
[2024-11-04 05:33] LABS: COVID-19 Antigen Negative (Negative)
--- NOTE | 2024-11-04 05:47 | HPS.HSE ---
Family Physician
-
Family Physician: Bony Andrews
Chief Complaint
-
Cough, Fever
History of Present Illness
Patient is a 74y M with PMH significant for Parkinson's disease and recent hospitalization for encephalopathy - presumed to be secondary to anticholinergic medications - who presents to ED from [facility] for evaluation of cough, fever and
confusion. History obtained from patient, ED and Rehab notes. Patient recently admitted at 10/16 - 10/27 secondary to confusion / encephalopathy. This as felt to be related to his Parkinson's medications. He was also treated for UTI during that
admission. He was discharged to acute rehab at [facility] after that stay.
Patient was reportedly doing fairly well until last PM when his noted that he again seemed more confused. Today he developed a hacking cough that was present throughout the day. he had a fever at [facility] and was sent to the ED for further
evaluation and treatment.
Medical History
Past Medical History
Past Medical History: Reports Other
Additional Past Medical History:
Parkinson's Disease
Orthostatic Hypotension
Paroxysmal Atrial Fibrillation
ASCVD
Anxiety / Depression
Skin Cancer
Past Surgical History: Reports Other
Additional Past Surgical History:
PTCA with Stents
Hernia Repair
Skin Cancer Excision
Social History
Tobacco: Non-smoker
Alcohol: None
Drug: None
Family History
Family History: Not pertinent
Allergies / Home Medications
Allergies reflects when Allergies were last updated in [facility].
Home Medications with original date entered in [facility]
Allergy/Medication List:
Allergies
Allergy/AdvReac Type Severity Reaction Status Date / Time
Penicillins Allergy Unknown Verified 11/04/24 02:19
Home Medications
aspirin 81 mg tablet,delayed release 81 mg PO DAILY Blood Clot Prevention/Tx 03/17/23
carbidopa 25 mg-levodopa 100 mg tablet 1 tab PO TID parkinson's disease 03/17/23
pravastatin 80 mg tablet 80 mg PO HS cholesterol 03/17/23
propafenone 150 mg tablet 150 mg PO TID Arrhythmia 03/17/23
cholecalciferol (vitamin D3) 25 mcg (1,000 unit) tablet 25 mcg PO DAILY #30 tabs 10/25/24
escitalopram oxalate 5 mg tablet 5 mg PO DAILY #30 tabs 10/25/24
lidocaine 4 % topical patch 1 patch topical DAILY #10 ea 10/25/24
loperamide 2 mg capsule 2 mg PO BIDPRN PRN diarrhea/frequent loose stools #14 caps 10/27/24
midodrine 2.5 mg tablet 5 mg PO TID 11/04/24
Review of Systems
-
History Source: Patient
A 12 point ROS was completed and negative except as noted: Yes
Constitutional: Reports Fever, Fatigue and Chills
EENT: Reports Sore Throat (dry mouth)
Respiratory: Reports Cough; Denies Trouble Breathing
Cardiac: Denies Chest Pain or Palpitations
Abdomen/GI: Denies Abdominal Pain, Nausea, Vomiting or Diarrhea
: Denies Dysuria or Frequency
Musculoskeletal: Denies Joint Pain or Edema
Neurological: Denies Dizzy or Headache
Psych: Denies Depression or Anxiety
Physical Exam
Vital Signs
Vital Signs
Temp Pulse Resp BP Pulse Ox
101.0 F H 100 18 114/63 95
11/04/24 04:34 11/04/24 03:03 11/04/24 03:00 11/04/24 03:00 11/04/24 03:32
Physical Exam
General: Other (Frail 74y M sleeping comfortably - wakes easily and answers questions / follows commands. Flushed facies. Dry MM.)
Respiratory: Other (Decreased at bases woith few scattered bibasilar rales. No wheezing.)
Cardiac: S1/S2 and Regular Rhythm
GI: Soft, Non Tender, Non Distended and Normal Bowel Sounds
Musculoskeletal: No Clubbing, No Cyanosis and No Edema
Neuro: AO x 3
Laboratory Results
-
11/04/24 02:49
11/04/24 02:49
Laboratory Results
Lactic Acid Cancelled 11/04/24 06:30
Total Bilirubin 0.7 mg/dl (0.2-1.3) 11/04/24 02:49
AST 25 U/L (17-59) 11/04/24 02:49
ALT 12 U/L (0-50) 11/04/24 02:49
Alkaline Phosphatase 67 U/L (38-126) 11/04/24 02:49
Impression/Plan
-
A/P: Patient is a 74y M with PMH significant for Parkinson's disease, A-Fib and ASCVD who presents to ED from [facility] for evaluation of cough, confusion and fever.
RLL Pneumonia
Sepsis secondary to the above
Acute TME secondary to the above
- Admit for further evaluation and treatment.
- Patient presents with fever, tachycardia, tachypnea and leukopenia with cough and CXR showing R base opacity.
- Continue IV abx - de-escalate regimen as able.
- IVF support, nebs, etc.
- Follow for clinical improvement.
- Speech eval to assess for possible aspiration given clinical history, Parkinsonism, R base location, etc.
Parkinson's Disease
Orthostatic Hypotension / Multisystem Atrophy
- Stable. Continue current Sinemet dosing without changes.
- Recent med eliminations due to adverse effects, confusion, etc. (trospium)
- Continue usual midodrine. PT / OT evaluations.
Paroxysmal Atrial Fibrillation
- Stable. Continue Rhythmol.
- Not chronically on OAC given fall risks.
ASCVD
- Stable. No complaints of chest pain at present.
- Continue ASA, statin, etc.
DVT Prophylaxis: Subcut Heparin
Code Status: Full
--- NOTE | 2024-11-04 07:49 | W.PN.HOSP.TC ---
Today's Communication/Plan
-
IV fluid bolus
N.p.o.
IMU
Ceftriaxone/doxycycline
Speech therapy consult
Compression stockings
Assessment / Plan
Assessment / Plan
Gen-awake, alert, NAD
HEENT-NC, AT, anicteric, clear oral mm
Neck-supple
CV-reg, no M, +S1/S2
Lungs-clear B/L
Abd-soft, NT, ND
Ext-no edema
Musculoskeletal-no cyanosis, clubbing
Skin-warm and dry
Neuro-grossly non-focal
Psych-calm, cooperative
Acute metabolic encephalopathy -due to sepsis, pneumonia, hypoxia.
Acute hypoxic respiratory failure due to -due to right lower lobe pneumonia. Continue nasal cannula oxygen.
Sepsis due to right lower lobe pneumonia -septic shock with hypotension. Give additional 1 L normal saline IV fluid bolus now, upgrade to IMU. Blood culture sent.
Influenza and COVID-negative.
Right lower lobe pneumonia -community-acquired pneumonia versus aspiration pneumonia. Will change antibiotics to ceftriaxone and doxycycline. N.p.o. awaiting speech therapy input.
High risk for aspiration given Parkinson's disease.
Parkinson's disease -on Sinemet.
Paroxysmal atrial fibrillation -not on long-term anticoagulation presumably due to history of falls. On propafenone.
CAD -with history of stents x 2.
Essential hypertension -currently hypotensive. Resume midodrine.
Hyperlipidemia -pravastatin.
Orthostatic hypotension -on midodrine. Prescribe teds as well.
Recent left posterio-lateral rib fractures -8, 9, and 10.
Anxiety/depression
History of skin cancer
Full code
Anticipated Discharge: > 48 hours
Subjective/Interval History
-
Date of Service: November 04, 2024
Patient seen and examined. No complaints.
Objective Data
-
Labs:
Laboratory Results
11/04/24
02:49
WBC 3.6 L
Hgb 11.2 L
Hct 32.3 L
Plt Count 201 D
Sodium 133 L
Potassium 4.2
Chloride 102
Carbon Dioxide 25
BUN 31 H
Creatinine 1.0
Glucose 109 H
Calcium 9.5
Total Bilirubin 0.7
AST 25
ALT 12
Alkaline Phosphatase 67
Vital Signs:
Vital Signs
Temp Pulse Resp BP Pulse Ox
101.0 F H 88 14 90/54 96
11/04/24 04:34 11/04/24 07:15 11/04/24 07:15 11/04/24 07:00 11/04/24 07:15
Review of Systems
-
History Source: Patient
All other systems: Reviewed and negative
[2024-11-04] MEDS: ROCEPHIN 1000 MG IV (10:48)
[2024-11-04] MEDS: HEPARIN 5000 UNITS SC ×2 (10:48→20:48)
[2024-11-04] MEDS: STERILE WATER FOR INJECTION 10 ML IV (10:48)
[2024-11-04] MEDS: RYTHMOL 150 MG PO ×3 (10:49→21:08)
[2024-11-04] MEDS: ASPIR LOW (ENTERIC COATED) 81 MG PO (10:49)
[2024-11-04] MEDS: SINEMET 25-100 1 TABLET PO ×3 (10:49→21:08)
[2024-11-04] MEDS: VIBRAMYCIN 260 MG IV ×2 (10:52→20:49)
--- NOTE | 2024-11-04 11:00 | PTOTSP ---
Dysphagia Evaluation
Patient presents with signs concerning for mild oral/pharyngeal dysphagia. Acute risk factors include PNA with TME. Chronic risk factors include Parkinson's disease and GERD. Given admission w/ RLL PNA and patient reports/signs of dysphagia prior
to admission/during admission, objective assessment via instrumental swallow testing warranted.
Recommend:
1. Regular, thin liquids
2. Medications - in puree
3. Strategies: upright to 90 degrees, full supervision, assist as needed, single sips/bites, slow rate, remain upright for 30 minutes after eating/drinking
4. Instrumental swallow testing via video swallow study
--- NOTE | 2024-11-04 14:56 | PTOTSP ---
Speech Therapy Evaluation:
Patient presents with functional oral (for consistencies assessed) and severe pharyngeal stage of swallowing. Patient consistently demonstrated varying degrees of laryngeal penetration with thin and mildly thick liquids, which he was unable to
clear from vestibule, resulting in material to further descend towards the level of the true vocal folds. Silent aspiration observed with puree. Solids were deferred given silent aspiration with puree and increased residuals. Pharyngeal residue most
prominent in vallecula, which was mild with liquids and moderate with puree. Etiology of swallowing is felt to be due Parkinson�s Disease. Please see patient care note for full details of penetration/aspiration and swallowing physiology.
Recommend:
1. Safest diet recommendation would be NPO given absent sensory response to airway invasion, poor airway clearance, increasing pharyngeal residuals, and unsuccessful compensatory strategies.
2. If patient/family opting for oral diet despite risks of aspiration, recommend puree and thin liquids given known negative pulmonary complications with aspiration of thickened liquids (patient likely to aspirate honey given silent aspiration of
puree). Solids pose a high aspiration risk, however would consider puree given increased pharyngeal residue with thicker viscosities and risk of obstruction with solids.
3. Initiate ARHP via sparing ice chips following oral care and with supervision
4. Modifiable risk factors for aspiration pneumonia including encouraging frequent and thorough oral care, pulmonary hygiene measures, and increasing physical mobility as medically feasible
5. FUR DYER to follow for education regarding VSE findings and recommendations and training in pharyngeal strengthening exercises. Patient would benefit from repeat instrumental prior to diet initiation due to silent aspiration.
[2024-11-04] MEDS: TYLENOL 650 MG PO (15:47)
[2024-11-04] MEDS: PRAVACHOL 80 MG PO (17:11)
[2024-11-05] MEDS: NSS 1000 IV (01:21)
[2024-11-05 03:16] VITALS: BP 137/77
[2024-11-05 05:25] VITALS: BMI 19.1
[2024-11-05 07:55] VITALS: BP 143/77
[2024-11-05] MEDS: RYTHMOL 150 MG PO ×3 (08:30→21:54)
[2024-11-05] MEDS: ASPIR LOW (ENTERIC COATED) 81 MG PO (08:30)
[2024-11-05] MEDS: SINEMET 25-100 1 TABLET PO ×3 (08:30→21:54)
[2024-11-05] MEDS: HEPARIN 5000 UNITS SC ×2 (08:30→20:40)
[2024-11-05] MEDS: VIBRAMYCIN 260 MG IV ×2 (08:31→20:41)
[2024-11-05 08:49] LABS: Hematocrit 30.2 % (39.0-52.0); Hemoglobin 10.4 g/dL (13.0-18.0); Mean Corp Hgb Conc. 34.4 g/dL (33.0-37.0); Mean Corpuscular Volume 89.3 fL (80.0-94.0); Platelet Count 158 10^3/uL (130-400); Red Cell Dist. Width 14.5 % (11.5-14.5)
[2024-11-05 08:51] LABS: Blood Urea Nitrogen 17 mg/dl (9-20); Calcium 8.9 mg/dl (8.4-10.2); Carbon Dioxide 24 mmol/L (22-30); Chloride 106 mmol/L (98-107); Estimated Creatinine Clearance 66 ml/min; Glucose 89 mg/dl (70-99); Potassium 3.8 mmol/L (3.5-5.1); Sodium 133 mmol/L (135-145); eGFR > 60.00
--- NOTE | 2024-11-05 10:30 | W.PN.HOSP.TC ---
Today's Communication/Plan
-
Brain MRI
Assessment / Plan
Assessment / Plan
Gen-awake, alert, NAD
HEENT-NC, AT, anicteric, clear oral mm
Neck-supple
CV-reg, no M, +S1/S2
Lungs-clear B/L
Abd-soft, NT, ND
Ext-no edema
Musculoskeletal-no cyanosis, clubbing
Skin-warm and dry
Neuro-grossly non-focal
Psych-calm, cooperative
Acute metabolic encephalopathy -due to sepsis, pneumonia, hypoxia. Remains somewhat confused.
Acute hypoxic respiratory failure due to -due to right lower lobe pneumonia. Oxygenation improved, now on room air.
Sepsis due to right lower lobe pneumonia -septic shock with hypotension. Shock resolved. Blood cultures negative so far.
Right lower lobe aspiration pneumonia -continue ceftriaxone and doxycycline.
Severe dysphagia -acute onset according to . Apparently was on solid food prior to admission while in [facility].
Etiology of dysphagia unclear. Will order brain MRI to rule out brainstem stroke.
If MRI negative then I suspect dysphagia is related to neurodegenerative disease, Parkinson's.
Speech therapy recommends patient and family to decide whether they want to accept the risk of oral feeds with pur�ed and thin liquids versus alternative means of nutrition.
At this point in time patient cannot make a decision on his own given encephalopathy. Discussed with . Option is to accept the risk of pur�ed and thin liquids versus consideration of Dobbhoff tube temporarily versus continue NPO. I explained
to patient and that Dobbhoff tube does not eliminate risk of aspiration but would provide continuous nutrition.
Parkinson's disease -on Sinemet.
Paroxysmal atrial fibrillation -not on long-term anticoagulation presumably due to history of falls. On propafenone.
CAD -with history of stents x 2.
Essential hypertension -continue midodrine.
Hyperlipidemia -pravastatin.
Orthostatic hypotension -on midodrine. Prescribe teds as well.
Recent left posterio-lateral rib fractures -8, 9, and 10.
Anxiety/depression
History of skin cancer
Full code
Anticipated Discharge: > 48 hours
Subjective/Interval History
-
Date of Service: November 05, 2024
Patient seen and examined. at the bedside. He has no complaints. He is confused.
Objective Data
-
Labs:
Laboratory Results
11/05/24
07:22
WBC 9.1
Hgb 10.4 L
Hct 30.2 L
Plt Count 158 D
Sodium 133 L
Potassium 3.8
Chloride 106
Carbon Dioxide 24
BUN 17
Creatinine 0.8
Glucose 89
Calcium 8.9
Vital Signs:
Vital Signs
Temp Pulse Resp BP Pulse Ox
98.3 F 85 18 143/77 94
11/05/24 07:55 11/05/24 08:30 11/05/24 07:55 11/05/24 08:30 11/05/24 07:55
I&O
11/04/24 11/05/24 11/06/24
06:59 06:59 06:59
Intake Total 1500 / 1500
Output Total 750 / 750
Balance 750 / 750
Review of Systems
-
Unable to obtain full review of systems at this time due to: Acuity
[2024-11-05] MEDS: ROCEPHIN 1000 MG IV (11:14)
[2024-11-05] MEDS: STERILE WATER FOR INJECTION 10 ML IV (11:15)
[2024-11-05 11:25] VITALS: BP 142/71
[2024-11-05 15:45] VITALS: BP 113/59
--- NOTE | 2024-11-05 17:01 | CM ---
Patient seen at bedside with
IA completed
CM consult for Advanced Directives-information given to
PMH significant for Parkinson's disease and recent hospitalization for encephalopathy - presumed to be secondary to anticholinergic medications - who [facility] for [facility] of cough, fever and confusion
Referral added in careport for [facility] as states she would like him to return for his continued rehab
PLOF: independent
DME: [facility], she states [facility] was in process of ordering shower chair
Denies VN/current at [facility]
PT rec Acute rehab
PCP: Bony Andrews
Pharmacy: [address], [place]
PLAN: [facility] for continued rehab when stable, will need ins auth
[2024-11-05] MEDS: PRAVACHOL 80 MG PO (17:52)
[2024-11-05 19:16] VITALS: BP 134/70
[2024-11-05 21:02] LABS: Hepatitis C Antibody Negative (Negative)
[2024-11-05] MEDS: TYLENOL 650 MG PO (21:53)
[2024-11-05 23:53] VITALS: BP 125/76
--- NOTE | 2024-11-06 03:46 | W.PN.UPDATE ---
Update Note
Progress Note Update
Pt with increased confusion and agitation this am. Being combative with nursing. Pt does not think he is at the hospital. He wants to go home.
Pt with bad Parkinson and antipsychotics can worsen symptoms. For now we will watch him closely. Room moved closer to nurses station.
Nursing reports no sleep since admit. Was taking melatonin at [facility].
[2024-11-06 04:07] VITALS: BP 167/92
--- NOTE | 2024-11-06 05:15 | PTCARENOTE ---
Pt more confused this morning, thinks he is home. Agitated and combative. Reorienting the pt to place, time and situation. Pt moved to 402[address]1 close to nursing station for better monitoring. COMBINATION MAN made aware, came up to see the pt. No order given due
to pt's parkinson diagnosis. Pt less agitated, talking to self, more collaborative at this time. Will continue to monitor the pt.
[2024-11-06 06:00] VITALS: BMI 18.9
[2024-11-06 07:00] VITALS: BP 160/83
[2024-11-06] MEDS: ASPIR LOW (ENTERIC COATED) 81 MG PO (08:36)
[2024-11-06] MEDS: HEPARIN 5000 UNITS SC ×2 (08:37→20:46)
[2024-11-06] MEDS: RYTHMOL 150 MG PO ×3 (08:38→21:28)
[2024-11-06] MEDS: SINEMET 25-100 1 TABLET PO ×3 (08:38→21:27)
[2024-11-06] MEDS: FLUSH (NSS) 1 FLUSH IV ×4 (08:38→13:23)
[2024-11-06] MEDS: VIBRAMYCIN 260 MG IV ×2 (08:55→20:59)
[2024-11-06] MEDS: STERILE WATER FOR INJECTION 10 ML IV (10:33)
[2024-11-06] MEDS: ROCEPHIN 1000 MG IV (10:33)
[2024-11-06 10:55] VITALS: BMI 18.9
[2024-11-06 11:00] VITALS: BP 146/68
--- NOTE | 2024-11-06 11:21 | W.PN.HOSP.TC ---
Addendum entered and electronically signed by Da Castaneda DO 11/06/24 13:08:
Radiologist informed me that brain MRI is negative for acute infarct or bleed.
Mild diffuse cerebral and cerebellar volume loss. Small disc�osteophyte complexes at C3/C4 and C4/C5 causing mild spinal cord compression and central canal stenosis. Severe left-sided facet joint arthrosis at C3/C4.
No explanation for dysphagia based on brain MRI.
Continue speech therapy.
Addendum entered and electronically signed by Da Castaneda DO 11/06/24 13:02:
Hypokalemia, hypophosphatemia - we will replete intravenously. Magnesium 1.8.
Brain MRI completed, report pending.
Updated patient's at the bedside. Suspect patient is heading towards getting a PEG tube as I doubt he can maintain adequate hydration and nutrition via oral means given his dysphagia. Most concerning thing right now is that he is delirious,
more confused compared to yesterday. Suspect he was awake most of the night and agitated. Can add melatonin at bedtime. I explained to patient's that the delirium is most likely related to acute illness and hospitalization, change in
scenery, insomnia.
Patient's 's goal is to try to get him back to [facility] as soon as possible.
She needs time to process and is undecided regarding PEG tube placement. Unfortunately patient does not have an advanced directive or living will stating what his wishes would be in terms of artificial nutrition and hydration.
Original Note:
Today's Communication/Plan
-
Follow-up brain MRI
Check labs
Assessment / Plan
Assessment / Plan
Gen-awake, alert, NAD
HEENT-NC, AT, anicteric, clear oral mm
Neck-supple
CV-reg, no M, +S1/S2
Lungs-clear B/L
Abd-soft, NT, ND
Ext-no edema
Musculoskeletal-no cyanosis, clubbing
Skin-warm and dry
Neuro-grossly non-focal
Psych-calm, cooperative
Acute metabolic encephalopathy -due to sepsis, pneumonia, hypoxia. Remains somewhat confused.
Acute hypoxic respiratory failure due to -due to right lower lobe pneumonia. Oxygenation improved, now on room air.
Sepsis due to right lower lobe pneumonia -septic shock with hypotension. Shock resolved. Blood cultures negative so far.
Right lower lobe aspiration pneumonia -continue ceftriaxone and doxycycline.
Severe dysphagia -acute onset according to . Apparently was on solid food prior to admission while in [facility].
Patient was evaluated by speech therapy on 10/17 with mention of concern for at least mild oropharyngeal dysphagia, likely acute on chronic related to history of Parkinson's with compounding by acute metabolic encephalopathy due to acute infection.
At that time oral diet consisting of soft and bite-size solids with thin liquids was recommended, medications crushed in pur�e.
Speech therapy on 11/04 recommends patient and family to decide whether they want to accept the risk of oral feeds with pur�ed and thin liquids versus alternative means of nutrition.
Currently on pur�ed with thin liquids in the hospital.
Brain MRI (to rule out brain stem stroke) completed, report pending.
Hyponatremia -present on admission. Monitor for now.
Parkinson's disease -on Sinemet.
Paroxysmal atrial fibrillation -not on long-term anticoagulation presumably due to history of falls. On propafenone.
CAD -with history of stents x 2.
Essential hypertension -continue midodrine.
Chronic normocytic anemia -monitor for now.
Hyperlipidemia -pravastatin.
Orthostatic hypotension -on midodrine. Prescribe teds as well.
Recent left posterio-lateral rib fractures -8, 9, and 10.
Anxiety/depression
History of skin cancer
Full code
Dispo -hopefully back to [facility] when medically stable.
Anticipated Discharge: 24 - 48 hours
Subjective/Interval History
-
Date of Service: November 06, 2024
Patient seen and examined. Confused this morning, [place] [facility] [place] [facility] No complaints.
Objective Data
-
Vital Signs:
Vital Signs
Temp Pulse Resp BP Pulse Ox
98.2 F 75 16 160/83 95
11/06/24 07:00 11/06/24 08:36 11/06/24 07:00 11/06/24 08:36 11/06/24 08:36
I&O
11/05/24 11/06/24 11/07/24
06:59 06:59 06:59
Intake Total 1500 / 1500 440 / 440
Output Total 750 / 750 1900 / 1900
Balance 750 / 750 -1460 / -1460
Review of Systems
-
History Source: Patient
All other systems: Reviewed and negative
[2024-11-06 12:34] LABS: ALT (SGPT) 15 U/L (0-50); AST (SGOT) 54 U/L (17-59); Albumin 3.3 g/dl (3.5-5.0); Alkaline Phosphatase 59 U/L (38-126); Blood Urea Nitrogen 13 mg/dl (9-20); Calcium 8.9 mg/dl (8.4-10.2); Carbon Dioxide 28 mmol/L (22-30); Chloride 104 mmol/L (98-107); Estimated Creatinine Clearance 75 ml/min; Glucose 114 mg/dl (70-99); Magnesium 1.8 mg/dl (1.6-2.3); Potassium 3.1 mmol/L (3.5-5.1); Sodium 135 mmol/L (135-145); Total Protein 5.8 g/dl (6.3-8.2); eGFR > 60.00
[2024-11-06] MEDS: POTASSIUM PHOSPHATE 259.0909 MEQ IV (13:22)
[2024-11-06 15:00] VITALS: BP 158/87
--- NOTE | 2024-11-06 15:50 | PTCARENOTE ---
Pt awake and alert; oriented to self/birthdate only; confused conversation; speech soft/difficult to understand. FERRER slowly/stiffly; (+) arm tremors noted. Pt frequently pulls at condom cath/IV tubings. VSS. Telemetry:NSR. On room air- pulse ox
96%, no SOB noted. Abd soft, sl rounded, kelsey PO; aspir prec maintained; pt with frequent cough after PO intake. Incont urine; # 21 condom cath intact- pt frequently pulls off. Resting in bed at present. Will continue to monitor.
[2024-11-06] MEDS: PRAVACHOL 80 MG PO (18:09)
[2024-11-06 19:43] VITALS: BP 147/96
[2024-11-06] MEDS: TYLENOL 650 MG PO (21:04)
[2024-11-06] MEDS: MELATONIN 5 MG PO (21:28)
[2024-11-06 23:18] VITALS: BP 144/76
[2024-11-07] VITALS (8 sets, daily range): BP systolic 123–165; BP diastolic 67–99; PULSE 82; O2SAT 95; BMI 17.9
--- NOTE | 2024-11-07 00:35 | PTCARENOTE ---
Earlier at the beginnig of the shift, pt's axillary temp=99.4. Pt's expressed concerns that the pt feels warm. Rectal Eeih=546.3. Tylenol crushed and given with apple sauce to the pt with head of the bed elevated to >30degree. BP scotwc=658/96,
HR=93 ans SpO2=95-96% on RA. No respiratory distress noted. Pt confused, thinks he is home, but non combative as last night. Pt incontinent, condom cath in place. New IV site placed by VAT team. IV Doxycycline infused and melatonin for sleep given
as per order. Pt's also expressed concerns about pt not having BM since admission. House TIE IN HAND gave an order of Senna HS and Dulcolax PRN. Will continue to monitor the pt.
[2024-11-07] MEDS: HEPARIN 5000 UNITS SC ×2 (07:59→21:26)
[2024-11-07] MEDS: RYTHMOL 150 MG PO ×2 (08:00→15:36)
[2024-11-07] MEDS: SINEMET 25-100 1 TABLET PO ×2 (08:00→15:36)
[2024-11-07] MEDS: ASPIR LOW (ENTERIC COATED) 81 MG PO (08:00)
[2024-11-07] MEDS: VIBRAMYCIN 260 MG IV (08:17)
[2024-11-07 08:18] LABS: Blood Urea Nitrogen 11 mg/dl (9-20); Calcium 9.1 mg/dl (8.4-10.2); Carbon Dioxide 26 mmol/L (22-30); Chloride 103 mmol/L (98-107); Estimated Creatinine Clearance 71 ml/min; Glucose 99 mg/dl (70-99); Magnesium 1.8 mg/dl (1.6-2.3); Potassium 3.2 mmol/L (3.5-5.1); Sodium 135 mmol/L (135-145); eGFR > 60.00
[2024-11-07] MEDS: ROCEPHIN 1000 MG IV (11:33)
[2024-11-07] MEDS: STERILE WATER FOR INJECTION 10 ML IV (11:34)
--- NOTE | 2024-11-07 14:17 | CM ---
Spoke with patient Kristyn she said that patient will be receiving a Peg tube for tube feedings.
Kristyn would like to see patient return to [facility] at [place]. He made alot of progress last [facility] stay.
Spoke with Valerie Rodas she will watch for his progression.
[facility] referral is in care port.
PT OT indicated acute rehab.
Will need auth .
PLAN Will depend on hospital stay
--- NOTE | 2024-11-07 14:21 | W.PN.HOSP.TC ---
Today's Communication/Plan
-
switch to flagyl
add Electrolyte repletion
GOC convo for PEG
Assessment / Plan
Assessment / Plan
Gen-awake, alert, NAD
HEENT-NC, AT, anicteric, clear oral mm
Neck-supple
CV-reg, no M, +S1/S2
Lungs-clear B/L
Abd-soft, NT, ND
Ext-no edema
Musculoskeletal-no cyanosis, clubbing
Skin-warm and dry
Neuro-grossly non-focal
Psych-calm, cooperative
Acute metabolic encephalopathy -due to sepsis, pneumonia, hypoxia. Remains somewhat confused.
Acute hypoxic respiratory failure due to -due to right lower lobe pneumonia.switch to flagyl due to high risk of aspiration. Oxygenation improved, now on room air.
Sepsis due to right lower lobe pneumonia -septic shock with hypotension. Shock resolved. Blood cultures negative so far.
Right lower lobe aspiration pneumonia -continue ceftriaxone and doxycycline. Stop doxy - switch to Flagyl.
Severe dysphagia -acute onset according to . Apparently was on solid food prior to admission while in [facility].
Patient was evaluated by speech therapy on 10/17 with mention of concern for at least mild oropharyngeal dysphagia, likely acute on chronic related to history of Parkinson's with compounding by acute metabolic encephalopathy due to acute infection.
At that time oral diet consisting of soft and bite-size solids with thin liquids was recommended, medications crushed in pur�e.
Speech therapy on 11/04 recommends patient and family to decide whether they want to accept the risk of oral feeds with pur�ed and thin liquids versus alternative means of nutrition.
Currently on pur�ed with thin liquids in the hospital.
Brain MRI (to rule out brain stem stroke) completed - negative for acute stroke
Hyponatremia -present on admission. Monitor for now.
Parkinson's disease -on Sinemet.
Hypokalemia - monitor and replete
Paroxysmal atrial fibrillation -not on long-term anticoagulation presumably due to history of falls. On propafenone.
CAD -with history of stents x 2.
Essential hypertension -continue midodrine.
Chronic normocytic anemia -monitor for now.
Hyperlipidemia -pravastatin.
Orthostatic hypotension -on midodrine. Prescribe teds as well.
Recent left posterio-lateral rib fractures -8, 9, and 10.
Anxiety/depression
History of skin cancer
Full code
Dispo -hopefully back to [facility] when medically stable.
Anticipated Discharge: 24 - 48 hours
Subjective/Interval History
-
Date of Service: November 07, 2024
no acute events
Objective Data
-
Labs:
Laboratory Results
11/07/24
06:04
Sodium 135
Potassium 3.2 L
Chloride 103
Carbon Dioxide 26
BUN 11
Creatinine 0.7
Glucose 99
Calcium 9.1
Vital Signs:
Vital Signs
Temp Pulse Resp BP Pulse Ox
98 F 79 16 163/80 98
11/07/24 11:38 11/07/24 11:38 11/07/24 11:38 11/07/24 11:38 11/07/24 11:38
I&O
11/06/24 11/07/24 11/08/24
06:59 06:59 06:59
Intake Total 440 / 440 1020 / 1020
Output Total 1900 / 1900 1525 / 1525
Balance -1460 / -1460 -505 / -505
Review of Systems
-
History Source: Patient
All other systems: Reviewed and negative
Data Reviewed
-
Diagnostic Radiology: Report Reviewed by me
MRI: Report Reviewed by me
Medical Tests (Nuc Med, Echo etc): Report Reviewed by me
Labs: Labs Reviewed by me
[2024-11-07] MEDS: KCL 270 MEQ IV (15:17)
[2024-11-07] MEDS: MAGNESIUM SULFATE 100 IV (15:17)
[2024-11-07] MEDS: PRAVACHOL 80 MG PO (17:13)
[2024-11-07] MEDS: TYLENOL/FEVERALL 650 MG RECTAL (21:31)
[2024-11-07] MEDS: NSS with KCL 20 MEQ 1000 IV (22:00)
[2024-11-07] MEDS: FLAGYL PO (22:52)
[2024-11-07] MEDS: SINEMET 25-100 PO (23:22)
[2024-11-07] MEDS: SENNA SYRUP PO (23:22)
[2024-11-07] MEDS: RYTHMOL PO (23:22)
[2024-11-07] MEDS: MELATONIN PO (23:22)
[2024-11-08] VITALS (7 sets, daily range): BP systolic 107–165; BP diastolic 56–93; BMI 18.0
[2024-11-08] MEDS: FLAGYL 500 MG 100 IV (00:18)
[2024-11-08] MEDS: DULCOLAX 10 MG RECTAL (00:56)
[2024-11-08] MEDS: RYTHMOL 150 MG PO ×3 (07:56→22:16)
[2024-11-08] MEDS: HEPARIN 5000 UNITS SC ×2 (07:56→20:41)
[2024-11-08] MEDS: ASPIR LOW (ENTERIC COATED) 81 MG PO (07:57)
[2024-11-08] MEDS: FLAGYL 500 MG PO ×2 (07:57→20:42)
[2024-11-08] MEDS: SINEMET 25-100 1 TABLET PO ×3 (07:57→22:16)
--- NOTE | 2024-11-08 09:16 | CON.GI ---
Addendum entered and electronically signed by Brandy Mancilla DO 11/08/24 15:51:
Patient seen and examined independently of medical insurance biller. I was available for discussion and we saw the patient together during the history physical and exam.
Consult for PEG tube
Griffin is a 74-year-old male with history of Parkinson's disease multisystem atrophy, CAD who was admitted this time with altered mental status, fever cough found to have a right lower lobe pneumonia concerning for aspiration. He is currently being
treated for his pneumonia. He is not on any oxygen and his lungs are currently clear.
When asked if he wants a feeding tube he wants to leave this up to his .
He does state he has lost significant weight since being diagnosed. Started at 160 pounds now almost 120 pounds since being diagnosed with Parkinson's. In August he also had a CT scan with a right middle lobe pneumonia. The patient and the
both deny him having any trouble swallowing prior. He had breakfast this morning that was pur�e and thin liquids.
We spoke to Micki from speech therapy who agrees with us that since his VSD was done on the day of admission during an acute illness it would be worthwhile to do another video swallow examination now that he is more stable.
Pending the results of this may proceed to a PEG tube.
He currently has no contraindications for PEG tube. No significant abdominal surgeries. No ascites.
Will await the video swallow examination tomorrow and determine management
Original Note:
Consultation
-
Date/Time Consultation Requested: 11/08/2024
Date/Time Consultation Performed: 11/08/2024
Requesting Provider: Juan Francisco Cook
Performing Provider: Brandy Mancilla
Reason for Consultation: Consult for PEG Tube
Medical History
Chief Complaint / HPI
Chief Complaint: aspiration
History of Present Illness:
Griffin is a 74 year old male with a past medical history significant for Parkinson's Disease, multisystem atrophy, paroxysmal afib (not on OAC) orthostatic hypotension, ASCVD with stent placement 2012, with recent hospitalization at [facility] for TME,
stercoral colitis and UTI thought to be due to anticholinergic side effects of new medication trospium (which was stopped) prior to discharge on 10/27/2024. He presented this admission with AMS, fever, hacking cough and was found to have RLL PNA
concerning for aspiration pneumonia. He was evaluated by Speech and swallow study was performed showing concern for aspiration with evidence of absent sensation to airway invasion, poor airway clearance and pharyngeal residue. He is currently being
treated with Ceftriaxone and Flagyl for presumed aspiration PNA. Brain MRI was obtained this admission to rule out brainstem stroke causing symptoms -- MRI was unremarkable for stroke.
Spoke with patient bedside who is still confused and would prefer me to speak with his . He has no acute complaints of pain, dysphagia, or GI upset at this time. He was able to sip water in front of me without cough. Per nursing, he was able to
finish his breakfast without issue (diet of puree and thin liquids).
Spoke to , Kristyn ([phone]) who says pt was walking on his own and completely lucid while in [facility] until the night of admission when he developed fever, hacking cough and confusion. She says there has been no history of issues with
swallowing and he was eating a regular diet without known issue at [facility]. Per , patient was receiving Speech Therapy to help gain back the strength of his voice, but nothing for swallowing concerns.
The discussion was had between the pt, his , and hospitalist regarding temporary PEG tube placement to prevent further aspiration and sequelae while he continues to undergo rehab at [facility], while also including speech therapy for swallow training,
after which time the PEG would be removed. is amenable to this plan per our discussion.
Past Medical History
Past Medical History: Arrhythmias, Hypercholesterolemia and Other (see HPI)
Past Surgical History: Other (BL inguinal hernia repair as a child, cystoscopy, stent placement x2 LAD 2012)
Social History
Tobacco: Non-Smoker
Alcohol: None
Drug: None
Personal:
Family History
Family History: Reviewed & Not Pertinent
Allergies / Home Medications
Allergy/AdvReac Type Severity Reaction Status Date / Time
Penicillins Allergy 'a long Verified 11/07/24 21:38
time ago'
�Medication �Instructions �Recorded
aspirin 81 mg tablet,delayed 81 mg PO DAILY Blood Clot 03/17/23
release Prevention/Tx
carbidopa 25 mg-levodopa 100 mg 1 tab PO TID parkinson's disease 03/17/23
tablet
pravastatin 80 mg tablet 80 mg PO HS cholesterol 03/17/23
propafenone 150 mg tablet 150 mg PO TID Arrhythmia 03/17/23
cholecalciferol (vitamin D3) 25 25 mcg PO DAILY #30 tabs 10/25/24
mcg (1,000 unit) tablet
escitalopram oxalate 5 mg tablet 5 mg PO DAILY #30 tabs 10/25/24
lidocaine 4 % topical patch 1 patch topical DAILY #10 ea 10/25/24
loperamide 2 mg capsule 2 mg PO BIDPRN PRN 10/27/24
diarrhea/frequent loose stools #14
caps
midodrine 2.5 mg tablet 5 mg PO TID Blood Pressure 11/04/24
Review of Systems
-
Unable to obtain full review of systems at this time due to: Acuity
History Source: Patient
Constitutional: Reports No Symptoms
EENT: Reports No Symptoms
Respiratory: Reports No Symptoms
Cardiac: Reports No Symptoms
Abdomen/GI: Reports No Symptoms
: Reports No Symptoms
Musculoskeletal: Reports No Symptoms
Skin: Reports No Symptoms
Neurological: Reports No Symptoms
Endocrine: Reports No Symptoms
Hematologic/Lymphatic: Reports No Symptoms
Vital Signs
Temp Pulse Resp BP Pulse Ox
97.8 F 89 16 154/90 96
11/08/24 07:00 11/08/24 07:57 11/08/24 07:00 11/08/24 07:57 11/08/24 07:54
Physical Exam
Exam
General: Well Developed, No Apparent Distress and Comfortable
HEENT: Normocephalic, Anicteric, Moist Mucous Membranes and Atraumatic
Respiratory: Clear and Non Labored Respirations; Negative Wheezes, Rales or Rhonchi
Cardiac: S1/S2 and Regular Rhythm; Negative Murmur, Rub or Peripheral Edema
Breast: N/A
GI: Soft, Non Tender, Non Distended and Normal Bowel Sounds
Rectal: Deferred by Provider
Musculoskeletal: No Clubbing, No Cyanosis and No Edema
Skin: Warm and Dry
Neuro: Awake and Alert
Hematologic/Lymphatic: No Lymphadenopathy
Results
WBC 9.1 10^3/uL (4.8-10.8) 11/05/24 07:22
Hgb 10.4 g/dL (13.0-18.0) L 11/05/24 07:22
Hct 30.2 % (39.0-52.0) L 11/05/24 07:22
MCV 89.3 fL (80.0-94.0) 11/05/24 07:22
Plt Count 158 10^3/uL (130-400) D 11/05/24 07:22
Absolute Neuts (auto) 3.2 10^3/uL (1.4-6.5) 11/04/24 02:49
Sodium 135 mmol/L (135-145) 11/07/24 06:04
Potassium 3.2 mmol/L (3.5-5.1) L 11/07/24 06:04
Chloride 103 mmol/L (98-107) 11/07/24 06:04
Carbon Dioxide 26 mmol/L (22-30) 11/07/24 06:04
BUN 11 mg/dl (9-20) 11/07/24 06:04
Creatinine 0.7 mg/dL (0.7-1.3) 11/07/24 06:04
Calcium 9.1 mg/dl (8.4-10.2) 11/07/24 06:04
Total Bilirubin 0.5 mg/dl (0.2-1.3) 11/06/24 11:56
AST 54 U/L (17-59) 11/06/24 11:56
ALT 15 U/L (0-50) 11/06/24 11:56
Alkaline Phosphatase 59 U/L (38-126) 11/06/24 11:56
Hepatitis C Antibody Negative (Negative) 11/05/24 07:22
Diagnostic Image Results:
Prior GI Procedures:
EGD:
Colonoscopy:
Assessment / Plan
-
74 year old male with a past medical history significant for Parkinson's Disease, multisystem atrophy, paroxysmal afib (not on OAC) orthostatic hypotension, ASCVD with stent placement 2012, with recent hospitalization at [facility] for TME, stercoral
colitis and UTI who prented with hacking cough, fever, confusion, found to have RLL pneumonia concerning for aspiration PNA.
#Dysphagia
#Adult Failure to Thrive
Patient with RLL opacification and confusion concerning for aspiration pneumonia with sepsis, TME
Speech evaluation on 11/04 concerning for aspiration, however patient was significantly altered during that time
Bedside swallow attempts today with thin liquids showing no obvious mechanical issues
per , no prior history of aspiration, and pt was eating well without issue while in [facility]. Prior CT imaging from August 2024 shows incidental resolving R mid lobe opacification. Unsure if silent aspirations are chronic or acute.
- Will attempt repeat speech evaluation tomorrow 11/09 as patient is more awake, alert and oriented than on admission.
- If repeat speech evaluation demonstrates persistent aspiration, can discuss PEG tube placement.
- Spoke with Kristyn who agrees with procedure if deemed medically necessary. Pt does not have any immediate contraindications for PEG Tube placement at this time (uncorrectable coagulopathy, hemodynamic instability, active sepsis,
peritonitis/cirrhosis/ascites, mechanical obstruction, etc.)
-
-
Thank you for consultation and allowing me to participate in the patient's care. Please call the water pollution control technician GI physician during the after hours with any questions or concerns.
--- NOTE | 2024-11-08 09:29 | PN.CDI ---
CDI
- -
CDI:
Physician Documentation Request
Admit Date: 11/04/24 06:39
Dear Doctor Joey,
H&P: 'Parkinson's Disease, Orthostatic Hypotension / Multisystem Atrophy...Continue usual midodrine. PT / OT evaluations'
Please clarify which of the following is the most likely etiology of the above symptoms and treatment rendered:
Neurogenic orthostatic hypotension
Orthostatic hypotension
Other
Use of terms such as suspected, likely, concern for, or probable (associated with a specific diagnosis that is being evaluated, monitored, or treated as if it exists) are acceptable and can be coded in the inpatient setting, when documented at the
time of discharge.
Thank you,
Ekta Paz RN, BSN
CDI Specialist
Available via [place] text
Please use your independent medical judgment in providing your response.
[2024-11-08 10:37] LABS: Hematocrit 30.1 % (39.0-52.0); Hemoglobin 10.4 g/dL (13.0-18.0); Mean Corp Hgb Conc. 34.6 g/dL (33.0-37.0); Mean Corpuscular Volume 88.5 fL (80.0-94.0); Platelet Count 189 10^3/uL (130-400); Red Cell Dist. Width 14.2 % (11.5-14.5)
--- NOTE | 2024-11-08 10:42 | CM ---
Kristyn she said that patient will be receiving a Peg tube for tube feedings.
Kristyn would like to see patient return to [facility]. PT OT indicated acute rehab.
Spoke with Valerie Rodas she will watch for his progression.
[facility] referral is in care port.
Will need auth .
PLAN Goal acute rehab after auth
[2024-11-08 10:51] LABS: Blood Urea Nitrogen 17 mg/dl (9-20); Calcium 8.6 mg/dl (8.4-10.2); Carbon Dioxide 25 mmol/L (22-30); Chloride 106 mmol/L (98-107); Estimated Creatinine Clearance 71 ml/min; Glucose 118 mg/dl (70-99); Potassium 3.6 mmol/L (3.5-5.1); Sodium 136 mmol/L (135-145); eGFR > 60.00
[2024-11-08] MEDS: NSS with KCL 20 MEQ 1000 IV ×2 (11:59→23:57)
[2024-11-08] MEDS: ROCEPHIN 1000 MG IV (11:59)
[2024-11-08] MEDS: STERILE WATER FOR INJECTION 10 ML IV (12:00)
[2024-11-08] MEDS: FLUSH (NSS) 1 FLUSH IV (12:00)
--- NOTE | 2024-11-08 13:47 | W.PN.HOSP.TC ---
Today's Communication/Plan
-
abx
GI consulted for possible PEG as requested by family
VSE tomorrow
Assessment / Plan
Assessment / Plan
Gen-awake, alert, NAD
HEENT-NC, AT, anicteric, clear oral mm
Neck-supple
CV-reg, no M, +S1/S2
Lungs-clear B/L
Abd-soft, NT, ND
Ext-no edema
Musculoskeletal-no cyanosis, clubbing
Skin-warm and dry
Neuro-grossly non-focal
Psych-calm, cooperative
Acute metabolic encephalopathy -due to sepsis, pneumonia, hypoxia. Remains somewhat confused although AAOx2
Acute hypoxic respiratory failure due to -due to right lower lobe pneumonia.switch to flagyl due to high risk of aspiration. Oxygenation improved, now on room air.
Sepsis due to right lower lobe pneumonia -septic shock with hypotension. Shock resolved. Blood cultures negative so far.
Right lower lobe aspiration pneumonia -continue ceftriaxone and doxycycline. Stop doxy - switch to Flagyl.
Severe dysphagia -acute onset according to . Apparently was on solid food prior to admission while in [facility].
Patient was evaluated by speech therapy on 10/17 with mention of concern for at least mild oropharyngeal dysphagia, likely acute on chronic related to history of Parkinson's with compounding by acute metabolic encephalopathy due to acute infection.
At that time oral diet consisting of soft and bite-size solids with thin liquids was recommended, medications crushed in pur�e.
Currently on pur�ed with thin liquids in the hospital.
Brain MRI (to rule out brain stem stroke) completed - negative for acute stroke
Speech eval - Mild improvement today 11/08
GI consulted for PEG as desired by family
repeat VSE tomrrow
Hyponatremia -present on admission. Monitor for now.
Parkinson's disease -on Sinemet.
Hypokalemia - monitor and replete
Paroxysmal atrial fibrillation -not on long-term anticoagulation presumably due to history of falls. On propafenone.
CAD -with history of stents x 2.
Essential hypertension -continue midodrine.
Chronic normocytic anemia -monitor for now.
Hyperlipidemia -pravastatin.
Orthostatic hypotension -on midodrine. Prescribe teds as well.
Recent left posterio-lateral rib fractures -8, 9, and 10.
Anxiety/depression
History of skin cancer
Full code
Dispo -hopefully back to [facility] when medically stable.
Total time spent on today's encounter was 50 minutes which included time spent in counseling the patient/family regarding diagnosis and treatment plan as listed above, goals of care, and symptom management. Case was discussed with nursing staff,
specialists, and care coordinators/case management. All labs and imaging personally reviewed by me. Remainder the time spent in detailed review of previous records, lab data, imaging, and other medical provider documentation.
Anticipated Discharge: > 48 hours
Subjective/Interval History
-
Date of Service: November 08, 2024
speech eval with improvement today
Objective Data
-
Labs:
Laboratory Results
11/08/24
09:59
WBC 7.6
Hgb 10.4 L
Hct 30.1 L
Plt Count 189
Sodium 136
Potassium 3.6
Chloride 106
Carbon Dioxide 25
BUN 17
Creatinine 0.7
Glucose 118 H
Calcium 8.6
Vital Signs:
Vital Signs
Temp Pulse Resp BP Pulse Ox
97.7 F 79 16 107/56 97
11/08/24 11:00 11/08/24 11:00 11/08/24 11:00 11/08/24 11:00 11/08/24 11:00
I&O
11/07/24 11/08/24 11/09/24
06:59 06:59 06:59
Intake Total 1020 / 1020 120 / 120
Output Total 1525 / 1525 800 / 800
Balance -505 / -505 -680 / -680
Review of Systems
-
History Source: Patient
All other systems: Reviewed and negative
Data Reviewed
-
Diagnostic Radiology: Report Reviewed by me
MRI: Report Reviewed by me
Medical Tests (Nuc Med, Echo etc): Report Reviewed by me
Labs: Labs Reviewed by me
--- NOTE | 2024-11-08 15:57 | PTCARENOTE ---
Pt sleeping at intervals but easily arousable; oriented to self/birthdate only when awake. Pt forgetful; speech soft, difficult to understand. FERRER slowly/weakly; occ tremors of arms/legs. Does not assist w/turning. VSS. Telemetry:NSR. On room
air- pulse ox 96%, no SOB noted. Abd soft, sl rounded, remains NPO; for VSE on 11/09. Incont urine; condom catheter P/I mod amts clear yellow urine. IVF's NSS with 20 meq KCl @ 80 ml/hr infusing via lt forearm without sx of infiltration. Resting in
bed at present, no c/o. Will continue to monitor.
[2024-11-08] MEDS: PRAVACHOL 80 MG PO (17:41)
[2024-11-08] MEDS: MELATONIN 5 MG PO (22:16)
[2024-11-08] MEDS: SENNA SYRUP 8.8 MG PO (22:18)
[2024-11-09] VITALS (8 sets, daily range): BP systolic 102–158; BP diastolic 66–84; PULSE 64; O2SAT 97; BMI 18.0
[2024-11-09] MEDS: FLAGYL 500 MG PO ×2 (08:24→20:58)
[2024-11-09] MEDS: RYTHMOL 150 MG PO ×3 (08:24→21:57)
[2024-11-09] MEDS: ASPIR LOW (ENTERIC COATED) 81 MG PO (08:24)
[2024-11-09] MEDS: HEPARIN 5000 UNITS SC ×2 (08:24→20:53)
[2024-11-09] MEDS: SINEMET 25-100 1 TABLET PO ×3 (08:24→21:57)
--- NOTE | 2024-11-09 08:31 | W.PN.GI.CBS2 ---
Addendum entered and electronically signed by Brandy Mancilla DO 11/09/24 16:08:
Patient seen and examined independently of the medical field representative. I was available throughout his physical exam, assessment and plan were all discussed. I agree with his note with my additions below.
Reviewed the repeat video swallow exam which recommends level 4, pur�ed diet and thin liquids with cup or straw. Patient needs to be upright fully with aspiration precautions. I did tell him never to take medications while laying down. His
medications should be crushed in applesauce or whole in applesauce. Go slow and ensure the mouth is empty before the next sip for mouthful. Follow-up with speech therapy.
Overall they stated improved airway protection with no aspiration.
Agree with trial of this diet. If he has persistent admissions for aspiration would consider proceeding to PEG tube. But will hold for now
GI will sign off. Please call us back with any questions or concerns.
Original Note:
Today's Communication / Plan
-
see plan
Gi will sign off
Assessment / Plan
-
74 year old male with a past medical history significant for Parkinson's Disease, multisystem atrophy, paroxysmal afib (not on OAC) orthostatic hypotension, ASCVD with stent placement 2012, with recent hospitalization at [facility] for TME, stercoral
colitis and UTI who presented with hacking cough, fever, confusion, found to have RLL pneumonia concerning for aspiration PNA.
We were consulted for possible PEG tube placement.
Patient with findings of RLL opacification and confusion concerning for aspiration pneumonia with sepsis, TME.
Speech evaluation on 11/04 concerning for aspiration, however patient was significantly altered during that time. Bedside swallow attempts and nursing reports demonstrate minimal to no obvious issues with eating/drinking. Per , no prior history
of aspiration, and pt was eating well without issue while in [facility]. Prior CT imaging from August 2024 shows incidental resolving R mid lobe opacification. Unsure if silent aspirations are chronic or acute.
Repeat VSE obtained.
- he is unable to chew solids
- he was trialed many times on puree, honey thick, and thin liquids with minimal events.
- he still has decreased sensation and diminished/absent cough reflex
Given that patient was on a regular diet without precautions during [facility], it is entirely possible that this is an acute presentation of dysphagia as a result of progressive Parkinson's and that due to his absent sensation and absent cough
reflex he had been silently aspirating during his rehab that ultimately developed into PNA and sepsis that was seen on presentation.
Would recommend that patient proceed with puree diet, thin liquids, meds in applesauce, and aspiration precautions as suggested by speech therapy. If possible, would recommend additional swallow therapy at rehab if discharged back to [facility].
If his symptoms worsen or he develops an aspiration PNA again, we would strongly consider PEG tube placement at that time.
GI will sign off at this time. Please contact with additional questions or if our services are needed again.
Subjective
Subjective
Date of Service: November 09, 2024
No acute overnight events. No acute complaints her patient. He had just returned from [facility] when I saw him.
Objective
Data Reviewed
Laboratory Data:
Laboratory Results
Phosphorus 2.7 mg/dl (2.5-4.5) 11/08/24 09:59
Magnesium 1.8 mg/dl (1.6-2.3) 11/07/24 06:04
Total Bilirubin 0.5 mg/dl (0.2-1.3) 11/06/24 11:56
AST 54 U/L (17-59) 11/06/24 11:56
ALT 15 U/L (0-50) 11/06/24 11:56
Alkaline Phosphatase 59 U/L (38-126) 11/06/24 11:56
Vital Signs and I&O:
Vital Signs
Temp Pulse Resp BP Pulse Ox
97.5 F 75 16 104/74 97
11/09/24 07:25 11/09/24 07:25 11/09/24 07:25 11/09/24 07:25 08/27/25 07:25
I&O
11/08/24 11/09/24 11/10/24
06:59 06:59 06:59
Intake Total 120 / 120 2400 / 2400
Output Total 800 / 800 1150 / 1150
Balance -680 / -680 1250 / 1250
Physical Exam
Physical Exam
HEENT: Anicteric, Moist mucous membranes and No Lymphadenopathy
Cardiology: Normal Sinus Rhythm, S1 and S2
Pulmonary: Other (Left side CTA, R side crackles in the lower lung cox. No wheezing. )
GI: Soft, Non Distended, Flat and Non Tender
Extremities: No Edema, Warm and Pulses Present
[2024-11-09 08:35] LABS: Hematocrit 29.8 % (39.0-52.0); Hemoglobin 10.4 g/dL (13.0-18.0); Mean Corp Hgb Conc. 34.9 g/dL (33.0-37.0); Mean Corpuscular Volume 88.4 fL (80.0-94.0); Platelet Count 210 10^3/uL (130-400); Red Cell Dist. Width 14.0 % (11.5-14.5)
[2024-11-09 09:19] LABS: Blood Urea Nitrogen 14 mg/dl (9-20); Calcium 8.4 mg/dl (8.4-10.2); Carbon Dioxide 22 mmol/L (22-30); Chloride 106 mmol/L (98-107); Estimated Creatinine Clearance 83 ml/min; Glucose 91 mg/dl (70-99); Potassium 3.9 mmol/L (3.5-5.1); Sodium 134 mmol/L (135-145); eGFR > 60.00
[2024-11-09] MEDS: ROCEPHIN 1000 MG IV (10:10)
[2024-11-09] MEDS: STERILE WATER FOR INJECTION 10 ML IV (10:10)
--- NOTE | 2024-11-09 11:33 | PN.CDI ---
CDI
- -
CDI:
Physician Documentation Request
Admit Date: 11/04/24 06:39
Dear Doctor Joey,
Patient admitted for sepsis.
Please review the following and provide your response in the progress notes.
Clinical Indicators:
Height: 5' 8'
Weight: 118 lbs
BMI: 18.0
Other Clinical Notes:
11/08 GI Consult: 'Started at 160 pounds now almost 120 pounds since being diagnosed with Parkinson's.'
If possible, please provide an associated diagnosis related to the abnormal BMI, such as:
Cachectic
Underweight
BMI is not significant
Other
BMI < or = to 19.9
Underweight
Weight Loss
Cachectic
Anorexia
Use of terms such as suspected, likely, concern for, or probable (associated with a specific diagnosis that is being evaluated, monitored, or treated as if it exists) are acceptable and can be coded in the inpatient setting, when documented at the
time of discharge.
Thank you,
Ekta Paz RN, BSN
CDI Specialist
Available via [place] text
Please use your independent medical judgment in providing your response.
--- NOTE | 2024-11-09 12:10 | PTOTSP ---
Video Swallow Examination
Repeat video swallow examination completed with patient alert, talkative and following directions.
Adequate oral retrieval and containment with few instances of lingual pumping/disorganized AP initiation. Patient unable to breakdown solid and cued to expel bolus. During oral processing attempt, a piece of barium pudding (that covered solid) fell
back into pharyngeal space (question if in anterior pyriform space or atop vocal folds in laryngeal vestibule). No attempt to self expel but cued cough strong enough to clear barium into upper pharyngeal area. No aspiration events noted. Trace upper
laryngeal penetration occurring with moderately thick liquid that was contained to underside of epiglottis. Pharyngeal weakness and intermittent decrease in PES distention led to mild to moderate pharyngeal retention that increased wtih density of
bolus. Improved clearance following a dry swallow.
Complete but delayed laryngeal vestibular closure places patient at increased risk of aspiration especially if not seated upright. Reduced sensory awareness also increases his risk. There was complete epiglottic inversion.
Overall, improved airway protection with no aspiration events during study. However, aspiration risk continues due to dysphagia related symptoms of PD including reduced strength, and coordination that leads to delayed laryngeal vestibular closure
and pharyngeal stasis.
Recommend
1. Level 4/Puree Diet and Thin Liquids (cup or straw)
2. Meds crushed in applesauce - if unable to crush place one at at time, whole in applesauce.
3. Intermittent cued cough/throat clear
4. Fully upright with meals.
5. Slow rate and ensure mouth is empty before next sip/mouthful.
6. Aspiration precautions.
7. Follow up ST at next level of care to focus on improving swallow function (airway protection, pharyngeal strength, cough strength and patient/family education).
[2024-11-09] MEDS: NSS with KCL 20 MEQ 1000 IV (12:24)
--- NOTE | 2024-11-09 13:40 | W.PN.HOSP.TC ---
Today's Communication/Plan
-
resume pur�ed diet, thin liquids, meds in applesauce, aspiration precautions.
DC ready, CM aware
Abx
Assessment / Plan
Assessment / Plan
Gen-awake, alert, NAD
HEENT-NC, AT, anicteric, clear oral mm
Neck-supple
CV-reg, no M, +S1/S2
Lungs-clear B/L
Abd-soft, NT, ND
Ext-no edema
Musculoskeletal-no cyanosis, clubbing
Skin-warm and dry
Neuro-grossly non-focal
Psych-calm, cooperative
Acute metabolic encephalopathy -due to sepsis, pneumonia, hypoxia. Remains somewhat confused although AAOx2
Acute hypoxic respiratory failure due to -due to right lower lobe pneumonia.switch to flagyl due to high risk of aspiration. Oxygenation improved, now on room air.
Sepsis due to right lower lobe pneumonia -septic shock with hypotension. Shock resolved. Blood cultures negative so far.
Right lower lobe aspiration pneumonia -continue ceftriaxone and doxycycline. Stop doxy - switch to Flagyl.
Severe dysphagia -acute onset according to . Apparently was on solid food prior to admission while in [facility].
Patient was evaluated by speech therapy on 10/17 with mention of concern for at least mild oropharyngeal dysphagia, likely acute on chronic related to history of Parkinson's with compounding by acute metabolic encephalopathy due to acute infection.
At that time oral diet consisting of soft and bite-size solids with thin liquids was recommended, medications crushed in pur�e.
Currently on pur�ed with thin liquids in the hospital.
Brain MRI (to rule out brain stem stroke) completed - negative for acute stroke
Speech eval - Mild improvement today 11/08
GI consulted for PEG as desired by family
repeat VSE: Improved today - decreased sensation and diminished/absent cough reflex. Possibly resulting from progressive Parkinson's. GI and speech recommending proceed with pur�ed diet, thin liquids, meds in applesauce, aspiration precautions.
Continue swallow therapy or rehab. If develops aspiration pneumonia again would consider PEG tube placement at that time.
Hyponatremia -present on admission. Monitor for now.
Parkinson's disease -on Sinemet.
Hypokalemia - monitor and replete
Paroxysmal atrial fibrillation -not on long-term anticoagulation presumably due to history of falls. On propafenone.
CAD -with history of stents x 2.
Essential hypertension -continue midodrine.
Chronic normocytic anemia -monitor for now.
Hyperlipidemia -pravastatin.
Orthostatic hypotension -on midodrine. Prescribe teds as well.
Recent left posterio-lateral rib fractures -8, 9, and 10.
Anxiety/depression
History of skin cancer
Full code
Dispo -hopefully back to [facility] when medically stable.
Anticipated Discharge: Within 24 hours
Subjective/Interval History
-
Date of Service: November 09, 2024
Repeat VASc, unable to chew solids. After discussion with GI, would recommend proceed with pur�e diet, thin liquids, meds in applesauce and aspiration precautions. Continue swallow therapy at rehab
Objective Data
-
Labs:
Laboratory Results
11/09/24
08:09
WBC 7.4
Hgb 10.4 L
Hct 29.8 L
Plt Count 210
Sodium 134 L
Potassium 3.9
Chloride 106
Carbon Dioxide 22
BUN 14
Creatinine 0.6 L
Glucose 91
Calcium 8.4
Vital Signs:
Vital Signs
Temp Pulse Resp BP Pulse Ox
97.6 F 68 16 158/84 96
11/09/24 11:15 11/09/24 11:15 11/09/24 11:15 11/09/24 11:15 11/09/24 11:15
I&O
11/08/24 11/09/24 11/10/24
06:59 06:59 06:59
Intake Total 120 / 120 2400 / 2400
Output Total 800 / 800 1150 / 1150
Balance -680 / -680 1250 / 1250
Review of Systems
-
History Source: Patient
All other systems: Not reviewed unless documented
Data Reviewed
-
Diagnostic Radiology: Report Reviewed by me
MRI: Report Reviewed by me
Medical Tests (Nuc Med, Echo etc): Report Reviewed by me
Labs: Labs Reviewed by me
[2024-11-09] MEDS: PRAVACHOL 80 MG PO (17:06)
[2024-11-09] MEDS: SENNA SYRUP 8.8 MG PO (21:57)
[2024-11-09] MEDS: MELATONIN 5 MG PO (21:57)
[2024-11-10 03:43] VITALS: BP 169/89
[2024-11-10 06:00] VITALS: BMI 18.1
[2024-11-10] MEDS: RYTHMOL 150 MG PO ×2 (07:56→15:57)
[2024-11-10] MEDS: HEPARIN 5000 UNITS SC (07:56)
[2024-11-10] MEDS: FLAGYL 500 MG PO (07:56)
[2024-11-10] MEDS: ASPIR LOW (ENTERIC COATED) 81 MG PO (07:56)
[2024-11-10] MEDS: SINEMET 25-100 1 TABLET PO ×2 (07:56→15:57)
[2024-11-10 08:01] VITALS: BP 168/86
[2024-11-10 08:44] LABS: Hematocrit 34.9 % (39.0-52.0); Hemoglobin 12.2 g/dL (13.0-18.0); Mean Corp Hgb Conc. 35.0 g/dL (33.0-37.0); Mean Corpuscular Volume 87.3 fL (80.0-94.0); Platelet Count 251 10^3/uL (130-400); Red Cell Dist. Width 13.9 % (11.5-14.5)
[2024-11-10 09:10] LABS: Blood Urea Nitrogen 16 mg/dl (9-20); Calcium 8.9 mg/dl (8.4-10.2); Carbon Dioxide 25 mmol/L (22-30); Chloride 103 mmol/L (98-107); Estimated Creatinine Clearance 84 ml/min; Glucose 90 mg/dl (70-99); Potassium 4.1 mmol/L (3.5-5.1); Sodium 134 mmol/L (135-145); eGFR > 60.00
--- NOTE | 2024-11-10 09:38 | CM ---
Addendum entered by Milagro Gonzalez 11/10/24 14:45:
Patient has been approved for 6 days acute rehab at [facility], Auth [id number], follow up with [phone].
Report [facility] [phone]
Addendum entered by Milagro Gonzalez 11/10/24 11:51:
Patient accepted at [facility] today case management assistant will obtain Auth.
Original Note:
Chart reviewed with [facility] admissions and they had questions on possible calorie count for patient and any updated testing, patient needs auth, case management assistant will use PT/OT notes from yesterday to obtain Auth.
Plan; [facility] acute rehab pending Auth.
[2024-11-10] MEDS: STERILE WATER FOR INJECTION 10 ML IV (10:59)
[2024-11-10] MEDS: ROCEPHIN 1000 MG IV (10:59)
[2024-11-10 11:33] VITALS: BP 112/67
--- NOTE | 2024-11-10 11:52 | W.PN.HOSP.TC ---
Addendum entered and electronically signed by Juan Francisco Cook MD 11/12/24 15:06:
Neurogenic orthostatic hypotension
Underweight
Addendum entered and electronically signed by Juan Francisco Cook MD 11/10/24 17:32:
[id number]
Original Note:
Today's Communication/Plan
-
Complete abx course
Modified diet
Disposition planning
F/u bmp, cbc outpatient
F/u PCP outpt
CXR to assess resolution outpt
Assessment / Plan
Assessment / Plan
Gen-awake, alert, NAD
HEENT-NC, AT, anicteric, clear oral mm
Neck-supple
CV-reg, no M, +S1/S2
Lungs-clear B/L
Abd-soft, NT, ND
Ext-no edema
Musculoskeletal-no cyanosis, clubbing
Skin-warm and dry
Neuro-grossly non-focal
Psych-calm, cooperative
Acute metabolic encephalopathy -due to sepsis, pneumonia, hypoxia. Improving
Acute hypoxic respiratory failure due to -due to right lower lobe pneumonia.switch to flagyl due to high risk of aspiration. Oxygenation improved, now on room air. Complete 10 days of Ceftriaxone to Cefdinir; Flagyl to complete 7 day total
Sepsis due to right lower lobe pneumonia -septic shock with hypotension. Shock resolved. Blood cultures negative so far.
Right lower lobe aspiration pneumonia -continue ceftriaxone and doxycycline. Stop doxy - switch to Flagyl. F/u CXR outpatient
Severe dysphagia -acute onset according to . Apparently was on solid food prior to admission while in [facility].
Patient was evaluated by speech therapy on 10/17 with mention of concern for at least mild oropharyngeal dysphagia, likely acute on chronic related to history of Parkinson's with compounding by acute metabolic encephalopathy due to acute infection.
At that time oral diet consisting of soft and bite-size solids with thin liquids was recommended, medications crushed in pur�e.
Currently on pur�ed with thin liquids in the hospital.
Brain MRI (to rule out brain stem stroke) completed - negative for acute stroke
Speech eval - Mild improvement today 11/08
GI consulted for PEG as desired by family
repeat VSE: Improved - decreased sensation and diminished/absent cough reflex. Possibly resulting from progressive Parkinson's. GI and speech recommending proceed with pur�ed diet, thin liquids, meds in applesauce, aspiration precautions.
Continue swallow therapy or rehab. If develops aspiration pneumonia again would consider PEG tube placement at that time.
Hyponatremia -present on admission. Monitor for now. Mild; F/u bmp outpt
Parkinson's disease -on Sinemet.
Hypokalemia - monitor and replete
Paroxysmal atrial fibrillation -not on long-term anticoagulation presumably due to history of falls. On propafenone.
CAD -with history of stents x 2.
Essential hypertension -continue midodrine.
Chronic normocytic anemia -monitor for now.
Hyperlipidemia -pravastatin.
Orthostatic hypotension -on midodrine. Prescribe teds as well.
Recent left posterio-lateral rib fractures -8, 9, and 10.
Anxiety/depression
History of skin cancer
Full code
Dispo -hopefully back to [facility] when medically stable.
More than 30 minutes spent in discharge including
Final examination of the patient
Summarizing hospital stay
Instructions for continuing care to all relevant caregivers
Preparation of discharge records, prescriptions, and referral forms
Total time spent (in minutes): 36
Anticipated Discharge: Today
Subjective/Interval History
-
Date of Service: November 10, 2024
speech appears to be improving
Objective Data
-
Labs:
Laboratory Results
11/10/24 11/10/24
06:56 07:47
WBC 7.5
Hgb 12.2 L
Hct 34.9 L
Plt Count 251
Sodium 134 L
Potassium 4.1
Chloride 103
Carbon Dioxide 25
BUN 16
Creatinine 0.6 L
Glucose 90
Calcium 8.9
Vital Signs:
Vital Signs
Temp Pulse Resp BP Pulse Ox
97.7 F 85 18 112/67 95
11/10/24 11:33 11/10/24 11:33 11/10/24 11:33 11/10/24 11:33 11/10/24 11:33
I&O
11/09/24 11/10/24 11/11/24
06:59 06:59 06:59
Intake Total 2400 / 2400 1600 / 1600
Output Total 1150 / 1150 1000 / 1000
Balance 1250 / 1250 600 / 600
Review of Systems
-
History Source: Patient
All other systems: Not reviewed unless documented
Data Reviewed
-
Diagnostic Radiology: Report Reviewed by me
MRI: Report Reviewed by me
Medical Tests (Nuc Med, Echo etc): Report Reviewed by me
Labs: Labs Reviewed by me
--- NOTE | 2024-11-10 11:57 | W.DS.TRANS ---
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
-
Discharge Instructions:
Sleep Apnea Risk High
Discharge Diagnosis/Procedures aspiration pneumonia
dysphagia
Diet Other diet
Additional Diets pur�ed diet, thin liquids, meds in applesauce,
aspiration precautions.
Activity As tolerated
Blood Work cbc and cmp in 1 week
Others Tests Follow up CXR for resolution of pneumonia in 4-6
weeks
Instructions:
Stand-Alone Forms:
Changes to Home Medications: Yes
Discharge Medications:
DC Medications w/original date entered in [facility]
aspirin 81 mg tablet,delayed release 81 mg PO DAILY Blood Clot Prevention/Tx 03/17/23
carbidopa 25 mg-levodopa 100 mg tablet 1 tab PO TID parkinson's disease 03/17/23
pravastatin 80 mg tablet 80 mg PO HS cholesterol 03/17/23
propafenone 150 mg tablet 150 mg PO TID Arrhythmia 03/17/23
cholecalciferol (vitamin D3) 25 mcg (1,000 unit) tablet 25 mcg PO DAILY #30 tabs 10/25/24
escitalopram oxalate 5 mg tablet 5 mg PO DAILY #30 tabs 10/25/24
lidocaine 4 % topical patch 1 patch topical DAILY #10 ea 10/25/24
loperamide 2 mg capsule 2 mg PO BIDPRN PRN diarrhea/frequent loose stools #14 caps 10/27/24
midodrine 2.5 mg tablet 5 mg PO TID Blood Pressure 11/04/24
cefdinir 300 mg capsule 300 mg PO Q12H 3 days #6 caps 11/10/24
metronidazole 500 mg tablet 500 mg PO BID 5 days #10 tabs 11/10/24
Home Medication Changes
cefdinir 300 mg capsule 300 mg PO Q12H 3 days #6 caps 11/10/24
metronidazole 500 mg tablet 500 mg PO BID 5 days #10 tabs 11/10/24
Pending Results: No
[2024-11-10 15:46] VITALS: BP 120/71
== END 2024-11-10 16:59 | DRG 871 ==
LOC: 4 EAST ACU 06:39
PROVIDERS: Hospitalist; ADMITTING PHYSICIAN Hospitalist; ATTENDING PHYSICIAN Internal Medicine; CONSULT PHYSICIAN Internal Medicine; EMERGENCY PHYSICIAN Emergency Medicine; FAMILY PHYSICIAN Family Medicine
DX: A41.9 Sepsis, unspecified organism (principal); G92.8 Other toxic encephalopathy; J96.01 Acute respiratory failure with hypoxia; J18.9 Pneumonia, unspecified organism; J69.0 Pneumonitis due to inhalation of food and vomit; R65.21 Severe sepsis with septic shock; M50.021 Cervical disc disorder at C4-C5 level with myelopathy; M50.01 Cervical disc disorder with myelopathy, high cervical region; E87.1 Hypo-osmolality and hyponatremia; Z68.1 Body mass index [BMI] 19.9 or less, adult; G90.3 Multi-system degeneration of the autonomic nervous system; E78.00 Pure hypercholesterolemia, unspecified; I25.10 Atherosclerotic heart disease of native coronary artery without angina pectoris; I48.0 Paroxysmal atrial fibrillation; G20.A1 Parkinson's disease without dyskinesia, without mention of fluctuations; R62.7 Adult failure to thrive; I10 Essential (primary) hypertension; K21.9 Gastro-esophageal reflux disease without esophagitis; M48.02 Spinal stenosis, cervical region; D64.9 Anemia, unspecified; D72.819 Decreased white blood cell count, unspecified; R63.6 Underweight; R13.12 Dysphagia, oropharyngeal phase; E83.39 Other disorders of phosphorus metabolism; E87.6 Hypokalemia; F32.A Depression, unspecified; F41.9 Anxiety disorder, unspecified; Z85.828 Personal history of other malignant neoplasm of skin; Z87.891 Personal history of nicotine dependence; Z88.0 Allergy status to penicillin; Z79.82 Long term (current) use of aspirin; Z95.5 Presence of coronary angioplasty implant and graft
CPT/HCPCS: 70551; 71045; 74230; 80048; 80053; 81003; 81015; 83605; 83735; 84100; 85025; 85027; 86803; 87040; 87449; 87502; 87811; 87899; 92526; 92610; 92611; 93005; 96361; 96365; 96366; 96375; 97163; 97167; 97530; 99285

== ENCOUNTER 2024-11-22 14:25 | Emergency (ER) | payer OTHER, SELFPAY ==
[2024-11-22 14:38] LABS: Glucose - Point of Care 154 mg/dl (70-99)
[2024-11-22 14:56] VITALS: BP 142/87
[2024-11-22 15:00] VITALS: BP 177/84
--- NOTE | 2024-11-22 15:11 | ED.GENMED ---
History of Present Illness
General
Chief Complaint: Change in Mental Status
Source: patient, records and spouse
Time Seen by Provider: 11/22/24 14:53
History of Present Illness
History of Present Illness:
74yoM with a history of Parkinson's disease, paroxysmal atrial fibrillation, coronary artery disease, hypertension, hyperlipidemia, orthostatic hypotension presenting from [facility] for evaluation of altered mental status. Patient's spoke
with him on the phone today and he reported that he felt 'foggy brain.' Around noon today, he was noted to have trouble speaking. states that seems like he was having trouble getting out his words. The note from the rehab documented 'mental
status change, freeze, increasing tone, and worsening Parkinson symptoms.' states he seems somewhat improved currently. He denies any specific complaints at this time other than feeling fatigued.
Past History
Past History
ED Past Medical History: Arrthythmia (Atrial fibrillation), CAD, Cancer (Skin), GERD, HTN, Hypercholesterolemia and Other (Parkinson's)
ED Past Surgical History: Cardiac and Other
Social History
Tobacco: Former smoker
Alcohol: Daily
Personal:
Living: with family
Phy Exam
General Physical Exam
General Presentation: well appearing and no apparent distress
General Skin: warm and dry
General Habitus: normal
General Mental: alert
ENT Exam
ENT Exam: normocephalic
Pulmonary Exam
Pulmonary Exam: no respiratory distress
Neurological Exam
Neurological Exam: alert and other (Thought it was December. Otherwise A&O. Able to name objects on NIHSS carbs and read words without dysarthria. Somewhat slow to respond to questioning.)
Mariaa Coma Scale
Eye Opening: Spontaneous
Verbal Response: Oriented
Motor Response: Obeys Commands
GCS Total Score: 15
Skin Exam
Skin Exam: normal color and warm/dry
Psychiatric Exam
Psychiatric Exam: normal mood/affect
Course
Orders/Labs/Results
Orders:
Orders
11/22/24 14:[address] [CT Head W/o Iv Contrast] Urgent
Comment:
Reason For Exam: change in mental status
11/22/24 15:09
Electrocardiogram (*1) Urgent
Reason for Study: Fatigue / Weakness
EKG- Treatment ONCE
11/22/24 15:15
NEUROLOGY CONSULT Urgent
Consulting Provider: Maycol White
Was physician already notified: Yes
11/22/24 15:32
CBC/With Diff [Complete Blood Count/With Diff] Urgent
CMP [Comprehensive Metabolic Panel] Urgent
TSH Reflex To Free T4 Urgent
11/22/24 17:13
Straight cath- Treatment ONCE
11/22/24 17:24
Urinalysis Reflex To Culture Urgent
Date Specimen was Collected: 11/22/24
Time Specimen was Collected: 14:41
Urine Microscopic Reflex Cult Urgent
Urine Culture Urgent
LOUISE Source: U
Specimen Description:
Date Specimen was Collected: 11/22/24
Time Specimen was Collected: 14:41
Abnormal Lab Results
11/22/24 11/22/24 11/22/24
14:36 15:32 17:24
RBC 3.92 L 10^6/uL
(4.70-6.10)
Hgb 11.8 L g/dL
(13.0-18.0)
Hct 34.8 L %
(39.0-52.0)
RDW 15.1 H %
(11.5-14.5)
MPV 11.2 H fL
(7.4-10.4)
Absolute Monos (auto) 0.8 H 10^3/uL
(0.1-0.6)
Lymphocytes % 19.0 L %
(20.5-51.1)
Monocytes % 11.3 H %
(1.7-9.3)
Sodium 133 L mmol/L
(135-145)
BUN 33 H mg/dl
(9-20)
Glucose 108 H mg/dl
(70-99)
Urine Ketones 1+ A
(Negative)
Ur Occult Blood Reflex 2+ A
(Negative)
Urine Nitrite (Reflex) Positive A
(Negative)
Leukocyte Esterase Rfl 2+ A
(Negative)
Urine Albumin (Reflex) 1+ A
(Neg - Trace)
POC Glucose 154 H mg/dl
(70-99)
11/22/24 15:32
11/22/24 15:32
Vital Signs
Initial and Last Documented VS:
Initial Vital Signs
Temp Pulse Resp Pulse Ox
97.6 F 79 15 99
11/22/24 14:28 11/22/24 14:28 11/22/24 14:28 11/22/24 14:28
Last Documented Vital Signs
Temp Pulse Resp BP Pulse Ox
97.6 F 80 14 171/83 99
11/22/24 14:28 11/22/24 18:45 11/22/24 18:45 11/22/24 18:00 11/22/24 16:30
MDM/Problems Addressed
Differential Diagnosis Includes:
74yoM here with difficulty getting out words this afternoon. Sent in by [facility]. Hx of Parkinson's disease. VSS. He is slow to respond to questioning but no signs of dysarthria or aphasia noted. Differential diagnosis includes but is not limited
to: Parkinson's disease, less likely CVA, UTI, electrolyte abnormality
Initial ED plan: Check CBC, CMP, TSH, EKG, UA, and CT head. Will discuss with neurology.
*Pulse Oximetry
SaO2: 99
Oxygen Mode of Delivery: Room air
Patient hypoxic: no (99%)
*EKG
Interpreted by ED Provider?: Yes
EKG Intrepretation Date: 11/22/24
Heart Rate: 76
Rate: normal
Rhythm: sinus
Laura: normal axis
QRS Pattern: normal QRS
Ischemia: no ischemia
*Critical Care Note
Total Time (30-74mins, 75-104mins- exclusive of procedures): Not Applicable
Update Note
Update Note:
Labs unremarkable. Sodium 133 which is consistent with prior labs. Renal function unchanged. TSH normal. UA is nitrite positive with 2+ leukocytes suggesting infection. CT negative for acute findings. Patient was assessed by neurology who felt
that symptoms were related to Parkinson's disease/underlying orthostasis. Neurology recommending continuing his current medication regimen. Patient stable to discharge back to [facility]. He was given a prescription for cefdinir to cover for UTI.
ED Attending Note
-
Portions of this chart may have been created with voice recognition software.� Occasional wrong word or��sound alike� substitutions may have occurred due to the inherent limitations of voice recognition software.
Discharge Plan
Departure
Patient Disposition: Home (Routine Discharge)
Date of Disposition: 11/22/24
Time of Disposition: 18:40
Patient with high blood pressure during this ER visit?: Yes
Discharge Problem:
Disturbance in speech, Urinary tract infection
Instructions: Urinary Tract Infection - Men
Prescriptions:
New
cefdinir 300 mg capsule
300 mg PO BID Qty: 14 0RF
No Action
aspirin 81 mg Tablet,Delayed Release (Dr/Ec)
81 mg PO DAILY
propafenone 150 mg Tablet
150 mg PO TID
pravastatin 80 mg Tablet
80 mg PO HS
carbidopa-levodopa 25-100 mg Tablet
1 tab PO QID
escitalopram oxalate 5 mg Tablet
5 mg PO DAILY Qty: 30 0RF
cholecalciferol (vitamin D3) 25 mcg (1,000 unit) Tablet
25 mcg PO DAILY Qty: 30 0RF
sennosides [Senokot] 8.6 mg Tablet
17.2 mg PO BID
acetaminophen [Tylenol] 325 mg Tablet
650 mg PO Q6HPRN PRN (Reason: MILD PAIN)
cyanocobalamin (vitamin B-12) 1,000 mcg Tablet
1,000 mcg PO DAILY
bisacodyl [Dulcolax (bisacodyl)] 10 mg Suppository
10 mg MA DAILYPRN PRN (Reason: CONSTIPATION)
docusate sodium [Colace] 100 mg Capsule
100 mg PO BID
bisacodyl [Dulcolax (bisacodyl)] 5 mg Tablet,Delayed Release (Dr/Ec)
10 mg PO BID
heparin (porcine) 5,000 unit/mL Solution
5,000 unit SC BID
midodrine 10 mg Tablet
10 mg PO TID
baclofen 5 mg Tablet
2.5 mg PO TID
Referrals:
Bony Andrews MD [Family Provider, Family Practice]
Activity Restrictions/Additional Instructions:
Take cefdinir as prescribed for your urinary tract infection. You were evaluated by neurology during your ED stay who recommends that you continue your current medications for your Parkinson's disease.
Return to the ER with any new or worsening symptoms including fevers.
Interventions
Interventions:
*Risk Screen - Suicide Last Done: 11/22/24 14:28
*General Assessment Last Done: 11/22/24 14:28
*Neglect/Abuse Screening Last Done: 11/22/24 14:28
*ED COVID-19 Vaccine History Last Done: 11/22/24 14:28
*Nursing Disposition Last Done: 11/22/24 19:34
ED Swallowing Screen Last Done: 11/22/24 15:18
Discharge Date and Time
Discharge Date/Time: 11/22/24 19:35
Print Language: FRENCH
--- NOTE | 2024-11-22 15:29 | CON.NEURO ---
Addendum entered and electronically signed by Maycol White MD 11/22/24 17:33:
Studies reviewed.
I have personally examined the patient. I reviewed and agree with the FUNERAL [employer] ARRANGEMENT COUNSELOR's Note.
My addenda:
Lethargic, with eye closure after 5 seconds, interactive. No acute distress.
Speech reduced output. Masked facies.
Follows 2-step requests w/ difficulty. No tremor.
Extra-ocular movements grossly intact.
Facial movements full and symmetric. Hearing intact to normal conversational volume.
Normal UE movements bilaterally.
Neck: full ROM.
Chest: no dyspnea
Heart: no JVD
Ext: (-) Clubbing, (-) Cyanosis, (-) Edema
IMPRESSIONS/RECOMMENDATIONS:
Abrupt onset of worsening of cognitive function in patient with presumed advanced Parkinsonism
Most likely due to underlying orthostasis. Less likely due to underlying associated dementia
continue current medications including Carbidopa/Levodopa
follow orthostatic blood pressures
since no clear evidence of focal neurological deficit, not clear benefit from additional neuroimaging
D/W patient / family
All questions answered.
Will continue to follow as needed.
Original Note:
Neuro Assessment/Plan
Assessment
74 year old male with a history of Parkinson's disease, paroxysmal atrial fibrillation, coronary artery disease, hypertension, hyperlipidemia, orthostatic hypotension presenting from [facility] on 11/22/2024 for evaluation of altered mental status.
Head CT 11/22/2024: No evidence of acute intracranial abnormality. Mild atrophy
Brain MRI 12/09/2022: Mild cerebral atrophy. Brain otherwise normal in appearance.
Head CT 10/18/2024:
1. Mild diffuse cerebral and cerebellar volume loss.
2. Minimal periventricular white matter leukoaraiosis.
Plan
Impression: abrupt onset of worsening of advanced Parkinson's disease first symptoms in 2019
-continue current medication regimen for Parkinson's disease, would not increase Sinemet given risk of hallucinations
-should follow up with usual outpatient neurologist
-consider pursuing DaTscan or skin biopsy outpatient
-no need for further imaging at this time unless decline in mental status
All questions encouraged and answered, plan of care discussed with Dr. White, patient and
Consultation
Order
Date of Consultation: 11/22/24
Requesting Provider: Kerry Klein PA-C
Reason for Consult: change in mental status
Subjective/Objective
Subjective Data
Date of Service: November 22, 2024
74 year old male with a history of Parkinson's disease, paroxysmal atrial fibrillation, coronary artery disease, hypertension, hyperlipidemia, orthostatic hypotension presenting [facility] for evaluation of altered mental status.
Patient's spoke with him on the phone today and he reported that he felt like he had 'foggy brain.' Around noon today, he was noted to have trouble speaking. states that seems like he was having trouble getting out his words. The note
from the rehab documented 'mental status change, freeze, increasing tone, and worsening Parkinson symptoms.' currently at bedside and states he is improved. On exam, patient awake and interactive. Knew his 's name, knew he was at
[facility]. States that he feels fatigued. Exam much improved from last month.
Patient was seen by our neurology service last month. Adapted from inpatient neurology note from 10/18/2024:
'Pt is a 74 yo male with history of CAD S/P stents x 2 in 12/2012, A-fib, hypertension, and Parkinson's disease who presented to [facility] on 10/16/2024 with recent onset of confusion and visual hallucinations. Pt was brought in by his and 2 sons
who reported pt was at his baseline a week ago, usually oriented, socializing, doing activities. One week ago became confused and had 2 significant falls. He abraded his nose with the first fall; the second time pt fell backwards when trying to go
upstairs, landed with the left side of his back on the hard edge of the couch. He was seen at [facility], diagnosed with multiple posterior left rib fractures and a urinary tract infection, and discharged on Bactrim. Family reported pt
seems more confused/worse. CT head showed no acute abnormalities. CT abdomen showed large stool burden, likely stercoral colitis. Patient does not recognize family at times, reaching out at times for things not there. Sons at bedside and note he
sleeps the majority of the day. PCP prescribed Lexapro, started at 5 mg HS, was increased to 10 mg HS about one month ago with no clear benefit. Sons note that he stopped driving 6 months ago. Currently patient is oriented to self, he thinks he is
in [place]. He is not able to tell us correct month or year. He is able to tell us he has Parkinson's disease and is not in any pain. He is moving all extremities. He is able to follow commands but very lethargic.
Adapted from [facility] note by Connie FREEMAN on 11/18/2023:
'Griffin is a 73 year old right handed male with PD. He is presenting for a new patient visit with Dr Jeffery Blanc. First symptom of PD was decreased arm swing in 2019. He was diagnosed in 2022. Most bothersome symptoms currently tremor. Referred by
family, sees Dr Wilson Current medication regimen: sinemet 25/100 1 tablet 3 times daily, 8 am, 12pm, 5pm Fluctuations: yes Tremor: bilateral UE Dyskinesia: denies Dystonia: denies Bradykinesia: yes Freezing: gets stuck with turning Rigidity:
denies Voice change: softer Handiness: right Dysphagia: solid foods Drooling: yes Orthostasis: denies Constipation:yes, takes miralax Urinary problems: mild urgency, some frequency Mood problems: denies Sleep problems: vivid dreams initially but
better since on sinemet Fatigue: sleeps on and off all day Cognitive problems: slow in verbal responses Visual hallucinations: denies Gait/Balance: good, fell in the garden 3 days ago Exercise or PT/OT: BIG program completed, was recommended to do
exercises twice daily and he does it 2-3 times per week On/off testing: denies Neuro-psychological testing: denies Implanted metal/devices: denies'
Brain MRI 12/09/2022: Mild cerebral atrophy. Brain otherwise normal in appearance.
Head CT 09/09/2024: No acute intracranial abnormality.
Head CT 10/18/2024:
1. Mild diffuse cerebral and cerebellar volume loss.
2. Minimal periventricular white matter leukoaraiosis.
Head CT 10/16/2024: No evidence of acute intracranial abnormality.
IMPRESSIONS/RECOMMENDATIONS:
Abrupt onset of worsening of advanced Parkinson's disease first symptoms in 2019.
Most likely experiencing additional delirium due to underlying dementia with the patient's history including routine daytime somnolence
Continue current medication regimen
Would not at this time add medication for memory stabilization due to the possibility of side effect which would potentially slow the patient's discharge
Supportive care
Eventual reevaluation of the patient's swallowing by means of speech therapy
Evaluate for possible hospice'
Objective Data
Vital Signs
Temp Pulse Resp BP Pulse Ox
97.6 F 70 15 177/84 100
11/22/24 14:28 11/22/24 15:15 11/22/24 15:15 11/22/24 15:00 11/22/24 15:15
Patient Allergies
Penicillins Allergy (Verified 11/07/24 21:38)
'a long time ago'
Physical Exam
-
General: Appears Chronically Ill and Cachectic
HEENT: Normocephalic, Atraumatic and Anicteric
Neck: Full Range of Motion
Respiratory: No Dyspnea
Cardiac: No JVD
GI: Non-tender
Extremities: No Clubbing, No Cyanosis and No Edema
Extended Neurological Exam
Attention Span & Concentration: Awake, Alert, Interactive and Other (knew , knew he was at [facility], masked facies)
Memory: Unable to Recall
Tremor: Hand Tremor Absent and Head Tremor Absent
Speech: Hoarse
Cranial Nerve II: Left Eye: Visual Rangel Intact
Cranial Nerve II: Right Eye: Visual Rangel Intact
Cranial Nerves III, IV, : Extraocular Movement: Extraocular Movement Full in all Directions
Cranial Nerve VII: Facial Symmetry: Normal Facial Symmetry
Cranial Nerve VIII: Hearing: Unremarkable Hearing to Normal Conversational Volume
Muscle Strength, Overall: Spontaneously Moves
Pronator Drift: No Drift in Upper Extremities and No Drift in Lower Extremities
Coordination: [id number] Testing Unremarkable
Data Reviewed
-
CT Head: Report Reviewed and Image Reviewed
MRI Head: Report Reviewed and Image Reviewed
Medical Test Reports: Report Reviewed
Labs: Report Reviewed
Reviewed with: Physician, Patient and Family
Old Records: Summarized
Medications
-
Home Medications
�Medication �Instructions �Recorded
aspirin 81 mg tablet,delayed 81 mg PO DAILY Blood Clot 03/17/23
release Prevention/Tx
carbidopa 25 mg-levodopa 100 mg 1 tab PO TID parkinson's disease 03/17/23
tablet
pravastatin 80 mg tablet 80 mg PO HS cholesterol 03/17/23
propafenone 150 mg tablet 150 mg PO TID Arrhythmia 03/17/23
cholecalciferol (vitamin D3) 25 25 mcg PO DAILY #30 tabs 10/25/24
mcg (1,000 unit) tablet
escitalopram oxalate 5 mg tablet 5 mg PO DAILY #30 tabs 10/25/24
lidocaine 4 % topical patch 1 patch topical DAILY #10 ea 10/25/24
loperamide 2 mg capsule 2 mg PO BIDPRN PRN 10/27/24
diarrhea/frequent loose stools #14
caps
midodrine 2.5 mg tablet 5 mg PO TID Blood Pressure 11/04/24
cefdinir 300 mg capsule 300 mg PO Q12H 3 days #6 caps 11/10/24
metronidazole 500 mg tablet 500 mg PO BID 5 days #10 tabs 11/10/24
Past History
Past History
ED Past Medical History: Arrthythmia (Atrial fibrillation), CAD, Cancer (Skin), GERD, HTN, Hypercholesterolemia and Other (Parkinson's)
ED Past Surgical History: Cardiac and Other
Family/Social History
Tobacco: Former smoker
Alcohol: Daily
Personal:
Living: with family
[2024-11-22 15:33] VITALS: BP 173/86
[2024-11-22 16:00] VITALS: BP 114/101
[2024-11-22 16:06] LABS: ALT (SGPT) < 10 U/L (0-50); AST (SGOT) 21 U/L (17-59); Albumin 4.3 g/dl (3.5-5.0); Alkaline Phosphatase 58 U/L (38-126); Blood Urea Nitrogen 33 mg/dl (9-20); Calcium 10.0 mg/dl (8.4-10.2); Carbon Dioxide 29 mmol/L (22-30); Chloride 99 mmol/L (98-107); Glucose 108 mg/dl (70-99); Potassium 4.9 mmol/L (3.5-5.1); Sodium 133 mmol/L (135-145); Total Protein 7.0 g/dl (6.3-8.2); eGFR > 60.00
[2024-11-22 16:08] LABS: Hematocrit 34.8 % (39.0-52.0); Hemoglobin 11.8 g/dL (13.0-18.0); Mean Corp Hgb Conc. 33.9 g/dL (33.0-37.0); Mean Corpuscular Volume 88.8 fL (80.0-94.0); Nucleated Red Blood Cells % 0 % (-); Platelet Count 286 10^3/uL (130-400); Red Cell Dist. Width 15.1 % (11.5-14.5)
[2024-11-22 17:00] VITALS: BP 157/86
[2024-11-22 18:00] VITALS: BP 171/83
[2024-11-22 18:12] LABS: Urine Character Slightly Cloudy (Clear)
[2024-11-22 18:57] LABS: Urine Red Blood Cell 0-2 /HPF (0-2); Urine Squamous Cell 0-2 /LPF (Few)
== END 2024-11-22 19:35 | disposition home or self-care (01) ==
LOC: EMR 14:25
PROVIDERS: Physician Assistant; CONSULT PHYSICIAN Psychiatry & Neurology Neurology; EMERGENCY PHYSICIAN Student in an Organized Health Care Education/Training Program; FAMILY PHYSICIAN Family Medicine
DX: R47.9 Unspecified speech disturbances (principal); N39.0 Urinary tract infection, site not specified; R41.82 Altered mental status, unspecified; G20.B1 Parkinson's disease with dyskinesia, without mention of fluctuations; E78.00 Pure hypercholesterolemia, unspecified; I10 Essential (primary) hypertension; I25.10 Atherosclerotic heart disease of native coronary artery without angina pectoris; I48.0 Paroxysmal atrial fibrillation; Z79.899 Other long term (current) drug therapy; Z85.828 Personal history of other malignant neoplasm of skin; Z87.891 Personal history of nicotine dependence; Z88.0 Allergy status to penicillin; Z95.5 Presence of coronary angioplasty implant and graft
CPT/HCPCS: 99284; 70450; 80053; 81003; 81015; 82962; 84443; 85025; 87077; 87086; 93005

== ENCOUNTER 2024-12-09 12:51 | Inpatient (IN) | payer OTHER, SELFPAY ==
[2024-12-09] VITALS (12 sets, daily range): BP systolic 123–170; BP diastolic 69–115; BMI 16.8
--- NOTE | 2024-12-09 09:23 | ED.GENMED ---
History of Present Illness
General
Chief Complaint: Change in Mental Status
Source: patient and ambulance crew
Exam Limitations: none
Time Seen by Provider: 12/09/24 09:16
Nursing documentation reviewed up to this point in time: agreed with
History of Present Illness
History of Present Illness:
Note:
CHIEF COMPLAINT(S)
Confusion and altered mental status.
HISTORY OF PRESENT ILLNESS
The patient is a 74-year-old male with a known history of Parkinsons disease. The patients baseline function requires assistance for mobility but allows for normal daily activities and clear conversation. According to the patients spouse, there has
been a notable change in his mental status today; he appears significantly confused, is reaching out and touching things randomly, and is not oriented. He also appears awkward and struggles to maintain cohesive responses during conversation. The
patient has a history of pneumonia. Today, he presents with a fever and episodes of confusion. The spouse reported that he complained of bright flank pain. Current observations describe him as having hot skin and incoherent behavior.
PAST MEDICAL AND SURIGICAL HISTORY
The patient has a history of Parkinsons disease.
ADDITIONAL HISTORY OBTAINED FROM SOURCES OTHER THAN THE PATIENT
Per the patients spouse, the patient has been acting confused and not as he normally is at home. She expressed concern due to his fever and incoherent behavior. She mentioned that he has experienced similar symptoms frequently this year with
previous pneumonia and UTIs.
SOCIAL DETERMINANTS AFFECTING HEALTH
Per the spouse, there does not appear to be any advanced directives in place, and he is considered full code.
REVIEW OF SYSTEMS
- Neurological: Confusion, incoherence, oriented to himself but not place or time.
- Musculoskeletal: Presenting awkward limb movements, no complaint of pain when prompted.
- General: Elevated body temperature and fever noted.
Physical Exam
General: Thin cachectic, ill-appearing
Neck: supple. no meningeal signs. normal posterior pharynx
Heart: s1/s2 regular rate and rhythm, no murmur. equal radial
pulses.
HEENT: Pupils equal round reactive to light, EOMI
Lungs: no acute respiratory distress. Right lower lobe rhonchi
Abdomen: normal bowel sounds. not tender. no CVAT
Neuro: alert and oriented to person and place. no focal neurological deficits cranial nerves II through XII intact
Skin: no rash
Psychiatric: well kept. interactive and cooperative
Extremities: no edema. no calf tenderness. negative homans. good distal pulses
PROBLEM LIST
- Acute: Confusion, Altered mental status, Fever, Flank pain, Possible pneumonia or urinary tract infection.
- Chronic: Parkinsons disease
PLAN
1. Immediate assessment and monitoring of vital signs to evaluate the degree of fever and possible infection.
2. Laboratory tests to include a complete blood count, basic metabolic panel, and urinalysis to check for infection signs.
3. Consider imaging studies like a chest X-ray if pneumonia is suspected.
4. Consult Neurology if Parkinsonian symptoms have worsened significantly or are suspected to contribute to the altered mental state.
5. Continuous monitoring for further changes in mental status.
DIFFERENTIAL DIAGNOSIS
The Differential Diagnosis includes, in no particular order and is not limited to:
1. Parkinsons Disease exacerbation
2. Urinary tract infection
3. Pneumonia
4. Delirium
5. Dehydration
6. Sepsis
7. Medication side effects
8. Central nervous system infection
9. Stroke
10. Electrolyte imbalance
Note:
CARE-UPDATE
12/09/24 - 12:52
Patient is a 74-year-old male with Parkinsons disease currently managing right-sided hospital-acquired pneumonia. New treatment initiation includes switching to Vancomycin and Cefepime as per hospitalist recommendations. Patient exhibits increased
weakness; mental status remains stable. Ongoing monitoring for antibiotic efficacy and potential side effects is essential.
Disposition:
SUMMARY OF ENCOUNTER
The patient, a 74-year-old male with a known history of Parkinsons disease, was seen in the emergency department due to confusion, altered mental status, and a fever. He had been experiencing these symptoms alongside bright flank pain. Previous
pneumonia and urinary tract infections were noted as concerns due to similar symptom presentations earlier this year. In the emergency department, suspected pneumonia and potential infection were assessed. Vancomycin was considered for antibiotic
coverage due to recent hospitalization.
DISPOSITION
Admit to hospitalist.
DIAGNOSIS
Primary diagnoses include pneumonia (ICD-10: J18.9), altered mental status (ICD-10: R41.82), and Parkinsons disease (ICD-10: G20).
Past History
Past History
ED Past Medical History: Arrthythmia (Atrial fibrillation), CAD, Cancer (Skin), GERD, HTN, Hypercholesterolemia and Other (Parkinson's)
ED Past Surgical History: Cardiac and Other
Social History
Tobacco: Former smoker
Alcohol: Daily
Personal:
Living: with family
Phy Exam
Physical Exam
Physical Exam:
.
Sepsis
Sepsis Screening
Sepsis Assessment: Sepsis Ruled Out
Sepsis Screen
Sepsis Screen: Sepsis Ruled Out
Date: 12/09/24
Time: 12:56
Course
Orders/Labs/Results
Orders:
Orders
12/09/24
Electrocardiogram (*1) Stat
Reason for Study: Chest Pain
Comment: DONE
12/09/24 09:19
EKG- Treatment ONCE
Straight cath- Treatment ONCE
12/09/24 09:20
Electrocardiogram (*1) Urgent
Reason for Study: Fatigue / Weakness
CT Abd/pel Without Iv Or Oral Urgent
Comment:
Reason For Exam: right flank pain
CT Head W/o Iv Contrast Urgent
Comment:
Reason For Exam: altered mental status
12/09/24 09:31
Basic Metabolic Panel Urgent
Complete Blood Count/With Diff Urgent
Lipase Urgent
12/09/24 10:53
Cefepime HCl [Maxipime] 2,000 mg IV NOW STA
Vancomycin [Vancocin] 1,500 mg 0.9% Sodium Chloride 500 ml [Nss] 500 ml IV NOW
12/09/24 10:54
CR Chest - 2 Views Urgent
Comment:
Reason For Exam: cough, short of breath
12/09/24 11:33
Lactic Acid Q4H
Comment: CANCEL 2nd LACTIC ACID IF 1st LACTIC ACID IS LESS THAN 2
Blood Culture Q30M
LOUISE Source: Blood/Venous
Specimen Description:
Blood Culture Q30M
LOUISE Source: Blood/Venous
Specimen Description:
12/09/24 11:38
Urinalysis Reflex To Culture Urgent
Date Specimen was Collected: 12/09/24
Time Specimen was Collected: 10:39
Urine Microscopic Reflex Cult Urgent
Urine Culture Urgent
LOUISE Source: U
Specimen Description:
Date Specimen was Collected: 12/09/24
Time Specimen was Collected: 10:39
12/09/24 12:27
Admit/Transfer Patient As Directed
Co-Sign Provider:
Level of Care: Inpatient admission
Assign to:: Telemetry
Physician / Group: Yamil
Diagnosis: Aspiration pna, uti
Reason for Telemetry: Arrhythmia
Date to Stop Telemetry: 12/12/24
Time to Stop Telemetry: 11:00
Reason for Hospitalization: Above
Expected length of stay greater than two midnights?: Yes
ELOS- Estimated Length of Stay in days: 2
I certify the patient meets the requirements for IP care: Yes
PRN Pain Medication Management As Directed
May give lesser potent ordered pain med per pt: Yes
preference::
Protocol:: Medication orders for pain may be administered in a
manner that supports deferring to patient preference
when the pt is:
- Requesting an ordered lesser potent pain medication.
Least to most potent pain medications are defined
as: acetaminophen < NSAID < tramadol < opioids
(morphine, oxycodone, hydromorphone).
- Requesting a lesser dose of the same medication IF
ORDERED.
- Requesting a less intrusive route of administration
if both routes are prescribed by the provider (PO <
IV).
12/09/24 12:29
Code Status As Directed
Resuscitation Status: Full Code
12/09/24 15:00
Lactic Acid Q4H
Comment: CANCEL 2nd LACTIC ACID IF 1st LACTIC ACID IS LESS THAN 2
12/12/24 11:00
DC Protocol for Telemetry ONCE
Abnormal Lab Results
12/09/24 12/09/24
09:31 11:38
WBC 13.1 H 10^3/uL
(4.8-10.8)
RBC 3.88 L 10^6/uL
(4.70-6.10)
Hgb 12.3 L g/dL
(13.0-18.0)
Hct 35.1 L %
(39.0-52.0)
MCH 31.7 H pg
(27.0-31.0)
RDW 14.6 H %
(11.5-14.5)
MPV 10.5 H fL
(7.4-10.4)
Abs Immat Gran (auto) 0.1 H 10^3/uL
(0-0.05)
Absolute Neuts (auto) 11.1 H 10^3/uL
(1.4-6.5)
Absolute Lymphs (auto) 0.8 L 10^3/uL
(1.2-3.4)
Absolute Monos (auto) 1.1 H 10^3/uL
(0.1-0.6)
Neutrophils % 85.0 H %
(42.2-75.2)
Lymphocytes % 5.7 L %
(20.5-51.1)
Sodium 133 L mmol/L
(135-145)
BUN 26 H mg/dl
(9-20)
Glucose 103 H mg/dl
(70-99)
Urine Ketones 3+ A
(Negative)
Ur Occult Blood Reflex 4+ A
(Negative)
Urine Nitrite (Reflex) Positive A
(Negative)
Leukocyte Esterase Rfl 1+ A
(Negative)
Urine RBC 3-6 A /HPF
(0-2)
Urine Bacteria (Reflex) Many A
(Negative)
Urine Albumin (Reflex) 2+ A
(Neg - Trace)
12/09/24 09:31
12/09/24 09:31
Vital Signs
Initial and Last Documented VS:
Initial Vital Signs
Pulse BP
92 149/88
12/09/24 09:17 12/09/24 09:17
Last Documented Vital Signs
Temp Pulse Resp BP Pulse Ox
98.2 F 92 18 132/91 98
12/09/24 09:18 12/09/24 10:24 12/09/24 10:15 12/09/24 10:00 12/09/24 10:15
*Pulse Oximetry
SaO2: 98
Oxygen Mode of Delivery: Room air
Patient hypoxic: no
*Critical Care Note
Total Time (30-74mins, 75-104mins- exclusive of procedures): Not Applicable
ED Attending Note
-
Portions of this chart may have been created with voice recognition software.� Occasional wrong word or��sound alike� substitutions may have occurred due to the inherent limitations of voice recognition software.
Discharge Plan
Departure
Patient Disposition: Admit
Date of Disposition: 12/09/24
Time of Disposition: 10:57
Presentation/result/management discussed w/ accepting MD/DO: Hospitalist
Patient with high blood pressure during this ER visit?: Yes
Condition: Fair
Discharge Problem:
Pneumonia, Parkinson disease, Acute alteration in mental status, Weakness
Prescriptions:
No Action
aspirin 81 mg Tablet,Delayed Release (Dr/Ec)
81 mg PO DAILY
pravastatin 80 mg Tablet
80 mg PO HS
docusate sodium [Colace] 100 mg Capsule
100 mg PO BID
midodrine 10 mg Tablet
10 mg PO TID
bisacodyl 5 mg tablet,delayed release (DR/EC)
10 mg PO [id number] PRN (Reason: CONSTIPATION)
carbidopa-levodopa 25-100 mg Tablet
1 tab PO QID@0600,1100,1600,2100 30 Days Qty: 90 0RF
sennosides [Senokot] 8.6 mg Tablet
17.2 mg PO BID Qty: 0 0RF
propafenone 150 mg Tablet
150 mg PO TID 30 Days Qty: 90 0RF
Referrals:
UNKNOWN - PT DOES,NOT KNOW [Family Provider]
Discharge Date and Time
Print Language: [place]
[2024-12-09 09:44] LABS: Hematocrit 35.1 % (39.0-52.0); Hemoglobin 12.3 g/dL (13.0-18.0); Mean Corp Hgb Conc. 35.0 g/dL (33.0-37.0); Mean Corpuscular Volume 90.5 fL (80.0-94.0); Nucleated Red Blood Cells % 0 % (-); Platelet Count 189 10^3/uL (130-400); Red Cell Dist. Width 14.6 % (11.5-14.5)
[2024-12-09 10:21] LABS: Blood Urea Nitrogen 26 mg/dl (9-20); Calcium 9.7 mg/dl (8.4-10.2); Carbon Dioxide 25 mmol/L (22-30); Chloride 100 mmol/L (98-107); Glucose 103 mg/dl (70-99); Lipase 71 U/L (23-300); Sodium 133 mmol/L (135-145); eGFR > 60.00
[2024-12-09 11:56] LABS: Urine Character Clear (Clear)
[2024-12-09 12:02] LABS: Urine Squamous Cell 0-2 /LPF (Few)
--- NOTE | 2024-12-09 12:33 | HPS.HSE ---
Family Physician
-
Family Physician: NOT KNOW UNKNOWN - PT DOES
Chief Complaint
-
Generalized fatigue, cough, right flank pain
History of Present Illness
History was taken from emergency room physician as well as patient's at the bedside
Patient is a 74 years old male with advanced Parkinson disease, recent multiple hospitalizations for aspiration pneumonia and sepsis, recently discharged from acute rehab presents to the emergency room with as per 's description overall
declining, lethargy, poor oral intake, persistent cough. In addition patient complained of right flank pain which he did not offer at the time of my examination
Upon presentation to the emergency room patient is afebrile hemodynamically stable with stable respiratory status
Additional workup relevant for elevated white count
Chest x-ray with no focal infiltrates
CT scan of the abdomen pelvis without contrast ordered with concern for right flank pain showed possible right lower lobe small pleural effusion versus atelectasis versus infiltrate.
Urinalysis showed pyuria
Recent ED visit from 11/22 urine culture with Klebsiella.
Medical History
Past Medical History
Past Medical History: Reports Arrhythmia (Paroxysmal atrial fibrillation), CAD, HTN and Hypercholesterolemia
Additional Past Medical History:
Parkinson's disease
Past Surgical History: Reports None
Social History
Tobacco: Non-smoker
Alcohol: None
Personal:
Living: With Family
Employment: Retired
Family History
Family History: Not pertinent
Allergies / Home Medications
Allergies reflects when Allergies were last updated in [facility].
Home Medications with original date entered in [facility]
Allergy/Medication List:
Allergies
Allergy/AdvReac Type Severity Reaction Status Date / Time
Penicillins Allergy 'a long Verified 11/07/24 21:38
time ago'
Home Medications
aspirin 81 mg tablet,delayed release 81 mg PO DAILY Blood Clot Prevention/Tx 03/17/23
pravastatin 80 mg tablet 80 mg PO HS cholesterol 03/17/23
docusate sodium 100 mg capsule (Colace) 100 mg PO BID 11/22/24
midodrine 10 mg tablet 10 mg PO TID 11/22/24
carbidopa 25 mg-levodopa 100 mg tablet 1 tab PO QID@0600,1100,1600,2100 parkinson's disease 30 days #90 tabs 11/29/24
propafenone 150 mg tablet 150 mg PO TID Arrhythmia 30 days #90 tabs 11/29/24
sennosides 8.6 mg tablet (Senokot) 17.2 mg (2 x 8.6 mg) PO BID Constipation #0 tabs 11/29/24
bisacodyl 5 mg tablet,delayed release 10 mg PO [id number] PRN CONSTIPATION 12/09/24
Review of Systems
-
A 12 point ROS was completed and negative except as noted: Yes
Respiratory: Reports See HPI
Abdomen/GI: Reports See HPI
: Reports See HPI
Physical Exam
Vital Signs
Vital Signs
Temp Pulse Resp BP Pulse Ox
98.2 F 92 18 132/91 98
12/09/24 09:18 12/09/24 10:24 12/09/24 10:15 12/09/24 10:00 12/09/24 10:15
Physical Exam
General: No Apparent Distress and Cachectic
HEENT: NormoCephalic
Respiratory: Rhonchi; No Wheezes
Cardiac: S1/S2 and Regular Rhythm
GI: Soft and Non Tender
Neuro: Awake, Alert, Oriented, Nonfocal/grossly intact, Cranial Nerves Intact and Tremors
Laboratory Results
-
12/09/24 09:31
12/09/24 09:31
Laboratory Results
Lactic Acid 1.2 mmol/L (0.7-2.0) 12/09/24 11:33
Total Bilirubin Cancelled 12/09/24 09:31
AST Cancelled 12/09/24 09:31
ALT Cancelled 12/09/24 09:31
Alkaline Phosphatase Cancelled 12/09/24 09:31
Lipase 71 U/L (23-300) 12/09/24 09:31
Data Reviewed
-
Diagnostic Radiology: Image Personally Visualized and interpreted
CT Scan: Report Reviewed by me
Lab Data: Labs Reviewed by me
Impression/Plan
-
IMPRESSION:
74 years old male with Parkinson's disease presents with overall declining, lethargy, poor oral intake, persistent and productive cough, intermittent right flank pain.
Concern for recurrent aspiration pneumonia with small right lower lobe infiltrate seen on CT images.
Severe aspiration syndrome secondary to Parkinson's disease
UTI
Conditions prior to admission
Advanced Parkinson's disease
Aspiration syndrome
Orthostatic hypotension neurogenic type pain
Prior history of hypertension
CAD with history of stent.
Paroxysmal atrial fibrillation on propafenone not on anticoagulation due to fall risk.
Chronic normocytic anemia
Dyslipidemia.
Anxiety/depression
History of skin cancer
PLAN:
Concern for recurrent aspiration pneumonia/pneumonitis
Stable respiratory status
Chest x-ray with no focal infiltrates, reasonable small right lower lobe consolidation versus small pleural effusion.
Recent hospitalization with right-sided aspiration pneumonia and sepsis.
Recent VSE 11/07 confirming aspiration risk with recommendation for pur�ed diet and thin liquids
N.p.o. except meds
Repeat speech and swallow evaluation
Antibiotics/cefepime covering aspiration pneumonia as well as urinary pathogens
Concern for UTI.
Patient with intermittent right flank pain, although no flank tenderness on exam.
Urinalysis with pyuria
Recent urine culture from ED 11/22/2024 with Klebsiella.
Not on antibiotics prior to presentation
Will be initiated on cefepime pending repeat urine cultures and blood cultures
Bladder scan for retention
Bowel regimen
CAD with stents
Dyslipidemia
Paroxysmal atrial fibrillation
Not on anticoagulation due to fall risk.
Continue propafenone
Continue statin
Parkinson disease continue Sinemet
Essential hypertension by history.
Orthostatic hypotension neurogenic type in a patient with Parkinson's disease.
Continue midodrine
Goals of care discussed with patient's at the bedside.
Full code.
DVT prophylaxis Lovenox
[2024-12-09] MEDS: MAXIPIME 2000 MG IV (13:27)
[2024-12-09] MEDS: VANCOCIN 530 MG IV (14:13)
--- NOTE | 2024-12-09 15:28 | CM ---
Addendum entered by Candelaria Resendiz 12/09/24 15:39:
PCP verified: Bony Andrews
Original Note:
Initial assessment completed with via phone # [phone]
Pharmacy verified: [facility] [address] [facility]
Lives w/ , daughter and 2 grandsons; multilevel home; 6 steps w/ railings to enter via garage; stair glide to 2nd floor
PLOF: PT in the home; Assistance w/ ADLs; ambulated with rolling walker; no device at baseline
Two recent [facility] stays followed by [facility]
Discharge plan to be determined pending hospital course; Case Management will monitor and support if services recommended
[2024-12-09] MEDS: NSS 1000 IV (15:58)
--- NOTE | 2024-12-09 16:10 | VNURNOTE ---
Chart reviewed. Patient is current with [facility]. Will continue to follow hospital course and DC plans.
[2024-12-09] MEDS: RYTHMOL PO ×2 (17:37→22:37)
[2024-12-09] MEDS: SINEMET 25-100 PO ×2 (17:37→22:36)
[2024-12-09] MEDS: LOVENOX 40 MG SC (19:06)
[2024-12-09] MEDS: SENOKOT 17.2 MG PO (20:40)
[2024-12-10] MEDS: STERILE WATER FOR INJECTION 10 ML IV ×2 (00:05→12:49)
[2024-12-10] MEDS: MAXIPIME 2000 MG IV ×2 (00:06→12:50)
[2024-12-10] MEDS: NSS 1000 IV ×2 (02:09→12:34)
[2024-12-10 03:04] VITALS: BP 163/93
[2024-12-10] MEDS: SINEMET 25-100 PO (06:19)
[2024-12-10 07:08] VITALS: BP 155/89
[2024-12-10 08:44] LABS: Hematocrit 32.2 % (39.0-52.0); Hemoglobin 11.7 g/dL (13.0-18.0); Mean Corp Hgb Conc. 36.3 g/dL (33.0-37.0); Mean Corpuscular Volume 88.5 fL (80.0-94.0); Nucleated Red Blood Cells % 0 % (-); Platelet Count 178 10^3/uL (130-400); Red Cell Dist. Width 14.4 % (11.5-14.5)
[2024-12-10 09:07] LABS: Blood Urea Nitrogen 17 mg/dl (9-20); Calcium 9.2 mg/dl (8.4-10.2); Carbon Dioxide 23 mmol/L (22-30); Chloride 103 mmol/L (98-107); Estimated Creatinine Clearance 66 ml/min; Glucose 85 mg/dl (70-99); Potassium 4.6 mmol/L (3.5-5.1); Sodium 134 mmol/L (135-145); eGFR > 60.00
[2024-12-10] MEDS: RYTHMOL PO (09:46)
[2024-12-10] MEDS: SENOKOT PO (09:47)
[2024-12-10] MEDS: FLAGYL 500 MG 100 IV ×2 (09:48→17:15)
--- NOTE | 2024-12-10 10:34 | HOSPNOTE ---
Notified by CM that there was a hospice referal. I called and spoke to spouse. She was very confused as she did not request to speak to hospice. She wishes to seek aggressive therapies and treatment. She is not interested in hospice. I apologized
and told her that I would relay this information to the team and we would not reach back out unless she desired. She was understanding. CM and Attending updated.
[2024-12-10 11:16] VITALS: BP 133/90
--- NOTE | 2024-12-10 12:25 | PTOTSP ---
ST Acute Care Evaluation
Pt currently presenting with clinical signs of severe pharyngeal dysphagia characterized by timely and delayed wet vocal quality with secretions, oral care, and pureed solids as well as inconsistent weak/insufficient cough reflex and inability to
follow verbal/tactile prompts to clear throat when needed to re-establish a patent upper airway when needed - highly suspicious for airway invasion, all of which is in the setting of acute encephalopathy 2/2 UTI and PNA as well as advanced
Parkinson's disease and recurrent aspiration PNAs.
Recommendations:
- NPO except critical meds (e.g. sinimet) in puree.
- No ARHP - not appropriate at this time.
- Aspiration precautions: HOB upright as often as possible and oral care QID with minimal oral moisturizer. Suctioning PRN. Encourage pt to cough/throat clear + swallow when needed to re-establish a clear upper airway.
- Consider consultation to palliative care team given pt's recurrent aspiration PNAs, pt's progressive illness, and pt's 's consideration about pros/cons about PEG. Per , they maintain restorative goals of care at this time but have further
questions.
- HISTORIC INTERPRETER to f/u re-assess pt's swallowing function at bedside to determine if/when pt is a candidate for PO diet initiation.
[2024-12-10] MEDS: SINEMET 25-100 1 TABLET PO ×3 (12:34→21:34)
--- NOTE | 2024-12-10 13:34 | W.PN.HOSP.TC ---
Today's Communication/Plan
-
Abx
ST eval
CT chest
await cultures
Assessment / Plan
Assessment / Plan
IMPRESSION:
74 years old male with Parkinson's disease presents with overall declining, lethargy, poor oral intake, persistent and productive cough, intermittent right flank pain.
Concern for recurrent aspiration pneumonia with small right lower lobe infiltrate seen on CT images.
Severe aspiration syndrome secondary to Parkinson's disease
Gram negative UTI
Conditions prior to admission
Advanced Parkinson's disease
Aspiration syndrome
Orthostatic hypotension neurogenic type pain
Prior history of hypertension
CAD with history of stent.
Paroxysmal atrial fibrillation on propafenone not on anticoagulation due to fall risk.
Chronic normocytic anemia
Dyslipidemia.
Anxiety/depression
History of skin cancer
PLAN:
Concern for recurrent aspiration pneumonia/pneumonitis
Stable respiratory status
Chest x-ray with no focal infiltrates, reasonable small right lower lobe consolidation versus small pleural effusion. check CT chest
Recent hospitalization with right-sided aspiration pneumonia and sepsis.
Recent VSE 11/07 confirming aspiration risk with recommendation for pur�ed diet and thin liquids
N.p.o. except meds
Repeat speech and swallow evaluation
Antibiotics/cefepime + Flagyl covering aspiration pneumonia as well as urinary pathogens
Gram negative UTI
Patient with intermittent right flank pain, although no flank tenderness on exam.
Urinalysis with pyuria
Recent urine culture from ED 11/22/2024 with Klebsiella.
Not on antibiotics prior to presentation
Continue cefepime pending urine cultures and blood cultures
Bladder scan for retention
Bowel regimen
CAD with stents
Dyslipidemia
Paroxysmal atrial fibrillation
Not on anticoagulation due to fall risk.
Continue propafenone
Continue statin
Parkinson disease continue Sinemet
Essential hypertension by history.
Orthostatic hypotension neurogenic type in a patient with Parkinson's disease.
Continue midodrine
Goals of care discussed with patient's at the bedside. Hospice consult was placed by admitting attending on 12/09, unaware, at present refuses hospice evaluation.
Full code.
DVT prophylaxis: Lovenox
Anticipated Discharge: > 48 hours
Subjective/Interval History
-
Date of Service: December 10, 2024
confused, remains weak per
upset about hospice consult being placed without her consent during admission day
Objective Data
-
Labs:
Laboratory Results
12/10/24
07:50
WBC 15.9 H
Hgb 11.7 L
Hct 32.2 L
Plt Count 178
Sodium 134 L
Potassium 4.6
Chloride 103
Carbon Dioxide 23
BUN 17
Creatinine 0.7
Glucose 85
Calcium 9.2
Vital Signs:
Vital Signs
Temp Pulse Resp BP Pulse Ox
98.3 F 93 18 133/90 98
12/10/24 11:16 12/10/24 11:16 12/10/24 11:16 12/10/24 11:16 12/10/24 11:16
I&O
12/09/24 12/10/24 12/11/24
06:59 06:59 06:59
Intake Total 0 / 0 1200 / 1200
Balance 0 / 0 1200 / 1200
Physical Exam
-
General: Appears Chronically Ill
HEENT: Normocephalic and Atraumatic
Respiratory: Negative Wheezes or Rales
Cardiac: Regular Rhythm and S1/S2
GI: Soft
Neuro: Awake
Psych: Calm
Data Reviewed
-
Total Time Spent with Patient (in minutes): 44
Labs: Labs Reviewed by me
[2024-12-10 15:38] VITALS: BP 147/93
[2024-12-10] MEDS: RYTHMOL 150 MG PO ×2 (17:15→21:32)
[2024-12-10] MEDS: LOVENOX 40 MG SC (17:16)
[2024-12-10 20:15] VITALS: BP 152/81
[2024-12-11] VITALS (7 sets, daily range): BP systolic 120–164; BP diastolic 62–89; BMI 16.8
[2024-12-11] MEDS: MAXIPIME 2000 MG IV ×3 (00:01→23:00)
[2024-12-11] MEDS: STERILE WATER FOR INJECTION 10 ML IV ×3 (00:01→23:00)
[2024-12-11] MEDS: FLAGYL 500 MG 100 IV ×3 (02:12→17:28)
[2024-12-11] MEDS: NSS 1000 IV ×2 (05:30→17:27)
[2024-12-11] MEDS: SINEMET 25-100 1 TABLET PO ×2 (05:31→12:58)
[2024-12-11] MEDS: TRANSDERM-SCOP 1 PATCH TRANSDERM (06:10)
[2024-12-11 07:43] LABS: Hematocrit 27.6 % (39.0-52.0); Hemoglobin 9.8 g/dL (13.0-18.0); Mean Corp Hgb Conc. 35.5 g/dL (33.0-37.0); Mean Corpuscular Volume 87.1 fL (80.0-94.0); Platelet Count 203 10^3/uL (130-400); Red Cell Dist. Width 14.5 % (11.5-14.5)
[2024-12-11 08:00] LABS: Blood Urea Nitrogen 17 mg/dl (9-20); Calcium 8.9 mg/dl (8.4-10.2); Carbon Dioxide 22 mmol/L (22-30); Chloride 106 mmol/L (98-107); Estimated Creatinine Clearance 66 ml/min; Glucose 93 mg/dl (70-99); Potassium 3.6 mmol/L (3.5-5.1); Sodium 133 mmol/L (135-145); eGFR > 60.00
[2024-12-11] MEDS: RYTHMOL 150 MG PO (10:06)
[2024-12-11] MEDS: ASPIRIN 300 MG RECTAL (10:06)
--- NOTE | 2024-12-11 11:10 | W.PN.HOSP.TC ---
Today's Communication/Plan
-
continue Abx for aspiration pneumonia and UTI
IVF
GI evaluation Thursday for Dobhoff and family interested in PEG after goals of care
Assessment / Plan
Assessment / Plan
IMPRESSION:
74 years old male with Parkinson's disease presents with overall declining, lethargy, poor oral intake, persistent and productive cough, intermittent right flank pain.
Concern for recurrent aspiration pneumonia with small right lower lobe infiltrate seen on CT images.
Severe aspiration syndrome secondary to Parkinson's disease
Gram negative UTI
Conditions prior to admission
Advanced Parkinson's disease
Aspiration syndrome
Orthostatic hypotension neurogenic type pain
Prior history of hypertension
CAD with history of stent.
Paroxysmal atrial fibrillation on propafenone not on anticoagulation due to fall risk.
Chronic normocytic anemia
Dyslipidemia.
Anxiety/depression
History of skin cancer
PLAN:
Multifocal aspiration pneumonia
CT chest Multifocal pneumonia, greatest in the basilar right lower lobe, also involving the basilar left lower lobe and the posterior right upper lobe.
Recent hospitalization with right-sided aspiration pneumonia and sepsis.
Recent VSE 11/07 confirming aspiration risk with recommendation for pur�ed diet and thin liquids
N.p.o. except meds
Repeat speech and swallow evaluation; keep NPO At present
Antibiotics/cefepime + Flagyl covering aspiration pneumonia as well as urinary pathogens
Family would like to pursue PEG tube; will consult GI Thursday
Multi-drug resistant Klebsiella UTI
Patient with intermittent right flank pain, although no flank tenderness on exam.
Urinalysis with pyuria
Recent urine culture from ED 11/22/2024 with Klebsiella.
Not on antibiotics prior to presentation
Continue cefepime; follow cultures
Bladder scan for retention
Bowel regimen
CAD with stents
Dyslipidemia
Paroxysmal atrial fibrillation
Not on anticoagulation due to fall risk.
Continue propafenone
Continue statin
advanced Parkinson disease continue Sinemet
Essential hypertension by history.
Orthostatic hypotension neurogenic type in a patient with Parkinson's disease.
Continue midodrine
Goals of care discussed with patient's at the bedside. Hospice consult was placed by admitting attending on 12/09, unaware, at present refuses hospice evaluation. D/w and son Sohan 12/11, they would like to pursue IVF, PEG tube
placement (Dobhoff temporarily if needed), continue IV abx and continue full measures. Explained how PEG tube does not reduce aspiration risk. Family expressed understanding.
DVT ppx: Lovenox
Code: Full
Anticipated Discharge: > 48 hours
Subjective/Interval History
-
Date of Service: December 11, 2024
nursing with ongoing concerns for aspiration even with meds
CT with multifocal pneumonia
Objective Data
-
Labs:
Laboratory Results
12/11/24
06:53
WBC 14.3 H
Hgb 9.8 L
Hct 27.6 L
Plt Count 203
Sodium 133 L
Potassium 3.6
Chloride 106
Carbon Dioxide 22
BUN 17
Creatinine 0.7
Glucose 93
Calcium 8.9
Vital Signs:
Vital Signs
Temp Pulse Resp BP Pulse Ox
98.0 F 101 20 162/89 94
12/11/24 07:45 12/11/24 07:45 12/11/24 07:45 12/11/24 07:45 12/11/24 07:45
I&O
12/10/24 12/11/24 12/12/24
06:59 06:59 06:59
Intake Total 0 / 0 2500 / 2500
Output Total 550 / 550
Balance 0 / 0 1949 / 1949
Physical Exam
-
General: Appears Chronically Ill
HEENT: Normocephalic and Atraumatic
Respiratory: Rhonchi; Negative Wheezes
GI: Soft
Neuro: Awake
Psych: Calm
Data Reviewed
-
Total Time Spent with Patient (in minutes): 51
Labs: Labs Reviewed by me
--- NOTE | 2024-12-11 11:45 | CM ---
Chart reviewed; case management will continue to monitor and support discharge needs when determined
[2024-12-11] MEDS: RYTHMOL PO ×2 (16:33→20:07)
[2024-12-11] MEDS: SINEMET 25-100 PO ×2 (16:33→20:07)
--- NOTE | 2024-12-11 17:23 | PTOTSP ---
ST Follow-Up
Pt currently presents with insufficient alertness to safely consume PO intake at this time. Recommend pt remain STRICT NPO with all nutrition, hydration, and medications to be administered via IV or via dobhoff/NG tube. Continue with STRICT
aspiration precautions including HOB upright as often as possible and oral care QID with suctioning as needed. Highly recommend ongoing goals of care discussions. GRAIN THRESHER will continue to follow and re-evaluation pt's swallowing function to determine
candidacy for PO diet re-initiation.
[2024-12-11] MEDS: LOVENOX 40 MG SC (17:28)
[2024-12-12] MEDS: FLAGYL 500 MG 100 IV ×2 (01:28→09:23)
[2024-12-12] MEDS: NSS IV (01:28)
[2024-12-12 03:05] VITALS: BP 139/73
[2024-12-12] MEDS: NSS 1000 IV (04:00)
[2024-12-12] MEDS: SINEMET 25-100 PO ×4 (05:07→22:04)
[2024-12-12 07:00] VITALS: BP 163/86
[2024-12-12 07:42] LABS: Hematocrit 27.4 % (39.0-52.0); Hemoglobin 9.5 g/dL (13.0-18.0); Mean Corp Hgb Conc. 34.7 g/dL (33.0-37.0); Mean Corpuscular Volume 89.0 fL (80.0-94.0); Platelet Count 201 10^3/uL (130-400); Red Cell Dist. Width 14.6 % (11.5-14.5)
--- NOTE | 2024-12-12 08:05 | W.PN.HOSP.TC ---
Today's Communication/Plan
-
Strict NPO
cont IVF support
Planned for PEG tomorrow
IV abx as per ID
Assessment / Plan
Assessment / Plan
Physical Exam
General: Appears Chronically Ill, cachectic appearance
HEENT: Normocephalic and Atraumatic
Respiratory: clear to auscultation b/l
GI: Soft nontender bowel sounds present
Ext: no cyanosis or edema
Neuro: Awake conversant dysarthria sometimes fluent speech, intermittent confusion noted, largely coherent though
Psych: Calm
IMPRESSION:
74 years old male with Parkinson's disease presents with overall declining, lethargy, poor oral intake, persistent and productive cough, intermittent right flank pain.
Concern for recurrent aspiration pneumonia with small right lower lobe infiltrate seen on CT images.
Severe aspiration syndrome secondary to Parkinson's disease
Gram negative UTI
Conditions prior to admission
Advanced Parkinson's disease
Aspiration syndrome
Orthostatic hypotension neurogenic type pain
Prior history of hypertension
CAD with history of stent.
Paroxysmal atrial fibrillation on propafenone not on anticoagulation due to fall risk.
Chronic normocytic anemia
Dyslipidemia.
Anxiety/depression
History of skin cancer
PLAN:
Multifocal aspiration pneumonia
CT chest Multifocal pneumonia, greatest in the basilar right lower lobe, also involving the basilar left lower lobe and the posterior right upper lobe.
Recent hospitalization with right-sided aspiration pneumonia and sepsis.
Recent VSE 11/07 confirming aspiration risk with recommendation for pur�ed diet and thin liquids
N.p.o. except meds
Repeat speech and swallow evaluation; keep NPO At present
empiric cefepime + Flagyl, ID eval appreciated, abx narrowed to Ceftriaxone
GI eval appreciated, patient/family in agreement with pursuing PEG planned for 12/13
Multi-drug resistant Klebsiella UTI
Patient with intermittent right flank pain, although no flank tenderness on exam.
Urinalysis with pyuria
Recent urine culture from ED 11/22/2024 with Klebsiella.
Not on antibiotics prior to presentation
ID janice appreciated Cefepime switched to Ceftriaxone.
Bladder scan for retention
Bowel regimen
CAD with stents
Dyslipidemia
Paroxysmal atrial fibrillation
Not on anticoagulation due to fall risk.
Continue propafenone when able
Continue statin when able
advanced Parkinson disease continue Sinemet when able
Essential hypertension by history.
Orthostatic hypotension neurogenic type in a patient with Parkinson's disease.
Continue midodrine when able
DVT ppx: Lovenox
Code: Full
Discussed with patient and patient's
I spent a total of 45 minutes with the patient or on the floor. More than 50% of this time involved counseling and coordination of care.
Anticipated Discharge: > 48 hours
Subjective/Interval History
-
Date of Service: December 12, 2024
Alert conversant, appears relatively comfortable at this time. Speech at times difficult to understand. Intermittent confusion noted. Kristyn present during evaluation.
Objective Data
-
Labs:
Laboratory Results
12/12/24
05:57
WBC 8.8
Hgb 9.5 L
Hct 27.4 L
Plt Count 201
Sodium Pending
Potassium Pending
Chloride Pending
Carbon Dioxide Pending
BUN Pending
Creatinine Pending
Glucose Pending
Calcium Pending
Vital Signs:
Vital Signs
Temp Pulse Resp BP Pulse Ox
98.7 F 85 18 163/86 97
12/12/24 07:00 12/12/24 07:00 12/12/24 07:00 12/12/24 07:00 12/12/24 07:00
I&O
12/11/24 12/12/24 12/13/24
06:59 06:59 06:59
Intake Total 2500 / 2500
Output Total 550 / 550 800 / 800
Balance 1950 / 1950 -800 / -800
[2024-12-12 08:06] LABS: Blood Urea Nitrogen 16 mg/dl (9-20); Calcium 8.3 mg/dl (8.4-10.2); Carbon Dioxide 20 mmol/L (22-30); Chloride 105 mmol/L (98-107); Estimated Creatinine Clearance 78 ml/min; Glucose 58 mg/dl (70-99); Potassium 3.1 mmol/L (3.5-5.1); Sodium 133 mmol/L (135-145); eGFR > 60.00
[2024-12-12] MEDS: RYTHMOL PO ×3 (08:20→22:55)
[2024-12-12] MEDS: ASPIRIN 300 MG RECTAL (09:23)
--- NOTE | 2024-12-12 09:47 | CON.GI ---
Consultation
-
Date/Time Consultation Requested: 12/11/24
Date/Time Consultation Performed: 12/12/24
Requesting Provider: Madelin Miller
Performing Provider: Dr. Montemayor
Reason for Consultation: PEG evaluation
Medical History
Chief Complaint / HPI
Chief Complaint: Generalized fatigue, cough, right flank pain
History of Present Illness:
74 y/o M PMH (CAD (status post stents x 2 in 12/2012), Afib, HTN, Inguinal Hernia Repair, Parkinson's disease presented to [facility] on 12/09/2024 per 's description overall declining, lethargy, poor oral intake, persistent cough. He
was recently discharged from [facility] on 11/29 after hospitalization at [place] on 11/04 for acute hypoxemic respiratory failure secondary to aspiration pneumonia and on 10/16 for stroke coral colitis, acute metabolic encephalopathy, fractured rib,
and UTI. Patient and report that he has lost weight since diagnosis of Parkinson's started at 160 pounds now almost 120 pounds. She says there has been no history of issues with swallowing and he was eating a regular diet without known issue
at [facility]. During previous hospitalizations there were discussions for PEG to due to swallowing issues however after multiple video studies patient was cleared for pur�ed diet as patient preferred this instead of PEG tube placement. However
there was discussion that if he develops aspiration pneumonia again GI would strongly consider PEG tube placement. In the ED the patient was hemodynamically stable with no oxygen requirement had an elevated white count, chest x-ray showed no focal
infiltrates but CT concerning for possible right lower lobe small pleural effusion versus infiltrate, UA showed pyuria. Patient was started on antibiotics and is pending and urine cultures. In the hospital CT chest was done showing multifocal
pneumonia likely in the setting of aspiration. Hospitalist had a discussion with family who are interested in pursuing PEG tube versus Dobhoff placement. Patient was seen by ST who put him on strict NPO.
Past Medical History
Past Medical History: Arrhythmias (afib), CAD, HTN and Other (Parkinsons)
Past Surgical History: Cardiac (stent placement LAD 2012), Urological (cystocopy) and Other (BL inguinal hernia repair)
Social History
Tobacco: Non-Smoker
Alcohol: None
Drug: None
Personal:
Living: With Family
Employment: Retired
Family History
Family History: Reviewed & Not Pertinent
Allergies / Home Medications
Allergy/AdvReac Type Severity Reaction Status Date / Time
Penicillins Allergy 'a long Verified 11/07/24 21:38
time ago'
�Medication �Instructions �Recorded
aspirin 81 mg tablet,delayed 81 mg PO DAILY Blood Clot 03/17/23
release Prevention/Tx
pravastatin 80 mg tablet 80 mg PO HS cholesterol 03/17/23
docusate sodium 100 mg capsule 100 mg PO BID 11/22/24
(Colace)
midodrine 10 mg tablet 10 mg PO TID 11/22/24
carbidopa 25 mg-levodopa 100 mg 1 tab PO QID@0600,1100,1600,2100 11/29/24
tablet parkinson's disease 30 days #90
tabs
propafenone 150 mg tablet 150 mg PO TID Arrhythmia 30 days 11/29/24
#90 tabs
sennosides 8.6 mg tablet (Senokot) 17.2 mg (2 x 8.6 mg) PO BID 11/29/24
Constipation #0 tabs
bisacodyl 5 mg tablet,delayed 10 mg PO [id number] PRN CONSTIPATION 12/09/24
release
Review of Systems
-
Unable to obtain full review of systems at this time due to: Other
History Source: Patient
Constitutional: Reports Weight Loss; Denies Fever or Fatigue
EENT: Reports No Symptoms; Denies Sore Throat
Respiratory: Reports No Symptoms; Denies Cough or Trouble Breathing
Cardiac: Reports No Symptoms; Denies Chest Pain or Palpitations
Abdomen/GI: Reports No Symptoms; Denies Nausea, Vomiting, Diarrhea, Constipated or Bloody Stools
: Reports No Symptoms; Denies Dysuria
Vital Signs
Temp Pulse Resp BP Pulse Ox
98.7 F 85 18 163/86 97
12/12/24 07:00 12/12/24 07:00 12/12/24 07:00 12/12/24 07:00 12/12/24 07:00
Physical Exam
Exam
General: No Apparent Distress and Poor Appetite
HEENT: Normocephalic and Anicteric
Respiratory: Non Labored Respirations; Negative Wheezes or Rhonchi
Cardiac: S1/S2 and Regular Rhythm; Negative Murmur or Rub
GI: Soft, Non Tender, Non Distended and Other (diminished bowel sounds)
Skin: Warm and Dry
Results
WBC 8.8 10^3/uL (4.8-10.8) 12/12/24 05:57
Hgb 9.5 g/dL (13.0-18.0) L 12/12/24 05:57
Hct 27.4 % (39.0-52.0) L 12/12/24 05:57
MCV 89.0 fL (80.0-94.0) 12/12/24 05:57
Plt Count 201 10^3/uL (130-400) 12/12/24 05:57
Absolute Neuts (auto) 14.2 10^3/uL (1.4-6.5) H 12/10/24 07:50
Sodium 133 mmol/L (135-145) L 12/12/24 05:57
Potassium 3.1 mmol/L (3.5-5.1) L 12/12/24 05:57
Chloride 105 mmol/L (98-107) 12/12/24 05:57
Carbon Dioxide 20 mmol/L (22-30) L 12/12/24 05:57
BUN 16 mg/dl (9-20) 12/12/24 05:57
Creatinine 0.6 mg/dL (0.7-1.3) L 12/12/24 05:57
Calcium 8.3 mg/dl (8.4-10.2) L 12/12/24 05:57
Total Bilirubin Cancelled 12/09/24 09:31
AST Cancelled 12/09/24 09:31
ALT Cancelled 12/09/24 09:31
Alkaline Phosphatase Cancelled 12/09/24 09:31
Lipase 71 U/L (23-300) 12/09/24 09:31
Diagnostic Image Results:
Prior GI Procedures:
EGD:
Colonoscopy:
Assessment / Plan
-
MR Tavares is a 74 years old male with Parkinson's disease presents with overall declining, lethargy, poor oral intake, persistent and productive cough, intermittent right flank pain. Concern for recurrent aspiration pneumonia with small right lower
lobe infiltrate seen on CT images. Severe aspiration syndrome secondary to Parkinson's disease. Gram negative UTI.
#Dysphagia
#Adult Failure to Thrive
Patient with RLL opacification concerning for aspiration pneumonia with sepsis
per , no prior history of aspiration, and pt was eating well without issue while in [place] [facility]. Prior CT imaging from August 2024 shows incidental resolving R mid lobe opacification. Unsure if silent aspirations are chronic or acute.
prior conversations with GI for PEG tube with family, family decided to hold off
- Family still considering PEG vs Dobhoff but most likely PEG
- no contraindications for PEG tube. No significant abdominal surgeries. No ascites.
-
-
Thank you for consultation and allowing me to participate in the patient's care. Please call the rn telephonic GI physician during the after hours with any questions or concerns.
--- NOTE | 2024-12-12 10:55 | W.PN.UPDATE ---
Update Note
Progress Note Update
pt seen by GI resident this AM. just arrived. Discussed risk/benefits of peg vs DHT vs comfort measure with oral diet. She will consider but leaning toward PEG for nutrition, medication for aspiration risk and also with weight loss. All
questions answered.
[2024-12-12 11:20] VITALS: BP 160/87
[2024-12-12 12:10] LABS: Magnesium 2.0 mg/dl (1.6-2.3)
[2024-12-12] MEDS: D5/0.9% with KCL 20 MEQ 1000 IV ×2 (12:50→22:56)
[2024-12-12] MEDS: STERILE WATER FOR INJECTION 10 ML IV (12:53)
[2024-12-12] MEDS: MAXIPIME 2000 MG IV (12:53)
--- NOTE | 2024-12-12 15:23 | CON.ID ---
Consultation
-
Date/Time Consultation Requested: 12/12/24 3:22
Date/Time Consultation Performed: 12/12/24 3:23
Requesting Provider: Dr Trejo
Performing Provider: Dr Lang
Reason for Consultation: recurrent MDR klebsiella UTI
Chief Complaint / Past History
Chief Complaint
Generalized fatigue, cough, right flank pain
History of Present Illness
Mr Tavares is a 74 year old male with history of Parkinsons disease and aspiration who presented here on 12/09 for lethargy, poor oral intake and persistent cough. He cannot recall coughing or choking with eating. Also with a new complaint of right
flank pain, dysuria, frequency - he tells me these symtpoms have abated with antibiotics. He has also had significant weight loss now with BMI 17.
Since arrival here he has been afebrile BP overall stable, wbc on arrival 13, peaked at 15.9 and now 8.8, hgb 9.5 ,plt 201, L shift was positive on arrival, na 133, cr 0.8, lactic acid 1.2, ua 6-10 wbc/hpf and many bacteria, CT chest without
contrast: multifocal pneumonia, also subacute fractures of the left 8,9, 10th ribs, CT a/p: no renal calculi 12/09 urine culture with K aerogenes sensitive to ceftriaxone. He is currently on cefepime and metronidazole. A PEG tube is tentatively
planned for placement tomorrow.
Past History
Additional Past Medical History:
Arrhythmias (afib), CAD, HTN and Other (Parkinsons)
Additional Past Surgical History:
Cardiac (stent placement 2012), Urological (cystocopy) and Other (BL inguinal hernia repair
Allergy History:
Penicillins Allergy (Verified 11/07/24 21:38)
'a long time ago'
Medications Reviewed: Yes
Social History
Tobacco: Non-Smoker
Alcohol: None
Drug: None
Family History
Family History: Not Pertinent
Review of Systems
Review of Systems
a 12 point ROS was obtained and negative except as listed above.
Vital Signs
Temp Pulse Resp BP Pulse Ox
98.1 F 73 18 160/87 98
12/12/24 11:20 12/12/24 11:20 12/12/24 11:20 12/12/24 11:20 12/12/24 11:20
Physical Exam
Physical Exam
Constitutional: No Acute Distress, Chronically Ill and Cachetic
Cardiovascular: Regular Rate and S1/S2; Negative Murmur or Rub
Pulmonary: Clear and Symmetric; Negative Wheezes, Rales or Rhonchi
Gastrointestinal: Soft, Non Tender, Non Distended and Normal Bowel Sounds
Genito-Urinary: CVA Tenderness (deferred given rib fractures); Negative Suprapubic Tenderness
Skin: Warm and Dry; Negative Rash or Jaundice
Lab / Diagnostic Study Results
12/12/24 05:57
12/12/24 05:57
Abs Immat Gran (auto) 0.1 10^3/uL (0-0.05) H 12/10/24 07:50
Absolute Neuts (auto) 14.2 10^3/uL (1.4-6.5) H 12/10/24 07:50
Absolute Lymphs (auto) 0.6 10^3/uL (1.2-3.4) L 12/10/24 07:50
Absolute Monos (auto) 0.9 10^3/uL (0.1-0.6) H 12/10/24 07:50
Absolute Basos (auto) 0.1 10^3/uL (0-0.2) 12/10/24 07:50
Immature Gran % 0.5 % (0-0.5) 12/10/24 07:50
Neutrophils % 89.0 % (42.2-75.2) H 12/10/24 07:50
Lymphocytes % 3.9 % (20.5-51.1) L 12/10/24 07:50
Monocytes % 5.7 % (1.7-9.3) 12/10/24 07:50
Eosinophils % 0.4 % (0-6) 12/10/24 07:50
Basophils % 0.5 % (0-2) 12/10/24 07:50
Lactic Acid Cancelled 12/09/24 15:00
Ur Squamous Epith Cells 0-2 /LPF (Few) 12/09/24 11:38
Microbiology Results
Micro:
12/09/24 11:33 Blood Culture - Preliminary
Blood/Venous No Growth in 72 hours- Final report to follow
12/09/24 11:33 Blood Culture - Preliminary
Blood/Venous No Growth in 72 hours- Final report to follow
12/09/24 11:38 Urine Culture - Final
Urine Klebsiella aerogenes
Urine Culture Final 12/11/24-921
CC: Greater than 100,000 CFU/ML Klebsiella aerogenes
Organism 1 Klebsiella aerogenes
1. Klebsiella aerogenes
M.I.C. RX
--------- ---
Amoxicillin/Potas. Clavulanate >16/8 R
Ampicillin >16 R
Ampicillin/Sulbactam 16/8 R
Aztreonam <=4 S
Cefazolin >16 R
Cefepime <=2 S
Ceftazidime <=1 S
Ceftriaxone <=1 S
Ertapenem <=0.5 S
Ciprofloxacin <=0.25 S
Gentamicin <=2 S
Meropenem <=1 S
Nitrofurantoin-Urine Only 64 I
Piperacillin/Tazobactam <=8 S
Tetracycline <=4 S
Tobramycin <=2 S
Trimethoprim/Sulfamethoxazole <=2/38 S
Assessment / Plan
Aspiration Pneumonia - multifocal
Possible UTI due to klebsiella
Posterior L rib fractures
Penicillin allergy - tolerates cephalosporins
- switched to ceftriaxone; stopped cefepime and metronidazole - plan 7 day course of treatment 12/09-12/15
- plan to switch to oral meds post PEG tube placement - cefdinir
- aspiration precautions
- follow clinically
[2024-12-12 15:54] VITALS: BP 174/86
--- NOTE | 2024-12-12 16:10 | CM ---
Chart reviewed and patient with advanced Parkinson, patient for possible peg placement, piano case maker spoke with patient and spouse and patient would like to go to [facility] again, referral sent to [facility], will await PM&R recommendation.
Plan; Await Peg Placement and referral sent to [facility] at [facility].
[2024-12-12] MEDS: LOVENOX 40 MG SC (17:12)
[2024-12-12 19:08] VITALS: BP 156/79
[2024-12-12] MEDS: STERILE WATER FOR INJECTION 20 ML IV (21:32)
[2024-12-12] MEDS: ROCEPHIN 2000 MG IV (21:34)
[2024-12-12 23:22] VITALS: BP 163/91
[2024-12-13] VITALS (8 sets, daily range): BP systolic 120–169; BP diastolic 69–107
[2024-12-13 02:12] LABS: Glucose - Point of Care 131 mg/dl (70-99)
[2024-12-13] MEDS: SINEMET 25-100 PO ×2 (05:28→10:01)
--- NOTE | 2024-12-13 07:40 | W.PN.HOSP.TC ---
Today's Communication/Plan
-
PEG placement today
Meds and Tube Feeds via PEG when ready to use as per GI
cont abx as per ID
replete electrolytes
IVF support
hold midodrine for now given persistent HTN
Assessment / Plan
Assessment / Plan
Physical Exam
General: Appears Chronically Ill, cachectic appearance
HEENT: Normocephalic and Atraumatic
Respiratory: clear to auscultation b/l
GI: Soft nontender bowel sounds present
Ext: no cyanosis or edema
Neuro: Lethargic but arousable, dysarthria, intermittent confusion noted, largely coherent though
Psych: Calm
IMPRESSION:
74 years old male with Parkinson's disease presents with overall declining, lethargy, poor oral intake, persistent and productive cough, intermittent right flank pain.
Concern for recurrent aspiration pneumonia with small right lower lobe infiltrate seen on CT images.
Severe aspiration syndrome secondary to Parkinson's disease
Gram negative UTI
Conditions prior to admission
Advanced Parkinson's disease
Aspiration syndrome
Orthostatic hypotension neurogenic type pain
Prior history of hypertension
CAD with history of stent.
Paroxysmal atrial fibrillation on propafenone not on anticoagulation due to fall risk.
Chronic normocytic anemia
Dyslipidemia.
Anxiety/depression
History of skin cancer
PLAN:
Multifocal aspiration pneumonia
Sepsis POA (leukocytosis, tachycardia)
CT chest Multifocal pneumonia, greatest in the basilar right lower lobe, also involving the basilar left lower lobe and the posterior right upper lobe.
Recent hospitalization with right-sided aspiration pneumonia and sepsis.
Recent VSE 11/07 confirming aspiration risk with recommendation for pur�ed diet and thin liquids
N.p.o. except meds
Repeat speech and swallow evaluation; keep NPO At present
empiric cefepime + Flagyl, ID eval appreciated, abx narrowed to Ceftriaxone
GI eval appreciated, patient/family in agreement with pursuing PEG planned for today 12/13
Multi-drug resistant Klebsiella UTI
Patient with intermittent right flank pain, although no flank tenderness on exam.
Urinalysis with pyuria
Recent urine culture from ED 11/22/2024 with Klebsiella.
Not on antibiotics prior to presentation
ID eval appreciated Cefepime switched to Ceftriaxone.
Bladder scan for retention
Bowel regimen
advanced Parkinson disease continue Sinemet when able
Severe Protein Calorie Malnutrition
Nutrition Support via PEG to be started when ready to use
Possible Toxic Metabolic Encephalopathy 2/2 infection as above
cont Tx as above
CAD with stents
Dyslipidemia
Paroxysmal atrial fibrillation
Not on anticoagulation due to fall risk.
Continue propafenone when able
hold statin at this time d/t cachexia follow up lipid panel in AM
Essential hypertension
Orthostatic hypotension neurogenic type in a patient with Parkinson's disease.
hold midodrine for now given HTN
Hypokalemia
Hypophosphatemia
-monitor and replete as necessary
Mild Hyponatremia
-monitor
DVT ppx: Lovenox
Code: Full
Discussed with patient and patient's son Dale at bedside
I spent a total of 45 minutes with the patient or on the floor. More than 50% of this time involved counseling and coordination of care.
Anticipated Discharge: > 48 hours
Subjective/Interval History
-
Date of Service: December 13, 2024
No acute distress, resting comfortably in bed, lethargic but arousable. Son Dale present during evaluation
Objective Data
-
Labs:
Laboratory Results
12/13/24
06:00
WBC Pending
Hgb Pending
Hct Pending
Plt Count Pending
Sodium Pending
Potassium Pending
Chloride Pending
Carbon Dioxide Pending
BUN Pending
Creatinine Pending
Glucose Pending
Calcium Pending
Vital Signs:
Vital Signs
Temp Pulse Resp BP Pulse Ox
98.9 F 75 18 169/89 98
12/13/24 03:12 12/13/24 03:30 12/13/24 03:30 12/13/24 03:30 12/13/24 03:12
I&O
12/12/24 12/13/24 12/14/24
06:59 06:59 06:59
Intake Total 1300 / 1300
Output Total 800 / 800 150 / 150
Balance -800 / -800 1150 / 1150
[2024-12-13] MEDS: RYTHMOL PO (08:03)
[2024-12-13] MEDS: D5/0.9% with KCL 20 MEQ 1000 IV (08:04)
--- NOTE | 2024-12-13 08:15 | PN.CDI ---
CDI
- -
CDI:
Physician Documentation Request
Admit Date: 12/09/24 12:51
Dear Doctor Maya,
Please review the following and provide your response in the progress notes.
Clinical Indicators:
Pt admitted for Multifocal aspiration pneumonia and Klebsiella UTI.
12/09 ER: 'The patient, a 74-year-old male with a known history of Parkinsons disease, was seen in the emergency department due to confusion, altered mental status, and a fever.'
12/12 GI Note: ' Assessment...Patient with RLL opacification concerning for aspiration pneumonia with sepsis'
Selected Entries
12/09/24
10:00 12/09/24
12:30 12/09/24
14:00
Pulse 101 102 104
Laboratory Tests
12/09/24 12/10/24 12/11/24
09:31 07:50 06:53
WBC 13.1 H 15.9 H 14.3 H
Please clarify which of the following most accurately describes the status of the patient's infection:
Sepsis
- Systemic manifestations of infection, with 2 or more SIRS criteria which include:
- Fever >100.9 degrees F or hypothermia < 96.8 degrees F
- Leukocytosis - WBC > 12,000 or leukopenia - WBC < 4,000 or > 10% bands
- Tachycardia > 90 beats per minute
- Tachypnea - RR > 20 breaths per minute or PaCO2 , 32mmHg
Source: Merck Manual 2013
- Indicate the known or suspected organism
- Indicate the known or suspected underlying infection, such as UTI, pneumonia or cellulitis
- Indicate if a suspected bacterial infection of unknown source
Pneumonia and UTI Only
Other
Use of terms such as suspected, likely, concern for, or probable (associated with a specific diagnosis that is being evaluated, monitored, or treated as if it exists) are acceptable and can be coded in the inpatient setting, when documented at the
time of discharge.
Thank you,
Christy Guajardo RN, BSN
CDI Specialist
[place] [facility]
Please use your independent medical judgment in providing your response.
[2024-12-13 08:28] LABS: Hematocrit 32.5 % (39.0-52.0); Hemoglobin 11.6 g/dL (13.0-18.0); Mean Corp Hgb Conc. 35.7 g/dL (33.0-37.0); Mean Corpuscular Volume 86.2 fL (80.0-94.0); Platelet Count 247 10^3/uL (130-400); Red Cell Dist. Width 14.1 % (11.5-14.5)
--- NOTE | 2024-12-13 08:29 | PN.CDI ---
CDI
- -
CDI:
Physician Documentation Request
Admit Date: 12/09/24 12:51
Dear Doctor Maya,
Please review the following and provide your response in the progress notes.
Clinical Indicators:
Pt admitted for Multifocal aspiration pneumonia and UTI.
12/11 Registered Dietitian: ' Chart reviewed due to consult pt with cachexia and for TF recommendations....
CBW: 110 lbs 3 oz BMI 16.8 underweight range (12/09). Pts weight previous admission listed as 119 lbs 11/10 reflective of a 8% weight loss in 1 month signficant.
During visit RD able to visulize temporal wasting, apparent ribs and protrusion of clavical.
With weight loss of > 5 % in 1 month and observed muscle and fat wasting pt meets AND/ASPEN criteria for severe protein calorie malnutrition of chronic illness.
Based on the above information and your assessment, which of the following most accurately represents the patient's nutritional status?
Severe Protein Calorie Malnutrition
Other
[place] Criteria (ACP Hospitalist 2017)
2 or more criteria must be present for either
non severe or severe malnutrition
Note that the criteria differs related to the
presence of an acute or chronic illness
Chronic Illness
Energy Intake Non Severe: <75% for >1 month
Severe: <75% for >1 month
Weight Loss Non Severe: 5% over 1 month
7.5% over 3 months
10% over 6 months
20% over 1 year
Severe: >5% over 1 month
>7.5% over 3 months
>10% over 6 months
>20% over 1 year
Body Fat Non Severe: Mild Loss
Severe: Severe Loss
Muscle Mass Non Severe: Mild Loss
Severe: Severe Loss
Fluid Accumulation Non Severe: Mild Accumulation
Severe: Moderate to severe
accumulation
Reduced Radio Rigger Strength Non Severe: N/A
Severe: Measurably reduced
Additional criteria that can be used to Determine if Mild or Moderate Malnutrition (Merck Manual 2018)
Use of terms such as suspected, likely, concern for, or probable (associated with a specific diagnosis that is being evaluated, monitored, or treated as if it exists) are acceptable and can be coded in the inpatient setting, when documented at the
time of discharge.
Thank you,
Christy Guajardo RN, BSN
CDI Specialist
[place] [facility]
Please use your independent medical judgment in providing your response.
[2024-12-13 08:35] LABS: Blood Urea Nitrogen 9 mg/dl (9-20); Calcium 8.9 mg/dl (8.4-10.2); Carbon Dioxide 30 mmol/L (22-30); Chloride 99 mmol/L (98-107); Estimated Creatinine Clearance 78 ml/min; Glucose 139 mg/dl (70-99); Magnesium 1.9 mg/dl (1.6-2.3); Potassium 3.6 mmol/L (3.5-5.1); Sodium 134 mmol/L (135-145); eGFR > 60.00
--- NOTE | 2024-12-13 08:35 | PN.CDI ---
CDI
- -
CDI:
Physician Documentation Request
Admit Date: 12/09/24 12:51
Dear Doctor Maya,
Please review the following and provide your response in the progress notes.
Clinical Indicators:
Pt admitted for Multifocal aspiration pneumonia and UTI.
12/09 ER: ' The patients baseline function requires assistance for mobility but allows for normal daily activities and clear conversation. According to the patients spouse, there has been a notable change in his mental status today; he appears
significantly confused, is reaching out and touching things randomly, and is not oriented. He also appears awkward and struggles to maintain cohesive responses during conversation. The patient has a history of pneumonia. Today, he presents with a
fever and episodes of confusion. The spouse reported that he complained of bright flank pain. Current observations describe him as having hot skin and incoherent behavior.
Based on the above, could you clarify in the Progress Notes and Discharge Summary which, if any of the following, is the most likely etiology of the confusion/altered mental status.
(Toxic, Metabolic, Septic) Encephalopathy - due to a specific condition such as UTI, CVA, hyponatremia etc.
Confusion Only
Other
Use of terms such as suspected, likely, concern for, or probable (associated with a specific diagnosis that is being evaluated, monitored, or treated as if it exists) are acceptable and can be coded in the inpatient setting, when documented at the
time of discharge.
Thank you,
Christy Guajardo RN, BSN
CDI Specialist
[place] [facility]
Please use your independent medical judgment in providing your response.
[2024-12-13 08:55] LABS: Glucose - Point of Care 144 mg/dl (70-99)
[2024-12-13] MEDS: ASPIRIN 300 MG RECTAL (09:12)
--- NOTE | 2024-12-13 09:49 | W.PN.UPDATE ---
Update Note
Progress Note Update
with multiple questions. Reviewed chart stable for peg today. Reviewed length of peg and requirement for peg removal of 3 months if diet intake and swallowing function intact. Discussed risk of not placing peg with concern for aspiration and
concern for wt loss over time with about 16 lb loss since August. Also discussed option of palliative care but peg also helpful for medication if comfort measures wished in future.
--- NOTE | 2024-12-13 11:09 | W.PN.ID1 ---
Date of Service
Date of Service: December 13, 2024
Today's Communication
- c/w ceftriaxone - plan 7 day course of treatment 12/09-12/15
Assessment / Plan
Aspiration Pneumonia - multifocal
Possible UTI due to klebsiella
Posterior L rib fractures
Penicillin allergy - tolerates cephalosporins
- c/w ceftriaxone - plan 7 day course of treatment 12/09-12/15
- plan to switch to oral meds post PEG tube placement - cefdinir
- aspiration precautions
- follow clinically
Chief Complaint
-: Other (aspiration pneumonia)
Subjective / Review of Systems
remains afebrile
bp stable
planned for PEG tube placement
Vital Signs / Physical Exam
Vital Signs
Vital Signs
Temp Pulse Resp BP Pulse Ox
97.6 F 67 18 155/83 98
12/13/24 08:09 12/13/24 08:09 12/13/24 08:09 12/13/24 08:09 12/13/24 08:09
Physical Exam
Constitutional: No Acute Distress and Cachetic
Cardiovascular: Regular Rate and S1/S2; Negative Murmur or Rub
Pulmonary: Clear and Symmetric; Negative Wheezes or Rales
Gastrointestinal: Soft, Non Tender, Non Distended and Normal Bowel Sounds
Skin: Warm and Dry; Negative Rash or Jaundice
Objective Data
Lab Data
Lab Results
12/13/24 07:56
12/13/24 07:56
Estimated Creat Clear 78 ml/min 12/13/24 07:56
Lactic Acid Cancelled 12/09/24 15:00
Total Bilirubin Cancelled 12/09/24 09:31
AST Cancelled 12/09/24 09:31
ALT Cancelled 12/09/24 09:31
Alkaline Phosphatase Cancelled 12/09/24 09:31
Most recent labs reviewed.
Micro Results:
12/09/24 11:33 Blood Culture - Preliminary
Blood/Venous No Growth in 72 hours- Final report to follow
12/09/24 11:33 Blood Culture - Preliminary
Blood/Venous No Growth in 72 hours- Final report to follow
12/09/24 11:38 Urine Culture - Final
Urine Klebsiella aerogenes
--- NOTE | 2024-12-13 12:26 | CM ---
Patient is currently NPO, patient is is for possible Peg placement, case management associate spoke with both patient and spouse regarding discharge plan and patient would like to go to [facility] when stable, patient was there recently and feels this
will be his best chance at recovery, referral sent to [facility] and case management associate will wait on PM&R evaluation and recommendation when appropriate.
Plan; To follow with patient progress and assist with rehab placement for patient when stable.
--- NOTE | 2024-12-13 12:59 | W.IMMPOSTOP ---
Surgical Immed Post Op Note
-
Primary Surgeon: James
Assisting Surgeon: Sim
Pre-op Diagnosis: Dysphagia
Post-op Diagnosis: Dysphagia
Procedure Performed: Percutaneous endoscopic gastrostomy (PEG) tube
Anesthesia Type: MAC/local
Specimen / Cultures: None
Estimated Blood Loss: 1 cc
Complications: None
Operative Findings:
1. Standard pull 20 Fr PEG inserted along greater curve well clear of pylorus
2. Positive transillumination, 1:1 palpation, bubble study
3. Secured at 1.5 cm at the skin
4. Binder placed post-procedure
--- NOTE | 2024-12-13 13:27 | W.PN.UPDATE ---
Update Note
Progress Note Update
Status post PEG placement okay to use PEG for meds today and flushes and can start tube feeds tomorrow
Elevate head of the bed at all times with TF with aspiration precautions
GI will sign off and will be available as needed
[2024-12-13] MEDS: POTASSIUM PHOSPHATE 259.0909 MEQ IV (14:21)
[2024-12-13] MEDS: NSS (PRESERVATIVE FREE) 10 ML IV (14:22)
[2024-12-13] MEDS: PROTONIX IV 40 MG IV (14:22)
[2024-12-13] MEDS: SINEMET 25-100 1 TABLET PO ×2 (15:41→22:21)
[2024-12-13] MEDS: RYTHMOL 150 MG PO ×2 (15:41→22:21)
[2024-12-13] MEDS: LOVENOX 40 MG SC (17:03)
[2024-12-13] MEDS: ROCEPHIN 2000 MG IV (21:21)
[2024-12-13] MEDS: STERILE WATER FOR INJECTION 20 ML IV (21:22)
[2024-12-14] MEDS: D5/0.9% with KCL 20 MEQ 1000 IV ×2 (02:14→12:20)
[2024-12-14 03:19] VITALS: BP 149/86
[2024-12-14 07:00] VITALS: BP 141/87
[2024-12-14] MEDS: SINEMET 25-100 PO (07:37)
[2024-12-14] MEDS: PROTONIX IV 40 MG IV (07:39)
[2024-12-14] MEDS: NSS (PRESERVATIVE FREE) 10 ML IV (07:39)
[2024-12-14] MEDS: LOW STRENGTH ASPIRIN 81 MG TUBE (07:41)
[2024-12-14] MEDS: SENOKOT-S 1 TABLET TUBE ×2 (07:41→21:44)
[2024-12-14] MEDS: MIRALAX 17 GRAMS TUBE (07:43)
--- NOTE | 2024-12-14 07:50 | W.PN.HOSP.TC ---
Today's Communication/Plan
-
tube feeds
IVF support
abx
Cardio eval
Assessment / Plan
Assessment / Plan
Physical Exam
General: Appears Chronically Ill, cachectic appearance
HEENT: Normocephalic and Atraumatic
Respiratory: clear to auscultation b/l
GI: Soft nontender bowel sounds present
Ext: no cyanosis or edema
Neuro: Lethargic but arousable, dysarthria very difficult to understand at this time
Psych: Calm
IMPRESSION:
74 years old male with Parkinson's disease presents with overall declining, lethargy, poor oral intake, persistent and productive cough, intermittent right flank pain.
Concern for recurrent aspiration pneumonia with small right lower lobe infiltrate seen on CT images.
Severe aspiration syndrome secondary to Parkinson's disease
Gram negative UTI
Conditions prior to admission
Advanced Parkinson's disease
Aspiration syndrome
Orthostatic hypotension neurogenic type pain
Prior history of hypertension
CAD with history of stent.
Paroxysmal atrial fibrillation on propafenone not on anticoagulation due to fall risk.
Chronic normocytic anemia
Dyslipidemia.
Anxiety/depression
History of skin cancer
PLAN:
Multifocal aspiration pneumonia
Sepsis POA (leukocytosis, tachycardia)
CT chest Multifocal pneumonia, greatest in the basilar right lower lobe, also involving the basilar left lower lobe and the posterior right upper lobe.
Recent hospitalization with right-sided aspiration pneumonia and sepsis.
Recent VSE 11/07 confirming aspiration risk with recommendation for pur�ed diet and thin liquids
Repeat speech and swallow evaluation; keep NPO At present
empiric cefepime + Flagyl, ID eval appreciated, abx narrowed to Ceftriaxone converted to cefdinir following PEG placement
GI eval appreciated PEG placed 12/13 Tube feeds initiated 12/14
Multi-drug resistant Klebsiella UTI
Patient with intermittent right flank pain, although no flank tenderness on exam.
Urinalysis with pyuria
Recent urine culture from ED 11/22/2024 with Klebsiella.
Not on antibiotics prior to presentation
ID eval appreciated Cefepime switched to Ceftriaxone then Cefdinir as above
Bladder scan for retention
Bowel regimen
advanced Parkinson disease continue Sinemet when able
Severe Protein Calorie Malnutrition
Nutrition Support via PEG to be started when ready to use
Possible Toxic Metabolic Encephalopathy 2/2 infection as above
cont Tx as above
CAD with stents
Dyslipidemia
Paroxysmal atrial fibrillation
Not on anticoagulation due to fall risk.
Continue propafenone and ASA
hold statin at this time d/t cachexia, lipid panel appreciated wnl
Cardio eval appreciated
Essential hypertension
Orthostatic hypotension neurogenic type in a patient with Parkinson's disease.
hold midodrine for now given HTN
Hypokalemia
Hypophosphatemia
-monitor and replete as necessary
Mild Hyponatremia
-monitor
DVT ppx: Lovenox
Code: Full
Discussed with patient and patient's Kristyn
I spent a total of 45 minutes with the patient or on the floor. More than 50% of this time involved counseling and coordination of care.
Anticipated Discharge: 24 - 48 hours
Subjective/Interval History
-
Date of Service: December 14, 2024
Lethargic but arousable speech very difficult to understand. Otherwise appears relatively comfortable. Kristyn present during evaluation.
Objective Data
-
Labs:
Laboratory Results
12/14/24
06:00
WBC Pending
Hgb Pending
Hct Pending
Plt Count Pending
Sodium Pending
Potassium Pending
Chloride Pending
Carbon Dioxide Pending
BUN Pending
Creatinine Pending
Glucose Pending
Calcium Pending
Vital Signs:
Vital Signs
Temp Pulse Resp BP Pulse Ox
97.0 F 83 16 149/86 98
12/14/24 03:19 12/14/24 03:19 12/14/24 03:19 12/14/24 03:19 12/14/24 03:19
I&O
12/13/24 12/14/24 12/15/24
06:59 06:59 06:59
Intake Total 1300 / 1300 1060 / 1060
Output Total 150 / 150
Balance 1150 / 1150 1060 / 1060
[2024-12-14] MEDS: RYTHMOL PO (08:55)
--- NOTE | 2024-12-14 09:10 | CON.CAR ---
Addendum entered and electronically signed by Odilon Langford MD 12/14/24 15:07:
I saw and examined the patient.
The [employer]'s note was reviewed and I agree with the note.
Comment:
GEN: No distress, opens eyes, confused
HEENT: supple, anicteric, mmm
LUNGS: scatt rhonchi
CV: Reg, S1/S2, 1/6 syst LSB, no gallop
ABD: soft, BS+, NT/ND
EXT: No edema
NEURO: parkinsonian
SKIN: No rash
Plan:
74-year-old male well-known to me with past medical history of Parkinson's and paroxysmal atrial fibrillation who presents with multiple admissions for infections, aspiration pneumonia, and medical complications from Parkinson's disease. Patient
has been struggling with multiple infections and ultimately had a PEG tube placed yesterday by GI and surgery. We were asked to see him regarding his propafenone. Last documented A-fib was in February 2024 and he does not feel his atrial
fibrillation. He does not take anticoagulation due to his history of falls. Clinically he is doing poorly and is slowly declining.
I had a lengthy discussion with the patient and his . At this point I would continue the propafenone 150 mg 3 times daily. Generally class Ic antiarrhythmics require the addition of a very low-dose beta-ellen or calcium channel ellen, but
with his severe orthostasis this has been stopped. He has never had 1-1 atrial flutter in the past. For now we will continue the propafenone. Other option to be to switch over to amiodarone.
I did discuss with him and his family of getting another opinion from the [facility] movement disorder regarding his progressive Parkinson's.
Stable to go to [place] from a cardiology standpoint
Continue aspirin for stroke risk reduction.
Original Note:
Consultation
Consultation Request
Date/Time Consultation Requested: 12/14/2024 at 0836
Date/Time Consultation Performed: 12/14/2024 at 0936
Requesting Provider: Dr. Trejo
Performing Provider: Dr. Langford
Reason for Consultation: Paroxysmal A-fib on propafenone
Medical History
-
History of Present Illness:
Patient came to the ER back on 12/09/2024 with change in mental status and was admitted with aspiration pneumonia, but cardiology is now consulted due to the need for antiarrhythmic drug and PEG tube in place. Patient with aspiration PNA on
admission and a history of Parkinson's disease. Patient had PEG tube placed yesterday. Patient also has a history of A-fib with RVR since at least 2020. His last recurrence of A-fib was 02/2024 and interestingly he had worn an outpatient monitor
that month that showed no A-fib, but when he presented for his outpatient Lexiscan nuclear stress test he was in asymptomatic A-fib. Patient was referred to the ER with his recurrent A-fib in 02/2024 and spontaneously converted to SR. He has been
in SR during this admission. His outpatient dose of propafenone 150 mg TID has been on hold for days while NPO. Patient is not chronically anticoagulated due to recurrent falls.
PMH:
Parkinson's disease
Paroxysmal atrial fibrillation
Not chronically anticoagulated by patient choice due to recurrent falls
Chronic propafenone therapy
CAD s/p 4 mm and 3 mm Resolute HEATHER to the proximal and mid LAD 12/28/12
Hyperlipidemia
Past Medical History
Past Surgical History: Cardiac (CAD s/p 4 mm and 3 mm Resolute HEATHER to the proximal and mid LAD 12/28/12) and Other (Hernia repair)
Social History
Tobacco: Former Smoker
Alcohol: None
Drug: None
Personal:
Living: With Family
Family History
Family History: CAD
Allergies / Home Medications
Allergy/AdvReac Type Severity Reaction Status Date / Time
Penicillins Allergy 'a long Verified 12/12/24 15:24
time ago'
�Medication �Instructions �Recorded �Confirmed �Type
aspirin 81 mg tablet,delayed 81 mg PO DAILY Blood Clot 03/17/23 12/09/24 History
release Prevention/Tx
pravastatin 80 mg tablet 80 mg PO HS cholesterol 03/17/23 12/09/24 History
docusate sodium 100 mg capsule 100 mg PO BID 11/22/24 12/09/24 History
(Colace)
midodrine 10 mg tablet 10 mg PO TID 11/22/24 12/09/24 History
carbidopa 25 mg-levodopa 100 mg 1 tab PO QID@0600,1100,1600,2100 11/29/24 12/09/24 Rx
tablet parkinson's disease 30 days #90
tabs
propafenone 150 mg tablet 150 mg PO TID Arrhythmia 30 days 11/29/24 12/09/24 Rx
#90 tabs
sennosides 8.6 mg tablet (Senokot) 17.2 mg (2 x 8.6 mg) PO BID 11/29/24 12/09/24 Rx
Constipation #0 tabs
bisacodyl 5 mg tablet,delayed 10 mg PO [id number] PRN CONSTIPATION 12/09/24 12/09/24 History
release
Review of Systems
-
History Source: Patient and Family ()
All other systems: Negative unless noted
Physical Exam
Vital Signs
Temp Pulse Resp BP Pulse Ox
98.9 F 92 16 141/87 98
12/14/24 07:00 12/14/24 07:00 12/14/24 07:00 12/14/24 07:00 12/14/24 07:00
GEN: NAD, but reaching out to grab nonexistent objects. Does not open eyes, but responds to questions
HEENT: MMM
LUNGS: RA. Poor inspiratory effort. No wheeze
CV: SR on tele. Reg, S1/S2, no murmur
ABD: soft, BS+, NT, ND
EXT: No edema B/L LE
NEURO: Gross non-focal
SKIN: No rash
Lab Results
Labs reviewed by me 12/14/2024 and CBC showed Hgb 11.3, WBC 6.2, platelet count 254,000
Chemistry profile also reviewed by me and sodium 135, potassium 3.5, BUN 7, creatinine 0.6, magnesium 1.8
Total cholesterol 160, triglycerides 75, LDL 60, HDL 77
Impression / Plan
-
PCP: Dr. Andrews
Cardiology: Dr. Langford
Impression:
Admitted with change in mental status and aspiration PNA 12/09/2024
Aspiration PNA
s/p PEG tube 12/13/2024
Parkinson's disease
Paroxysmal atrial fibrillation
Not chronically anticoagulated by patient choice due to recurrent falls
Chronic propafenone therapy
CAD s/p 4 mm and 3 mm Resolute HEATHER to the proximal and mid LAD 12/28/12
Hyperlipidemia
Hypokalemia
Echo 12/29/16: EF 55-60%, mild MR
Echo 02/15/2024: Normal BiV size and function without WMA, no significant valve disease, no pericardial effusion
Plan:
-Patient came to the ER back on 12/09/2024 with change in mental status and was admitted with aspiration pneumonia, but cardiology is now consulted due to the need for antiarrhythmic drug and PEG tube in place. Patient with aspiration PNA on
admission and a history of Parkinson's disease. Patient had PEG tube placed yesterday. Patient also has a history of A-fib with RVR since at least 2020. His last recurrence of A-fib was 02/2024 and interestingly he had worn an outpatient monitor
that month that showed no A-fib, but when he presented for his outpatient Lexiscan nuclear stress test he was in asymptomatic A-fib. Patient was referred to the ER with his recurrent A-fib in 02/2024 and spontaneously converted to SR. He has been
in SR during this admission. His outpatient dose of propafenone 150 mg TID has been on hold for days while NPO. Patient is not chronically anticoagulated due to recurrent falls.
-ECG from 12/09/2024 was reviewed by me today and shows sinus tachycardia with QTc 437 ms
-Propafenone comes in in IR (immediate release) formulation and also SR (sustained-release) for relation. Patient was chronically taking propafenone 150 mg IR TID prior to admission and this can be continued as it is allowed to be crushed and then
passed through his PEG tube. Sustained release propafenone that comes in a capsule cannot be crushed.
-Check ECG in a.m. now that propafenone 150 mg TID has been resumed, ordered by me.
-Patient is not chronically on OAC due to patient and family choice because of recurrent falls
-In the setting of antiarrhythmic drug therapy would recommend trying to maintain a potassium of greater than 4 and magnesium of greater than 2. As noted the potassium is 3.5 and the magnesium is 1.8 today. Patient was given K rider on 12/13/2024
in addition to IV fluids with KCl. KCl elixir and magnesium oxide added by me 12/14/2024.
--- NOTE | 2024-12-14 09:16 | CHAP ---
Msgr. Shaheed Cuellar of [facility] anointed Mr. Tavares and gave him an [employer] [place]. Exact time uncertain.
[2024-12-14 09:31] LABS: Hematocrit 31.9 % (39.0-52.0); Hemoglobin 11.3 g/dL (13.0-18.0); Mean Corp Hgb Conc. 35.4 g/dL (33.0-37.0); Mean Corpuscular Volume 88.6 fL (80.0-94.0); Platelet Count 254 10^3/uL (130-400); Red Cell Dist. Width 14.2 % (11.5-14.5)
[2024-12-14] MEDS: RYTHMOL 150 MG TUBE ×3 (10:18→21:44)
[2024-12-14] MEDS: SINEMET 25-100 1 TABLET TUBE ×3 (10:19→21:44)
[2024-12-14 10:21] LABS: Blood Urea Nitrogen 7 mg/dl (9-20); Calcium 9.1 mg/dl (8.4-10.2); Carbon Dioxide 29 mmol/L (22-30); Chloride 100 mmol/L (98-107); Estimated Creatinine Clearance 78 ml/min; Glucose 119 mg/dl (70-99); HDL Cholesterol 77 mg/dl; LDL Cholesterol, Calculated 68 mg/dl; Magnesium 1.8 mg/dl (1.6-2.3); Potassium 3.5 mmol/L (3.5-5.1); Sodium 135 mmol/L (135-145); Very Low Density Lipoprotein 15 mg/dl (0-30); eGFR > 60.00
--- NOTE | 2024-12-14 11:21 | CHAP ---
Emotional and spiritual support provided for Mr. Tavares's , KristynZuleima
[2024-12-14 11:57] VITALS: BP 131/80
[2024-12-14] MEDS: MAGNESIUM OXIDE 400 MG TUBE (13:25)
[2024-12-14] MEDS: KCL ELIXIR 20 MEQ TUBE (13:26)
--- NOTE | 2024-12-14 13:37 | CM ---
Peg placed yesterday tube feeds to start today, plan is for possible rehab, patient and family want [facility], PM&R evaluation will need to be completed to see if they can accept patient.
Plan; Rehab when stable.
--- NOTE | 2024-12-14 13:46 | W.PN.ID1 ---
Date of Service
Date of Service: December 14, 2024
Today's Communication
switched to cefdinir solution - plan 7 day course of treatment 12/09-12/15
Assessment / Plan
Aspiration Pneumonia - multifocal
Possible UTI due to klebsiella
Posterior L rib fractures
Penicillin allergy - tolerates cephalosporins
- switched to cefdinir solution - plan 7 day course of treatment 12/09-12/15
- aspiration precautions
- follow clinically
Chief Complaint
-: Other (aspiration pneumonia)
Subjective / Review of Systems
afebrile
bp stable
PEG tube placed
Vital Signs / Physical Exam
Vital Signs
Vital Signs
Temp Pulse Resp BP Pulse Ox
97.5 F 81 18 131/80 95
12/14/24 11:57 12/14/24 11:57 12/14/24 11:57 12/14/24 11:57 12/14/24 11:57
Physical Exam
Constitutional: No Acute Distress
Cardiovascular: Regular Rate and S1/S2; Negative Murmur or Rub
Pulmonary: Clear and Symmetric; Negative Wheezes or Rales
Gastrointestinal: Soft, Non Tender, Non Distended and Normal Bowel Sounds
Skin: Warm and Dry; Negative Rash or Jaundice
Lines: Other (PEG tube; abdominal wall binder in place)
Objective Data
Lab Data
Lab Results
12/14/24 08:39
12/14/24 08:39
Estimated Creat Clear 78 ml/min 12/14/24 08:39
Lactic Acid Cancelled 12/09/24 15:00
Total Bilirubin Cancelled 12/09/24 09:31
AST Cancelled 12/09/24 09:31
ALT Cancelled 12/09/24 09:31
Alkaline Phosphatase Cancelled 12/09/24 09:31
Most recent labs reviewed.
Micro Results:
12/09/24 11:33 Blood Culture - Final
Blood/Venous No Growth - Final Report
12/09/24 11:33 Blood Culture - Final
Blood/Venous No Growth - Final Report
12/09/24 11:38 Urine Culture - Final
Urine Klebsiella aerogenes
Care Review
Plan reviewed with: Physician (Dr Trejo - switched to per tube)
--- NOTE | 2024-12-14 14:46 | PTOTSP ---
Speech Therapy
Patient seen bedside with present. Patient is not considered safe for oral trials. Speech therapy will continue to follow to train and assist in completion of exercise program aimed at increasing airway protection ability, lingual/pharyngeal
strength, and overall swallow function with ultimate family goal of returning to oral diet and PEG tube removal. Unsure if this is a feasible goal given progressive degenerative disease process in patient who has been identified during previous
admissions as high risk for chronic aspiration.
[2024-12-14 16:11] VITALS: BP 150/77
[2024-12-14] MEDS: LOVENOX 40 MG SC (16:49)
[2024-12-14 19:46] VITALS: BP 154/76
[2024-12-14] MEDS: OMNICEF 300 MG TUBE (21:45)
[2024-12-14 23:55] VITALS: BP 150/72
[2024-12-15] VITALS (8 sets, daily range): BP systolic 104–156; BP diastolic 65–97; PULSE 78–84; O2SAT 97–99
[2024-12-15] MEDS: D5/0.9% with KCL 20 MEQ 1000 IV (04:21)
[2024-12-15] MEDS: SINEMET 25-100 1 TABLET TUBE ×4 (05:41→22:11)
[2024-12-15 07:12] LABS: Hematocrit 28.5 % (39.0-52.0); Hemoglobin 10.1 g/dL (13.0-18.0); Mean Corp Hgb Conc. 35.4 g/dL (33.0-37.0); Mean Corpuscular Volume 88.5 fL (80.0-94.0); Platelet Count 244 10^3/uL (130-400); Red Cell Dist. Width 14.1 % (11.5-14.5)
[2024-12-15 07:23] LABS: Blood Urea Nitrogen 9 mg/dl (9-20); Calcium 8.6 mg/dl (8.4-10.2); Carbon Dioxide 28 mmol/L (22-30); Chloride 102 mmol/L (98-107); Estimated Creatinine Clearance 66 ml/min; Glucose 119 mg/dl (70-99); Magnesium 1.9 mg/dl (1.6-2.3); Potassium 3.6 mmol/L (3.5-5.1); Sodium 134 mmol/L (135-145); eGFR > 60.00
--- NOTE | 2024-12-15 07:27 | W.PN.HOSP.TC ---
Today's Communication/Plan
-
cont tube feeds, ok to stop IVF
replete electrolytes as per Cardio
last day abx as per ID
PT/OT
PMR eval
Assessment / Plan
Assessment / Plan
Physical Exam
General: Appears Chronically Ill, cachectic appearance
HEENT: Normocephalic and Atraumatic
Respiratory: clear to auscultation b/l
GI: Soft nontender bowel sounds present
Ext: no cyanosis or edema
Neuro: Alert Conversant largely coherent at times difficult to understand d/t dysarthria/mumbling, sometimes speech is very fluent and clear
Psych: Calm
IMPRESSION:
74 years old male with Parkinson's disease presents with overall declining, lethargy, poor oral intake, persistent and productive cough, intermittent right flank pain.
Concern for recurrent aspiration pneumonia with small right lower lobe infiltrate seen on CT images.
Severe aspiration syndrome secondary to Parkinson's disease
Gram negative UTI
Conditions prior to admission
Advanced Parkinson's disease
Aspiration syndrome
Orthostatic hypotension neurogenic type pain
Prior history of hypertension
CAD with history of stent.
Paroxysmal atrial fibrillation on propafenone not on anticoagulation due to fall risk.
Chronic normocytic anemia
Dyslipidemia.
Anxiety/depression
History of skin cancer
PLAN:
Multifocal aspiration pneumonia
Sepsis POA (leukocytosis, tachycardia)
CT chest Multifocal pneumonia, greatest in the basilar right lower lobe, also involving the basilar left lower lobe and the posterior right upper lobe.
Recent hospitalization with right-sided aspiration pneumonia and sepsis.
Recent VSE 11/07 confirming aspiration risk with recommendation for pur�ed diet and thin liquids
Repeat speech and swallow evaluation; keep NPO At present
empiric cefepime + Flagyl, ID eval appreciated, abx narrowed to Ceftriaxone converted to cefdinir following PEG placement 12/15 last day abx therapy total 7 days
GI eval appreciated PEG placed 12/13 Tube feeds initiated 12/14
tolerating tube feeds, IVF support completed
Multi-drug resistant Klebsiella UTI
Urinalysis with pyuria
Recent urine culture from ED 11/22/2024 with Klebsiella.
ID eval appreciated Cefepime switched to Ceftriaxone then Cefdinir 12/15 last day abx therapy total 7 days
Bladder scan for retention
advanced Parkinson disease continue Sinemet when able
Severe Protein Calorie Malnutrition
Nutrition Support via PEG to be started when ready to use
Possible Toxic Metabolic Encephalopathy 2/2 infection as above
cont Tx as above
CAD with stents
Dyslipidemia
Paroxysmal atrial fibrillation
Not on anticoagulation due to fall risk.
Continue propafenone and ASA
hold statin at this time d/t cachexia, lipid panel appreciated wnl
Cardio eval appreciated
Essential hypertension
Orthostatic hypotension neurogenic type in a patient with Parkinson's disease.
hold midodrine for now given HTN
Hypokalemia
Hypophosphatemia
-monitor and replete as necessary
Mild Hyponatremia
-monitor
Constipation
-bowel regimen
PT/OT appreciated SNF rehab, PMR eval requested (patient recently at [facility])
DVT ppx: Lovenox
Code: Full
Discussed with patient and patient's Kristyn
I spent a total of 45 minutes with the patient or on the floor. More than 50% of this time involved counseling and coordination of care.
Anticipated Discharge: 24 - 48 hours
Subjective/Interval History
-
Date of Service: December 15, 2024
More alert conversant coherent today. Difficult to understand at times d/t dysarthria/mumbling. Speech is sometimes very clear and fluent. Denies current pain. Appears comfortable, no acute distress.
Objective Data
-
Labs:
Laboratory Results
12/15/24
05:56
WBC 4.7 L
Hgb 10.1 L
Hct 28.5 L
Plt Count 244
Sodium 134 L
Potassium 3.6
Chloride 102
Carbon Dioxide 28
BUN 9
Creatinine 0.7
Glucose 119 H
Calcium 8.6
Vital Signs:
Vital Signs
Temp Pulse Resp BP Pulse Ox
97.9 F 74 16 149/77 97
12/15/24 03:07 12/15/24 03:07 12/15/24 03:07 12/15/24 03:07 12/15/24 03:07
I&O
12/14/24 12/15/24 12/16/24
06:59 06:59 06:59
Intake Total 1060 / 1060
Balance 1060 / 1060
[2024-12-15] MEDS: RYTHMOL 150 MG TUBE ×3 (08:20→22:08)
[2024-12-15] MEDS: KCL ELIXIR 20 MEQ TUBE ×2 (08:20→10:49)
[2024-12-15] MEDS: SENOKOT-S 1 TABLET TUBE ×2 (08:20→22:09)
[2024-12-15] MEDS: LOW STRENGTH ASPIRIN 81 MG TUBE (08:21)
[2024-12-15] MEDS: MAGNESIUM OXIDE 400 MG TUBE ×2 (08:21→10:46)
[2024-12-15] MEDS: NSS (PRESERVATIVE FREE) 10 ML IV (08:23)
[2024-12-15] MEDS: PROTONIX IV 40 MG IV (08:24)
[2024-12-15] MEDS: MIRALAX 17 GRAMS TUBE (08:25)
[2024-12-15] MEDS: OMNICEF 300 MG TUBE ×2 (08:26→22:09)
--- NOTE | 2024-12-15 09:54 | W.PN.CARDCBS ---
Addendum entered and electronically signed by PETE Danielle 12/16/24 14:29:
EKG 12/15/2024 with restart of propafenone: NSR QRS 80 msec, QTc 453- stable
no further recommendations
please recall if cardiac concerns
Original Note:
Today's Communication / Plan
-
-check EKG
-replete K and Mag
Impression / Plan
-
PCP: Dr. Andrews
Cardiology: Dr. Langford
Impression:
Admitted with change in mental status and aspiration PNA 12/09/2024
Aspiration PNA
s/p PEG tube 12/13/2024
Parkinson's disease
Paroxysmal atrial fibrillation
Not chronically anticoagulated by patient choice due to recurrent falls
Chronic propafenone therapy
CAD s/p 4 mm and 3 mm Resolute HEATHER to the proximal and mid LAD 12/28/12
Hyperlipidemia
Hypokalemia
Echo 12/29/16: EF 55-60%, mild MR
Echo 02/15/2024: Normal BiV size and function without WMA, no significant valve disease, no pericardial effusion
Plan:
-Patient came to the ER back on 12/09/2024 with change in mental status and was admitted with aspiration pneumonia, cardiology consulted 12/14 due to the need for antiarrhythmic drug and PEG tube in place. Patient with aspiration PNA on admission and
a history of Parkinson's disease. Patient had PEG tube placed 12/13. Patient also has a history of A-fib with RVR since at least 2020. His last recurrence of A-fib was 02/2024 and interestingly he had worn an outpatient monitor that month that
showed no A-fib, but when he presented for his outpatient Lexiscan nuclear stress test he was in asymptomatic A-fib. Patient was referred to the ER with his recurrent A-fib in 02/2024 and spontaneously converted to SR. He has been in SR during
this admission. His outpatient dose of propafenone 150 mg TID has been on hold for days while NPO. Patient is not chronically anticoagulated due to recurrent falls.
-ECG from 12/09/2024 sinus tachycardia with QTc 437 ms
-Propafenone comes in in IR (immediate release) formulation and also SR (sustained-release) for relation. Patient was chronically taking propafenone 150 mg IR TID prior to admission and this can be continued as it is allowed to be crushed and then
passed through his PEG tube. Sustained release propafenone that comes in a capsule cannot be crushed.
-Check ECG today, now that propafenone 150 mg TID has been resumed
-Patient is not chronically on OAC due to patient and family choice because of recurrent falls
-In the setting of antiarrhythmic drug therapy would recommend trying to maintain a potassium of greater than 4 and magnesium of greater than 2. Potassium is 3.6 and the magnesium is 1.8 today. Patient was given K rider on 12/13/2024 in addition to
IV fluids with KCl. KCl elixir 20 meq daily and magnesium oxide 400 mg daily started 12/14/2024. Will give additional KCL 20 meq and mag oxide 400 mg today - I ordered
discussed with nursing
Progress Note - [employer]
Subjective
Date of Service: December 15, 2024
getting propafenone IR through PEG
maintaining NSR
denies CP/SOB
Objective
Labs:
12/15/24 05:56
12/15/24 05:56
Labs
Hgb 10.1 g/dL (13.0-18.0) L 12/15/24 05:56
Hct 28.5 % (39.0-52.0) L 12/15/24 05:56
Plt Count 244 10^3/uL (130-400) 12/15/24 05:56
Sodium 134 mmol/L (135-145) L 12/15/24 05:56
Potassium 3.6 mmol/L (3.5-5.1) 12/15/24 05:56
BUN 9 mg/dl (9-20) 12/15/24 05:56
Creatinine 0.7 mg/dL (0.7-1.3) 12/15/24 05:56
Glucose 119 mg/dl (70-99) H 12/15/24 05:56
Vital Signs and I&O:
Vital Signs
Temp Pulse Resp BP Pulse Ox
98.9 F 78 18 104/65 97
12/15/24 07:00 12/15/24 07:00 12/15/24 07:00 12/15/24 07:00 12/15/24 07:00
Vital Signs
Temp Pulse Resp BP Pulse Ox
98.9 F 78 18 104/65 97
12/15/24 07:00 12/15/24 07:00 12/15/24 07:00 12/15/24 07:00 12/15/24 07:00
Intake & Output
12/13/24 12/14/24 12/15/24 12/16/24
06:59 06:59 06:59 06:59
Intake Total 1300 / 1300 1060 / 1060
Output Total 150 / 150
Balance 1150 / 1150 1060 / 1060
Physical Exam
Physical Exam
GEN: No distress, awake, Ox3, frail
HEENT: supple, anicteric, mmm
LUNGS: CTA, no wheezes/rales
CV: Reg, S1/S2, no murmur
ABD: soft, BS+, NT/ND, PEG tube
EXT: No edema
NEURO: Gross non-focal
SKIN: No rash
--- NOTE | 2024-12-15 11:51 | W.PN.ID1 ---
Date of Service
Date of Service: December 15, 2024
Today's Communication
final day of cefdinir
Assessment / Plan
Aspiration Pneumonia - multifocal
Possible UTI due to klebsiella
Posterior L rib fractures
Penicillin allergy - tolerates cephalosporins
- c/w cefdinir solution - plan 7 day course of treatment 12/09-12/15 - final day of therapy
- aspiration precautions
- follow clinically
Chief Complaint
-: Other (aspiration pneumonia)
Subjective / Review of Systems
afebrile
bp stable
tolerating current therapies
Vital Signs / Physical Exam
Vital Signs
Vital Signs
Temp Pulse Resp BP Pulse Ox
97.5 F 77 18 137/74 99
12/15/24 11:00 12/15/24 11:00 12/15/24 11:00 12/15/24 11:00 12/15/24 11:00
Physical Exam
Constitutional: No Acute Distress
Cardiovascular: Regular Rate and S1/S2; Negative Murmur or Rub
Pulmonary: Clear and Symmetric; Negative Wheezes or Rales
Gastrointestinal: Soft, Non Tender, Non Distended and Normal Bowel Sounds
Skin: Warm and Dry; Negative Rash or Jaundice
Objective Data
Lab Data
Lab Results
12/15/24 05:56
12/15/24 05:56
Estimated Creat Clear 66 ml/min 12/15/24 05:56
Lactic Acid Cancelled 12/09/24 15:00
Total Bilirubin Cancelled 12/09/24 09:31
AST Cancelled 12/09/24 09:31
ALT Cancelled 12/09/24 09:31
Alkaline Phosphatase Cancelled 12/09/24 09:31
Most recent labs reviewed.
Micro Results:
12/09/24 11:33 Blood Culture - Final
Blood/Venous No Growth - Final Report
12/09/24 11:33 Blood Culture - Final
Blood/Venous No Growth - Final Report
12/09/24 11:38 Urine Culture - Final
Urine Klebsiella aerogenes
[2024-12-15] MEDS: D5/0.9% with KCL 20 MEQ IV (13:47)
--- NOTE | 2024-12-15 14:35 | CM ---
Chart reviewed and peg has been placed for patient, plan is for acute rehab at [place], for PT/OT, and Speech, after peg feeds at goal. Patient will need PM&R consult, patient was at [facility] before, patient with Parkinson's. Referral sent to [facility].
Plan; Waiting on determination from [facility] acute, wait on PM&R evaluation and recommendation.
[2024-12-15] MEDS: LOVENOX 40 MG SC (18:16)
--- NOTE | 2024-12-15 21:15 | PTCARENOTE ---
Pt daughter and expressed concern of pt aspirating as evidenced by reported coughing witnessed by family. Pt in no distress, BP 130/75, HR 86, RR 16, T 97.6, 97% RA. PULLER OUT made aware, feeds and medications put on hold. PULLER OUT at bedside assessed pt,
discussed with family. No coughing witnessed by RN during shift or PULLER OUT at bedside. PULLER OUT ordered feeds and meds to be resumed. No further orders.
[2024-12-16] VITALS (7 sets, daily range): BP systolic 124–152; BP diastolic 62–85; BMI 16.5
--- NOTE | 2024-12-16 03:06 | W.PN.UPDATE ---
Update Note
Progress Note Update
RN reported patient family is concerned patient may be aspirating as they notice cough (baseline). Tube feed placed on hold.
at bedside, patient seen addressed patient don't look in any distress, and with stable VS, no cough noted, . Xray department required contrast for Abdomen Xray with contrast.
Abdomen assessed Tube placement along with RN. + BS soft non tender, confirmed tube placement via auscultation with RN. No nausea, vomiting. stable VS
notified family, addressed patient does not need the Abdomen Xray at present as no signs of aspiration. agrees not to have Xray done at this moment.
will resume TF.
[2024-12-16] MEDS: SINEMET 25-100 1 TABLET TUBE ×4 (05:08→20:00)
--- NOTE | 2024-12-16 06:50 | W.PN.HOSP.TC ---
Today's Communication/Plan
-
manual pressures only
resume midodrine reduced dose w/ holding parameters
TEDs when out of bed
check Abd X-ray for stool burden
cont bowel regimen
Assessment / Plan
Assessment / Plan
Physical Exam
General: Appears Chronically Ill, cachectic appearance
HEENT: Normocephalic and Atraumatic
Respiratory: clear to auscultation b/l
GI: Soft nontender bowel sounds present
Ext: no cyanosis or edema
Neuro: fluctuant mental status throughout the day, lethargic at, times difficult to arouse.
Psych: Calm
IMPRESSION:
74 years old male with Parkinson's disease presents with overall declining, lethargy, poor oral intake, persistent and productive cough, intermittent right flank pain.
Concern for recurrent aspiration pneumonia with small right lower lobe infiltrate seen on CT images.
Severe aspiration syndrome secondary to Parkinson's disease
Gram negative UTI
Conditions prior to admission
Advanced Parkinson's disease
Aspiration syndrome
Orthostatic hypotension neurogenic type pain
Prior history of hypertension
CAD with history of stent.
Paroxysmal atrial fibrillation on propafenone not on anticoagulation due to fall risk.
Chronic normocytic anemia
Dyslipidemia.
Anxiety/depression
History of skin cancer
PLAN:
Multifocal aspiration pneumonia
Sepsis POA (leukocytosis, tachycardia)
CT chest Multifocal pneumonia, greatest in the basilar right lower lobe, also involving the basilar left lower lobe and the posterior right upper lobe.
Recent hospitalization with right-sided aspiration pneumonia and sepsis.
Recent VSE 11/07 confirming aspiration risk with recommendation for pur�ed diet and thin liquids
Repeat speech and swallow evaluation; keep NPO At present
empiric cefepime + Flagyl, ID eval appreciated, abx narrowed to Ceftriaxone converted to cefdinir following PEG placement, 12/15 last day abx therapy total 7 days,
GI eval appreciated PEG placed 12/13 Tube feeds initiated 12/14
tolerating tube feeds, IVF support completed
Multi-drug resistant Klebsiella UTI
Urinalysis with pyuria
Recent urine culture from ED 11/22/2024 with Klebsiella.
ID eval appreciated Cefepime switched to Ceftriaxone then Cefdinir 12/15 last day abx therapy total 7 days
Bladder scan for retention
advanced Parkinson disease continue Sinemet when able
Severe Protein Calorie Malnutrition
Nutrition Support via PEG to be started when ready to use
Possible Toxic Metabolic Encephalopathy 2/2 infection as above
cont Tx as above
CAD with stents
Dyslipidemia
Paroxysmal atrial fibrillation
Not on anticoagulation due to fall risk.
Continue propafenone and ASA
hold statin at this time d/t cachexia, lipid panel appreciated wnl
Cardio eval appreciated
Essential hypertension
Orthostatic hypotension neurogenic type in a patient with Parkinson's disease.
manual blood pressure readings only
midodrine resumed at 5mg TID w/ holding parameters
Hypokalemia
Hypophosphatemia
-monitor and replete as necessary
Mild Hyponatremia
-monitor
Constipation
-bowel regimen
-Abd X-ray evaluation stool burden
PT/OT/PMR eval appreciated SNF rehab
DVT ppx: Lovenox
Code: Full
Discussed with patient and patient's Kristyn
I spent a total of 45 minutes with the patient or on the floor. More than 50% of this time involved counseling and coordination of care.
Anticipated Discharge: 24 - 48 hours
Subjective/Interval History
-
Date of Service: December 16, 2024
Fluctuating mental status throughout the day. At times very difficult to arouse. Conversant largely coherent when alert. No acute distress, appears comfortable, tolerating tube feeds.
Objective Data
-
Labs:
Laboratory Results
12/16/24
06:00
WBC Pending
Hgb Pending
Hct Pending
Plt Count Pending
Sodium Pending
Potassium Pending
Chloride Pending
Carbon Dioxide Pending
BUN Pending
Creatinine Pending
Glucose Pending
Calcium Pending
Vital Signs:
Vital Signs
Temp Pulse Resp BP Pulse Ox
97.6 F 85 16 129/79 98
12/16/24 04:05 12/16/24 04:05 12/16/24 04:05 12/16/24 04:05 12/16/24 04:05
I&O
12/14/24 12/15/24 12/16/24
06:59 06:59 06:59
Intake Total 1060 / 1060 765 / 765
Balance 1060 / 1060 765 / 765
[2024-12-16] MEDS: LOW STRENGTH ASPIRIN 81 MG TUBE (07:55)
[2024-12-16] MEDS: RYTHMOL 150 MG TUBE ×3 (07:55→21:33)
[2024-12-16] MEDS: KCL ELIXIR 20 MEQ TUBE (07:55)
[2024-12-16] MEDS: MIRALAX 17 GRAMS TUBE (07:55)
[2024-12-16] MEDS: MAGNESIUM OXIDE 400 MG TUBE (07:55)
[2024-12-16] MEDS: SENOKOT-S 1 TABLET TUBE ×2 (07:55→19:59)
[2024-12-16] MEDS: NSS (PRESERVATIVE FREE) 10 ML IV (07:56)
[2024-12-16] MEDS: PROTONIX IV 40 MG IV (07:56)
[2024-12-16 08:54] LABS: Hematocrit 28.4 % (39.0-52.0); Hemoglobin 9.9 g/dL (13.0-18.0); Mean Corp Hgb Conc. 34.9 g/dL (33.0-37.0); Mean Corpuscular Volume 90.4 fL (80.0-94.0); Platelet Count 279 10^3/uL (130-400); Red Cell Dist. Width 14.6 % (11.5-14.5)
[2024-12-16 09:39] LABS: Blood Urea Nitrogen 13 mg/dl (9-20); Calcium 8.6 mg/dl (8.4-10.2); Carbon Dioxide 30 mmol/L (22-30); Chloride 99 mmol/L (98-107); Estimated Creatinine Clearance 65 ml/min; Glucose 100 mg/dl (70-99); Magnesium 2.0 mg/dl (1.6-2.3); Potassium 4.1 mmol/L (3.5-5.1); Sodium 133 mmol/L (135-145); eGFR > 60.00
--- NOTE | 2024-12-16 11:21 | CON.MD ---
Consultation - Medical
-
Chief Complaint:�Debility after pneumonia and sepsis
�
History of Present Illness:�74 y/o M PMH (CAD (status post stents x 2 in 12/2012), Afib, HTN, Inguinal Hernia Repair, Parkinson's disease) with recent hospital and acute rehab stays 10/16/2024 - 11/29/24 with progressive confusion/hallucinations and
falls from a UTI. Also had left rib fractures from fall. Also found to have stercoral colitis, metabolic encephalopathy, significant orthostatic hypotension, aspiration pneumonia with hypoxia and encephalopathy, severe dysphagia.
He presented to [facility] on 12/09/2024 with generalized fatigue cough and right flank pain. Repeat urinalysis with pyuria and started on antibiotics. Also concern for recurrent aspiration pneumonia/pneumonitis started on antibiotics.
Patient was made n.p.o. and a PEG was placed on 12/13/[address] Flynn Ramirez.
Patient is having difficulty interacting during the visit today with keeping his eyes closed. He will answer some questions but mostly sleeping. His is at bedside and provided some interim information for me from his discharge at [place]. At
home he was functioning with the hospital bed at home. There was a lot of time and effort to help take care of him at home.
The original problem he had prior to his urinary tract infection concern was urinary frequency. He had been started on Myrbetriq but then was taken off of it. Each of his recent hospital stay seems to have originated with a urinary tract infection
leading to him being more weak and then resulting in aspiration and difficulty with swallowing.
Past Medical History: Parkinson's disease, A-fib, CAD, skin cancer, stercoral colitis, UTI
Procedure History: Right inguinal hernia repair, cardiac stents x2 12/2012
Family History: None pertinent
�
Social History:�
Functional Level Premorbidly:�Independent with all activities�
Functional Level Currently:�Min assist grooming, dependent lower extremity self-care, max assist bed mobility. Moderate to maximal assistance transfers.
�
Tobacco:�Denies all��
Alcohol:�Denies��
Drug use:�Denies��
�
Lives With:
24-hour assistance available: yes
Number of floors: 2
# steps to enter: 6
# steps to second floor: full flight
Potential First Floor Set Up: yes
Driving: Yes
Occupation: retired
�
�
Allergies:�
Allergy/AdvReac Type Severity Reaction Status Date / Time
Penicillins Allergy 'a long Verified 12/12/24 15:24
time ago'
�
Review of Systems:��
Constitutional: (x) abNormal _fatigue
Eye: (x) Normal _
Ear/Nose/Throat: (x) abNormal _difficulty swallowing requiring PEG tube
Respiratory: (x) abNormal _recent aspiration pneumonia
Cardiovascular: (x) Normal _
Gastrointestinal: (x) abNormal _history of constipation
Genitourinary: (x) Normal _
Musculoskeletal: (x) Normal _
Integumentary: (x) Normal _
Neurologic: (x) abNormal _Parkinson's disease
Psychiatric: (x) Normal _
Endocrine: (x) Normal _
Hematologic/Lymphatic: (x) Normal _
Allergic/Immunologic: (x) Normal _
�
Medications:�
Active Current Visit Medication List
Category Date Time Status
0.9% Sodium Chloride [Nss (Preservative Free)] Med 12/13/24 14:00 Active
10 ml IV DAILY
Aspirin Chewable [Low Strength Aspirin] Med 12/14/24 08:00 Active
81 mg TUBE DAILY
Bisacodyl [Dulcolax] Med 12/11/24 12:30 Active
10 mg RECTAL DAILYPRN PRN
Carbidopa/Levodopa [Sinemet 25-100] Med 12/14/24 07:31 Active
1 tablet TUBE QID@0600,1100,1600,2100
Docusate W/Senna [Senokot-S] Med 12/14/24 08:00 Active
1 tablet TUBE BID
Enoxaparin Sodium [Lovenox] Med 12/09/24 18:00 Active
40 mg SC QPM
Flush (0.9% Sodium Chloride) [Flush (Nss)] Med 12/09/24 15:00 Active
See Dose Instructions IV PER PROTOCOL
Magnesium Oxide Med 12/14/24 12:45 Active
400 mg TUBE DAILY
Midodrine [ProAmatine] Med 12/09/24 15:00 Hold
10 mg PO TID@0800,1300,1800
Pantoprazole [Protonix IV] Med 12/13/24 14:00 Active
40 mg IV DAILY
Polyethylene Glycol Powder [Miralax] Med 12/14/24 08:00 Active
17 grams TUBE DAILY
Potassium Chloride 10% Elixir [KCl Elixir] Med 12/14/24 13:00 Active
20 meq TUBE DAILY
Propafenone HCl [Rythmol] Med 12/14/24 10:00 Active
150 mg TUBE TID
�
Vitals:�
Temp Pulse Resp BP Pulse Ox
98.3 F 84 17 152/81 98
12/16/24 08:00 12/16/24 08:00 12/16/24 08:00 12/16/24 08:00 12/16/24 08:00
Height 5 ft 8 in
Actual Weight 49.073 kg
Body Mass Index (BMI) 16.5
�
Physical Exam:�
General Appearance/Observation: Thin male with generalized muscle atrophy male in no apparent distress.
Pain/Comfort Assessment: Denies
Mood/Affect: Flat, eyes closed talks but appears very tired
Integumentary/Operative Site: PEG tube
Eyes: Conjunctiva/Lids: normal ��� Pupils: pupils equal round and reactive to light
Ears/Nose/Throat: oral mucosa dry,�difficulty seeing throat with not opening his mouth much.����
Neck: No muscle spasm or tenderness
Cardiovascular: Heart: regular, no murmur
Pulses: dorsalis pedis 2+ bilaterally
Respiratory: Respiratory Effort/Chest Expansion: normal.������ Auscultation: Clear to auscultation bilaterally
Gastrointestinal: no distension, normal abdominal bowel sounds, mildly tender around PEG tube site with dressing intact
Genitourinary: Has [place] catheter with yellow urine
Rectal Exam: Deferred
Extremities: Edema: None Cyanosis: None Trophic changes: None
Neurology Exam:
Orientation: Tired, lethargic, does not open his eyes up to have conversation. Not able to get orientation questions answered
Memory: Unable to assess with fatigue and minimal question answering
Comprehension: Unable to assess
Two step command: Unable to assess
Cranial Nerves:
�� CNII: Pupillary light reflex: Intact��� Visual Field: Unable to assess with patient participation limitation
�� CN III, IV, : Extraocular muscles: Unable to assess with patient participation limitation
�� CN V: Facial Sensation at Forehead: Intact , Maxilla: Intact, Mandible: Intact
�� CN VII: Facial movement: Symmetric
�� CN VIII: Hearing: Normal
�� CN IX/X: Speech & swallow: Mild hypophonia, dysphagia
�� CN XI: Shoulder shrug: Symmetric
�� CN XII: Tongue protrusion: Midline
Sensory:
�� Light touch: Intact in bilateral upper and lower extremities
Reflexes:
�� Biceps: 2+ bilaterally
�� Brachioradialis: 2+ bilaterally
�� Triceps: 2+ bilaterally
�� Patellar: 2+ bilaterally
�� Achilles: 2+ bilaterally
�� Babinski: Downgoing bilaterally
�� Clonus: None
�� David: Negative bilaterally
Cerebellar: Dysmetria/Ataxia: Not able to test with patient not opening his eyes much
Musculoskeletal: Motor: (Manual muscle scale 0-5) generally 4/4 bilateral upper and lower extremity except for 3/5 bilateral hips
Tone: Mild increased tone in all extremities
Range of Motion: Passively within functional limits in all extremities
�
Lab Results
Laboratory Data
12/16/24 06:52
12/16/24 06:52
Total Bilirubin Cancelled 09/26/25 09:31
AST Cancelled 12/09/24 09:31
ALT Cancelled 12/09/24 09:31
Alkaline Phosphatase Cancelled 12/09/24 09:31
Total Protein Cancelled 12/09/24 09:31
Albumin Cancelled 12/09/24 09:31
�
Diagnostic Results:�as per HPI�
�
Assessment
74 y/o M PMH (CAD with stents, Afib, HTN, Inguinal Hernia Repair, Parkinson's disease, metabolic encephalopathy, stercoral colitis, frequent UTI, significant orthostatic hypotension, aspiration pneumonia) with recurrent UTI and aspiration pneumonia
status post PEG tube 12/13/2024 resulting in ADL, speech, swallow, and ambulatory dysfunction.�
�
Plan�
PM&R�PT/OT to increase independence with ADLs, improve balance, coordination, endurance, strength, mobility, community reintegration, decreased burden of care on others and family education.�
�
Parkinson's disease: Sinemet 1 tablet @0600,1100, 1600,2100. Follow-up with neurology as outpatient.
Orthostasis: Thigh-high teds with midodrine 10 mg at 700, 1200, 1800. Has couple elevated blood pressures, recommend manual blood pressures for better accuracy in patient with Parkinson's disease.
Dysphagia: speech, n.p.o. with PEG tube placed 12/13/2024
Dysarthria: speech
Cognitive impairment: Speech/OT
HTN: Midodrine held with hypertension. Patient has history of severe orthostatic hypotension and likely needs midodrine. Concern for syncope with standing. Suggest taking manual blood pressures and adding an evening dose of amlodipine 5 mg at
night if patient is having hypertension. Continue with TENISHA stockings when out of bed.
Coronary artery disease with stents: Aspirin 81 mg po daily, pravastatin 80 mg po qHS, beta-ellen
Hyperlipidemia-not currently on medication
Atrial fibrillation:� propafenone 150 mg po tid, not on anticoagulation�due to falls risk��
Hyponatremia-has remained in the low 130 range even in prior hospital stay.
Normocytic Anemia: Had normal B12, folate, ferritin, iron saturation, iron level. Had low TIBC.
Aspiration pneumonia: Completed 7 day course of cefdinir per ID.
FEN: Tube feeding
Poor Appetite with weight loss: Tube feeding via PEG tube this admission. Should help with his overall hydration and energy level which will help his overall functional improvement.
Pain: acetaminophen as needed.
Psych: Was on escitalopram 5 mg po q HS, now stopped.
Sleep�melatonin 5 mg bedtime as needed
Skin: monitor for pressure sores/rashes/lesions.
Bowel/constipation: Had stercoral colitis likely sequelae from constipation related to Parkinson's/medications.
Suggest continuing a bowel program: Docusate 100 mg twice a day, Senokot 2 tablets twice daily with as needed bisacodyl based upon recent long hospital stay bowel program
-Suggest abdominal x-ray to evaluate stool burden.
Bladder: No retention concern.
Klebsiella UTI: Completed course of cefdinir per ID. Has had multiple UTIs. Suggest urology evaluation.
GI Prophylaxis: not on Pantoprazole. no acid reflux issues
DVT Prophylaxis: mechanical and enoxaparin
Pulmonary: Incentive spirometry
Safety: Continue to reinforce assistance with all transfers.
Functional and Medical Goals:�Modified Independent with ADL�s, ambulation, transfers�
Discharge Destination:�correction facility�
Overall patient has had 3 urinary tract infections which seem to have started off his generalized decline from his baseline with his Parkinson's disease. It seems as he gets more lethargic he has more difficulty with swallowing, ends up having
aspiration which makes him further ill and further decompensated. I think now that he has an easy access for nutrition and hydration that this needs to be optimized to help him have the strength to be able to participate in therapy. I think going
to a snf facility at this time would be the best and most appropriate option. If he continues to do really well in skilled and could benefit from acute inpatient rehabilitation after that that might be an option. Hard to know how much
of his current symptoms are related to the recurrent UTIs and aspiration pneumonia causing significant debility versus a worsening of his Parkinson symptoms and disease process. Spoke very directly with patient and his about expectations
moving forward, the need for increased help which his had not really established yet at home despite our conversations at [place]. Quality of life also discussed. Hopefully with better nutrition and hydration he will continue to improve. I do
think it is vital for urology to see him and see if there are any interventions that can be done to help limit the recurrent UTIs which seem to lead to his traumatic decline and further complications. All questions answered.
A total of 80 minutes were spent with the patient preparing for the evaluation, obtaining history, performing examination and evaluation, counseling, data review, case management, care coordination, grey stock recorder, and EMR documentation.
Summary of recommendations:
-�Discharge Destination:�correction facility
Orthostasis: Thigh-high teds with midodrine 10 mg at 700, 1200, 1800. Has couple elevated blood pressures, recommend manual blood pressures for better accuracy in patient with Parkinson's disease.
Dysphagia: n.p.o. with PEG tube placed 12/13/2024
HTN: Midodrine held with hypertension. Patient has history of severe orthostatic hypotension and likely needs midodrine. Concern for syncope with standing. Suggest taking manual blood pressures and adding an evening dose of amlodipine 5 mg at
night if patient is having hypertension. Continue with TENISHA stockings when out of bed.
Bowel/constipation: Had stercoral colitis in past likely sequelae from constipation related to Parkinson's/medications. Suggest abdominal x-ray to evaluate stool burden.
Suggest continuing a bowel program: Docusate 100 mg twice a day, Senokot 2 tablets twice daily with as needed bisacodyl based upon recent long hospital stay bowel program
Bladder: No retention concern.
Klebsiella UTI: Completed course of cefdinir per ID. Has had multiple UTIs. Suggest urology evaluation.
�
Thank you for allowing me to care for your patient. Please contact me with any questions or concerns.
Consultation
-
Date/Time Consultation Requested: 12/15/2024
Date/Time Consultation Performed: 12/16/2024
Requesting Provider: Dr. Alonso Lobo
Performing Provider: Dr. Bob Sanon
Reason for Consultation: Debility after pneumonia and sepsis
--- NOTE | 2024-12-16 13:33 | W.PN.ID1 ---
Date of Service
Date of Service: December 16, 2024
Today's Communication
completed the course of therapy
Assessment / Plan
Aspiration Pneumonia - multifocal
Possible UTI due to klebsiella
Posterior L rib fractures
Penicillin allergy - tolerates cephalosporins
- completed the 7 day course of treatment with cefdinir 12/09-12/15
- aspiration precautions
- follow clinically
Chief Complaint
-: Other (aspiration pneumonia)
Subjective / Review of Systems
afebrile
bp stable
more alert and conversant today
Vital Signs / Physical Exam
Vital Signs
Vital Signs
Temp Pulse Resp BP Pulse Ox
98.3 F 84 17 152/81 98
12/16/24 08:00 12/16/24 08:00 12/16/24 08:00 12/16/24 08:00 12/16/24 08:00
Physical Exam
Constitutional: No Acute Distress
Cardiovascular: Regular Rate and S1/S2; Negative Murmur or Rub
Pulmonary: Clear and Symmetric; Negative Wheezes or Rales
Gastrointestinal: Soft, Non Tender, Non Distended and Normal Bowel Sounds
Skin: Warm and Dry; Negative Rash or Jaundice
Objective Data
Lab Data
Lab Results
12/16/24 06:52
12/16/24 06:52
Estimated Creat Clear 65 ml/min 12/16/24 06:52
Lactic Acid Cancelled 12/09/24 15:00
Total Bilirubin Cancelled 12/09/24 09:31
AST Cancelled 12/09/24 09:31
ALT Cancelled 12/09/24 09:31
Alkaline Phosphatase Cancelled 12/09/24 09:31
Most recent labs reviewed.
Micro Results:
12/09/24 11:33 Blood Culture - Final
Blood/Venous No Growth - Final Report
12/09/24 11:33 Blood Culture - Final
Blood/Venous No Growth - Final Report
12/09/24 11:38 Urine Culture - Final
Urine Klebsiella aerogenes
--- NOTE | 2024-12-16 16:35 | PTCARENOTE ---
Assumed care of pt from previous RN @ 1500. Assessment remains unchanged.
[2024-12-16] MEDS: LOVENOX 40 MG SC (17:19)
[2024-12-16] MEDS: FLEET MINERAL OIL ENEMA 133 ML RECTAL (20:00)
[2024-12-17 02:59] VITALS: BP 138/75
[2024-12-17 03:10] VITALS: BP 130/62
[2024-12-17] MEDS: SINEMET 25-100 1 TABLET TUBE ×4 (05:49→21:01)
[2024-12-17 06:00] VITALS: BMI 16.9
[2024-12-17 07:00] VITALS: BP 134/65
[2024-12-17 07:35] LABS: Hematocrit 28.7 % (39.0-52.0); Hemoglobin 10.0 g/dL (13.0-18.0); Mean Corp Hgb Conc. 34.8 g/dL (33.0-37.0); Mean Corpuscular Volume 88.9 fL (80.0-94.0); Platelet Count 276 10^3/uL (130-400); Red Cell Dist. Width 14.5 % (11.5-14.5)
--- NOTE | 2024-12-17 07:45 | W.PN.HOSP.TC ---
Today's Communication/Plan
-
ST/PT/OT
cont tube feeds
Midodrine w/ holding parameters
check orthostatic vitals
Discharge planning SNF rehab
Assessment / Plan
Assessment / Plan
Physical Exam
General: Appears Chronically Ill, cachectic appearance
HEENT: Normocephalic and Atraumatic
Respiratory: clear to auscultation b/l
GI: Soft nontender bowel sounds present
Ext: no cyanosis or edema
Neuro: fluctuant mental status throughout the day, lethargic at, times difficult to arouse.
Psych: Calm
IMPRESSION:
74 years old male with Parkinson's disease presents with overall declining, lethargy, poor oral intake, persistent and productive cough, intermittent right flank pain.
Concern for recurrent aspiration pneumonia with small right lower lobe infiltrate seen on CT images.
Severe aspiration syndrome secondary to Parkinson's disease
Gram negative UTI
Conditions prior to admission
Advanced Parkinson's disease
Aspiration syndrome
Orthostatic hypotension neurogenic type pain
Prior history of hypertension
CAD with history of stent.
Paroxysmal atrial fibrillation on propafenone not on anticoagulation due to fall risk.
Chronic normocytic anemia
Dyslipidemia.
Anxiety/depression
History of skin cancer
PLAN:
Multifocal aspiration pneumonia
Sepsis POA (leukocytosis, tachycardia)
CT chest Multifocal pneumonia, greatest in the basilar right lower lobe, also involving the basilar left lower lobe and the posterior right upper lobe.
Recent hospitalization with right-sided aspiration pneumonia and sepsis.
Recent VSE 11/07 confirming aspiration risk with recommendation for pur�ed diet and thin liquids
Repeat speech and swallow evaluation; keep NPO At present
empiric cefepime + Flagyl, ID eval appreciated, abx narrowed to Ceftriaxone converted to cefdinir following PEG placement, 12/15 last day abx therapy total 7 days,
GI eval appreciated PEG placed 12/13 Tube feeds initiated 12/14
tolerating tube feeds, IVF support completed
Multi-drug resistant Klebsiella UTI
Urinalysis with pyuria
Recent urine culture from ED 11/22/2024 with Klebsiella.
ID eval appreciated Cefepime switched to Ceftriaxone then Cefdinir 12/15 last day abx therapy total 7 days
Bladder scan for retention
advanced Parkinson disease continue Sinemet when able
Severe Protein Calorie Malnutrition
Nutrition Support via PEG to be started when ready to use
Possible Toxic Metabolic Encephalopathy 2/2 infection as above
cont Tx as above
CAD with stents
Dyslipidemia
Paroxysmal atrial fibrillation
Not on anticoagulation due to fall risk.
Continue propafenone and ASA
hold statin at this time d/t cachexia, lipid panel appreciated wnl
Cardio eval appreciated
Essential hypertension
Orthostatic hypotension neurogenic type in a patient with Parkinson's disease.
manual blood pressure readings only
midodrine resumed at 5mg TID w/ holding parameters
Hypokalemia
Hypophosphatemia
-monitor and replete as necessary
Mild Hyponatremia
-monitor
Constipation
-bowel regimen
-Abd X-ray eval appreciated mild fecal material rectum
PT/OT/PMR eval appreciated SNF rehab
DVT ppx: Lovenox
Code: Full
Discussed with patient, patient's Kristyn, daughter Marilyn
I spent a total of 45 minutes with the patient or on the floor. More than 50% of this time involved counseling and coordination of care.
Anticipated Discharge: 24 - 48 hours
Subjective/Interval History
-
Date of Service: December 17, 2024
Seen and examined at bedside in no acute distress resting comfortably in bed. Lethargic but arousable. Oriented x 3. Kristyn and daughter Marilyn present during evaluation.
Objective Data
-
Labs:
Laboratory Results
12/17/24
07:10
WBC 6.4
Hgb 10.0 L
Hct 28.7 L
Plt Count 276
Sodium Pending
Potassium Pending
Chloride Pending
Carbon Dioxide Pending
BUN Pending
Creatinine Pending
Glucose Pending
Calcium Pending
Vital Signs:
Vital Signs
Temp Pulse Resp BP Pulse Ox
97.9 F 76 16 130/62 98
12/17/24 03:10 12/17/24 03:10 12/17/24 03:10 12/17/24 03:10 12/17/24 03:10
I&O
12/16/24 12/17/24 12/18/24
06:59 06:59 06:59
Intake Total 765 / 765 1610 / 1610
Output Total 1000 / 1000
Balance 765 / 765 610 / 610
[2024-12-17 07:57] LABS: Blood Urea Nitrogen 17 mg/dl (9-20); Calcium 8.6 mg/dl (8.4-10.2); Carbon Dioxide 30 mmol/L (22-30); Chloride 97 mmol/L (98-107); Estimated Creatinine Clearance 78 ml/min; Glucose 106 mg/dl (70-99); Magnesium 2.1 mg/dl (1.6-2.3); Potassium 4.2 mmol/L (3.5-5.1); Sodium 130 mmol/L (135-145); eGFR > 60.00
[2024-12-17] MEDS: MIRALAX 17 GRAMS TUBE (07:58)
[2024-12-17] MEDS: RYTHMOL 150 MG TUBE ×3 (07:58→21:01)
[2024-12-17] MEDS: SENOKOT-S 1 TABLET TUBE ×2 (07:58→20:59)
[2024-12-17] MEDS: MAGNESIUM OXIDE 400 MG TUBE (07:58)
[2024-12-17] MEDS: KCL ELIXIR 20 MEQ TUBE (07:58)
[2024-12-17] MEDS: LOW STRENGTH ASPIRIN 81 MG TUBE (07:58)
[2024-12-17] MEDS: NSS (PRESERVATIVE FREE) 10 ML IV (07:59)
[2024-12-17] MEDS: PROTONIX IV 40 MG IV (08:01)
[2024-12-17 11:08] VITALS: BP 138/84
--- NOTE | 2024-12-17 13:37 | CM ---
Addendum entered by Milagro Gonzalez 12/17/24 14:29:
Spouse also agreeable to a referral to [facility].
Original Note:
Chart reviewed and patient was seen by [facility] and they are recommending skilled facilities, hospice case manager met with patient and spoke and reviewed options Medicare.gov list provided and blake sorenson spouse have selected [facility]. Referral sent to [facility].
Plan; Skilled placement referral sent to [facility].
[2024-12-17] MEDS: LOVENOX 40 MG SC (16:28)
[2024-12-17 19:30] VITALS: BP 152/78
[2024-12-17 23:39] VITALS: BP 94/58
[2024-12-18] VITALS (11 sets, daily range): BP systolic 69–157; BP diastolic 43–86; PULSE 81–93; BMI 17.1
--- NOTE | 2024-12-18 03:50 | W.PN.UPDATE ---
Update Note
Progress Note Update
94/54. HR 68, patient asymptomatic. will give one dose of Midodrine 5mg POx1
BP 132/68, patient resting in bed without any new complaints.
[2024-12-18] MEDS: SINEMET 25-100 1 TABLET TUBE ×4 (05:30→20:26)
[2024-12-18 07:33] LABS: Hematocrit 31.8 % (39.0-52.0); Hemoglobin 11.0 g/dL (13.0-18.0); Mean Corp Hgb Conc. 34.6 g/dL (33.0-37.0); Mean Corpuscular Volume 89.1 fL (80.0-94.0); Platelet Count 310 10^3/uL (130-400); Red Cell Dist. Width 14.6 % (11.5-14.5)
--- NOTE | 2024-12-18 07:59 | W.PN.HOSP.TC ---
Today's Communication/Plan
-
Discharge planning SNF rehab
cont tube feeds, FWF decreased to 20 cc/h d/t Hyponatremia
Midodrine titrated back up to 10 mg TID holding parameters liberalized (SBP>170)
Abd Binder, Thigh high TEDs when out of bed
ST/PT/OT
Assessment / Plan
Assessment / Plan
Physical Exam
General: Appears Chronically Ill, cachectic appearance
HEENT: Normocephalic and Atraumatic
Respiratory: clear to auscultation b/l
GI: Soft nontender bowel sounds present
Ext: no cyanosis or edema
Neuro: fluctuant mental status throughout the day, lethargic at, times difficult to arouse. AOx3 when alert, paucity of speech, can be difficult to understand d/t dysarthria, sometimes speech is very fluent
Psych: Calm
IMPRESSION:
74 years old male with Parkinson's disease presents with overall declining, lethargy, poor oral intake, persistent and productive cough, intermittent right flank pain.
Concern for recurrent aspiration pneumonia with small right lower lobe infiltrate seen on CT images.
Severe aspiration syndrome secondary to Parkinson's disease
Gram negative UTI
Conditions prior to admission
Advanced Parkinson's disease
Aspiration syndrome
Orthostatic hypotension neurogenic type pain
Prior history of hypertension
CAD with history of stent.
Paroxysmal atrial fibrillation on propafenone not on anticoagulation due to fall risk.
Chronic normocytic anemia
Dyslipidemia.
Anxiety/depression
History of skin cancer
PLAN:
Multifocal aspiration pneumonia
Sepsis POA (leukocytosis, tachycardia)
CT chest Multifocal pneumonia, greatest in the basilar right lower lobe, also involving the basilar left lower lobe and the posterior right upper lobe.
Recent hospitalization with right-sided aspiration pneumonia and sepsis.
Recent VSE 11/07 confirming aspiration risk with recommendation for pur�ed diet and thin liquids
Repeat speech and swallow evaluation; keep NPO At present
empiric cefepime + Flagyl, ID eval appreciated, abx narrowed to Ceftriaxone converted to cefdinir following PEG placement, 12/15 last day abx therapy total 7 days,
GI eval appreciated PEG placed 12/13 Tube feeds initiated 12/14
tolerating tube feeds, IVF support completed
Multi-drug resistant Klebsiella UTI
Urinalysis with pyuria
Recent urine culture from ED 11/22/2024 with Klebsiella.
ID eval appreciated Cefepime switched to Ceftriaxone then Cefdinir 12/15 last day abx therapy total 7 days
Bladder scan for retention
advanced Parkinson disease continue Sinemet when able
Severe Protein Calorie Malnutrition
Nutrition Support via PEG to be started when ready to use
Possible Toxic Metabolic Encephalopathy 2/2 infection as above
cont Tx as above
CAD with stents
Dyslipidemia
Paroxysmal atrial fibrillation
Not on anticoagulation due to fall risk.
Continue propafenone and ASA
dc statin at this time d/t cachexia, lipid panel appreciated wnl
Cardio eval appreciated
Essential hypertension
Orthostatic hypotension neurogenic type in a patient with Parkinson's disease.
manual blood pressure readings only
midodrine resumed, titrated back up to 10 mg TID w/ more liberal holding parameters (SBP>170)
Abd binder, TEDs thigh high when out of bed
Hypokalemia
Hypophosphatemia
-monitor and replete as necessary
Mild Hyponatremia
-monitor
-free water flushes decreased from 25 to 20 cc/h
Constipation
-bowel regimen
- 12/16 Abd X-ray eval appreciated mild fecal material rectum
PT/OT/PMR eval appreciated SNF rehab
DVT ppx: Lovenox
Code: Full
Discussed with patient and patient's Kristyn
I spent a total of 45 minutes with the patient or on the floor. More than 50% of this time involved counseling and coordination of care.
Anticipated Discharge: 24 - 48 hours
Subjective/Interval History
-
Date of Service: December 18, 2024
No acute distress, sitting up comfortably in chair, AOx3 conversant to an extent, limited by dysarthria, difficult to understand at times.
Objective Data
-
Labs:
Laboratory Results
12/18/24
07:20
WBC 7.5
Hgb 11.0 L
Hct 31.8 L
Plt Count 310
Sodium Pending
Potassium Pending
Chloride Pending
Carbon Dioxide Pending
BUN Pending
Creatinine Pending
Glucose Pending
Calcium Pending
Vital Signs:
Vital Signs
Temp Pulse Resp BP Pulse Ox
97.9 F 68 16 132/68 99
12/18/24 03:29 12/18/24 03:29 12/18/24 03:29 12/18/24 03:29 12/18/24 03:29
I&O
12/17/24 12/18/24 12/19/24
06:59 06:59 06:59
Intake Total 1610 / 1610
Output Total 1000 / 1000 300 / 300
Balance 610 / 610 -300 / -300
[2024-12-18 08:12] LABS: Blood Urea Nitrogen 19 mg/dl (9-20); Calcium 8.8 mg/dl (8.4-10.2); Carbon Dioxide 30 mmol/L (22-30); Chloride 95 mmol/L (98-107); Estimated Creatinine Clearance 68 ml/min; Glucose 100 mg/dl (70-99); Magnesium 2.3 mg/dl (1.6-2.3); Potassium 4.6 mmol/L (3.5-5.1); Sodium 129 mmol/L (135-145); eGFR > 60.00
[2024-12-18] MEDS: NSS (PRESERVATIVE FREE) 10 ML IV (08:20)
[2024-12-18] MEDS: MIRALAX 17 GRAMS TUBE (08:20)
[2024-12-18] MEDS: RYTHMOL 150 MG TUBE ×3 (08:20→21:08)
[2024-12-18] MEDS: MAGNESIUM OXIDE 400 MG TUBE (08:20)
[2024-12-18] MEDS: LOW STRENGTH ASPIRIN 81 MG TUBE (08:20)
[2024-12-18] MEDS: KCL ELIXIR 20 MEQ TUBE (08:20)
[2024-12-18] MEDS: SENOKOT-S 1 TABLET TUBE ×2 (08:20→20:26)
[2024-12-18] MEDS: PROTONIX IV 40 MG IV (08:21)
[2024-12-18] MEDS: LOVENOX 40 MG SC (16:25)
[2024-12-19 01:47] VITALS: BMI 17.1
[2024-12-19 02:49] VITALS: BP 120/56
[2024-12-19 06:00] VITALS: BMI 17.7
[2024-12-19] MEDS: SINEMET 25-100 1 TABLET TUBE ×4 (06:04→20:29)
[2024-12-19 07:12] LABS: Blood Urea Nitrogen 22 mg/dl (9-20); Calcium 8.9 mg/dl (8.4-10.2); Carbon Dioxide 33 mmol/L (22-30); Chloride 95 mmol/L (98-107); Estimated Creatinine Clearance 61 ml/min; Glucose 122 mg/dl (70-99); Magnesium 2.3 mg/dl (1.6-2.3); Potassium 5.1 mmol/L (3.5-5.1); Sodium 130 mmol/L (135-145); eGFR > 60.00
[2024-12-19 07:16] LABS: Hematocrit 30.9 % (39.0-52.0); Hemoglobin 10.6 g/dL (13.0-18.0); Mean Corp Hgb Conc. 34.3 g/dL (33.0-37.0); Mean Corpuscular Volume 88.8 fL (80.0-94.0); Platelet Count 323 10^3/uL (130-400); Red Cell Dist. Width 14.6 % (11.5-14.5)
[2024-12-19] MEDS: KCL ELIXIR 20 MEQ TUBE (08:39)
[2024-12-19] MEDS: SENOKOT-S 1 TABLET TUBE ×2 (08:40→20:27)
[2024-12-19] MEDS: MAGNESIUM OXIDE 400 MG TUBE (08:41)
[2024-12-19] MEDS: LOW STRENGTH ASPIRIN 81 MG TUBE (08:41)
[2024-12-19] MEDS: RYTHMOL 150 MG TUBE ×3 (08:41→23:30)
[2024-12-19] MEDS: MIRALAX 17 GRAMS TUBE (08:43)
[2024-12-19] MEDS: NSS (PRESERVATIVE FREE) 10 ML IV (08:45)
[2024-12-19] MEDS: PROTONIX IV 40 MG IV (08:45)
--- NOTE | 2024-12-19 11:15 | W.PN.ID1 ---
Date of Service
Date of Service: December 19, 2024
Today's Communication
relapse of leukocytosis
repeat CXR
restart cefdinir x 10 more days
Assessment / Plan
Relapse of Leukocytosis
Midodrine Requirement - (new)
- repeat CXR
- suspect ongoing aspiration
- start cefdinir x 10 more days
Aspiration Pneumonia - multifocal
Possible UTI due to klebsiella
Posterior L rib fractures
Penicillin allergy - tolerates cephalosporins
Chief Complaint
-: Other (aspiration pneumonia)
Subjective / Review of Systems
afebrile
bp stable
only complaint is cough
no sinus tendnerness, sore throat, abdominal pain, dysuria or tenderness over his lines
Vital Signs / Physical Exam
Vital Signs
Vital Signs
Temp Pulse Resp BP Pulse Ox
98.5 F 80 16 120/56 98
12/19/24 07:00 12/19/24 07:00 12/19/24 07:00 12/19/24 02:49 12/19/24 07:00
Physical Exam
Constitutional: No Acute Distress
Cardiovascular: Regular Rate and S1/S2; Negative Murmur or Rub
Pulmonary: Clear and Symmetric; Negative Wheezes or Rales
Gastrointestinal: Soft, Non Tender, Non Distended and Normal Bowel Sounds
Skin: Warm and Dry; Negative Rash or Jaundice
Objective Data
Lab Data
Lab Results
12/19/24 06:37
12/19/24 06:37
Estimated Creat Clear 61 ml/min 12/19/24 06:37
Lactic Acid Cancelled 12/09/24 15:00
Total Bilirubin Cancelled 12/09/24 09:31
AST Cancelled 12/09/24 09:31
ALT Cancelled 12/09/24 09:31
Alkaline Phosphatase Cancelled 12/09/24 09:31
Most recent labs reviewed.
Micro Results:
12/09/24 11:33 Blood Culture - Final
Blood/Venous No Growth - Final Report
12/09/24 11:33 Blood Culture - Final
Blood/Venous No Growth - Final Report
12/09/24 11:38 Urine Culture - Final
Urine Klebsiella aerogenes
[2024-12-19] MEDS: OMNICEF 300 MG PO ×2 (11:57→20:27)
[2024-12-19 12:00] VITALS: BP 136/62
--- NOTE | 2024-12-19 13:55 | CM ---
Chart reviewed and patient with new feeding tube, Parkinson's, plan is for skilled placement patient has been denied at [facility], special education case manager spoke with admissions at [facility] and there are no beds available today, and special education case manager reached
out to [facility], special education case manager will need alternative options, spouse made aware.
Plan; Skilled placement.
[2024-12-19 15:00] VITALS: BP 135/74
[2024-12-19] MEDS: LOVENOX 40 MG SC (16:26)
[2024-12-19 17:12] VITALS: BP 162/70
--- NOTE | 2024-12-19 17:43 | W.PN.HOSP.TC ---
Today's Communication/Plan
-
Resumed Cefdinir x 10 more days per ID
Assessment / Plan
Assessment / Plan
Physical Exam
General: Appears Chronically Ill, cachectic appearance
HEENT: Normocephalic and Atraumatic
Respiratory: clear to auscultation b/l
GI: Soft nontender bowel sounds present
Ext: no cyanosis or edema
Neuro: fluctuant mental status throughout the day, lethargic at, times difficult to arouse. AOx3 when alert, paucity of speech, can be difficult to understand d/t dysarthria, sometimes speech is very fluent
Psych: Calm
IMPRESSION:
74 years old male with Parkinson's disease presents with overall declining, lethargy, poor oral intake, persistent and productive cough, intermittent right flank pain.
Concern for recurrent aspiration pneumonia with small right lower lobe infiltrate seen on CT images.
Severe aspiration syndrome secondary to Parkinson's disease
Gram negative UTI
Conditions prior to admission
Advanced Parkinson's disease
Aspiration syndrome
Orthostatic hypotension neurogenic type pain
Prior history of hypertension
CAD with history of stent.
Paroxysmal atrial fibrillation on propafenone not on anticoagulation due to fall risk.
Chronic normocytic anemia
Dyslipidemia.
Anxiety/depression
History of skin cancer
PLAN:
Multifocal aspiration pneumonia
Sepsis POA (leukocytosis, tachycardia)
CT chest Multifocal pneumonia, greatest in the basilar right lower lobe, also involving the basilar left lower lobe and the posterior right upper lobe.
Recent hospitalization with right-sided aspiration pneumonia and sepsis.
Recent VSE 11/07 confirming aspiration risk with recommendation for pur�ed diet and thin liquids
Repeat speech and swallow evaluation; keep NPO At present
empiric cefepime + Flagyl, ID eval appreciated, abx narrowed to Ceftriaxone converted to cefdinir following PEG placement, 12/15 last day abx therapy total 7 days
New leukocytosis 12/19: ID resumed Cefdinir to complete additional 10 further days. Repeat CXR with New findings suggesting mild right lower lobe pneumonia
GI eval appreciated PEG placed 12/13 Tube feeds initiated 12/14
tolerating tube feeds, IVF support completed
Multi-drug resistant Klebsiella UTI
Urinalysis with pyuria
Recent urine culture from ED 11/22/2024 with Klebsiella.
ID eval appreciated Cefepime switched to Ceftriaxone then Cefdinir 12/15 last day abx therapy total 7 days
Bladder scan for retention
advanced Parkinson disease continue Sinemet when able
Severe Protein Calorie Malnutrition
Nutrition Support via PEG to be started when ready to use
Possible Toxic Metabolic Encephalopathy 2/2 infection as above
cont Tx as above
CAD with stents
Dyslipidemia
Paroxysmal atrial fibrillation
Not on anticoagulation due to fall risk.
Continue propafenone and ASA
dc statin at this time d/t cachexia, lipid panel appreciated wnl
Cardio eval appreciated
Essential hypertension
Orthostatic hypotension neurogenic type in a patient with Parkinson's disease.
manual blood pressure readings only
midodrine resumed, titrated back up to 10 mg TID w/ more liberal holding parameters (SBP>170)
Abd binder, TEDs thigh high when out of bed
Hypokalemia
Hypophosphatemia
-monitor and replete as necessary
Mild Hyponatremia
- monitor
- free water flushes decreased from 25 to 20 cc/h
- follow BMP
Constipation
- bowel regimen
- 12/16 Abd X-ray eval appreciated mild fecal material rectum
PT/OT/PMR eval appreciated SNF rehab
DVT ppx: Lovenox
Code: Full
Anticipated Discharge: 24 - 48 hours
Subjective/Interval History
-
Date of Service: December 19, 2024
resting comfortably
WBC back to 13; Cefdinir 10 day course resumed by ID due to concern of recurrent aspiration
Objective Data
-
Labs:
Laboratory Results
12/19/24
06:37
WBC 13.8 H
Hgb 10.6 L
Hct 30.9 L
Plt Count 323
Sodium 130 L
Potassium 5.1
Chloride 95 L
Carbon Dioxide 33 H
BUN 22 H
Creatinine 0.8
Glucose 122 H
Calcium 8.9
Vital Signs:
Vital Signs
Temp Pulse Resp BP Pulse Ox
97.1 F 75 16 162/70 97
12/19/24 15:00 12/19/24 15:00 12/19/24 15:00 12/19/24 17:12 12/19/24 16:07
I&O
12/18/24 12/19/24 12/20/24
06:59 06:59 06:59
Intake Total 780 / 780
Output Total 300 / 300 300 / 300 400 / 400
Balance -300 / -300 480 / 480 -400 / -400
Data Reviewed
-
Total Time Spent with Patient (in minutes): 42
Labs: Labs Reviewed by me
[2024-12-19 20:26] VITALS: BP 130/68
[2024-12-19 23:00] VITALS: BP 150/83
[2024-12-20] MEDS: SINEMET 25-100 1 TABLET TUBE ×4 (05:39→22:07)
[2024-12-20 06:00] VITALS: BMI 18.0
[2024-12-20] MEDS: MIRALAX 17 GRAMS TUBE (07:37)
[2024-12-20] MEDS: OMNICEF 300 MG PO ×2 (07:38→19:32)
[2024-12-20] MEDS: LOW STRENGTH ASPIRIN 81 MG TUBE (07:39)
[2024-12-20] MEDS: MAGNESIUM OXIDE 400 MG TUBE (07:39)
[2024-12-20] MEDS: SENOKOT-S 1 TABLET TUBE ×2 (07:39→19:32)
[2024-12-20] MEDS: RYTHMOL 150 MG TUBE ×3 (07:39→22:07)
[2024-12-20] MEDS: PROTONIX IV 40 MG IV (07:42)
[2024-12-20] MEDS: NSS (PRESERVATIVE FREE) 10 ML IV (07:43)
[2024-12-20 08:10] LABS: Hematocrit 31.5 % (39.0-52.0); Hemoglobin 10.8 g/dL (13.0-18.0); Mean Corp Hgb Conc. 34.3 g/dL (33.0-37.0); Mean Corpuscular Volume 89.0 fL (80.0-94.0); Platelet Count 331 10^3/uL (130-400); Red Cell Dist. Width 14.6 % (11.5-14.5)
[2024-12-20 08:49] LABS: Blood Urea Nitrogen 18 mg/dl (9-20); Calcium 8.9 mg/dl (8.4-10.2); Carbon Dioxide 31 mmol/L (22-30); Chloride 93 mmol/L (98-107); Estimated Creatinine Clearance 71 ml/min; Glucose 114 mg/dl (70-99); Magnesium 2.3 mg/dl (1.6-2.3); Potassium 4.7 mmol/L (3.5-5.1); Sodium 129 mmol/L (135-145); eGFR > 60.00
--- NOTE | 2024-12-20 11:06 | W.PN.ID1 ---
Date of Service
Date of Service: December 20, 2024
Today's Communication
- suspect ongoing aspiration - CXR is consistent with this scenario
- patient is s/p PEG tube placement
- c/w cefdinir x 9 more days
Assessment / Plan
Relapse of Leukocytosis - resolved
- suspect ongoing aspiration - CXR is consistent with this scenario
- patient is s/p PEG tube placement
- c/w cefdinir x 9 more days
Aspiration Pneumonia - multifocal
Possible UTI due to klebsiella
Posterior L rib fractures
Penicillin allergy - tolerates cephalosporins
Chief Complaint
-: Other (aspiration pneumonia)
Subjective / Review of Systems
afebrile
bp stable
no events overnight
Vital Signs / Physical Exam
Vital Signs
Vital Signs
Temp Pulse Resp BP Pulse Ox
98.4 F 87 20 150/83 98
12/20/24 07:47 12/19/24 23:00 12/19/24 23:00 12/19/24 23:00 12/20/24 07:47
Physical Exam
Constitutional: No Acute Distress
Cardiovascular: Regular Rate and S1/S2; Negative Murmur or Rub
Pulmonary: Clear and Symmetric; Negative Wheezes or Rales
Gastrointestinal: Soft, Non Tender, Non Distended and Normal Bowel Sounds
Skin: Warm and Dry; Negative Rash or Jaundice
Objective Data
Lab Data
Lab Results
12/20/24 07:43
12/20/24 07:43
Estimated Creat Clear 71 ml/min 12/20/24 07:43
Lactic Acid Cancelled 12/09/24 15:00
Total Bilirubin Cancelled 12/09/24 09:31
AST Cancelled 12/09/24 09:31
ALT Cancelled 12/09/24 09:31
Alkaline Phosphatase Cancelled 12/09/24 09:31
Most recent labs reviewed.
Micro Results:
12/09/24 11:33 Blood Culture - Final
Blood/Venous No Growth - Final Report
12/09/24 11:33 Blood Culture - Final
Blood/Venous No Growth - Final Report
12/09/24 11:38 Urine Culture - Final
Urine Klebsiella aerogenes
[2024-12-20 11:26] VITALS: BP 153/90
--- NOTE | 2024-12-20 12:43 | W.PN.HOSP.TC ---
Today's Communication/Plan
-
continue TFs
continue Cefdinir course
DC planning to SNF
Assessment / Plan
Assessment / Plan
Physical Exam
General: Appears Chronically Ill, cachectic appearance
HEENT: Normocephalic and Atraumatic
Respiratory: clear to auscultation b/l
GI: Soft nontender bowel sounds present
Ext: no cyanosis or edema
Neuro: fluctuant mental status throughout the day, lethargic at, times difficult to arouse. AOx3 when alert, paucity of speech, can be difficult to understand d/t dysarthria, sometimes speech is very fluent
Psych: Calm
IMPRESSION:
74 years old male with Parkinson's disease presents with overall declining, lethargy, poor oral intake, persistent and productive cough, intermittent right flank pain.
Concern for recurrent aspiration pneumonia with small right lower lobe infiltrate seen on CT images.
Severe aspiration syndrome secondary to Parkinson's disease
Gram negative UTI
Conditions prior to admission
Advanced Parkinson's disease
Aspiration syndrome
Orthostatic hypotension neurogenic type pain
Prior history of hypertension
CAD with history of stent.
Paroxysmal atrial fibrillation on propafenone not on anticoagulation due to fall risk.
Chronic normocytic anemia
Dyslipidemia.
Anxiety/depression
History of skin cancer
PLAN:
Multifocal aspiration pneumonia
Sepsis POA (leukocytosis, tachycardia)
CT chest Multifocal pneumonia, greatest in the basilar right lower lobe, also involving the basilar left lower lobe and the posterior right upper lobe.
Recent hospitalization with right-sided aspiration pneumonia and sepsis.
Recent VSE 11/07 confirming aspiration risk with recommendation for pur�ed diet and thin liquids
Repeat speech and swallow evaluation; keep NPO At present
empiric cefepime + Flagyl, ID eval appreciated, abx narrowed to Ceftriaxone converted to cefdinir following PEG placement, 12/15 last day abx therapy total 7 days
New leukocytosis 12/19: ID resumed Cefdinir to complete additional 10 further days. Repeat CXR with New findings suggesting mild right lower lobe pneumonia
GI eval appreciated PEG placed 12/13 Tube feeds initiated 12/14.
tolerating tube feeds, IVF support completed
Multi-drug resistant Klebsiella UTI
Urinalysis with pyuria
Recent urine culture from ED 11/22/2024 with Klebsiella.
ID eval appreciated Cefepime switched to Ceftriaxone then Cefdinir 12/15 last day abx therapy total 7 days
Bladder scan for retention
advanced Parkinson disease continue Sinemet when able
Severe Protein Calorie Malnutrition
Nutrition Support via PEG to be started when ready to use
Possible Toxic Metabolic Encephalopathy 2/2 infection as above
cont Tx as above
CAD with stents
Dyslipidemia
Paroxysmal atrial fibrillation
Not on anticoagulation due to fall risk.
Continue propafenone and ASA
dc statin at this time d/t cachexia, lipid panel appreciated wnl
Cardio eval appreciated
Essential hypertension
Orthostatic hypotension neurogenic type in a patient with Parkinson's disease.
manual blood pressure readings only
midodrine resumed, titrated back up to 10 mg TID w/ more liberal holding parameters (SBP>170)
Abd binder, TEDs thigh high when out of bed
Hypokalemia
Hypophosphatemia
-monitor and replete as necessary
Mild Hyponatremia
- monitor
- free water flushes decreased from 25 to 20 cc/h
- follow BMP
Constipation
- bowel regimen
- 12/16 Abd X-ray eval appreciated mild fecal material rectum
PT/OT/PMR eval appreciated SNF rehab
DVT ppx: Lovenox
Code: Full
Anticipated Discharge: 24 - 48 hours
Subjective/Interval History
-
Date of Service: December 20, 2024
no overnight events
vitals stable
WBC improving on new Cefdinir course
Objective Data
-
Labs:
Laboratory Results
12/20/24
07:43
WBC 10.1
Hgb 10.8 L
Hct 31.5 L
Plt Count 331
Sodium 129 L
Potassium 4.7
Chloride 93 L
Carbon Dioxide 31 H
BUN 18
Creatinine 0.7
Glucose 114 H
Calcium 8.9
Vital Signs:
Vital Signs
Temp Pulse Resp BP Pulse Ox
98.3 F 73 16 153/90 99
12/20/24 11:26 12/20/24 11:26 12/20/24 11:26 12/20/24 11:26 12/20/24 11:26
I&O
12/19/24 12/20/24 12/21/24
06:59 06:59 06:59
Intake Total 780 / 780 780 / 780
Output Total 300 / 300 800 / 800
Balance 480 / 480 -20 / -20
Physical Exam
-
General: Appears Chronically Ill
HEENT: Normocephalic and Atraumatic
Respiratory: Negative Wheezes
Cardiac: Regular Rhythm and S1/S2
GI: Soft
Neuro: AO x 3
Psych: Calm
Data Reviewed
-
Total Time Spent with Patient (in minutes): 42
Labs: Labs Reviewed by me
--- NOTE | 2024-12-20 12:55 | CM ---
Addendum entered by [facility] 12/20/24 16:28:
[facility] awaiting confirmation on when TF supplies would be delivered
[facility] [phone]
Dr Michele Quintana [phone]
Addendum entered by [facility] 12/20/24 16:03:
Message from [facility]/Michaela, will take them a few days to order TF and pump- referral still pending
VM left to [facility] to inquire into when TF and pump would arrive at their SNF
Addendum entered by [facility] 12/20/24 15:37:
Pt offered bed at [facility] per admissions/Jennie
Bedside meeting with pt and spouse
[facility] remains first choice
Tube feed info sent via [facility] to [facility]
Awaiting NPIs for auth
Original Note:
CM reviewed pt with attending-ADC tomorrow
VM left for [facility] admissions/Farzana to inquire into bed availability [phone]
Discussion with [facility]/admissions- tube feed info and updated clinicals sent via [facility]
She will review referral
CM requested updated PT/OT evals for SNF auth
Discharge Disposition- SNF pending auth with new tube feeds and oral abx/Cefdinir
[2024-12-20 13:51] VITALS: BP 120/65; PULSE 66; O2SAT 97
[2024-12-20 15:34] VITALS: BP 115/71
[2024-12-20] MEDS: LOVENOX 40 MG SC (17:23)
[2024-12-20 19:51] VITALS: BP 156/83
[2024-12-20 23:32] VITALS: BP 127/75
[2024-12-21 03:29] VITALS: BP 127/75
[2024-12-21] MEDS: SINEMET 25-100 1 TABLET TUBE ×2 (05:15→13:02)
[2024-12-21 06:00] VITALS: BMI 17.6
[2024-12-21 07:40] VITALS: BP 137/80
[2024-12-21 08:28] LABS: Hematocrit 29.0 % (39.0-52.0); Hemoglobin 10.2 g/dL (13.0-18.0); Mean Corp Hgb Conc. 35.2 g/dL (33.0-37.0); Mean Corpuscular Volume 89.5 fL (80.0-94.0); Platelet Count 337 10^3/uL (130-400); Red Cell Dist. Width 14.6 % (11.5-14.5)
[2024-12-21 09:16] LABS: Blood Urea Nitrogen 20 mg/dl (9-20); Calcium 8.6 mg/dl (8.4-10.2); Carbon Dioxide 29 mmol/L (22-30); Chloride 94 mmol/L (98-107); Estimated Creatinine Clearance 70 ml/min; Glucose 97 mg/dl (70-99); Magnesium 2.2 mg/dl (1.6-2.3); Potassium 4.5 mmol/L (3.5-5.1); Sodium 129 mmol/L (135-145); eGFR > 60.00
[2024-12-21] MEDS: MAGNESIUM OXIDE 400 MG TUBE (10:21)
[2024-12-21] MEDS: NSS (PRESERVATIVE FREE) 10 ML IV (10:21)
[2024-12-21] MEDS: PROTONIX IV 40 MG IV (10:21)
[2024-12-21] MEDS: MIRALAX 17 GRAMS TUBE (10:21)
[2024-12-21] MEDS: LOW STRENGTH ASPIRIN 81 MG TUBE (10:23)
[2024-12-21] MEDS: RYTHMOL 150 MG TUBE (10:23)
[2024-12-21] MEDS: SENOKOT-S 1 TABLET TUBE (10:23)
[2024-12-21] MEDS: OMNICEF 300 MG PO (10:23)
[2024-12-21 11:40] VITALS: BP 156/87
--- NOTE | 2024-12-21 11:59 | W.PN.HOSP.TC ---
Today's Communication/Plan
-
dc to SNF today
Assessment / Plan
Assessment / Plan
Physical Exam
General: Appears Chronically Ill, cachectic appearance
HEENT: Normocephalic and Atraumatic
Respiratory: clear to auscultation b/l
GI: Soft nontender bowel sounds present
Ext: no cyanosis or edema
Neuro: fluctuant mental status throughout the day, lethargic at, times difficult to arouse. AOx3 when alert, paucity of speech, can be difficult to understand d/t dysarthria, sometimes speech is very fluent
Psych: Calm
IMPRESSION:
74 years old male with Parkinson's disease presents with overall declining, lethargy, poor oral intake, persistent and productive cough, intermittent right flank pain.
Concern for recurrent aspiration pneumonia with small right lower lobe infiltrate seen on CT images.
Severe aspiration syndrome secondary to Parkinson's disease
Gram negative UTI
Conditions prior to admission
Advanced Parkinson's disease
Aspiration syndrome
Orthostatic hypotension neurogenic type pain
Prior history of hypertension
CAD with history of stent.
Paroxysmal atrial fibrillation on propafenone not on anticoagulation due to fall risk.
Chronic normocytic anemia
Dyslipidemia.
Anxiety/depression
History of skin cancer
PLAN:
Multifocal aspiration pneumonia
Sepsis POA (leukocytosis, tachycardia)
CT chest Multifocal pneumonia, greatest in the basilar right lower lobe, also involving the basilar left lower lobe and the posterior right upper lobe.
Recent hospitalization with right-sided aspiration pneumonia and sepsis.
Recent VSE 11/07 confirming aspiration risk with recommendation for pur�ed diet and thin liquids
Repeat speech and swallow evaluation; keep NPO At present
empiric cefepime + Flagyl, ID eval appreciated, abx narrowed to Ceftriaxone converted to cefdinir following PEG placement, 12/15 last day abx therapy total 7 days
New leukocytosis 12/19: ID resumed Cefdinir to complete additional 8 further days. Repeat CXR with New findings suggesting mild right lower lobe pneumonia
GI eval appreciated PEG placed 12/13 Tube feeds initiated 12/14.
tolerating tube feeds, IVF support completed
Multi-drug resistant Klebsiella UTI
Urinalysis with pyuria
Recent urine culture from ED 11/22/2024 with Klebsiella.
ID eval appreciated Cefepime switched to Ceftriaxone then Cefdinir 12/15 last day abx therapy total 7 days
Bladder scan for retention
advanced Parkinson disease continue Sinemet when able
Severe Protein Calorie Malnutrition
Nutrition Support via PEG to be started when ready to use
Possible Toxic Metabolic Encephalopathy 2/2 infection as above
cont Tx as above
CAD with stents
Dyslipidemia
Paroxysmal atrial fibrillation
Not on anticoagulation due to fall risk.
Continue propafenone and ASA
dc statin at this time d/t cachexia, lipid panel appreciated wnl
Cardio eval appreciated
Essential hypertension
Orthostatic hypotension neurogenic type in a patient with Parkinson's disease.
manual blood pressure readings only
midodrine resumed, titrated back up to 10 mg TID w/ more liberal holding parameters (SBP>170)
Abd binder, TEDs thigh high when out of bed
Hypokalemia
Hypophosphatemia
-monitor and replete as necessary
Mild Hyponatremia
- monitor
- free water flushes decreased from 25 to 20 cc/h
- follow BMP
Constipation
- bowel regimen
- 12/16 Abd X-ray eval appreciated mild fecal material rectum
PT/OT/PMR eval appreciated SNF rehab
DVT ppx: Lovenox
Code: Full
More than 30 minutes spent in discharge including
Final examination of the patient
Summarizing hospital stay
Instructions for continuing care to all relevant caregivers
Preparation of discharge records, prescriptions, and referral forms
Total time spent (in minutes): 42
Anticipated Discharge: Today
Subjective/Interval History
-
Date of Service: December 21, 2024
no overnight events
Objective Data
-
Labs:
Laboratory Results
12/21/24
06:13
WBC 11.2 H
Hgb 10.2 L
Hct 29.0 L
Plt Count 337
Sodium 129 L
Potassium 4.5
Chloride 94 L
Carbon Dioxide 29
BUN 20
Creatinine 0.7
Glucose 97
Calcium 8.6
Vital Signs:
Vital Signs
Temp Pulse Resp BP Pulse Ox
97.9 F 92 20 137/80 98
12/21/24 07:40 12/21/24 07:40 12/21/24 07:40 12/21/24 07:40 12/21/24 07:40
I&O
12/20/24 12/21/24 12/22/24
06:59 06:59 06:59
Intake Total 780 / 780 780 / 780
Output Total 800 / 800 600 / 600
Balance -20 / -20 180 / 180
Data Reviewed
-
Total Time Spent with Patient (in minutes): 42
Labs: Labs Reviewed by me
--- NOTE | 2024-12-21 12:05 | W.DS.TRANS ---
DC Summary - [employer]
-
Discharge Instructions:
Sleep Apnea Risk High
Discharge Diagnosis/Procedures aspiration pneumonia, UTI, Parkinson's disease,
dysphagia requiring PEG placement
Diet Tube feeding
Activity As tolerated
Bathing Restrictions None
Other Services PT,OT,ST
Instructions:
Stand-Alone Forms:
Changes to Home Medications: No
Discharge Medications:
DC Medications w/original date entered in [email or web address]
aspirin 81 mg tablet,delayed release 81 mg feeding tube DAILY Blood Clot Prevention/Tx #0 tabs 12/21/24
carbidopa 25 mg-levodopa 100 mg tablet 1 tab feeding tube QID@0600,1100,1600,2100 parkinson's disease 30 days #90 tabs 12/21/24
cefdinir 300 mg capsule 300 mg feeding tube Q12 #16 caps 12/21/24
lansoprazole 30 mg delayed release,disintegrating tablet (Prevacid SoluTab) 30 mg feeding tube DAILY #30 tabs 12/21/24
magnesium oxide 400 mg (241.3 mg magnesium) tablet 400 mg feeding tube DAILY #30 tabs 12/21/24
midodrine 10 mg tablet 10 mg feeding tube TID #0 tabs 12/21/24
polyethylene glycol 3350 17 gram oral powder packet 17 g feeding tube DAILY #30 ea 12/21/24
propafenone 150 mg tablet 150 mg feeding tube TID Arrhythmia 30 days #90 tabs 12/21/24
sennosides 8.6 mg-docusate sodium 50 mg tablet (Senna Plus) 1 tab feeding tube BID #60 tabs 12/21/24
Home Medication Changes
Pending Results: No
Total time spent discharging patient (in min): 42
--- NOTE | 2024-12-21 12:17 | CM ---
plan manager reviewed patient's chart and spoke with admissions at [facility] and patient has been accepted today, tube feeds have been arranged per admissions at [facility], and supplies delivered. Auth received from patient's insurance CASSIE LoredoTona at [facility],
patient has been approved for [facility], 6 days 12/21 to 12/26, Auth # [id number], and ambulance Auth for [facility] ambulance [id number], patient has been set up for [employer]pm [employer] by ambulance. Patient and spouse have been made aware of discharge, and
IMM completed.
Plan; Patient to transfer to [facility] today at 3pm.
[facility]
Report [phone]
[2024-12-21 12:45] VITALS: BP 118/88
--- NOTE | 2024-12-21 12:57 | W.PN.ID1 ---
Date of Service
Date of Service: December 21, 2024
Today's Communication
- c/w cefdinir x 8 more days
Assessment / Plan
Leukocytosis
- suspect ongoing aspiration - CXR is consistent with this scenario
- patient is s/p PEG tube placement
- c/w cefdinir x 8 more days
Aspiration Pneumonia - multifocal
Possible UTI due to klebsiella
Posterior L rib fractures
Penicillin allergy - tolerates cephalosporins
Chief Complaint
-: Other (aspiration pneumonia)
Subjective / Review of Systems
afebrile
bp stable
minimal leukocytosis
Vital Signs / Physical Exam
Vital Signs
Vital Signs
Temp Pulse Resp BP Pulse Ox
98.2 F 77 16 156/87 100
12/21/24 11:40 12/21/24 11:40 12/21/24 11:40 12/21/24 11:40 12/21/24 11:40
Physical Exam
Constitutional: No Acute Distress
Cardiovascular: Regular Rate and S1/S2; Negative Murmur or Rub
Pulmonary: Clear and Symmetric; Negative Wheezes or Rales
Gastrointestinal: Soft, Non Tender, Non Distended and Normal Bowel Sounds
Skin: Warm and Dry; Negative Rash or Jaundice
Objective Data
Lab Data
Lab Results
12/21/24 06:13
12/21/24 06:13
Estimated Creat Clear 70 ml/min 12/21/24 06:13
Lactic Acid Cancelled 12/09/24 15:00
Total Bilirubin Cancelled 12/09/24 09:31
AST Cancelled 12/09/24 09:31
ALT Cancelled 12/09/24 09:31
Alkaline Phosphatase Cancelled 12/09/24 09:31
Most recent labs reviewed.
Micro Results:
12/09/24 11:33 Blood Culture - Final
Blood/Venous No Growth - Final Report
12/09/24 11:33 Blood Culture - Final
Blood/Venous No Growth - Final Report
12/09/24 11:38 Urine Culture - Final
Urine Klebsiella aerogenes
== END 2024-12-21 16:38 | DRG 871 ==
LOC: 4 WEST ACU 12:51
PROVIDERS: Internal Medicine; Nurse Practitioner Gerontology; Surgery; ADMITTING PHYSICIAN Internal Medicine; ATTENDING PHYSICIAN Internal Medicine; CONSULT PHYSICIAN Internal Medicine Cardiovascular Disease; CONSULT PHYSICIAN Internal Medicine Gastroenterology; CONSULT PHYSICIAN Physical Medicine & Rehabilitation; CONSULT PHYSICIAN Student in an Organized Health Care Education/Training Program; EMERGENCY PHYSICIAN Emergency Medicine; FAMILY PHYSICIAN Family Medicine
PROC: 0DH63UZ Insertion of Feeding Device into Stomach, Percutaneous Approach (ICD-10-PCS; 2024-12-13)
PROC: 0DB98ZX Excision of Duodenum, Via Natural or Artificial Opening Endoscopic, Diagnostic (ICD-10-PCS; 2024-12-13)
DX: A41.9 Sepsis, unspecified organism (principal); E43 Unspecified severe protein-calorie malnutrition; J69.0 Pneumonitis due to inhalation of food and vomit; G92.8 Other toxic encephalopathy; J18.9 Pneumonia, unspecified organism; N39.0 Urinary tract infection, site not specified; Z16.24 Resistance to multiple antibiotics; Z68.1 Body mass index [BMI] 19.9 or less, adult; E87.1 Hypo-osmolality and hyponatremia; R64 Cachexia; G20.A1 Parkinson's disease without dyskinesia, without mention of fluctuations; R13.10 Dysphagia, unspecified; I95.1 Orthostatic hypotension; I25.10 Atherosclerotic heart disease of native coronary artery without angina pectoris; D64.9 Anemia, unspecified; F41.9 Anxiety disorder, unspecified; F32.A Depression, unspecified; D13.2 Benign neoplasm of duodenum; R62.7 Adult failure to thrive; I48.0 Paroxysmal atrial fibrillation; I10 Essential (primary) hypertension; K21.00 Gastro-esophageal reflux disease with esophagitis, without bleeding; B96.1 Klebsiella pneumoniae [K. pneumoniae] as the cause of diseases classified elsewhere; D72.829 Elevated white blood cell count, unspecified; E87.6 Hypokalemia; E83.39 Other disorders of phosphorus metabolism; R29.6 Repeated falls; K59.00 Constipation, unspecified; Z79.82 Long term (current) use of aspirin; Z79.899 Other long term (current) drug therapy; Z87.01 Personal history of pneumonia (recurrent); Z87.440 Personal history of urinary (tract) infections; Z88.0 Allergy status to penicillin; Z85.828 Personal history of other malignant neoplasm of skin; Z87.891 Personal history of nicotine dependence; Z91.81 History of falling; Z95.5 Presence of coronary angioplasty implant and graft
CPT/HCPCS: 51701; 70450; 71046; 71250; 74018; 74176; 80048; 80061; 81003; 81015; 82962; 83605; 83690; 83735; 84100; 85025; 85027; 87040; 87077; 87086; 87186; 88305; 92526; 92610; 93005; 94669; 96374; 96375; 97163; 97167; 97530; 97535; 99285

== ENCOUNTER 2025-01-29 13:18 | Emergency (ER) | payer OTHER, SELFPAY ==
[2025-01-29 13:21] VITALS: BP 115/67
--- NOTE | 2025-01-29 16:48 | ED.GENMED ---
History of Present Illness
General
Chief Complaint: Bowel Problem
Source: patient and family
Exam Limitations: clinical condition
Time Seen by Provider: 01/29/25 15:52
Nursing documentation reviewed up to this point in time: agreed with
History of Present Illness
History of Present Illness:
74-year-old male with Parkinson's, takes all his meds and fluids through tube, few months ago had several infections UTI aspiration has recovered from currently past week or so does been weak, has not moved his bowels, coughing no fevers no vomiting
Past History
Past History
ED Past Medical History: Arrthythmia (Atrial fibrillation), CAD, Cancer (Skin), GERD, HTN, Hypercholesterolemia and Other (Parkinson's)
ED Past Surgical History: Cardiac and Other
Social History
Tobacco: Former smoker
Alcohol: Daily
Drug: None
Personal:
Living: with family
Employment: Retired
Phy Exam
Physical Exam
Physical Exam:
Physical Exam
General: Frail interactive male cough
Neck: Lips are slow
Heart: s1/s2 regular rate and rhythm, no murmur. equal radial pulses.
Lungs: Faint rhonchi
Abdomen: Soft feeding tube
Neuro: Good eye contact globe
Skin: no rash
Psychiatric: Flat affect
Extremities: no edema.
Course
Orders/Labs/Results
Orders:
Orders
01/29/25 16:19
Obstruct Series W/PA Chest [CR Obstruct Series W/pa Chest] Urgent
Comment:
Reason For Exam: fos cough
01/29/25 16:58
Enema- Treatment ONCE
Type: Milk of Molasses
Magnesium Citrate [Citroma] 300 ml TUBE ONCE ONE
01/29/25 17:13
Complete Blood Count/With Diff Urgent
Comprehensive Metabolic Panel Urgent
01/29/25 22:00
Zinc Oxide 20% [Zinc Oxide Ointment] See Dose Instructions TOPICAL TID
Abnormal Lab Results
01/29/25
17:13
WBC 11.5 H 10^3/uL
(4.8-10.8)
RBC 3.33 L 10^6/uL
(4.70-6.10)
Hgb 10.1 L g/dL
(13.0-18.0)
Hct 29.0 L %
(39.0-52.0)
Abs Immat Gran (auto) 0.1 H 10^3/uL
(0-0.05)
Absolute Neuts (auto) 9.5 H 10^3/uL
(1.4-6.5)
Absolute Lymphs (auto) 0.7 L 10^3/uL
(1.2-3.4)
Absolute Monos (auto) 0.9 H 10^3/uL
(0.1-0.6)
Neutrophils % 82.6 H %
(42.2-75.2)
Lymphocytes % 6.2 L %
(20.5-51.1)
Sodium 130 L mmol/L
(135-145)
BUN 40 H mg/dl
(9-20)
Glucose 128 H mg/dl
(70-99)
01/29/25 17:13
01/29/25 17:13
Vital Signs
Initial and Last Documented VS:
Initial Vital Signs
Temp Pulse Resp BP Pulse Ox
98.7 F 92 15 115/67 99
01/29/25 13:21 01/29/25 13:21 01/29/25 13:21 01/29/25 13:21 01/29/25 13:21
Last Documented Vital Signs
Temp Pulse Resp BP Pulse Ox
98.7 F 92 15 115/67 99
01/29/25 13:21 01/29/25 13:21 01/29/25 13:21 01/29/25 13:21 01/29/25 16:49
*Pulse Oximetry
SaO2: 99
Oxygen Mode of Delivery: Room air
Patient hypoxic: no
*Critical Care Note
Total Time (30-74mins, 75-104mins- exclusive of procedures): Not Applicable
Update Note
Update Note:
5:45 PM update x-ray report noted, labs noted BUN to creatinine ratio is up a bit with unchanged hemoglobin is having some bowel movements after mag citrate and an enema
ED Attending Note
-
Portions of this chart may have been created with voice recognition software.� Occasional wrong word or��sound alike� substitutions may have occurred due to the inherent limitations of voice recognition software.
Discharge Plan
Departure
Patient Disposition: Home (Routine Discharge)
Date of Disposition: 01/29/25
Time of Disposition: 17:42
Patient with high blood pressure during this ER visit?: No
Condition: Good
Discharge Problem:
Constipation
Instructions: Constipation, Adult (DC)
Prescriptions:
New
magnesium citrate [Citroma] Solution
150 ml PO DAILY PRN (Reason: Constipation) Qty: 296 5RF
No Action
sennosides-docusate sodium [Senna Plus] 8.6-50 mg Tablet
1 tab feeding tube BID Qty: 60 0RF
cefdinir 300 mg Capsule
300 mg feeding tube Q12 Qty: 16 0RF
magnesium oxide 400 mg (241.3 mg magnesium) Tablet
400 mg feeding tube DAILY Qty: 30 0RF
polyethylene glycol 3350 17 gram Powder In Packet
17 g feeding tube DAILY Qty: 30 0RF
lansoprazole [Prevacid SoluTab] 30 mg tablet,disintegrat, delay rel
30 mg feeding tube DAILY Qty: 30 0RF
propafenone 150 mg Tablet
150 mg feeding tube TID 30 Days Qty: 90 0RF
aspirin 81 mg Tablet,Delayed Release (Dr/Ec)
81 mg feeding tube DAILY Qty: 0 0RF
carbidopa-levodopa 25-100 mg Tablet
1 tab feeding tube QID@0600,1100,1600,2100 30 Days Qty: 90 0RF
midodrine 10 mg Tablet
10 mg feeding tube TID Qty: 0 0RF
Referrals:
Bony Andrews MD [Family Provider, Family Practice]
Interventions
Interventions:
*Risk Screen - Suicide Last Done: 01/29/25 13:21
*General Assessment Last Done: 01/29/25 13:21
*Neglect/Abuse Screening Last Done: 01/29/25 13:21
*ED COVID-19 Vaccine History Last Done: 01/29/25 13:21
*ED Influenza Vaccine History Last Done: 01/29/25 13:21
Discharge Date and Time
Print Language: NIUEAN
[2025-01-29] MEDS: CITROMA 300 ML TUBE (17:21)
[2025-01-29 17:22] LABS: Hematocrit 29.0 % (39.0-52.0); Hemoglobin 10.1 g/dL (13.0-18.0); Mean Corp Hgb Conc. 34.8 g/dL (33.0-37.0); Mean Corpuscular Volume 87.1 fL (80.0-94.0); Nucleated Red Blood Cells % 0 % (-); Red Cell Dist. Width 14.2 % (11.5-14.5)
[2025-01-29 17:35] LABS: ALT (SGPT) 12 U/L (0-50); AST (SGOT) 24 U/L (17-59); Albumin 3.8 g/dl (3.5-5.0); Alkaline Phosphatase 70 U/L (38-126); Blood Urea Nitrogen 40 mg/dl (9-20); Calcium 9.1 mg/dl (8.4-10.2); Carbon Dioxide 28 mmol/L (22-30); Chloride 98 mmol/L (98-107); Glucose 128 mg/dl (70-99); Potassium 4.5 mmol/L (3.5-5.1); Sodium 130 mmol/L (135-145); Total Protein 6.7 g/dl (6.3-8.2); eGFR > 60.00
[2025-01-29 18:00] VITALS: BP 105/63
== END 2025-01-29 18:55 | disposition home or self-care (01) ==
LOC: EMR 13:18
PROVIDERS: EMERGENCY PHYSICIAN Emergency Medicine; FAMILY PHYSICIAN Family Medicine
DX: K59.00 Constipation, unspecified (principal); E78.00 Pure hypercholesterolemia, unspecified; G20.A1 Parkinson's disease without dyskinesia, without mention of fluctuations; I10 Essential (primary) hypertension; I25.10 Atherosclerotic heart disease of native coronary artery without angina pectoris; I48.91 Unspecified atrial fibrillation; Z87.891 Personal history of nicotine dependence
CPT/HCPCS: 99284; 74022; 80053; 85025

== ENCOUNTER 2025-02-06 11:57 | Emergency (ER) | payer OTHER, SELFPAY ==
[2025-02-06] VITALS (9 sets, daily range): BP systolic 101–171; BP diastolic 71–96; BMI 17.9
[2025-02-06 15:33] LABS: Hematocrit 30.7 % (39.0-52.0); Hemoglobin 10.7 g/dL (13.0-18.0); Mean Corp Hgb Conc. 34.9 g/dL (33.0-37.0); Mean Corpuscular Volume 88.2 fL (80.0-94.0); Nucleated Red Blood Cells % 0 % (-); Platelet Count 286 10^3/uL (130-400); Red Cell Dist. Width 13.5 % (11.5-14.5)
[2025-02-06 15:44] LABS: COVID-19 Antigen Negative (Negative)
[2025-02-06 15:48] LABS: ALT (SGPT) 21 U/L (0-50); AST (SGOT) 26 U/L (17-59); Albumin 3.8 g/dl (3.5-5.0); Alkaline Phosphatase 72 U/L (38-126); Blood Urea Nitrogen 31 mg/dl (9-20); Calcium 9.1 mg/dl (8.4-10.2); Carbon Dioxide 27 mmol/L (22-30); Chloride 97 mmol/L (98-107); Estimated Creatinine Clearance 73 ml/min; Glucose 93 mg/dl (70-99); Potassium 4.8 mmol/L (3.5-5.1); Sodium 129 mmol/L (135-145); Total Protein 6.6 g/dl (6.3-8.2); eGFR > 60.00
[2025-02-06 16:51] LABS: Urine Character Clear (Clear)
--- NOTE | 2025-02-06 16:55 | EDRN ---
Pt's spouse in and Dr. Cortés gave her an update on pt at this time.
[2025-02-06] MEDS: RYTHMOL 150 MG TUBE (17:01)
[2025-02-06] MEDS: SINEMET 25-100 1 TABLET TUBE (17:01)
[2025-02-06 17:02] LABS: Urine White Cell 0-2 /HPF (0-5)
--- NOTE | 2025-02-06 17:40 | EDRN ---
Pt's spouse has had a series of complaints about pt. She voiced these to me and This RN passed the info on to Dr. Cortés in an TT. TT-->Please note spouse of pt in room #15 [facility] Tavares is getting angry. She was upset I had not retaken his temp
(now 99.3 DC, just took it), upset pt has had no IV fluids or tube feeding (explained that no orders for these and per labs not dehydrated and TF would not be administered unless pt admitted. She also was upset and denied after I told her you spoke
to her in HW. Also she voiced upset that pt has not been to CT scan as of yet. Just thought you should know before ayo g in there. She has been in and out of the room all day. Pt going to CT now.
--- NOTE | 2025-02-06 18:21 | EDRN ---
Dr. Cortés in room w/ [facility] PCT doing disimpaction of pt at this time. Spouse in room as well.
--- NOTE | 2025-02-06 19:51 | ED.GENMED ---
History of Present Illness
General
Chief Complaint: Fall
Source: patient and spouse
Time Seen by Provider: 02/06/25 13:16
History of Present Illness
History of Present Illness:
Note:
CHIEF COMPLAINT(S)
Facial injury after a fall in the bathroom.
HISTORY OF PRESENT ILLNESS
The patient is a 74-year-old male with a history of Parkinsons disease. This morning, the patient was sitting on the toilet, reaching for an item, when he fell forward, face planting into the floor. There was no loss of consciousness reported, and
there have been no changes in mental status. The patient has had no fever and denies any neck pain. His spouse reports he has been experiencing constipation and a lingering cough. He frequently has urinary tract infections, but a recent test over
the weekend was negative.
PAST MEDICAL AND SURGICAL HISTORY
The patient has a known diagnosis of Parkinsons disease and has been prescribed carbidopa-levodopa.
CHRONIC MEDICAL CONDITIONS SIGNIFICANTLY AFFECTING CARE
Parkinsons disease.
SOCIAL DETERMINANTS AFFECTING HEALTH
The patient has reported difficulty attending appointments due to past issues with wrong doctor assignments, impacting his Parkinson�s management.
PHYSICAL EXAM
General: Patient is alert but a bit drowsy; no acute distress noted.
Skin: Warm and dry; abrasion to the bridge of the nose and small region to the right orbital area.
Head: Mild swelling noted to the right periorbital region.
Neck: No midline tenderness observed.
Eye, Ears, Nose, Mouth, and Throat: Oral mucosa moist; abrasion noted on the nose.
Cardiovascular: Regular heart rhythm; somewhat tachycardic; normal peripheral perfusion.
Musculoskeletal: Some rigidity observed in extremities; no lower extremity edema.
Neurological: Awake, slightly somnolent but no focal neurologic deficits observed.
PROBLEM LIST
Acute Problems:
- Facial abrasion due to fall
- Constipation
- Persistent cough
Chronic Problem:
- Parkinsons disease
PLAN
- Imaging studies to include scans of the face, neck, and head to assess for injuries sustained during the fall.
- Laboratory tests and urine sample collection to check for potential infections and other abnormalities.
- Chest X-ray and abdominal X-ray to evaluate the patients lungs and gastrointestinal status.
- Discussion about revisiting the patients Parkinsons management, emphasizing the need for consultation with a specialist focused on Parkinsons disease.
- Recommendation to fine-tune the patients bowel regimen to prevent constipation.
- Follow-up with the scheduled neurology appointment and further specialist consultations to optimize treatment plans.
DIFFERENTIAL DIAGNOSIS
The Differential Diagnosis includes, in no particular order and is not limited to:
- Head trauma
- Concussion
- Cervical spine injury
- Urinary tract infection
- Constipation-induced syncope
- Parkinson�s-related rigidity and instability
- Dehydration
- Medication side effects
- Orthostatic hypotension
- Gait abnormality due to Parkinson�s disease
Disposition:
SUMMARY OF ENCOUNTER
A 74-year-old male with progressive Parkinsons disease presented after a fall. The spouse expressed concerns about the patients constipation. Evaluation revealed injuries to the midface, with a CT scan of the head negative for intracranial
hemorrhage. However, CT of the facial bones indicated a nasal fracture. Laboratory analysis showed normal creatinine level and baseline hemoglobin. The patient experienced constipation, and manual disimpaction of stool, along with an enema, provided
some relief. Miralax (polyethylene glycol) was recommended twice daily for five days. The patient exhibited mild encephalopathy, potentially related to Parkinson�s disease. The spouse was committed to attending a scheduled appointment at the
[facility] for further Parkinsons evaluation.
DISPOSITION
The decision was made to discharge the patient with close follow-up advised. The spouse was instructed to return if any concerns about the patients mental state persisted after the neurology evaluation.
PLAN
- Recommend Miralax (polyethylene glycol) twice a day for the next five days to manage constipation.
- Follow-up neurology appointment at the [facility] to assess Parkinsons disease management.
INDEPENDENT REVIEW OF LABS AND INTERPRETATION OF TESTS
- My independent review of the CT head indicates no intracranial hemorrhage.
- My independent review of the CT of the facial bones indicates a nasal fracture.
- My independent review of laboratory tests shows normal creatinine at 0.7 mg/dL, baseline hemoglobin at 10.7 g/dL, normal white blood cell count, and sodium at 129 mmol/L nearing his baseline.
PATIENT EDUCATION AND COUNSELING
The spouse was advised on the importance of follow-up with the neurologist for Parkinson�s disease management and to monitor the patients recovery from the fall and constipation. She was informed to return to the emergency department if the patients
mental status changed or did not improve after the neurology visit.
FOLLOW-UP INSTRUCTIONS
The patient is to have a neurology follow-up at the [facility] for further evaluation and management of Parkinsons disease.
MEDICATION RECONCILIATION
- Administered medication: Enema for constipation relief.
- Prescribed medication: Miralax (polyethylene glycol) twice daily for five days.
MEDICAL DECISION MAKING
-Complexity of Data Reviewed:
Chronic conditions affecting care: Parkinsons disease.
Differential Diagnosis: Head trauma, concussion, nasal fracture, constipation-induced syncope, Parkinsons-related rigidity and instability, medication side effects, dehydration, orthostatic hypotension.
-Data:
Category 1:
My independent interpretation of the CT head is no intracranial hemorrhage.
My independent interpretation of the CT facial bones is a nasal fracture.
Category 2:
Clinical information was obtained from an independent historian, the patients spouse.
-Risk:
Consideration of Admission/Observation: Escalation of care including admission/observation was considered given the complexity and risk of the patients presenting complaint, exam findings, and their underlying comorbidities. However, ultimately I
feel the patient is safe for outpatient management with close follow-up. Reasoning: Work-up is reassuring, does not reveal any acute life/organ threatening processes, patients symptoms are well controlled upon reevaluation, reexamination is
reassuring, vitals are stable, patient agreeable with discharge, reliable for follow-up. Care significantly affected by Social Determinants of Health: Difficulty attending appointments due to past issues with wrong doctor assignments impact the
management of his Parkinsons disease.
DIAGNOSIS
- Parkinsons disease (ICD-10: G20)
- Nasal bone fracture (ICD-10: S02.2XXA)
- Constipation (ICD-10: K59.00)
Past History
Past History
ED Past Medical History: Arrthythmia (Atrial fibrillation), CAD, Cancer (Skin), GERD, HTN, Hypercholesterolemia and Other (Parkinson's)
ED Past Surgical History: Cardiac and Other
Social History
Tobacco: Former smoker
Alcohol: Daily
Drug: None
Personal:
Living: with family
Employment: Retired
Phy Exam
Physical Exam
Physical Exam:
.
Course
Orders/Labs/Results
Orders:
Orders
02/06/25 14:46
CT Facial Bones W/o Iv Contras Urgent
Comment:
Reason For Exam: fall
02/06/25 14:47
CT Cervical Spine W/o Iv Contr Urgent
Comment:
Reason For Exam: fall
CT Head W/o Iv Contrast Urgent
Comment:
Reason For Exam: fall
02/06/25 14:48
CR Chest - 2 Views Urgent
Comment:
Reason For Exam: cough
02/06/25 14:49
Abdomen Xray - 1 View [CR Abdomen - 1 View] Urgent
Comment:
Reason For Exam: constipation
02/06/25 15:15
COVID-19 Antigen Urgent
Source: Nasal Swab
Influenza A+B Rapid Molecular Urgent
LOUISE Source: Nasal Swab
Specimen Description:
02/06/25 15:24
Complete Blood Count/With Diff Urgent
Comprehensive Metabolic Panel Urgent
02/06/25 16:41
Urinalysis Reflex To Culture Urgent
Date Specimen was Collected: 02/06/25
Time Specimen was Collected: 16:40
Urine Microscopic Reflex Cult Urgent
Urine Culture Urgent
LOUISE Source: U
Specimen Description:
Date Specimen was Collected: 02/06/25
Time Specimen was Collected: 16:40
02/06/25 16:46
Propafenone HCl [Rythmol] 150 mg TUBE NOW STA
02/06/25 16:47
Carbidopa/Levodopa [Sinemet 25-100] 1 tablet TUBE NOW STA
02/06/25 18:31
Enema- Treatment ONCE
Type: Milk of Molasses
Abnormal Lab Results
02/06/25 02/06/25
15:24 16:41
RBC 3.48 L 10^6/uL
(4.70-6.10)
Hgb 10.7 L g/dL
(13.0-18.0)
Hct 30.7 L %
(39.0-52.0)
MPV 10.5 H fL
(7.4-10.4)
Absolute Neuts (auto) 6.9 H 10^3/uL
(1.4-6.5)
Absolute Lymphs (auto) 1.1 L 10^3/uL
(1.2-3.4)
Absolute Monos (auto) 1.1 H 10^3/uL
(0.1-0.6)
Lymphocytes % 11.5 L %
(20.5-51.1)
Monocytes % 11.5 H %
(1.7-9.3)
Sodium 129 L mmol/L
(135-145)
Chloride 97 L mmol/L
(98-107)
BUN 31 H mg/dl
(9-20)
Ur Occult Blood Reflex 1+ A
(Negative)
Urine RBC 3-6 A /HPF
(0-2)
Urine Bacteria (Reflex) Many A
(Negative)
Urine Albumin (Reflex) 2+ A
(Neg - Trace)
02/06/25 15:24
02/06/25 15:24
Vital Signs
Initial and Last Documented VS:
Initial Vital Signs
Temp Pulse Resp BP Pulse Ox
97.8 F 91 18 101/71 92
02/06/25 12:09 02/06/25 12:09 02/06/25 12:09 02/06/25 12:09 02/06/25 12:09
Last Documented Vital Signs
Temp Pulse Resp BP Pulse Ox
99.3 F 78 16 121/73 98
02/06/25 17:30 02/06/25 18:25 02/06/25 18:25 02/06/25 18:25 02/06/25 19:53
*Pulse Oximetry
SaO2: 98
Oxygen Mode of Delivery: Room air
Patient hypoxic: no
*Critical Care Note
Total Time (30-74mins, 75-104mins- exclusive of procedures): Not Applicable
ED Attending Note
-
Portions of this chart may have been created with voice recognition software.� Occasional wrong word or��sound alike� substitutions may have occurred due to the inherent limitations of voice recognition software.
Discharge Plan
Departure
Patient Disposition: Home (Routine Discharge)
Date of Disposition: 02/06/25
Time of Disposition: 19:51
Patient with high blood pressure during this ER visit?: No
Discharge Problem:
Parkinson disease, Constipation, Fall, Closed fracture nasal bone, Abrasion
Instructions: Head Injury in Adults (DC), Skin Abrasions (DC), Constipation in adults - ED (DC)
Prescriptions:
No Action
sennosides-docusate sodium [Senna Plus] 8.6-50 mg Tablet
1 tab feeding tube BID Qty: 60 0RF
cefdinir 300 mg Capsule
300 mg feeding tube Q12 Qty: 16 0RF
magnesium oxide 400 mg (241.3 mg magnesium) Tablet
400 mg feeding tube DAILY Qty: 30 0RF
polyethylene glycol 3350 17 gram Powder In Packet
17 g feeding tube DAILY Qty: 30 0RF
lansoprazole [Prevacid SoluTab] 30 mg tablet,disintegrat, delay rel
30 mg feeding tube DAILY Qty: 30 0RF
propafenone 150 mg Tablet
150 mg feeding tube TID 30 Days Qty: 90 0RF
aspirin 81 mg Tablet,Delayed Release (Dr/Ec)
81 mg feeding tube DAILY Qty: 0 0RF
carbidopa-levodopa 25-100 mg Tablet
1 tab feeding tube QID@0600,1100,1600,2100 30 Days Qty: 90 0RF
midodrine 10 mg Tablet
10 mg feeding tube TID Qty: 0 0RF
magnesium citrate [Citroma] Solution
150 ml PO DAILY PRN (Reason: Constipation) Qty: 296 5RF
Referrals:
Bony Andrews MD [Family Provider, Family Practice]
Activity Restrictions/Additional Instructions:
Please see neurology tomorrow as planned. Please use MiraLAX twice a day for the next 5 days and consider using it daily. Return immediately for changes in mentation, fevers, vomiting, shortness of breath or any other concerns.
Interventions
Interventions:
*Risk Screen - Suicide Last Done: 02/06/25 12:09
*General Assessment Last Done: 02/06/25 12:39
*Neglect/Abuse Screening Last Done: 02/06/25 12:09
*ED- Fall Risk Assessment Last Done: 02/06/25 12:39
*ED COVID-19 Vaccine History Last Done: 02/06/25 12:39
*ED Influenza Vaccine History Last Done: 02/06/25 12:39
ED-Musculoskeletal Assessment Last Done: 02/06/25 12:42
ED- Neurological Assessment Last Done: 02/06/25 12:42
ED-Skin Assessment Last Done: 02/06/25 12:42
Discharge Date and Time
Print Language: TUVALUAN
== END 2025-02-06 21:07 | disposition home or self-care (01) ==
LOC: EMR 11:57
PROVIDERS: EMERGENCY PHYSICIAN Emergency Medicine; FAMILY PHYSICIAN Family Medicine
DX: S02.2XXA Fracture of nasal bones, initial encounter for closed fracture (principal); S00.31XA Abrasion of nose, initial encounter; W19.XXXA Unspecified fall, initial encounter; K59.00 Constipation, unspecified; G20.A1 Parkinson's disease without dyskinesia, without mention of fluctuations; E78.00 Pure hypercholesterolemia, unspecified; I10 Essential (primary) hypertension; I25.10 Atherosclerotic heart disease of native coronary artery without angina pectoris; I48.91 Unspecified atrial fibrillation; Z87.891 Personal history of nicotine dependence; Z63.8 Other specified problems related to primary support group; Z93.1 Gastrostomy status; Z11.52 Encounter for screening for COVID-19
CPT/HCPCS: 99284; 70450; 70486; 71046; 72125; 74018; 80053; 81003; 81015; 85025; 87086; 87502; 87811